=== PATIENT | male | born 1945 | race Caucasian/White ===

== ENCOUNTER 2017-12-20 02:29 | Inpatient (IN) | payer MEDICARE, SELFPAY ==
[2017-12-20] VITALS (28 sets, daily range): BP systolic 113–184; BP diastolic 44–87; PULSE 65–89; RESP 14–23; TEMP 35.8–36.8; O2SAT 92–100; BMI 40.4; BMI 39.3
--- NOTE | 2017-12-20 02:33 | EKG12_ITS ---
Test Reason : CP Blood Pressure : / mmHG Vent. Rate : 085 BPM Atrial Rate : 085 BPM P-R Int : 192 ms QRS Dur : 092 ms QT Int : 336 ms P-R-T Axes : 062 -32 051 degrees QTc Int : 399 ms Normal sinus rhythm Left axis deviation Abnormal ECG Confirmed by EMIGDIO TURNER, EFRA ([id number]), television news video editor MOI ECKERT ([id number]) on 12/20/2017 2:28:19 PM Referred By: CAMI Confirmed By:EFRA BEAL MD
--- NOTE | 2017-12-20 02:33 | RAD_ITS ---
STUDY: X-RAY CHEST REASON FOR EXAM: Male, 72 years old. Chest pain TECHNIQUE: Single frontal view of the chest. COMPARISON: 02/13/2017 FINDINGS: The lungs are clear and expanded. There is no demonstrated pleural abnormality. Normal size heart. Normal mediastinum and [place]. Normal visualized pulmonary arteries. Normal visualized aortic arch and descending thoracic aorta. There are diffuse degenerative changes of the visualized thoracic spine. Multiple right rib fusions. There is no demonstrated abnormality of the visualized soft tissue structures of the upper abdomen. RAD/Chest 1 View (Portable) IMPRESSION: No acute pulmonary findings. Electronically Signed: Tyron Ordoñez MD at 3:50 EDT Tel , Service support ,
[2017-12-20 02:41] LABS: Absolute Lymphocyte Count 2.22 X10^3/ul (0.83-4.51); Absolute Neutrophil Count 5.8 X10^3/uL (2.0-7.7); Basophil# 0.02 X10^3/uL; Basophil% 0.2 % (0-1); Eosinophil# 0.31 X10^3/uL; Eosinophils% 3.4 % (0-5); Hematocrit 40.7 % (40-54); Hemoglobin 13.2 g/dl (13.0-16.5); Lymphocyte # 2.22 X10^3/ul (4.0); Lymphocyte % 24.4 % (19-41); Mean Corp Hgb Conc 32.4 g/gl (32-36); Mean Corpuscular Hgb 27.9 pg (27.0-32.0); Mean Platelet Vol. 9.8 fl (6.2-12.0); Monocyte# 0.73 X10^3/uL; Neutrophil % 63.7 % (47-70); Platelet Count 263 K/mm3 (150-450); RBC Distribution Width SD 47.2 fl (35.1-43.9); Red Blood Count 4.73 M/mm3 (4.6-6.2); White Blood Count 9.1 K/mm3 (4.4-11.0)
[2017-12-20 02:42] LABS: POSITIVE COUNT NO; POSITIVE DIFFERENTIAL NO; POSITIVE MORPHOLOGY NO
[2017-12-20] MEDS: fentaNYL 100 MCG/2 ML Ampul 50 MCG IV (02:43)
[2017-12-20 02:58] LABS: Anion Gap 5 (5-15); BUN 30 mg/dL (7-18); BUN/Creat Ratio 22.2 RATIO (10-20); Chloride 104 mmol/L (98-107); Creatinine, Serum 1.35 mg/dL (0.70-1.30); EST Glomerular Filtration Rate 55 mL/min (>60); Est Glom Filt Rate - Afr Amer 67 mL/min (>60); Estimated Creatinine Clearance 48.73 ml/min; Glucose 148 mg/dL (74-106); Sodium Level 139 mmol/L (136-145)
--- NOTE | 2017-12-20 03:17 | ED.DCSUM_ITS ---
- ER Visit Summary Date of Service: 12/20/17 Chief Complaint: Chest pain History of Present Illness: The patient is a 72 M who has chest pain. Started an hour and a half ago while he was sleeping. It sharp in the left parasternal area. It radiates to his left jaw and left arm. Nothing makes it better or worse. He tried 3 nitroglycerin at home without any relief. He took aspirin as well. In March 2016 he had a cardiac catheterization, but no stenting was done. His blocking machine tender is Dr. Damon Physical Examination: Vital signs reviewed. HEENT exam unremarkable. Heart is regular rate and rhythm without murmurs. Lungs are clear to auscultation. Abdomen is soft and nontender. Extremities reveal no edema. Skin exam normal. Neurologic exam normal. Test Results: EKG is normal sinus rhythm with no ST changes. Laboratory studies reveal a troponin of 0.21. Chest x-ray unremarkable Emergency Department Course and Treatment: Patient was given fentanyl and this helped with his pain. Due to his elevated troponin I feel he should be admitted to the hospital. Patient was discussed with the hospitalist for admission Treatment Plan: [] Disposition: Admit Impression: Chest pain This note was generated with [employer] dictation software. It may contain incorrect words, spelling, and punctuation that were not noted in review of the chart prior to signing ED Disposition - Plan for ED Patient: Chief Complaint: Chest Pain Referrals: Casey Handley [Primary Care Provider] -
--- NOTE | 2017-12-20 03:33 | PCM.HP.STD ---
Problem List (1) NSTEMI (non-ST elevated myocardial infarction) Status: Acute (2) Diabetes Status: Chronic (3) Gout Status: Chronic (4) Pseudotumor cerebri Status: Chronic (5) Restless leg syndrome Status: Chronic (6) CAD (coronary artery disease) Status: Chronic (7) VTE (venous thromboembolism) Status: Chronic History of Present Illness Date of Admission: 12/20/17 Chief Complaint: chest pain The patient is a 72 year old M with a known history of coronary artery disease was in his normal state of health but awoke this morning at 1230 with chest pain that started midsternally then radiated to the left side of his chest, then down his left arm and on his left jaw. Patient took 3 series of nitroglycerin without relief. Given that the symptoms are similar to when he has had a heart attack before patient presented to the emergency room. Patient in the emergency room received fentanyl as well as morphine and his pain has completely resolved. With this episode, patient was diaphoretic with nausea but no vomiting. In the emergency room, patient's troponin was 0.21. Patient is being admitted for a non-ST elevation myocardial infarction. [] Past Medical History Past Medical History (Chronic Problems): Chronic Problems VTE (venous thromboembolism) (Chronic) Diabetes (Chronic) Gout (Chronic) Pseudotumor cerebri (Chronic) Restless leg syndrome (Chronic) CAD (coronary artery disease) (Chronic) Allergies morphine Adverse Reaction (Verified 12/20/17 02:33) HALLUCINATIONS HALLUCINATIONS promethazine HCl [From Phenergan] Adverse Reaction (Verified 12/20/17 02:33) GET JUMPY Home Medications: Ambulatory Orders Medication Instructions Recorded Allopurinol [Zyloprim] 100 mg PO DAILY 09/21/15 Acetaminophen [Tylenol] 1,000 mg PO Q8 #90 tablet 02/15/17 Glimepiride [Amaryl] 2 mg PO DAILY@0800 #14 tablet 02/15/17 Calcium/Magnesium/Vitamin D3 1 each PO DAILY 12/20/17 [Sang-Mag Complex 300-150 mg Tab] Cholecalciferol (Vitamin D3) 1,000 unit PO DAILY 12/20/17 [Vitamin D3] Lisinopril [Zestril] 5 mg PO DAILY 12/20/17 Pramipexole Di-HCl [Mirapex] 1 mg PO 4X/DAY 12/20/17 Vitamin E 1,000 unit PO DAILY 12/20/17 Surgical History: - - STENTS,rib and shoulder surgery.total of 5 knee surgeries Psychiatric History: No pertinent psych hx Lives: Spouse/ Significant Other Smoking Status: Never smoker Tobacco Use: Non-smoker Alcohol: None Drugs: None - *Family History Paternal History Items: Heart Disease Review of Systems Constitutional: Denies: Chills, Fever, Weight Change Eyes: Denies: Blurred vision, Double vision HEENT: Denies: Head Aches, Sinus Congestion, Sinus Drainage Cardiovascular: Reports: Chest Pain. Denies: Edema, Palpitations Respiratory: Denies: Cough, Shortness of breath at rest, Sputum production Gastrointestinal: Reports: Nausea. Denies: Abdominal Pain, Vomiting Genitourinary: Denies: Dysuria Musculoskeletal: Reports: Neck Pain, - - Left arm pain when he was having the chest pain but now resolved. Skin: Denies: Rash, Wounds Neurological: Denies: Numbness, Tingling, Focal weakness Psychiatric: Denies: Anxiety, Depression Endocrine: Denies: Change in Body Habitus, Heat/ Cold Intolerance Hematologic/ Lymphatic: Reports: Hx of blood clot - After such a surgery ?1.. Denies: Easy Bruising, Easy Bleeding VTE Information - Inpt Only VTE Present on Admission: No Patient Problems: Active and Suspected Problems NSTEMI (non-ST elevated myocardial infarction) (Acute) - Physical Exam General: Alert, Cooperative, No apparent distress, - - No respiratory distress. No conversational dyspnea. HEENT: Atraumatic, Normocephalic Oral: Moist Mucosa, No Gingival or Mucosal Lesions/ Ulcerations Neck: No Nodes, Thyroid Normal Size and Texture Lungs: Clear to auscultation, Normal air movement, No rhonchi, No wheeze Cardiovascular: Regular rate, Regular Rhythm, Normal S1, Normal S2, No murmurs Abdomen: Bowel Sounds Present, Soft, Non Tender, Non-Distended, No Hepato-splenomegaly Extremities: No clubbing, No cyanosis, No edema, Capillary Refill Less than 3 Seconds Skin: No rashes, No breakdown, - - Longitudinal scar of the left arm and bilateral anterior knees Musculoskeletal: No Tenderness to Palpation of Joints or Extremities, No Muscle Wasting Neurological: Neuro grossly intact, Muscle tone normal, Coordination normal Psych/Mental Status: Normal Affect, Appropriate Vital Signs Temp Pulse Resp BP Pulse Ox 36.7 C 82 14 137/78 H 98 12/20/17 03:17 12/20/17 03:17 12/20/17 03:17 12/20/17 03:17 12/20/17 03:17 Oxygen Flow Rate (L/min) 2 Oxygen Delivery Method Nasal Cannula Weight: 124 kg Body Mass Index (BMI) 40.4 Finger Stick Blood Glucose 293 Laboratory Tests Past 24 Hrs 12/20/17 12/20/17 02:35 02:35 WBC 9.1 RBC 4.73 Hgb 13.2 Hct 40.7 MCV 86.0 MCH 27.9 MCHC 32.4 RDW 15.0 H RDW Differential 47.2 H Plt Count 263 MPV 9.8 Immature Gran % (Auto) 0.300 Neut % (Auto) 63.7 Lymph % (Auto) 24.4 [place] % (Auto) 8.0 Eos % (Auto) 3.4 Baso % (Auto) 0.2 Absolute Neuts (auto) 5.8 Absolute Lymphs (auto) 2.22 Total Counted Not Reportable Sodium 139 Potassium 4.0 Chloride 104 Carbon Dioxide 30.0 Anion Gap 5 BUN 30 H Creatinine 1.35 H Estim Creat Clear Calc 48.73 Est GFR (MDRD) Af Amer 67 Est GFR (MDRD) Non-Af 55 L BUN/Creatinine Ratio 22.2 H Glucose 148 H Calcium 9.0 Troponin I 0.21 H EKG reviewed and showed no normal sinus rhythm with no acute process. Chest x-ray reviewed and was unremarkable. Assessment/Plan Active and Suspected Problems NSTEMI (non-ST elevated myocardial infarction) (Acute) 1. Non-ST elevation myocardial infarction Patient had classic chest pain is left-sided down his arm and up his jaw and with a slight elevation of troponin of 0.21. Will continue to cycle his troponins for 2 more sets Consult cardiology, patient's jboss architect is Dr. Damon. Start aspirin, start therapeutic dosing of Lovenox. I will not order a stress test but will wait on cardiology's recommendations for further testing whether would be actual stress test or a heart catheterization. Patient will be tentatively n.p.o. at 8 AM pending cardiology's input. 2. Diabetes mellitus type 2 Patient be on a sliding scale for now. 3. Chronic kidney disease stage III Creatinine appears at baseline. Would continue to monitor. 4. DVT prophylaxis: Patient will be anticoagulated at this time. 5. Advanced directives: Discussed CPR and endotracheal intubation with the patient. Patient initially stated that he did not wish to be resuscitated. Patient's expressed concern in regards to that. I recommend that he and her more directly before committing to a CODE STATUS. Also told him that if patient does undergo a left heart catheterization there could be potential for an arrhythmia and that I recommended full CODE STATUS at this time. So patient was in agreement to that but did encourage that he and his family further discuss advanced directives at a later point. Code Visit Inpatient E&M: 48925 Init Hosp L3
--- NOTE | 2017-12-20 03:41 | HP.PCM_ITS ---
Problem List (1) NSTEMI (non-ST elevated myocardial infarction) Status: Acute (2) Diabetes Status: Chronic (3) Gout Status: Chronic (4) Pseudotumor cerebri Status: Chronic (5) Restless leg syndrome Status: Chronic (6) CAD (coronary artery disease) Status: Chronic (7) VTE (venous thromboembolism) Status: Chronic History of Present Illness Date of Admission: 12/20/17 Chief Complaint: chest pain The patient is a 72 year old M with a known history of coronary artery disease was in his normal state of health but awoke this morning at 1230 with chest pain that started midsternally then radiated to the left side of his chest, then down his left arm and on his left jaw. Patient took 3 series of nitroglycerin without relief. Given that the symptoms are similar to when he has had a heart attack before patient presented to the emergency room. Patient in the emergency room received fentanyl as well as morphine and his pain has completely resolved. With this episode, patient was diaphoretic with nausea but no vomiting. In the emergency room, patient's troponin was 0.21. Patient is being admitted for a non-ST elevation myocardial infarction. [] Past Medical History Past Medical History (Chronic Problems): Chronic Problems VTE (venous thromboembolism) (Chronic) Diabetes (Chronic) Gout (Chronic) Pseudotumor cerebri (Chronic) Restless leg syndrome (Chronic) CAD (coronary artery disease) (Chronic) Allergies morphine Adverse Reaction (Verified 12/20/17 02:33) HALLUCINATIONS HALLUCINATIONS promethazine HCl [From Phenergan] Adverse Reaction (Verified 12/20/17 02:33) GET JUMPY Home Medications: Ambulatory Orders Medication Instructions Recorded Allopurinol [Zyloprim] 100 mg PO DAILY 09/21/15 Acetaminophen [Tylenol] 1,000 mg PO Q8 #90 tablet 02/15/17 Glimepiride [Amaryl] 2 mg PO DAILY@0800 #14 tablet 02/15/17 Calcium/Magnesium/Vitamin D3 1 each PO DAILY 12/20/17 [Sang-Mag Complex 300-150 mg Tab] Cholecalciferol (Vitamin D3) 1,000 unit PO DAILY 12/20/17 [Vitamin D3] Lisinopril [Zestril] 5 mg PO DAILY 12/20/17 Pramipexole Di-HCl [Mirapex] 1 mg PO 4X/DAY 12/20/17 Vitamin E 1,000 unit PO DAILY 12/20/17 Surgical History: - - STENTS,rib and shoulder surgery.total of 5 knee surgeries Psychiatric History: No pertinent psych hx Lives: Spouse/ Significant Other Smoking Status: Never smoker Tobacco Use: Non-smoker Alcohol: None Drugs: None - *Family History Paternal History Items: Heart Disease Review of Systems Constitutional: Denies: Chills, Fever, Weight Change Eyes: Denies: Blurred vision, Double vision HEENT: Denies: Head Aches, Sinus Congestion, Sinus Drainage Cardiovascular: Reports: Chest Pain. Denies: Edema, Palpitations Respiratory: Denies: Cough, Shortness of breath at rest, Sputum production Gastrointestinal: Reports: Nausea. Denies: Abdominal Pain, Vomiting Genitourinary: Denies: Dysuria Musculoskeletal: Reports: Neck Pain, - - Left arm pain when he was having the chest pain but now resolved. Skin: Denies: Rash, Wounds Neurological: Denies: Numbness, Tingling, Focal weakness Psychiatric: Denies: Anxiety, Depression Endocrine: Denies: Change in Body Habitus, Heat/ Cold Intolerance Hematologic/ Lymphatic: Reports: Hx of blood clot - After such a surgery ?1.. Denies: Easy Bruising, Easy Bleeding VTE Information - Inpt Only VTE Present on Admission: No Patient Problems: Active and Suspected Problems NSTEMI (non-ST elevated myocardial infarction) (Acute) - Physical Exam General: Alert, Cooperative, No apparent distress, - - No respiratory distress. No conversational dyspnea. HEENT: Atraumatic, Normocephalic Oral: Moist Mucosa, No Gingival or Mucosal Lesions/ Ulcerations Neck: No Nodes, Thyroid Normal Size and Texture Lungs: Clear to auscultation, Normal air movement, No rhonchi, No wheeze Cardiovascular: Regular rate, Regular Rhythm, Normal S1, Normal S2, No murmurs Abdomen: Bowel Sounds Present, Soft, Non Tender, Non-Distended, No Hepato- splenomegaly Extremities: No clubbing, No cyanosis, No edema, Capillary Refill Less than 3 Seconds Skin: No rashes, No breakdown, - - Longitudinal scar of the left arm and bilateral anterior knees Musculoskeletal: No Tenderness to Palpation of Joints or Extremities, No Muscle Wasting Neurological: Neuro grossly intact, Muscle tone normal, Coordination normal Psych/Mental Status: Normal Affect, Appropriate Vital Signs Temp Pulse Resp BP Pulse Ox 36.7 C 82 14 137/78 H 98 12/20/17 03:17 12/20/17 03:17 12/20/17 03:17 12/20/17 03:17 12/20/17 03:17 Oxygen Flow Rate (L/min) 2 Oxygen Delivery Method Nasal Cannula Weight: 124 kg Body Mass Index (BMI) 40.4 Finger Stick Blood Glucose 293 Laboratory Tests Past 24 Hrs 12/20/17 12/20/17 02:35 02:35 WBC 9.1 RBC 4.73 Hgb 13.2 Hct 40.7 MCV 86.0 MCH 27.9 MCHC 32.4 RDW 15.0 H RDW Differential 47.2 H Plt Count 263 MPV 9.8 Immature Gran % (Auto) 0.300 Neut % (Auto) 63.7 Lymph % (Auto) 24.4 [place] % (Auto) 8.0 Eos % (Auto) 3.4 Baso % (Auto) 0.2 Absolute Neuts (auto) 5.8 Absolute Lymphs (auto) 2.22 Total Counted Not Reportable Sodium 139 Potassium 4.0 Chloride 104 Carbon Dioxide 30.0 Anion Gap 5 BUN 30 H Creatinine 1.35 H Estim Creat Clear Calc 48.73 Est GFR (MDRD) Af Amer 67 Est GFR (MDRD) Non-Af 55 L BUN/Creatinine Ratio 22.2 H Glucose 148 H Calcium 9.0 Troponin I 0.21 H EKG reviewed and showed no normal sinus rhythm with no acute process. Chest x-ray reviewed and was unremarkable. Assessment/Plan Active and Suspected Problems NSTEMI (non-ST elevated myocardial infarction) (Acute) 1. Non-ST elevation myocardial infarction * Patient had classic chest pain is left-sided down his arm and up his jaw and with a slight elevation of troponin of 0.21. * Will continue to cycle his troponins for 2 more sets * Consult cardiology, patient's road mechanic is Dr. Damon. * Start aspirin, start therapeutic dosing of Lovenox. * I will not order a stress test but will wait on cardiology's recommendations for further testing whether would be actual stress test or a heart catheterization. Patient will be tentatively n.p.o. at 8 AM pending cardiology' s input. 2. Diabetes mellitus type 2 * Patient be on a sliding scale for now. 3. Chronic kidney disease stage III * Creatinine appears at baseline. Would continue to monitor. 4. DVT prophylaxis: Patient will be anticoagulated at this time. 5. Advanced directives: Discussed CPR and endotracheal intubation with the patient. Patient initially stated that he did not wish to be resuscitated. Patient's expressed concern in regards to that. I recommend that he and her more directly before committing to a CODE STATUS. Also told him that if patient does undergo a left heart catheterization there could be potential for an arrhythmia and that I recommended full CODE STATUS at this time. So patient was in agreement to that but did encourage that he and his family further discuss advanced directives at a later point. Code Visit Inpatient E&M: 64770 Init Hosp L3
[2017-12-20 06:06] LABS: Prothrombin Time (Protime)PT. 12.7 SECONDS (11.7-14.9)
[2017-12-20 06:07] LABS: Partial Thromboplast Time 26.4 Seconds (24.1-36.2)
[2017-12-20 06:40] LABS: Cholesterol 191 mg/dL (200); High Density Lipoprotein 38 mg/dL; Triglycerides 238 mg/dL; Very Low Density Lipoprotein 48 mg/dL (5-40)
[2017-12-20] MEDS: Acetaminophen 500 MG Tablet 1000 MG PO (06:59)
[2017-12-20 07:06] LABS: Bedside Glucose 100 mg/dL (70-110)
[2017-12-20] MEDS: 0.9% Normal Saline 1,000 ML 15 ML IV (08:06)
[2017-12-20] MEDS: TICAGRELOR 90 MG TABLET 180 MG PO (08:06)
--- NOTE | 2017-12-20 08:07 | CON.PCM_ITS ---
Reason for Consult Date of Consultation: 12/20/17 Reason for Consultation: Chest discomfort. History of Present Illness: The patient is a 72 year old M with a known history of coronary artery disease who presented to the emergency room yesterday after complaining of significant crushing chest discomfort radiating to the left side of his jaw and his left arm. He was mildly diaphoretic with no nausea no dizziness no palpitations. He said that he uses nitroglycerin sublingually 3 times and also took aspirin. He had not had any previous chest discomfort. He says that this was similar to when he had his stents placed. He presented to the emergency room was evaluated his EKG was noted to be normal he had minimal troponin changes and was admitted to the telemetry care unit. This morning further troponin enzymes were noted to be abnormal cardiology was called for evaluation and management. He is currently pain-free. His past medical history is significant for previously placed stents in [place]. He had an LAD stent placed at that time. In addition he has had multiple procedures with intravascular ultrasound of his left anterior descending artery as well as a cutting balloon procedure in 2009 as well as 2015. [] Past Medical History Allergies/Adverse Reactions: Allergies morphine Adverse Reaction (Verified 12/20/17 02:33) HALLUCINATIONS HALLUCINATIONS promethazine HCl [From Phenergan] Adverse Reaction (Verified 12/20/17 02:33) GET JUMPY Home Medications: Ambulatory Orders Medication Instructions Recorded Allopurinol [Zyloprim] 100 mg PO DAILY 09/21/15 Acetaminophen [Tylenol] 1,000 mg PO Q8 #90 tablet 02/15/17 Glimepiride [Amaryl] 2 mg PO DAILY@0800 #14 tablet 02/15/17 Calcium/Magnesium/Vitamin D3 1 each PO QHS 12/20/17 [Sang-Mag Complex 300-150 mg Tab] Lisinopril [Zestril] 5 mg PO DAILY 12/20/17 Pramipexole Di-HCl [Mirapex] 1 mg PO 4X/DAY 12/20/17 Vitamin E 1,000 unit PO QHS 12/20/17 Past Medical History (Chronic Problems): Chronic Problems CKD (chronic kidney disease), stage III (Chronic) VTE (venous thromboembolism) (Chronic) Diabetes (Chronic) Gout (Chronic) Pseudotumor cerebri (Chronic) Restless leg syndrome (Chronic) CAD (coronary artery disease) (Chronic) Surgical History: - - STENTS,rib and shoulder surgery.total of 5 knee surgeries Psychiatric History: No pertinent psych hx - *Family History Paternal History Items: Heart Disease Lives: Spouse/ Significant Other Smoking Status: Never smoker Tobacco Use: Non-smoker Alcohol: None Drugs: None Review of Systems - Review of Systems General: Denies: Fever, Night Sweats, Fatigue Cardiovascular: Reports: Chest Discomfort at Rest, Chest Pressure, Chest Tightness. Denies: Chest Discomfort, Shortness of Breath, Orthopnea, PND, Peripheral Edema, Palpitations, Lightheadedness, Dizziness, Near Syncope, Syncope Respiratory: Denies: Cough, Sputum Production, Hemoptysis Gastrointestinal: Denies: Hematemesis, Hematochezia, Melena Genitourinary: Denies: Dysuria, Hematuria Skin: Denies: Rash Subjectve: Pleasant gentleman in no apparent distress. Objective: Vital Signs Temp Pulse Resp BP Pulse Ox 96.5 F L 65 18 166/73 H 98 12/20/17 04:16 12/20/17 07:34 12/20/17 04:16 12/20/17 04:16 12/20/17 04:16 Oxygen Flow Rate (L/min) 2 Oxygen Delivery Method Nasal Cannula Weight: 265 lb 6.985 oz Body Mass Index (BMI) 39.3 Intake and Output for Last 24 Hours 12/18/17 12/19/17 12/20/17 23:59 23:59 23:59 Intake Total 0 / 0 Output Total 150 / 150 Balance -150 / -150 General: Awake, Alert, Oriented x 3 HEENT: PERRL, EOMI, Sclera Non Icteric Neck: Supple, Good ROM, No Lymph Node Enlargement Lungs: Clear to auscultation Cardiovascular: Regular Rhythm, Normal S1, Normal S2, No Murmurs, No Rubs, No Gallops Vascular: No Carotid Bruits, Normal Femoral Pulses, Normal Radial Pulses, Normal Dorsalis Pedal Pulse, Normal Posterior Tibial Pulses Abdomen: Bowel Sounds Present, Soft, Non Tender, No HSM, No Organomegaly Extremities: No Cyanosis, No Clubbing, No edema Neurological: No Focal Motor or Sensory Deficit 12/20/17 05:35: Troponin I 3.55 H*, Triglycerides 238 H, Cholesterol 191, LDL Cholesterol 105, VLDL Cholesterol 48 H, HDL Cholesterol 38 L 12/20/17 05:35: PT 12.7, INR 1.0, APTT 26.4 Rhythm: EKG:NSR Assessment/Plan 1. Non-ST elevation myocardial infarction. Patient presents with chest discomfort and a non-ST elevation myocardial infarction. He did have classic angina symptoms. My recommendation at this time would be for him to loaded with Brilinta continue the aspirin, start him on a beta-adilene and schedule him for a left heart catheterization. The risk benefits and alternatives have been explained to him he understands and agrees to proceed. Further recommendations be made based on the above results. He underwent a cardiac catheterization this morning and it demonstrated a normal left main coronary artery Left anterior descending artery with the previously placed stent with mild in- stent stenosis. Mid to distal left anterior descending artery with a 70% stenotic lesion. Nondominant left circumflex artery with no significant disease. Right coronary artery with no significant disease. Preserved ejection fraction. Based on the above angiographic findings the patient would be referred for and recommended to have an angioplasty of the mid to distal left anterior descending artery. The above has been discussed with the interventionalist 2. Hypertension His blood pressure was noted to be elevated. The plan will be to continue him on his lisinopril and add a beta-adilene to his regimen. 3. Risk factor modification He would need to have aggressive risk factor modification with high intensity statin. Weight loss and exercise have also been emphasized. Thank you for allowing me to participate in the care of your patient. Please don't hesitate to call if any issues arise
[2017-12-20] MEDS: Pramipexole Di-HCl 1 MG Tablet PO ×4 (08:08→21:23)
--- NOTE | 2017-12-20 08:17 | NURSING ---
consent signed for cardiac cath pt voiced understanding of procedure, family present, report called to laboratory veterinarian,
--- NOTE | 2017-12-20 10:31 | CL.D_ITS ---
Patient Name: REGINE ANN Study Date: 12/20/2017 Performing: Luis Miguel Redd MD Ht: 68.89 inches 175 cm : 1945 Wt: 264.55 lbs 120 kg Age: 72 Gender: male BSA: 2.32 PROCEDURE(S) PERFORMED [id number]/COR/LV CLINICAL PROFILE AND INDICATIONS INDICATIONS: 72-year-old man with a history of non-ST elevation myocardial infarction and chest p ain. Stress/Imaging Stress/Image Study Performed: No CONCLUSIONS Significant disease involving the mid to distal left anterior descending artery. RECOMMENDATIONS Referred for immediate PCI DESCRIPTION OF PROCEDURE The patient arrived to the procedure lab. The risks and benefits of the procedure as well as a full d escription of our services here and current unavailability of surgical backup were fully explained to the patient and/or their significant other prior to the catheterization. The Timeout was completed, verifying the correct patient and procedure. The patient's procedural site was prepped and draped in the usual fashion. Local anesthetic was given subcutaneously to right groin region with Lidocaine 2%. Using a modified Seldinger technique, arterial access was obtained via the right femoral artery, a 5 Fr sheath was inserted. Left Coronary Artery selective angiography was performed in multiple views u sing a 5 Fr. JL4 catheter. Right Coronary Artery selective angiography was then performed in multiple views using a 5 Fr. 3DRC (Dominguez) catheter. Left Ventriculography was performed in DICKENS projection using a 5 Fr. Pigtail catheter. LV to AO pullback pressures were then recorded. CORONARY ANGIOGRAPHY DOMINANCE: Right Dominant LEFT HEART ASSESSMENT Left Ventricular Ejection Fraction: by LV Gram 60 % Normal LV wall motion Normal Left Ventricular systolic function LEFT MAIN: Angiographically normal LEFT ANTERIOR DECENDING ARTERY: PROX LAD: Previously placed stent has an instent 30 % restenosis DISTAL LAD: 70 % Stenosis CIRCUMFLEX ARTERY: Angiographically normal RIGHT CORONARY ARTERY: Angiographically normal COMPLICATIONS PROCEDURE MEDICATIONS Versed 1 mg IV Fentanyl 25 mcg IV Versed 1 mg IV Oxygen: 2 L/min via nasal cannula SUMMARY OF HEMODYNAMIC DATA Time AIR REST ECG 09:49:52 AO 154/87 (117) SA 10:07:37 LV 142/15, 26 10:14:54 LV 149/14, 30 10:15:07 LV 67/16, 19 10:16:04 LVp 103/22, 34 10:16:16 AOp 134/74 (100) 10:16:22 Signed By Luis Miguel Redd MD On 12/20/2017 10:30:28 Luis Miguel Redd MD
--- NOTE | 2017-12-20 10:56 | CASEMGMT ---
ROSEANNE CHAPARRO reviewed chart and noted patient was admitted for Chest Pain/NSTEMI and went for cardiac cath this morning. Per chargeback analyst, Alex, patient is being transferred to ICU from cardiac cath lab manager. ROSEANNE CHAPARRO provided brief verbal ROSEANNE CHAPARRO handoff report to Trisha Nicholson, including need for admission assessment. MAGO GrossmanN, RN-BC, CCM
--- NOTE | 2017-12-20 11:00 | EKG12_ITS ---
Test Reason : POST PCI Blood Pressure : / mmHG Vent. Rate : 071 BPM Atrial Rate : 071 BPM P-R Int : 204 ms QRS Dur : 084 ms QT Int : 364 ms P-R-T Axes : 089 -33 040 degrees QTc Int : 395 ms Sinus rhythm with marked sinus arrhythmia Left axis deviation Abnormal ECG When compared with ECG of 20-DEC-2017 02:31, No significant change was found Confirmed by EMIGDIO TURNER, EFRA ([id number]), loan expeditor MOI ECKERT ([id number]) on 12/26/2017 3:54:56 PM Referred By: ASHLEY Confirmed By:EFRA BEAL MD
--- NOTE | 2017-12-20 11:00 | NURSING ---
report called to icu for transfer post cath to icu
[2017-12-20 11:01] LABS: ACT Activated Clotting Time 180 sec (74-137)
--- NOTE | 2017-12-20 11:12 | CL.I_ITS ---
Patient Name: CAIO ANN Study Date: 12/20/2017 Performing: Caio Gutiérrez MD Ht: 68.89 inches 175 cm : 1945 Wt: 264.55 lbs 120 kg Age: 72 Gender: male BSA: 2.32 PROCEDURE(S) PERFORMED [id number] W OR WO PTCA, SINGLE CORONARY ARTERY CLINICAL PROFILE AND CO-MORBIDITIES INDICATIONS: 72-year-old man with a history of non-ST elevation myocardial infarction and chest p ain. Stress/Imaging Stress/Image Study Performed: No CONCLUSIONS Successful PTCA/MACHO of the of distal LAD with a 2.25 x 24 Promus Synergy, post dilated with a 2.5 x 8 NC balloon; 75%-->0%, no dissection. RECOMMENDATIONS Highly recommend quitting all tobacco products Follow up with primary solar energy consultant and designer Risk factor modification ASA Indefinitley Plavix for at least 12 months Routine post interventional care Refer for Outpatient Cardiac Rehab Manual sheath removal per protocol Follow up with Dr. Damon DESCRIPTION OF PROCEDURE The patient arrived to the procedure lab. The risks and benefits of the procedure as well as a full d escription of our services here and current unavailability of surgical backup were fully explained to the patient and/or their significant other prior to the catheterization. The Timeout was completed, verifying the correct patient and procedure. The patient's procedural site was prepped and draped in the usual fashion. Local anesthetic was given subcutaneously to right groin region with Lidocaine 2% Using a modified Seldinger technique,arterial access was obtained via the right femoral artery, a 5Fr sheath was inserted. Left Coronary Artery selective angiography was performed in multiple views usin g a 5 Fr. JL4 catheter. Right Coronary Artery selective angiography was then performed in multiple vi ews using a 5 Fr. 3DRC (Dominguez) catheter. Left Ventriculography was performed in DICKENS projection usi ng a 5 Fr. Pigtail catheter. LV to AO pullback pressures were then recorded.The images were reviewed and options discussed. A decision was then made to proceed with an Intervention, IVUS or other adjunc t procedure. Arterial sheath was exchanged for a 6 Fr Sheath EBU 3.75 Guide catheter was inserted and engaged into the LCA. BMW Guide wire was advanced to the LAD. Angiogram performed pre balloon dilatation. 2.0x12 Emerge Balloon catheter was advanced across lesion in the LAD, distal. PTCA balloon inflated at 8 pati s for 15 secs PTCA balloon inflated at 7 atms for 11 secs 2.25x24 Synergy Drug Eluting stent was adva nced across the lesion in the LAD, distal. 2.5x8 NC Emerge Balloon catheter was inserted post stent. Angiogram performed post stent deployment.. Contrast was injected through the sheath and the Right Il iac and Femoral artery were assessed for possible closure device.. The arterial sheath was pulled an d a Mynx closure device was deployed for hemostasis. INTERVENTION INFORMATION LESION SITE: LAD (Distal) Lesion Complexity: High/C, lesion length: 24 mm, culprit lesion: Yes, lesion at bifurcation: No Pre Stenosis: 75 % Pre intervention JACOB flow: 3 PROCEDURE: Drug Eluting Stent with pre and post dilatation Post Stenosis: 0 % Post intervention JACOB flow: 3 Lesion Devices: [employer] 6 Fr EBU3.75 100cm Guide Catheter Wilner Sci EMERGE MR 2.00x12 BALLOON Wilner Sci Synergy MR MACHO 2.25x24 Wilner Sci NC EMERGE MR 2.50x08 BALLOON COMPLICATIONS No Complications PROCEDURE MEDICATIONS Versed 1 mg IV Fentanyl 25 mcg IV Versed 1 mg IV Oxygen: 2 L/min via nasal cannula Heparin 6000 unit(s) IV 12/20/2017 10:31:32 Nitro 200 mcg IC 12/20/2017 10:33:24 Nitro 200 mcg IC 12/20/2017 10:33:24 Nitro 200 mcg IC 12/20/2017 10:38:03 IV Fluids: .9 NaCl increased to open ml/hr 12/20/2017 10:31:40 SUMMARY OF HEMODYNAMIC DATA Time AIR REST ECG 09:49:52 AO 154/87 (117) SA 10:07:37 LV 142/15, 26 10:14:54 LV 149/14, 30 10:15:07 LV 67/16, 19 10:16:04 LVp 103/22, 34 10:16:16 AOp 134/74 (100) 10:16:22 Signed By Caio Gutiérrez MD On 12/20/2017 11:11:38 AM Caio Gutiérrez MD
[2017-12-20] MEDS: 0.9% Normal Saline 1,000 ML 150 ML IV (11:38)
[2017-12-20] MEDS: Lisinopril 5 MG Tablet PO (11:40)
[2017-12-20 11:50] LABS: Hematocrit 39.5 % (40-54); Hemoglobin 12.4 g/dl (13.0-16.5); Mean Corp Hgb Conc 31.4 g/gl (32-36); Mean Corpuscular Hgb 27.4 pg (27.0-32.0); Mean Corpuscular Volume 87.4 fL (80-94); Mean Platelet Vol. 10.1 fl (6.2-12.0); Platelet Count 231 K/mm3 (150-450); RBC Distribution Width CV 15.1 % (11.6-14.6); RBC Distribution Width SD 48.4 fl (35.1-43.9); Red Blood Count 4.52 M/mm3 (4.6-6.2); Scan Indicated on CBC? Y/N NO; White Blood Count 7.7 K/mm3 (4.4-11.0)
[2017-12-20 12:19] LABS: CPK Total, Creatine Kinase 279 U/L (39-308)
[2017-12-20 12:53] LABS: M R Staph aureus DNA By PCR Negative (Negative); Probe Check PASS; Specimen Processing Control PASS
[2017-12-20 12:55] LABS: Bedside Glucose 85 mg/dL (70-110)
[2017-12-20] MEDS: Allopurinol 100 MG Tablet PO (13:07)
[2017-12-20] MEDS: Vitamin E 400 UNITS Capsule 800 UNITS PO (13:07)
[2017-12-20] MEDS: Calcium Carb/Vitamin D 1 TABLET Tablet PO (13:07)
--- NOTE | 2017-12-20 14:07 | CRPHASE1 ---
Patient Data/Charges Rn Neonatal:: Constantine Damon PCP:: Casey Handley Mt Date/Diagnosis #1:: 12/20/17 Heart cath w/int/PCI Risk Factors/Lifestyle Smoking Status: Never smoker Hx Hypertension: Yes Hx Diabetes Mellitus Type 2: Yes Hx Obesity: Yes Height: 1.73 m Weight:: 120.4 kg BMI: 40.4 ETOH: No Substance Abuse: No Past Cardiac Illness: Coronary Artery Disease, Previous PCI w/Stent Laboratory Values: Cardiac Rehab Phase I Labs Triglycerides 238 mg/dL (-199) H 12/20/17 05:35 Cholesterol 191 mg/dL (200) 12/20/17 05:35 LDL Cholesterol 105 mg/dL (0-130) 12/20/17 05:35 HDL Cholesterol 38 mg/dL (40-) L 12/20/17 05:35 Phase I Education Given On:: [place] Knowledge of Condition:: Yes Medical/Surgical History NM:: Yes Angina:: Yes CAD:: Yes Diabetes:: Yes Hypertension:: Yes DVT:: Yes Renal:: Yes - kidney stones Discharge/Home/Social Eval Discharge Disposition: Home Marital Status:
--- NOTE | 2017-12-20 14:12 | CRPHASE1_ITS ---
Patient Data/Charges Collector Of Port:: Constantine Damon PCP:: Casey Handley Mt Date/Diagnosis #1:: 12/20/17 Heart cath w/int/PCI Risk Factors/Lifestyle Smoking Status: Never smoker Hx Hypertension: Yes Hx Diabetes Mellitus Type 2: Yes Hx Obesity: Yes Height: 1.73 m Weight:: 120.4 kg BMI: 40.4 ETOH: No Substance Abuse: No Past Cardiac Illness: Coronary Artery Disease, Previous PCI w/Stent Laboratory Values: Cardiac Rehab Phase I Labs Triglycerides 238 mg/dL (-199) H 12/20/17 05:35 Cholesterol 191 mg/dL (200) 12/20/17 05:35 LDL Cholesterol 105 mg/dL (0-130) 12/20/17 05:35 HDL Cholesterol 38 mg/dL (40-) L 12/20/17 05:35 Phase I Education Given On:: [place] Knowledge of Condition:: Yes Medical/Surgical History VA:: Yes Angina:: Yes CAD:: Yes Diabetes:: Yes Hypertension:: Yes DVT:: Yes Renal:: Yes - kidney stones Discharge/Home/Social Eval Discharge Disposition: Home Marital Status:
--- NOTE | 2017-12-20 14:12 | CRPH1.INSTRU ---
General Education CAD and cardiac anatomy and function:: Needs reinforcement Explanation of diagnoses and procedures:: Needs reinforcement Sign/Symptoms of NC:: Needs reinforcement Antiplatelet therapy: Patient communicates acknowledgment, Needs reinforcement Proper use of NTG-SL: Patient communicates acknowledgment, Family communicates acknowledgment Emergency procedures and activation of EMS: Needs reinforcement Compliance of all prescribed medications: Not instructed Smoking Nicotine/Smoking Response Code:: Not instructed Dyslipidemia Recommendations Include:: Lipid profile provided Overweight/Obesity Patient Overweight/Obesity Risk Factors Are:: Obesity - > or = 30 Overweight/Obesity:: Not instructed Hypertension Hypertension:: Not instructed Heart Disease Heart Disease Response Code:: Not instructed Diabetes Diabetes:: Needs reinforcement Metabolic Syndrome Metabolic Syndrome Response Code:: Needs reinforcement Sedentary Sedentary Response Code:: Not instructed Stress Stress Response Code:: Not instructed
--- NOTE | 2017-12-20 14:44 | CASEMGMT ---
See RN CM Assessment link. DC Plan: home. No dc needs identified. [employer] savings card given to . Art CURRY RN
[2017-12-20 16:41] LABS: Bedside Glucose 107 mg/dL (70-110)
[2017-12-20 16:50] LABS: Hematocrit 39.1 % (40-54); Hemoglobin 12.3 g/dl (13.0-16.5); Mean Corp Hgb Conc 31.5 g/gl (32-36); Mean Corpuscular Hgb 27.3 pg (27.0-32.0); Mean Corpuscular Volume 86.9 fL (80-94); Mean Platelet Vol. 9.8 fl (6.2-12.0); Platelet Count 222 K/mm3 (150-450); RBC Distribution Width CV 15.1 % (11.6-14.6); RBC Distribution Width SD 48.1 fl (35.1-43.9); White Blood Count 7.2 K/mm3 (4.4-11.0)
[2017-12-20 16:58] LABS: Magnesium 1.8 mg/dL (1.6-2.6); Potassium 4.1 mmol/L (3.5-5.1)
[2017-12-20 17:00] LABS: Scan Indicated on CBC? Y/N NO
[2017-12-20] MEDS: 0.9% NaCl Peripheral Flush Adult/Peds IV (17:05)
[2017-12-20 17:20] LABS: CPK Total, Creatine Kinase 236 U/L (39-308)
[2017-12-20] MEDS: Metoprolol Tartrate 25 MG Tablet PO (19:42)
[2017-12-20 21:30] LABS: Bedside Glucose 147 mg/dL (70-110)
[2017-12-20 23:10] LABS: Hematocrit 36.6 % (40-54); Mean Corp Hgb Conc 32.8 g/gl (32-36); Mean Corpuscular Hgb 28.4 pg (27.0-32.0); Mean Corpuscular Volume 86.5 fL (80-94); Platelet Count 230 K/mm3 (150-450); RBC Distribution Width CV 14.9 % (11.6-14.6); RBC Distribution Width SD 46.4 fl (35.1-43.9); Red Blood Count 4.23 M/mm3 (4.6-6.2); White Blood Count 8.4 K/mm3 (4.4-11.0)
[2017-12-20 23:16] LABS: Scan Indicated on CBC? Y/N NO
[2017-12-20 23:28] LABS: CPK Total, Creatine Kinase 189 U/L (39-308)
[2017-12-21] VITALS (13 sets, daily range): BP systolic 119–162; BP diastolic 61–82; PULSE 64–78; RESP 15–21; TEMP 36.3–36.8; O2SAT 94–97
--- NOTE | 2017-12-21 05:55 | EKG12_ITS ---
Test Reason : AM EKG Blood Pressure : / mmHG Vent. Rate : 068 BPM Atrial Rate : 068 BPM P-R Int : 192 ms QRS Dur : 092 ms QT Int : 364 ms P-R-T Axes : 075 -30 048 degrees QTc Int : 387 ms Normal sinus rhythm Left axis deviation Abnormal ECG When compared with ECG of 20-DEC-2017 11:28, MANUAL COMPARISON REQUIRED, DATA IS UNCONFIRMED Confirmed by EMIGDIO TURNER, EFRA ([id number]), editor school photograph MOI ECKERT ([id number]) on 12/26/2017 3:54:44 PM Referred By: SUSAN Confirmed By:EFRA BEAL MD
[2017-12-21 08:26] LABS: Bedside Glucose 121 mg/dL (70-110)
[2017-12-21 09:07] LABS: Hematocrit 39.7 % (40-54); Hemoglobin 12.8 g/dl (13.0-16.5); Mean Corp Hgb Conc 32.2 g/gl (32-36); Mean Corpuscular Hgb 27.8 pg (27.0-32.0); Mean Corpuscular Volume 86.3 fL (80-94); Platelet Count 238 K/mm3 (150-450); RBC Distribution Width CV 14.9 % (11.6-14.6); RBC Distribution Width SD 47.2 fl (35.1-43.9); Scan Indicated on CBC? Y/N NO; White Blood Count 10.1 K/mm3 (4.4-11.0)
[2017-12-21 09:08] LABS: Anion Gap 7 (5-15); BUN 18 mg/dL (7-18); BUN/Creat Ratio 16.5 RATIO (10-20); Calcium,Total 8.6 mg/dL (8.5-10.1); Chloride 103 mmol/L (98-107); Creatinine, Serum 1.09 mg/dL (0.70-1.30); EST Glomerular Filtration Rate 70 mL/min (>60); Est Glom Filt Rate - Afr Amer 85 mL/min (>60); Estimated Creatinine Clearance 58.39 ml/min; Glucose 138 mg/dL (74-106); Potassium 4.4 mmol/L (3.5-5.1); Sodium Level 139 mmol/L (136-145)
--- NOTE | 2017-12-21 09:09 | PCM.PROGNOTE ---
Patient Problems: Active and Suspected Problems NSTEMI (non-ST elevated myocardial infarction) (Acute) Subjective: Chief complaint: Follow-up after admission for non-ST elevation ND. Patient seen and examined. No acute events overnight. He denies any more chest pain or shortness of breath. Denies any significant symptoms. Blood pressure slightly elevated, other vital signs are stable. - Physical Exam General: Alert, Oriented x3, Cooperative, No apparent distress HEENT: Atraumatic, PERRLA, EOMI Oral: Moist Mucosa, No Gingival or Mucosal Lesions/ Ulcerations Neck: Supple, No JVD, Negative Carotid Bruits, Trachea Midline, Thyroid Normal Size and Texture Lungs: Clear to auscultation, No rhonchi, No wheeze, No rales, Diminished Cardiovascular: Regular rate, Regular Rhythm, Normal S1, Normal S2, PMI Normal Abdomen: Bowel Sounds Present, Soft, Non Tender, Non-Distended, No Hepato-splenomegaly, Obese Extremities: No clubbing, No cyanosis, No edema Skin: No rashes, No breakdown Lymphatic: No Cervical, Supraclavicular, or Inguinal Adenopathy Neurological: Cranial nerves II-XII grossly intact, Motor Exam 5/5 strength throughout Psych/Mental Status: Normal Affect, Appropriate, Alert and oriented to time, place, person, mood and affect Vital Signs Temp Pulse Resp BP Pulse Ox 97.9 F 71 16 145/75 H 94 12/21/17 00:00 12/21/17 06:00 12/21/17 06:00 12/21/17 06:00 12/21/17 07:02 Oxygen Flow Rate (L/min) 2 Oxygen Delivery Method Room Air Weight: 265 lb 6.985 oz Body Mass Index (BMI) 39.3 Intake and Output for Last 24 Hours 12/19/17 12/20/17 12/21/17 23:59 23:59 23:59 Intake Total 2290 / 2290 Output Total 1350 / 1350 375 / 375 Balance 940 / 940 -375 / -375 Laboratory Tests Past 24 Hrs 12/20/17 12/20/17 12/20/17 10:51 11:25 11:25 WBC 7.7 RBC 4.52 L Hgb 12.4 L Hct 39.5 L MCV 87.4 MCH 27.4 MCHC 31.4 L RDW 15.1 H RDW Differential 48.4 H Plt Count 231 MPV 10.1 Activated Clotting Time 180 H Sodium Potassium Chloride Carbon Dioxide Anion Gap BUN Creatinine Estim Creat Clear Calc Est GFR (MDRD) Af Amer Est GFR (MDRD) Non-Af BUN/Creatinine Ratio Glucose Calcium Magnesium Total Creatine Kinase 279 MRSA (PCR) 12/20/17 12/20/17 12/20/17 11:25 16:40 16:40 WBC 7.2 RBC 4.50 L Hgb 12.3 L Hct 39.1 L MCV 86.9 MCH 27.3 MCHC 31.5 L RDW 15.1 H RDW Differential 48.1 H Plt Count 222 MPV 9.8 Activated Clotting Time Sodium Potassium Chloride Carbon Dioxide Anion Gap BUN Creatinine Estim Creat Clear Calc Est GFR (MDRD) Af Amer Est GFR (MDRD) Non-Af BUN/Creatinine Ratio Glucose Calcium Magnesium Total Creatine Kinase 236 MRSA (PCR) Negative 12/20/17 12/20/17 12/20/17 16:40 23:00 23:00 WBC 8.4 RBC 4.23 L Hgb 12.0 L Hct 36.6 L MCV 86.5 MCH 28.4 MCHC 32.8 RDW 14.9 H RDW Differential 46.4 H Plt Count 230 MPV 10.0 Activated Clotting Time Sodium Potassium 4.1 Chloride Carbon Dioxide Anion Gap BUN Creatinine Estim Creat Clear Calc Est GFR (MDRD) Af Amer Est GFR (MDRD) Non-Af BUN/Creatinine Ratio Glucose Calcium Magnesium 1.8 Total Creatine Kinase 189 MRSA (PCR) 12/21/17 12/21/17 08:50 08:50 WBC 10.1 RBC 4.60 Hgb 12.8 L Hct 39.7 L MCV 86.3 MCH 27.8 MCHC 32.2 RDW 14.9 H RDW Differential 47.2 H Plt Count 238 MPV 10.0 Activated Clotting Time Sodium 139 Potassium 4.4 Chloride 103 Carbon Dioxide 29.0 Anion Gap 7 BUN 18 Creatinine 1.09 Estim Creat Clear Calc 58.39 Est GFR (MDRD) Af Amer 85 Est GFR (MDRD) Non-Af 70 BUN/Creatinine Ratio 16.5 Glucose 138 H Calcium 8.6 Magnesium Total Creatine Kinase MRSA (PCR) POC Glucose 12/21/17 12/20/17 12/20/17 08:12 21:21 16:35 POC Glucose 121 H 147 H 107 12/20/17 12:50 POC Glucose 85 Medical Necessity - Tobacco Use Smoking Status: Never smoker Tobacco Use: Non-smoker Assessment/Plan Active and Suspected Problems NSTEMI (non-ST elevated myocardial infarction) (Acute) This is a 72 years old male patient presented to the emergency room because of chest pain and he was found to have non-ST elevation ND. #1 non-ST elevation ND: Status post cardiac catheterization and PTCA/MACHO to distal LAD. He is on aspirin, Brilinta, lisinopril and metoprolol. His blood pressure slightly elevated, other vital signs are stable. Cardiology on the case. Routine blood work from today has been unremarkable. #2 renal insufficiency: It is not clear if this is acute or chronic. In November,, creatinine has been around 1.4-1.5. On January,, creatinine was 1.58. Admission creatinine is 1.35, came down to 1.0 today. Stable. #3 hypertension: Blood pressure slightly elevated this morning, continue metoprolol and lisinopril. #4 type 2 diabetes mellitus: Blood sugar stable, continue glimepiride and sliding scale. #5 DVT prophylaxis: SCDs. This note was generated with tydy dictation software. It may contain incorrect words, spelling, and punctuation that were not noted in checking the note before signing.
--- NOTE | 2017-12-21 09:10 | PCM.PN.CARD ---
Subjectve: Patient seen and evaluated. Doing well this morning with no complaints no groin pain. Objective: Vital Signs Temp Pulse Resp BP Pulse Ox 97.9 F 71 16 145/75 H 94 12/21/17 00:00 12/21/17 06:00 12/21/17 06:00 12/21/17 06:00 12/21/17 07:02 Oxygen Flow Rate (L/min) 2 Oxygen Delivery Method Room Air Weight: 265 lb 6.985 oz Body Mass Index (BMI) 39.3 Intake and Output for Last 24 Hours 12/19/17 12/20/17 12/21/17 23:59 23:59 23:59 Intake Total 2290 / 2290 Output Total 1350 / 1350 375 / 375 Balance 940 / 940 -375 / -375 General: Awake, Alert, Oriented x 3 HEENT: PERRL, EOMI, Sclera Non Icteric Neck: Supple, Good ROM, No Lymph Node Enlargement Lungs: Clear to auscultation Cardiovascular: Regular Rhythm, Normal S1, Normal S2, No Murmurs, No Rubs, No Gallops Vascular: No Carotid Bruits, Normal Femoral Pulses, Normal Radial Pulses, Normal Dorsalis Pedal Pulse, Normal Posterior Tibial Pulses Abdomen: Bowel Sounds Present, Soft, Non Tender, No HSM, No Organomegaly Extremities: No Cyanosis, No Clubbing, No edema Neurological: No Focal Motor or Sensory Deficit 12/20/17 11:25: WBC 7.7, RBC 4.52 L, Hgb 12.4 L, Hct 39.5 L, MCV 87.4, MCH 27.4, MCHC 31.4 L, RDW 15.1 H, RDW Differential 48.4 H, Plt Count 231, MPV 10.1 12/20/17 16:40: WBC 7.2, RBC 4.50 L, Hgb 12.3 L, Hct 39.1 L, MCV 86.9, MCH 27.3, MCHC 31.5 L, RDW 15.1 H, RDW Differential 48.1 H, Plt Count 222, MPV 9.8 12/20/17 16:40: Potassium 4.1, Magnesium 1.8 12/20/17 23:00: WBC 8.4, RBC 4.23 L, Hgb 12.0 L, Hct 36.6 L, MCV 86.5, MCH 28.4, MCHC 32.8, RDW 14.9 H, RDW Differential 46.4 H, Plt Count 230, MPV 10.0 12/21/17 08:50: Sodium 139, Potassium 4.4, Chloride 103, Carbon Dioxide 29.0, Anion Gap 7, BUN 18, Creatinine 1.09, Est GFR (MDRD) Af Amer 85, Est GFR (MDRD) Non-Af 70, BUN/Creatinine Ratio 16.5, Glucose 138 H, Calcium 8.6 12/21/17 08:50: WBC 10.1, RBC 4.60, Hgb 12.8 L, Hct 39.7 L, MCV 86.3, MCH 27.8, MCHC 32.2, RDW 14.9 H, RDW Differential 47.2 H, Plt Count 238, MPV 10.0 Rhythm: EKG: Normal sinus rhythm with no acute changes. Medical Necessity - Tobacco Use Smoking Status: Never smoker Tobacco Use: Non-smoker Assessment/Plan 1. Non-ST elevation myocardial infarction. Patient presented with chest discomfort and a non-ST elevation myocardial infarction. He did have classic angina symptoms. He underwent a cardiac catheterization and it demonstrated a normal left main coronary artery Left anterior descending artery with the previously placed stent with mild in-stent stenosis. Mid to distal left anterior descending artery with a 70% stenotic lesion. Nondominant left circumflex artery with no significant disease. Right coronary artery with no significant disease. Preserved ejection fraction. He underwent angioplasty and stenting of the mid to distal left anterior descending artery without any complications. His hemoglobin has remained stable with no fall and his creatinine has also remained stable with no rise. His EKG demonstrates normal sinus rhythm with no acute changes. 2. Hypertension His blood pressure was noted to be elevated. The plan will be to continue him on his lisinopril and add a beta-adilene to his regimen. 3. Risk factor modification He would need to have aggressive risk factor modification with high intensity statin. Weight loss and exercise have also been emphasized. Thank you for allowing me to participate in the care of your patient. Please don't hesitate to call if any issues arise He can be discharged today for outpatient follow-up and cardiac rehabilitation.
--- NOTE | 2017-12-21 09:13 | PN.CARD_ITS ---
Subjectve: Patient seen and evaluated. Doing well this morning with no complaints no groin pain. Objective: Vital Signs Temp Pulse Resp BP Pulse Ox 97.9 F 71 16 145/75 H 94 12/21/17 00:00 12/21/17 06:00 12/21/17 06:00 12/21/17 06:00 12/21/17 07:02 Oxygen Flow Rate (L/min) 2 Oxygen Delivery Method Room Air Weight: 265 lb 6.985 oz Body Mass Index (BMI) 39.3 Intake and Output for Last 24 Hours 12/19/17 12/20/17 12/21/17 23:59 23:59 23:59 Intake Total 2290 / 2290 Output Total 1350 / 1350 375 / 375 Balance 940 / 940 -375 / -375 General: Awake, Alert, Oriented x 3 HEENT: PERRL, EOMI, Sclera Non Icteric Neck: Supple, Good ROM, No Lymph Node Enlargement Lungs: Clear to auscultation Cardiovascular: Regular Rhythm, Normal S1, Normal S2, No Murmurs, No Rubs, No Gallops Vascular: No Carotid Bruits, Normal Femoral Pulses, Normal Radial Pulses, Normal Dorsalis Pedal Pulse, Normal Posterior Tibial Pulses Abdomen: Bowel Sounds Present, Soft, Non Tender, No HSM, No Organomegaly Extremities: No Cyanosis, No Clubbing, No edema Neurological: No Focal Motor or Sensory Deficit 12/20/17 11:25: WBC 7.7, RBC 4.52 L, Hgb 12.4 L, Hct 39.5 L, MCV 87.4, MCH 27.4 , MCHC 31.4 L, RDW 15.1 H, RDW Differential 48.4 H, Plt Count 231, MPV 10.1 12/20/17 16:40: WBC 7.2, RBC 4.50 L, Hgb 12.3 L, Hct 39.1 L, MCV 86.9, MCH 27.3 , MCHC 31.5 L, RDW 15.1 H, RDW Differential 48.1 H, Plt Count 222, MPV 9.8 12/20/17 16:40: Potassium 4.1, Magnesium 1.8 12/20/17 23:00: WBC 8.4, RBC 4.23 L, Hgb 12.0 L, Hct 36.6 L, MCV 86.5, MCH 28.4 , MCHC 32.8, RDW 14.9 H, RDW Differential 46.4 H, Plt Count 230, MPV 10.0 12/21/17 08:50: Sodium 139, Potassium 4.4, Chloride 103, Carbon Dioxide 29.0, Anion Gap 7, BUN 18, Creatinine 1.09, Est GFR (MDRD) Af Amer 85, Est GFR (MDRD) Non-Af 70, BUN/Creatinine Ratio 16.5, Glucose 138 H, Calcium 8.6 12/21/17 08:50: WBC 10.1, RBC 4.60, Hgb 12.8 L, Hct 39.7 L, MCV 86.3, MCH 27.8, MCHC 32.2, RDW 14.9 H, RDW Differential 47.2 H, Plt Count 238, MPV 10.0 Rhythm: EKG: Normal sinus rhythm with no acute changes. Medical Necessity - Tobacco Use Smoking Status: Never smoker Tobacco Use: Non-smoker Assessment/Plan 1. Non-ST elevation myocardial infarction. Patient presented with chest discomfort and a non-ST elevation myocardial infarction. He did have classic angina symptoms. He underwent a cardiac catheterization and it demonstrated a normal left main coronary artery Left anterior descending artery with the previously placed stent with mild in- stent stenosis. Mid to distal left anterior descending artery with a 70% stenotic lesion. Nondominant left circumflex artery with no significant disease. Right coronary artery with no significant disease. Preserved ejection fraction. He underwent angioplasty and stenting of the mid to distal left anterior descending artery without any complications. His hemoglobin has remained stable with no fall and his creatinine has also remained stable with no rise. His EKG demonstrates normal sinus rhythm with no acute changes. 2. Hypertension His blood pressure was noted to be elevated. The plan will be to continue him on his lisinopril and add a beta-adilene to his regimen. 3. Risk factor modification He would need to have aggressive risk factor modification with high intensity statin. Weight loss and exercise have also been emphasized. Thank you for allowing me to participate in the care of your patient. Please don't hesitate to call if any issues arise He can be discharged today for outpatient follow-up and cardiac rehabilitation.
--- NOTE | 2017-12-21 09:16 | PN_ITS ---
Patient Problems: Active and Suspected Problems NSTEMI (non-ST elevated myocardial infarction) (Acute) Subjective: Chief complaint: Follow-up after admission for non-ST elevation OK. Patient seen and examined. No acute events overnight. He denies any more chest pain or shortness of breath. Denies any significant symptoms. Blood pressure slightly elevated, other vital signs are stable. - Physical Exam General: Alert, Oriented x3, Cooperative, No apparent distress HEENT: Atraumatic, PERRLA, EOMI Oral: Moist Mucosa, No Gingival or Mucosal Lesions/ Ulcerations Neck: Supple, No JVD, Negative Carotid Bruits, Trachea Midline, Thyroid Normal Size and Texture Lungs: Clear to auscultation, No rhonchi, No wheeze, No rales, Diminished Cardiovascular: Regular rate, Regular Rhythm, Normal S1, Normal S2, PMI Normal Abdomen: Bowel Sounds Present, Soft, Non Tender, Non-Distended, No Hepato- splenomegaly, Obese Extremities: No clubbing, No cyanosis, No edema Skin: No rashes, No breakdown Lymphatic: No Cervical, Supraclavicular, or Inguinal Adenopathy Neurological: Cranial nerves II-XII grossly intact, Motor Exam 5/5 strength throughout Psych/Mental Status: Normal Affect, Appropriate, Alert and oriented to time, place, person, mood and affect Vital Signs Temp Pulse Resp BP Pulse Ox 97.9 F 71 16 145/75 H 94 12/21/17 00:00 12/21/17 06:00 12/21/17 06:00 12/21/17 06:00 12/21/17 07:02 Oxygen Flow Rate (L/min) 2 Oxygen Delivery Method Room Air Weight: 265 lb 6.985 oz Body Mass Index (BMI) 39.3 Intake and Output for Last 24 Hours 12/19/17 12/20/17 12/21/17 23:59 23:59 23:59 Intake Total 2290 / 2290 Output Total 1350 / 1350 375 / 375 Balance 940 / 940 -375 / -375 Laboratory Tests Past 24 Hrs 12/20/17 12/20/17 12/20/17 10:51 11:25 11:25 WBC 7.7 RBC 4.52 L Hgb 12.4 L Hct 39.5 L MCV 87.4 MCH 27.4 MCHC 31.4 L RDW 15.1 H RDW Differential 48.4 H Plt Count 231 MPV 10.1 Activated Clotting Time 180 H Sodium Potassium Chloride Carbon Dioxide Anion Gap BUN Creatinine Estim Creat Clear Calc Est GFR (MDRD) Af Amer Est GFR (MDRD) Non-Af BUN/Creatinine Ratio Glucose Calcium Magnesium Total Creatine Kinase 279 MRSA (PCR) 12/20/17 12/20/17 12/20/17 11:25 16:40 16:40 WBC 7.2 RBC 4.50 L Hgb 12.3 L Hct 39.1 L MCV 86.9 MCH 27.3 MCHC 31.5 L RDW 15.1 H RDW Differential 48.1 H Plt Count 222 MPV 9.8 Activated Clotting Time Sodium Potassium Chloride Carbon Dioxide Anion Gap BUN Creatinine Estim Creat Clear Calc Est GFR (MDRD) Af Amer Est GFR (MDRD) Non-Af BUN/Creatinine Ratio Glucose Calcium Magnesium Total Creatine Kinase 236 MRSA (PCR) Negative 12/20/17 12/20/17 12/20/17 16:40 23:00 23:00 WBC 8.4 RBC 4.23 L Hgb 12.0 L Hct 36.6 L MCV 86.5 MCH 28.4 MCHC 32.8 RDW 14.9 H RDW Differential 46.4 H Plt Count 230 MPV 10.0 Activated Clotting Time Sodium Potassium 4.1 Chloride Carbon Dioxide Anion Gap BUN Creatinine Estim Creat Clear Calc Est GFR (MDRD) Af Amer Est GFR (MDRD) Non-Af BUN/Creatinine Ratio Glucose Calcium Magnesium 1.8 Total Creatine Kinase 189 MRSA (PCR) 12/21/17 12/21/17 08:50 08:50 WBC 10.1 RBC 4.60 Hgb 12.8 L Hct 39.7 L MCV 86.3 MCH 27.8 MCHC 32.2 RDW 14.9 H RDW Differential 47.2 H Plt Count 238 MPV 10.0 Activated Clotting Time Sodium 139 Potassium 4.4 Chloride 103 Carbon Dioxide 29.0 Anion Gap 7 BUN 18 Creatinine 1.09 Estim Creat Clear Calc 58.39 Est GFR (MDRD) Af Amer 85 Est GFR (MDRD) Non-Af 70 BUN/Creatinine Ratio 16.5 Glucose 138 H Calcium 8.6 Magnesium Total Creatine Kinase MRSA (PCR) POC Glucose 12/21/17 12/20/17 12/20/17 08:12 21:21 16:35 POC Glucose 121 H 147 H 107 12/20/17 12:50 POC Glucose 85 Medical Necessity - Tobacco Use Smoking Status: Never smoker Tobacco Use: Non-smoker Assessment/Plan Active and Suspected Problems NSTEMI (non-ST elevated myocardial infarction) (Acute) This is a 72 years old male patient presented to the emergency room because of chest pain and he was found to have non-ST elevation OK. #1 non-ST elevation OK: Status post cardiac catheterization and PTCA/MACHO to distal LAD. He is on aspirin, Brilinta, lisinopril and metoprolol. His blood pressure slightly elevated, other vital signs are stable. Cardiology on the case. Routine blood work from today has been unremarkable. #2 renal insufficiency: It is not clear if this is acute or chronic. In November,, creatinine has been around 1.4-1.5. On January,, creatinine was 1.58. Admission creatinine is 1.35, came down to 1.0 today. Stable. #3 hypertension: Blood pressure slightly elevated this morning, continue metoprolol and lisinopril. #4 type 2 diabetes mellitus: Blood sugar stable, continue glimepiride and sliding scale. #5 DVT prophylaxis: SCDs. This note was generated with [employer] dictation software. It may contain incorrect words, spelling, and punctuation that were not noted in checking the note before signing.
--- NOTE | 2017-12-21 09:19 | PCM.DC ---
- Discharge Diagnoses Current Active Problems: Current Active and Chronic Problems CKD (chronic kidney disease), stage III (Chronic) NSTEMI (non-ST elevated myocardial infarction) (Acute) VTE (venous thromboembolism) (Chronic) You will use the following diet at home:: Calorie/Carbohydrate Controlled (specify 1200, 1400, etc) - 1800 randy, Cardiac Your food should be the consistency of: Regular Discharge Activity: Return to Normal Activity Weight Bearing Status: Weight bearing as tolerated Call your doctor if you observe: Fever of 101 or Higher, Shortness of breath, Dizziness, Fainting spells, Chest pain, Increased palpitations (irregular heartbeat), Uncontrolled pain Instructions: Coronary Stents, Discharge Instructions for Heart Attack Allergies/Adverse Reactions: Allergies morphine Adverse Reaction (Verified 12/20/17 02:33) HALLUCINATIONS HALLUCINATIONS promethazine HCl [From Phenergan] Adverse Reaction (Verified 12/20/17 02:33) GET JUMPY Medications to take at Discharge Allopurinol [Zyloprim] 100 mg PO DAILY 09/21/15 Acetaminophen [Tylenol] 1,000 mg PO Q8 #90 tablet 02/15/17 Glimepiride [Amaryl] 2 mg PO DAILY@0800 #14 tablet 02/15/17 Calcium/Magnesium/Vitamin D3 [Randy-Mag Complex 300-150 mg Tab] 1 each PO QHS 12/20/17 Pramipexole Di-HCl [Mirapex] 1 mg PO 4X/DAY 12/20/17 Vitamin E 1,000 unit PO QHS 12/20/17 Aspirin E.C. [Ecotrin] 81 mg PO DAILY@0800 #90 tab 12/21/17 Atorvastatin Calcium [Lipitor] 40 mg PO QHS #90 tab 12/21/17 Lisinopril [Zestril] 10 mg PO DAILY #90 tab 12/21/17 Metoprolol Tartrate [Lopressor (beta adilene)] 25 mg PO BID #90 tab 12/21/17 Ticagrelor [Brilinta] 90 mg PO BID #90 tab 12/21/17 The following prescriptions were given: Aspirin E.C. [Ecotrin] 81 mg PO DAILY@0800 #90 tab Atorvastatin Calcium [Lipitor] 40 mg PO QHS #90 tab Lisinopril [Zestril] 10 mg PO DAILY #90 tab Metoprolol Tartrate [Lopressor (beta adilene)] 25 mg PO BID #90 tab Ticagrelor [Brilinta] 90 mg PO BID #90 tab Primary Care Physician: Casey Handley [Primary Care Provider] - Please follow up with your Primary Care Physician in: 1 week. Please Follow Up With: Luis Miguel Redd MD When: please call his office.
[2017-12-21] MEDS: Aspirin E.C. 81 MG Tablet PO (09:46)
[2017-12-21] MEDS: Allopurinol 100 MG Tablet PO (09:47)
[2017-12-21] MEDS: Pramipexole Di-HCl 1 MG Tablet PO (09:47)
[2017-12-21] MEDS: Vitamin E 400 UNITS Capsule 800 UNITS PO (09:48)
[2017-12-21] MEDS: Calcium Carb/Vitamin D 1 TABLET Tablet PO (09:48)
[2017-12-21] MEDS: Metoprolol Tartrate 25 MG Tablet PO (09:49)
[2017-12-21] MEDS: Glimepiride 2 MG Tablet PO (09:50)
[2017-12-21] MEDS: Lisinopril 10 MG Tablet PO (09:56)
[2017-12-21] MEDS: TICAGRELOR 90 MG TABLET PO (09:56)
--- NOTE | 2017-12-21 14:42 | PCM.DC.SUM ---
Discharge Date and Diagnosis Date of Admission: 12/20/17 Date of Discharge: 12/21/17 - Primary Discharge Diagnosis #1 acute non-ST elevation ME, status post PTCA/MACHO to distal LAD. #2 renal insufficiency, unclear if it is acute or chronic. - Secondary Discharge Diagnosis Chronic Problems CKD (chronic kidney disease), stage III (Chronic) VTE (venous thromboembolism) (Chronic) Diabetes (Chronic) Gout (Chronic) Pseudotumor cerebri (Chronic) Restless leg syndrome (Chronic) CAD (coronary artery disease) (Chronic) Hospital Course and Treatment Imaging Results: Clinical Impression(s) from Imaging Studies Chest X-Ray 12/20/17 02:33 IMPRESSION: No acute pulmonary findings. Electronically Signed: Tyron Ordoñez MD at 3:50 EDT Tel , Service support , Dr. Gutiérrez, cardiology. Procedures: Cardiac catheterization, EKG Summary of Care Provided: The patient is a 72 year old M admitted because of chest pain and he was found to have acute non-ST elevation ME. His EKG revealed no evidence of acute ischemic changes. His troponin went up to 8.48. He underwent cardiac catheterization revealed 75% stenosis of the distal LAD and he received PTCA with drug eluting stent to distal LAD. He was treated with aspirin, statins, metoprolol, lisinopril and Brilinta. He was found to have renal insufficiency with unknown chronicity. His admission creatinine was 1.35 and his creatinine has been around 1.4-1.5 back in November,. With IV fluids, creatinine came down to 1.09 on day of discharge. His chest x-ray showed no acute findings. After the stent placement, patient symptoms improved and he had no more chest pain. His vital signs remained stable. Patient discharged home in a stable medical condition, discharged on aspirin, statins, beta blockers, lisinopril and Brilinta, continued on his home medication without any changes, recommended follow-up with PCP in 1 week and follow-up with cardiology according to Dr. Redd. Discharge Activity: Return to Normal Activity Weight Bearing Status: Weight bearing as tolerated Call your doctor if you observe: Fever of 101 or Higher, Shortness of breath, Dizziness, Fainting spells, Chest pain, Increased palpitations (irregular heartbeat), Uncontrolled pain Home Medications: Medications to take at Discharge Allopurinol [Zyloprim] 100 mg PO DAILY 09/21/15 Acetaminophen [Tylenol] 1,000 mg PO Q8 #90 tablet 02/15/17 Glimepiride [Amaryl] 2 mg PO DAILY@0800 #14 tablet 02/15/17 Calcium/Magnesium/Vitamin D3 [Sang-Mag Complex 300-150 mg Tab] 1 each PO QHS 12/20/17 Pramipexole Di-HCl [Mirapex] 1 mg PO 4X/DAY 12/20/17 Vitamin E 1,000 unit PO QHS 12/20/17 Aspirin E.C. [Ecotrin] 81 mg PO DAILY@0800 #90 tab 12/21/17 Atorvastatin Calcium [Lipitor] 40 mg PO QHS #90 tab 12/21/17 Lisinopril [Zestril] 10 mg PO DAILY #90 tab 12/21/17 Metoprolol Tartrate [Lopressor (beta wilberto)] 25 mg PO BID #90 tab 12/21/17 Ticagrelor [Brilinta] 90 mg PO BID #90 tab 12/21/17 Following Prescrptions Were Given to Patient: Aspirin E.C. [Ecotrin] 81 mg PO DAILY@0800 #90 tab Atorvastatin Calcium [Lipitor] 40 mg PO QHS #90 tab Lisinopril [Zestril] 10 mg PO DAILY #90 tab Metoprolol Tartrate [Lopressor (beta wilberto)] 25 mg PO BID #90 tab Ticagrelor [Brilinta] 90 mg PO BID #90 tab Primary Care Physician: Casey Handley [Primary Care Provider] - Please follow up with your Primary Care Physician in: 1 week. Please Follow Up With: Luis Miguel Redd MD When: please call his office. Patient Instructions: Coronary Stents, Discharge Instructions for Heart Attack Disposition: Home Minutes spent on discharge:: 26 Patient Condition:: Stable Medical Necessity - Tobacco Use Smoking Status: Never smoker Tobacco Use: Non-smoker Meaningful Use Info Meaningful Use Diagnoses (Choose all that apply): AMI - AMI Aspirin given w/in 24hrs of arrival?: Yes ASA at discharge?: Yes Statins at discharge?: Yes Lalo/ARB at discharge?: Yes Beta Wilberto at discharge?: Yes Done w/ Acute ME measure.: Yes Code Visit Inpatient E&M: 85560 Disch Hosp
--- NOTE | 2017-12-21 14:48 | DS.PCM_ITS ---
Discharge Date and Diagnosis Date of Admission: 12/20/17 Date of Discharge: 12/21/17 - Primary Discharge Diagnosis #1 acute non-ST elevation GA, status post PTCA/MACHO to distal LAD. #2 renal insufficiency, unclear if it is acute or chronic. - Secondary Discharge Diagnosis Chronic Problems CKD (chronic kidney disease), stage III (Chronic) VTE (venous thromboembolism) (Chronic) Diabetes (Chronic) Gout (Chronic) Pseudotumor cerebri (Chronic) Restless leg syndrome (Chronic) CAD (coronary artery disease) (Chronic) Hospital Course and Treatment Imaging Results: Clinical Impression(s) from Imaging Studies Chest X-Ray 12/20/17 02:33 IMPRESSION: No acute pulmonary findings. Electronically Signed: Tyron Ordoñez MD at 3:50 EDT Tel , Service support , Dr. Gutiérrez, cardiology. Procedures: Cardiac catheterization, EKG Summary of Care Provided: The patient is a 72 year old M admitted because of chest pain and he was found to have acute non-ST elevation GA. His EKG revealed no evidence of acute ischemic changes. His troponin went up to 8.48. He underwent cardiac catheterization revealed 75% stenosis of the distal LAD and he received PTCA with drug eluting stent to distal LAD. He was treated with aspirin, statins, metoprolol, lisinopril and Brilinta. He was found to have renal insufficiency with unknown chronicity. His admission creatinine was 1.35 and his creatinine has been around 1.4-1.5 back in November,. With IV fluids, creatinine came down to 1.09 on day of discharge. His chest x-ray showed no acute findings. After the stent placement, patient symptoms improved and he had no more chest pain. His vital signs remained stable. Patient discharged home in a stable medical condition, discharged on aspirin, statins, beta blockers, lisinopril and Brilinta, continued on his home medication without any changes, recommended follow-up with PCP in 1 week and follow-up with cardiology according to Dr. Redd. Discharge Activity: Return to Normal Activity Weight Bearing Status: Weight bearing as tolerated Call your doctor if you observe: Fever of 101 or Higher, Shortness of breath, Dizziness, Fainting spells, Chest pain, Increased palpitations (irregular heartbeat), Uncontrolled pain Home Medications: Medications to take at Discharge Allopurinol [Zyloprim] 100 mg PO DAILY 09/21/15 Acetaminophen [Tylenol] 1,000 mg PO Q8 #90 tablet 02/15/17 Glimepiride [Amaryl] 2 mg PO DAILY@0800 #14 tablet 02/15/17 Calcium/Magnesium/Vitamin D3 [Sang-Mag Complex 300-150 mg Tab] 1 each PO QHS Pramipexole Di-HCl [Mirapex] 1 mg PO 4X/DAY 12/20/17 Vitamin E 1,000 unit PO QHS 12/20/17 Aspirin E.C. [Ecotrin] 81 mg PO DAILY@0800 #90 tab 12/21/17 Atorvastatin Calcium [Lipitor] 40 mg PO QHS #90 tab 12/21/17 Lisinopril [Zestril] 10 mg PO DAILY #90 tab 12/21/17 Metoprolol Tartrate [Lopressor (beta wilberto)] 25 mg PO BID #90 tab 12/21/17 Ticagrelor [Brilinta] 90 mg PO BID #90 tab 12/21/17 Following Prescrptions Were Given to Patient: Aspirin E.C. [Ecotrin] 81 mg PO DAILY@0800 #90 tab Atorvastatin Calcium [Lipitor] 40 mg PO QHS #90 tab Lisinopril [Zestril] 10 mg PO DAILY #90 tab Metoprolol Tartrate [Lopressor (beta wilberto)] 25 mg PO BID #90 tab Ticagrelor [Brilinta] 90 mg PO BID #90 tab Primary Care Physician: Casey Handley [Primary Care Provider] - Please follow up with your Primary Care Physician in: 1 week. Please Follow Up With: Luis Miguel Redd MD When: please call his office. Patient Instructions: Coronary Stents, Discharge Instructions for Heart Attack Disposition: Home Minutes spent on discharge:: 26 Patient Condition:: Stable Medical Necessity - Tobacco Use Smoking Status: Never smoker Tobacco Use: Non-smoker Meaningful Use Info Meaningful Use Diagnoses (Choose all that apply): AMI - AMI Aspirin given w/in 24hrs of arrival?: Yes ASA at discharge?: Yes Statins at discharge?: Yes Lalo/ARB at discharge?: Yes Beta Wilberto at discharge?: Yes Done w/ Acute GA measure.: Yes Code Visit Inpatient E&M: 62482 Disch Hosp
== END 2017-12-21 10:30 | disposition home or self-care (01) | DRG 247 ==
LOC: ED 03:22 → PCU 03:42 → ICU 10:58
PROVIDERS: Internal Medicine; Internal Medicine Cardiovascular Disease; Emergency Provider Emergency Medicine; Family Provider Family Medicine; PCP Family Medicine; Visit Provider Hospitalist
DX: I21.4 Non-ST elevation (NSTEMI) myocardial infarction (principal); E11.22 Type 2 diabetes mellitus with diabetic chronic kidney disease; N18.3 Chronic kidney disease, stage 3 (moderate); I25.119 Atherosclerotic heart disease of native coronary artery with unspecified angina pectoris; I12.9 Hypertensive chronic kidney disease with stage 1 through stage 4 chronic kidney disease, or unspecified chronic kidney disease; N28.9 Disorder of kidney and ureter, unspecified; M10.9 Gout, unspecified; G93.2 Benign intracranial hypertension; G25.81 Restless legs syndrome; Z79.84 Long term (current) use of oral hypoglycemic drugs; Z79.899 Other long term (current) drug therapy
CPT/HCPCS: 36415; 71045; 80048; 80061; 82550; 82962; 83735; 84132; 84484; 85025; 85027; 85347; 85610; 85730; 87641; 92928; 93005; 93458; 99152; 99153; 99285; C1760; J3010; J7030; J7040; A4216; C1725; C1769; C1874; C1887; C9600; Q9967

== ENCOUNTER → 2018-10-13 10:40 | Outpatient (CLI) | payer SELFPAY ==
[2017-12-20 14:12] VITALS: BMI 40.4
[2018-01-08 15:37] VITALS: BMI 41.2
[2018-10-13 11:15] LABS: Absolute Lymphocyte Count 1.93 X10^3/ul (0.83-4.51); Absolute Neutrophil Count 4.5 X10^3/uL (2.0-7.7); Basophil# 0.02 X10^3/uL; Basophil% 0.3 % (0-1); Eosinophil# 0.47 X10^3/uL; Eosinophils% 6.2 % (0-5); Hematocrit 42.8 % (40-54); Hemoglobin 13.3 g/dl (13.0-16.5); Lymphocyte # 1.93 X10^3/ul (4.0); Lymphocyte % 25.6 % (19-41); Mean Corp Hgb Conc 31.1 g/gl (32-36); Mean Corpuscular Hgb 27.4 pg (27.0-32.0); Mean Corpuscular Volume 88.1 fL (80-94); Mean Platelet Vol. 10.2 fl (6.2-12.0); Monocyte# 0.62 X10^3/uL; Monocyte% 8.2 % (0-10); Neutrophil % 59.6 % (47-70); Platelet Count 236 K/mm3 (150-450); RBC Distribution Width CV 14.3 % (11.6-14.6); RBC Distribution Width SD 45.8 fl (35.1-43.9); Red Blood Count 4.86 M/mm3 (4.6-6.2); White Blood Count 7.6 K/mm3 (4.4-11.0)
[2018-10-13 11:16] LABS: Erythrocyte Sedimentation Rate 17 mm/hr (0-20); POSITIVE COUNT NO; POSITIVE DIFFERENTIAL NO; POSITIVE MORPHOLOGY NO
== END ==
PROVIDERS: Family Provider Family Medicine; PCP Family Medicine; Referring Provider Physician Assistant Surgical; Visit Provider Physician Assistant Surgical
DX: Z96.652 Presence of left artificial knee joint (principal)
CPT/HCPCS: 36415; 85025; 85652; 86140

== ENCOUNTER → 2018-10-20 10:12 | Outpatient (CLI) | payer SELFPAY ==
[2017-12-20 14:12] VITALS: BMI 40.4
[2018-01-08 15:37] VITALS: BMI 41.2
--- OUTSIDE RECORDS SUMMARY | 2018-12-22 20:26 | XMS RPT_ITS ---
:1945 Author Organization OHIP Support Name Relationship Address Phone DAY, DA Unavailable [address] + [place] [address] TATE LUCAS Unavailable [address] + [place] [address] S Unavailable Unavailable Unavailable DAY, DA Unavailable [address] + [place] [address] TATE LUCAS Unavailable [address] + [place] [address] S Unavailable Unavailable Unavailable DAY, DA Unavailable [address] + [place] [address] TATE LUCAS Unavailable [address] [facility] [address] + [place] [address] S Unavailable Unavailable Unavailable DAY, DA Unavailable [address] + [place] [address] TATE LUCAS Unavailable [address] [facility] [address] + [place] [address] S Unavailable Unavailable Unavailable DAY, DA Unavailable [address] [facility] [address] + [place] [address] TATE LUCAS Unavailable [address] + [place] [address] S Unavailable Unavailable Unavailable DAY, DA Unavailable [address] + [place] [address] TATE LUCAS Unavailable [address] [facility] [address] + [place] [address] S Unavailable Unavailable Unavailable DAY, DA Unavailable [address] + [place] [address] TATE LUCAS Unavailable [address] [facility] [address] + [place] [address] S Unavailable Unavailable Unavailable DAY, DA Unavailable [address] + [place] [address] TATE LUCAS Unavailable [address] [facility] [address] + [place] [address] S Unavailable Unavailable Unavailable DAY, DA Unavailable [address] + [place] [address] TATE LUCAS Unavailable [address] [facility] [address] + [place] [address] S Unavailable Unavailable Unavailable DAY, DA Unavailable [address] + [place] [address] TATE LUCAS Unavailable [address] [facility] [address] + [place] [address] S Unavailable Unavailable Unavailable DAY, DA Unavailable [address] + [place] [address] TATE LUCAS Unavailable [address] [facility] [address] + [place] [address] S Unavailable Unavailable Unavailable Care Team Providers Name Role Phone Shane Saxena PA-C Attending Unavailable Shane Saxena PA-C Referring Unavailable BROOK, CASEY Primary Care Unavailable Shane Saxena PA-C Attending Unavailable Shane Saxena PA-C Referring Unavailable BROOK, CASEY Primary Care Unavailable BROOK, CASEY Primary Care Unavailable Jopperi, Robson Admitting Unavailable Moodispaw, Constantine Consulting Unavailable Ashelfah, Ghasem Attending Unavailable Jopperi, Robson Admitting Unavailable Jopperi, Robson Attending Unavailable BROOK, CASEY Primary Care Unavailable Jopperi, Robson Consulting Unavailable Jopperi, Robson Admitting Unavailable Luis Miguel Redd Attending Unavailable BROOK, CASEY Primary Care Unavailable [place], Constantine Consulting Unavailable Ashelfah, Ghasem Consulting Unavailable Jopperi, Robson Admitting Unavailable Ashelfah, Ghasem Attending Unavailable BROOK, CASEY Primary Care Unavailable Constantine Damon Consulting Unavailable Shad Preston Consulting Unavailable Lachelle Ferguson Attending Unavailable Caio Gutiérrez Attending Unavailable Constantine Damon Attending Unavailable CASEY HANDLEY Referring Unavailable CASEY HANDLEY Primary Care Unavailable Linus Reddril Attending Unavailable Ayo Rosenbamu Referring Unavailable Lachelle Sanchez Attending Unavailable PROBLEMS PROBLEMS DATE TYPE CONDITION / CODE ATTENDING STATUS SOURCE 10/20/2018 Unknown Z96.652 - Presence of [place], Active [place] left artificial knee Shane TAYLOR [facility] joint / Hospital Z96.652(ICD-10) Repository 01/10/2018 Unknown I25.10 - [place], Active Reg Atherosclerotic heart [facility] [place] coronary artery Repository without angina pectoris / I25.10(ICD-10) 01/10/2018 Unknown Z98.61 - Coronary [place], Active Reg angioplasty status / [facility] Z98.61(ICD-10) Hospital Repository 01/10/2018 Unknown E78.5 - [place], Active [place] Hyperlipidemia, [facility] unspecified / Hospital E78.5(ICD-10) Repository 01/10/2018 Unknown I10 - Essential [place], Active [place] (primary) hypertension [facility] / I10(ICD-10) Hospital Repository 02/04/2018 Unknown I21.4 - Non-ST [place], [place] Active [place] elevation (NSTEMI) [facility] myocardial infarction Hospital / I21.4(ICD-10) Repository 02/04/2018 Unknown I25.119 - [place], Luis Miguel Active [place] Atherosclerotic heart [facility] disease [facility] coronary artery with Repository unspecified angina pectoris / I25.119(ICD-10) 02/04/2018 Unknown R94.31 - Abnormal [place], Luis Miguel Active [place] electrocardiogram [facility] [ECG] [EKG] / Hospital R94.31(ICD-10) Repository PROCEDURES PROCEDURES No Procedure Records FoundRESULTS RESULTS Observed: 10/20/2018 Status: F Source: REG CULTURE, DEEP WOUND 10:15 AM [facility] REPOSITORY Comments: RIGHT KNEE Gram Stain Gram Stain 1+ Red Blood Cells No organisms seen Wound Culture Clinical correlation necessary, Possible skin contamination. ORGANISM 1: Corynebact. pseudodiphtheritic Amount Growth 1+ ORGANISM 2: Staphylococcus simulans Amount Growth 1+ ORGANISM 3: Coag Negative Staph Amount Growth 1+ Staphylococcus simulans: REACTION Cefoxitin *NF NEG Doxycline <=0.5 S Daptomycin $$ 0.25 S Clindamycin $$ 0.25 S Inducable Clindamycin Resistan NEG Erythromycin $ <=0.25 S Gentamicin $ <=0.5 S Levofloxacin $ <=0.12 S Linezolid $$$$ 2 S Moxifloxicin *NF <=0.25 S Oxacillin NF <=0.25 S Tigecycline $$$$ <=0.12 S Rifampin $$ <=0.5 S Tetracycline NF <=1 S Trimethoprim/Sulfametho $ <=10 S Vancomycin $ <=0.5 S (NF) indicates non-formulary drug at [facility]. Approval by Infectious Disease Specialist required before non-formulary drugs may be ordered and/or dispensed. * CLSI guidelines does not recommend testing of cephalosporins. This interpretation is deduced from Beta-lactam/penicillin results. Coag Negative Staph: REACTION Cefoxitin *NF NEG Doxycline <=0.5 S Daptomycin $$ 0.5 S Clindamycin $$ 0.25 S Inducable Clindamycin Resistan NEG Erythromycin $ <=0.25 S Gentamicin $ <=0.5 S Levofloxacin $ 0.5 S Linezolid $$$$ 2 S Moxifloxicin *NF <=0.25 S Oxacillin NF <=0.25 S Tigecycline $$$$ <=0.12 S Rifampin $$ <=0.5 S Tetracycline NF <=1 S Trimethoprim/Sulfametho $ <=10 S Vancomycin $ 1 S (NF) indicates non-formulary drug at [facility]. Approval by Infectious Disease Specialist required before non-formulary drugs may be ordered and/or dispensed. * CLSI guidelines does not recommend testing of cephalosporins. This interpretation is deduced from Beta-lactam/penicillin results. Cult, Anaerobic No anaerobic bacteria isolated. Performed By: #### M100.1500 #### [facility] [address] [place], [address] ERYTHROCYTE SED RATE Collected: 10/13/2018 Status: F Source: [place] 10:45 AM [facility] REPOSITORY TYPE CODE TESTS RESULT OUT OF RANGE REFERENCE UNITS LAB L102.0000 0-20 mm/hr Normal SED RATE 17 Performed By: #### L101.9900, L100.0100 #### [facility] [place], [address] CBC W/DIFF, AUTOMATED Collected: 10/13/2018 Status: F Source: [place] 10:45 AM [facility] REPOSITORY TYPE CODE TESTS RESULT OUT OF RANGE REFERENCE UNITS LAB L100.1000 4.4-11.0 K/mm3 Normal WBC 7.6 LAB L100.1200 4.6-6.2 M/mm3 Normal RBC 4.86 LAB L100.1300 13.0-16.5 g/dl Normal HGB 13.3 LAB L100.1400 40-54 % Normal HCT 42.8 LAB L100.1500 80-94 fL Normal MCV 88.1 LAB L100.1600 27.0-32.0 pg Normal MCH 27.4 LAB L100.1700 32-36 g/gl Low MCHC 31.1 LAB L100.1810 11.6-14.6 % Normal RDW CV 14.3 LAB L100.1820 35.1-43.9 fl High RDW SD 45.8 LAB L100.1900 150-450 K/mm3 Normal PLT 236 LAB L100.2000 6.2-12.0 fl Normal MPV 10.2 LAB L100.2100 47-70 % Normal NEUT% 59.6 LAB L100.2200 19-41 % Normal LY% 25.6 LAB L100.2300 0-10 % Normal MONO% 8.2 LAB L100.2400 0-5 % High EO% 6.2 LAB L100.2500 0-1 % Normal BASO% 0.3 LAB L100.2550 0.0-0.9 % Normal IM GRAN % 0.100 Result Comment: IG% - Immature Granulocytes (promyelocytes, myelocytes and metamyelocytes) > 1% indicates that a LEFT SHIFT is Present. LAB L100.2620 2.0-7.7 X10 3/uL Normal Absolute Neut 4.5 LAB L100.2720 0.83-4.51 X10 3/ul Normal Absolute Lymph 1.93 Performed By: #### L101.9900, L100.0100 #### [facility] [address] [place], [address] CRP Collected: 10/13/2018 Status: F Source: [place] 10:45 AM [facility] REPOSITORY TYPE CODE TESTS RESULT OUT OF RANGE REFERENCE UNITS LAB L501.6710 0.0-3.0 mg/L High 12.10 C-REACTIVE PROT Result Comment: C-Reactive Protein (CRP) provides useful information for the diagnosis, therapy and monitoring of inflammatory processes and associated diseases. For the evaluation of Relative Risk for Cardiovascular Disease, a High Sensitivity CRP (HSCRP) should be ordered. Performed By: #### L501.6710 #### [facility] [address] [place], [address] CARDIOLOGY VISIT Observed: 01/08/2018 Status: F Source: [place] REPORT 5:40 PM [facility] REPOSITORY [facility] [address] [place] [address] OFFICE VISIT Date of Service: 01/08/18 MR#: [id number] Acct: [id number] Name: CAIO ANN Rep #: [id number] : 1945 Provider: Constantine Damon MD Age/Sex: 72/M Location: [facility] Status: Signed HPI HPI Details: CAIO ANN, is a 72 M who presents to the office today for for outpatient hospital follow-up. He was recently admitted to [facility] for evaluation of chest discomfort and was found to have evidence of a non-ST segment elevation UT. He underwent diagnostic cardiac catheterization which revealed his left ventricular wall motion and systolic function to be preserved. However he was noted to have his LAD stent to be patent but a subsequent lesion to be considered angiographically significant. He subsequently underwent PTCA/MACHO to the new LAD lesion. He was eventually released home. He states since being home he has had no chest discomfort. He has had no evidence of obvious CHF or pulmonary edema. There has been no evidence of near syncope or syncope. He notes his main concern has been his recuperation with respect to fatigue and even more so his lower extremity myalgias. He states these are similar to when he has been on a statin in the past. He also notes due to financial concerns that he is not going to be able to remain on the Brilinta therapy past his one-month prescription. He has been contacted by cardiac rehab. He states he has not set a time to be further evaluated by them as he is pending an upcoming cruise for rest and relaxation. He wants to contact them when he returns. Intake Vital Signs01/08/18 Height 5 ft 8 in 01/08/18 Weight: 271 lb 01/08/18 Body Mass Index (BMI) 41.2 01/08/18 Blood Pressure 110/58 Intake Visit Reasons: nstemi Allergies atorvastatin [From Lipitor] Adverse Reaction (Severe, Verified 12/31/17 17:01) Myalgias morphine Adverse Reaction (Verified 12/20/17 02:33) HALLUCINATIONS promethazine HCl [From Phenergan] Adverse Reaction (Verified 12/20/17 02:33) GET JUMPY Medications Allopurinol [Zyloprim] 100 mg PO DAILY 09/21/15 [History Confirmed 01/08/18] Acetaminophen [Tylenol] 1,000 mg PO Q8 #90 tab 02/15/17 [Rx Confirmed 12/20/17] Glimepiride [Amaryl] 2 mg PO DAILY@0800 #14 tab 02/15/17 [Rx Confirmed 01/08/18] Calcium/Magnesium/Vitamin D3 [Randy-Mag Complex 300-150 mg Tab] 1 ea PO QHS 12/20/17 [History Confirmed 01/08/18] Pramipexole Di-HCl [Mirapex] 1 mg PO 4X/DAY 12/20/17 [History Confirmed 01/08/18] Vitamin E 1,000 unit PO QHS 12/20/17 [History Confirmed 01/08/18] Aspirin E.C. [Ecotrin] 81 mg PO DAILY@0800 #90 tab 12/21/17 [Rx Confirmed 01/08/18] Lisinopril [Zestril] 10 mg PO DAILY #90 tab 12/21/17 [Rx Confirmed 01/08/18] Metoprolol Tartrate [Lopressor (beta wilberto)] 25 mg PO BID #90 tab 12/21/17 [Rx Confirmed 01/08/18] cholecalciferol (vitamin D3) 1,000 unit capsule 1,000 unit PO QDAY 01/08/18 [History Confirmed 01/08/18] clopidogrel 75 mg tablet 75 mg PO QDAY #90 tab 01/08/18 [Rx Confirmed 01/08/18] nitroglycerin 0.4 mg sublingual tablet 0.4 mg SUBLINGUAL Q5M PRN #90 tab 01/08/18 [Rx Confirmed 01/08/18] pravastatin 10 mg tablet 10 mg PO QHS #14 tab 01/08/18 [Rx Confirmed 01/08/18] PFS Medical History Old myocardial infarction (Acute) Hypertension (Chronic) Hyperlipidemia (Chronic) Atherosclerosis of coronary artery of craig heart without angina pectoris (Chronic) History of coronary artery stent placement (Chronic) CKD (chronic kidney disease), stage III (Chronic) NSTEMI (non-ST elevated myocardial infarction) (Acute 12/20/17) VTE (venous thromboembolism) (Chronic) Diabetes (Chronic) Gout (Chronic) Pseudotumor cerebri (Chronic) Restless leg syndrome (Chronic) Migraine (Acute) GERD (gastroesophageal reflux disease) (Chronic) Osteoarthritis (Chronic) Surgical History History of bilateral knee replacement (Chronic) Hx of appendectomy (Chronic) Postsurgical percutaneous transluminal coronary angioplasty (PTCA) status (Chronic) Status post lumboperitoneal shunt placement (Chronic) Family History Father Heart disease COPD (chronic obstructive pulmonary disease) Social History Smoking Status: Never smoker alcohol intake: never ROS Const Const: Negative for fatigue, weakness, weight gain, weight loss, frequent falls or excessive sweating Eyes Eyes: Negative for change in vision, blurry vision or transient loss of vision ENT ENT: Positive for balance problems; negative for dizziness Cardio Chest Pain: Yes Character: other (twinge) Onset: at rest Duration: brief Edema: Bilateral (slight) Muscle aches with walking: Bilateral (myalgias from lipitor) Additional Details: Patient reports that he has been feeling better since stent Resp Respiratory: Positive for SOB with activity; negative for SOB at rest Additional Details: Patient reports SOB w/activity, has a cold GI GI: Negative vomiting or vomiting blood/hematemesis : Negative for hematuria Musc Musc: Positive for balance problems and muscle aches/ myalgia (bilateral LE); negative for muscle weakness or joint pain Skin Skin: Negative non-healing lesions or rash Neuro Neuro: Negative for weakness, blurry vision, dizziness, lightheadedness, frequent falls or orthostatic symptoms Héctor Hematologic/Lymphatic: Negative for easy bleeding Endo Endo: Negative for fatigue or excessive sweating Psych Psych: Negative for anxiety or depression Allergy Allergy/Immunology: Negative for hives, Negative for rash Cardiology Exam Const Appearance: cooperative, comfortable, no acute distress and well developed Nutritional Appearance: overweight Orientation: alert, awake and oriented x3 Head Ears: hearing grossly normal bilaterally Nose: external nose normal Face and Sinus: face symmetric Mouth: oral mucosae normal Eyes General: appearance normal, both eyes and all related structures Neck Neck: normal visual inspection Carotids: normal carotid upstroke Chest Chest inspection: normal inspection of the chest and symmetric chest movement Cardio Palpation: normal PMI Rate: regular rate Rhythm: regular rhythm Heart sounds: S1 normal and S2 normal GI GI: normal to inspection, soft and no hepatosplenomegaly Neuro General: alert, awake and oriented x3 Skin Skin: no rashes or lesions noted Extremities Pulses: Normal: Right Radial Pulse, Left Radial Pulse Lower Extremity Edema: None: Bilateral Musculoskel Diffuse myalgias Psych Psychological: normal affect Assessment AND Plan 1. Non-ST elevation UT (NSTEMI) I21.4 Plan At the present time he appears to be without recurrent acute coronary syndrome symptoms. He is going to continue his medical management and outpatient follow- up. With respect to his medications they are going to be altered. He will substitute Plavix for Brilinta following completion of his Brilinta therapy. He also wants to take a statin holiday . Following his cruise he is willing to try an alternative statin such as pravastatin at a low dose. Hopefully he will be able to tolerate this. He was asked to consider taking, with his statin, co-Q10 which may provide some benefit with respect to concerns of his statin side effects. He will also enter cardiac rehab following his upcoming vacation. 2. CAD (coronary artery disease) I25.10 Plan Again he has a history of CAD. He will continue medical management as noted above. He will make plans for future evaluation with cardiac rehabilitation. He will continue with future outpatient follow-up. 3. S/P PTCA (percutaneous transluminal coronary angioplasty) Z98.61 Plan He is recently status post a new PTCA/MACHO. He was asked to remain on his antiplatelet therapy for a minimum of 1 year. 4. Hyperlipidemia, unspecified hyperlipidemia type E78.5 Plan He does have a history of hyperlipidemia. He has been challenged by diet to control his lipid profile in the past. He has been challenged by his concerns of statins and their side effects. However, following a statin holiday, he is willing to reattempt a statin as noted above. 5. Essential hypertension I10 Plan His blood pressure appears to be reasonably well controlled. He will continue medical management and follow-up. Plan Detail Other Medications New: Discontinued: Additional Comments The above was discussed with the patient and his spouse. He was also provided a new prescription for nitroglycerin sublingual tablets to have with him on his upcoming vacation. Thank you for allowing me to participate in the care of your patient. Please don't hesitate to call if any issues arise. This note was generated using a voice recognition system and there may be incorrect words, spelling or punctuation that were not noted when reviewing the office note prior to saving. Follow Up 4 Months (PFM/MM/JR) 01/08/18 (Cardiac Rehab) Coding Level of Care Code Off vis,est,level 3 Diagnoses Non-ST elevation UT (NSTEMI) I21.4 CAD (coronary artery disease) I25.10 Coronary Disease-Associated Artery/Lesion type: craig artery [place] vs. transplanted heart: craig heart S/P PTCA (percutaneous transluminal coronary angioplasty) Z98.61 Hyperlipidemia, unspecified hyperlipidemia type E78.5 Hyperlipidemia type: unspecified Essential hypertension I10 Hypertension type: essential hypertension Time Spent (min) 30 Coding Level of Care Code Off vis,est,level 3 Diagnoses Non-ST elevation UT (NSTEMI) I21.4 CAD (coronary artery disease) I25.10 Coronary Disease-Associated Artery/Lesion type: craig artery [place] vs. transplanted heart: craig heart S/P PTCA (percutaneous transluminal coronary angioplasty) Z98.61 Hyperlipidemia, unspecified hyperlipidemia type E78.5 Hyperlipidemia type: unspecified Essential hypertension I10 Hypertension type: essential hypertension Time Spent (min) 30 01/08/18 3960 <Electronically signed by Constantine Damon MD> Date Constantine Rutherford Signature: Date (if applicable) CC: CASEY HANDLEY 12 LEAD ELECTROCARDIOGRAM Observed: 12/26/2017 Status: F Source: REG 3:55 PM [facility] REPOSITORY [facility] Cardiovascular Services [address] [place] [address] 12 Lead EKG 12/21/17 0511 MR#: [id number] Acct: [id number] Name: CAIO ANN Rep #: [id number] : 1945 72 From: Luis Miguel Redd MD Attending Dr: Shad Preston Status: DIS IN Ordering Dr: Caio Gutiérrez MD Date: 12/21/17 Location: ICU Sex: M C Admitted: 12/20/17 Test Reason : AM EKG Blood Pressure : / mmHG Vent. Rate : 068 BPM Atrial Rate : 068 BPM P-R Int : 192 ms QRS Dur : 092 ms QT Int : 364 ms P-R-T Axes : 075 -30 048 degrees QTc Int : 387 ms Normal sinus rhythm Left axis deviation Abnormal ECG When compared with ECG of 20-DEC-2017 11:28, MANUAL COMPARISON REQUIRED, DATA IS UNCONFIRMED Confirmed by LUIS MIGUEL REDD MD ([id number]), market editor MOI ECKERT ([id number]) on 12/26/2017 3:54:44 PM Referred By: SUSAN Confirmed By:LUIS MIGUEL REDD MD 12/26/17 1554 Date Luis Miguel Redd MD CC: CASEY HANDLEY; Caio Gutiérrez MD; Shad Preston Signed 12 LEAD ELECTROCARDIOGRAM Observed: 12/26/2017 Status: F Source: REG 3:55 PM [facility] REPOSITORY [facility] Cardiovascular Services [address] [place] [address] 12 Lead EKG 12/20/17 1128 MR#: [id number] Acct: [id number] Name: CAIO ANN Rep #: [id number] : 1945 72 From: Luis Miguel Redd MD Attending Dr: Shad Preston Status: DIS IN Ordering Dr: Caio Gutiérrez MD Date: 12/20/17 Location: ICU Sex: M C Admitted: 12/20/17 Test Reason : POST PCI Blood Pressure : / mmHG Vent. Rate : 071 BPM Atrial Rate : 071 BPM P-R Int : 204 ms QRS Dur : 084 ms QT Int : 364 ms P-R-T Axes : 089 -33 040 degrees QTc Int : 395 ms Sinus rhythm with marked sinus arrhythmia Left axis deviation Abnormal ECG When compared with ECG of 20-DEC-2017 02:31, No significant change was found Confirmed by LUIS MIGUEL REDD MD ([id number]), market editor MOI ECKERT ([id number]) on 12/26/2017 3:54:56 PM Referred By: ASHLEY Confirmed By:LUIS MIGUEL REDD MD 12/26/17 1555 Date Luis Miguel Redd MD CC: CASEY HANDLEY; Caio Gutiérrez MD; Shad Preston Signed DISCHARGE SUMMARY Observed: 12/21/2017 Status: F Source: REG 2:48 PM [facility] REPOSITORY [facility] Medical Records Department [address] [place] [address] Discharge Summary 12/21/17 1442 MR#: [id number] Acct: [id number] Name: CAIO ANN Rep #: [id number] : 1945 72 From: Shad Preston MD PCP: CASEY HANDLEY Status: DIS IN Y Location: ICU [id number] Discharge Date and Diagnosis Date of Admission: 12/20/17 Date of Discharge: 12/21/17 - Primary Discharge Diagnosis #1 acute non-ST elevation UT, status post PTCA/MACHO to distal LAD. #2 renal insufficiency, unclear if it is acute or chronic. - Secondary Discharge Diagnosis Chronic Problems CKD (chronic kidney disease), stage III (Chronic) VTE (venous thromboembolism) (Chronic) Diabetes (Chronic) Gout (Chronic) Pseudotumor cerebri (Chronic) Restless leg syndrome (Chronic) CAD (coronary artery disease) (Chronic) Hospital Course and Treatment Imaging Results: Clinical Impression(s) from Imaging Studies Chest X-Ray 12/20/17 02:33 IMPRESSION: No acute pulmonary findings. Electronically Signed: Tyron Ordoñez MD at 3:50 EDT Tel , Service support , Dr. Gutiérrez, cardiology. Procedures: Cardiac catheterization, EKG Summary of Care Provided: The patient is a 72 year old M admitted because of chest pain and he was found to have acute non-ST elevation UT. His EKG revealed no evidence of acute ischemic changes. His troponin went up to 8.48. He underwent cardiac catheterization revealed 75% stenosis of the distal LAD and he received PTCA with drug eluting stent to distal LAD. He was treated with aspirin, statins, metoprolol, lisinopril and Brilinta. He was found to have renal insufficiency with unknown chronicity. His admission creatinine was 1.35 and his creatinine has been around 1.4-1.5 back in November,. With IV fluids, creatinine came down to 1.09 on day of discharge. His chest x-ray showed no acute findings. After the stent placement, patient symptoms improved and he had no more chest pain. His vital signs remained stable. Patient discharged home in a stable medical condition, discharged on aspirin, statins, beta blockers, lisinopril and Brilinta, continued on his home medication without any changes, recommended follow-up with PCP in 1 week and follow-up with cardiology according to Dr. Redd. Discharge Activity: Return to Normal Activity Weight Bearing Status: Weight bearing as tolerated Call your doctor if you observe: Fever of 101 or Higher, Shortness of breath, Dizziness, Fainting spells, Chest pain, Increased palpitations (irregular heartbeat), Uncontrolled pain Home Medications: Medications to take at Discharge Allopurinol [Zyloprim] 100 mg PO DAILY 09/21/15 Acetaminophen [Tylenol] 1,000 mg PO Q8 #90 tablet 02/15/17 Glimepiride [Amaryl] 2 mg PO DAILY@0800 #14 tablet 02/15/17 Calcium/Magnesium/Vitamin D3 [Randy-Mag Complex 300-150 mg Tab] 1 each PO QHS 12/20/17 Pramipexole Di-HCl [Mirapex] 1 mg PO 4X/DAY 12/20/17 Vitamin E 1,000 unit PO QHS 12/20/17 Aspirin E.C. [Ecotrin] 81 mg PO DAILY@0800 #90 tab 12/21/17 Atorvastatin Calcium [Lipitor] 40 mg PO QHS #90 tab 12/21/17 Lisinopril [Zestril] 10 mg PO DAILY #90 tab 12/21/17 Metoprolol Tartrate [Lopressor (beta wilberto)] 25 mg PO BID #90 tab 12/21/17 Ticagrelor [Brilinta] 90 mg PO BID #90 tab 12/21/17 Following Prescrptions Were Given to Patient: Aspirin E.C. [Ecotrin] 81 mg PO DAILY@0800 #90 tab Atorvastatin Calcium [Lipitor] 40 mg PO QHS #90 tab Lisinopril [Zestril] 10 mg PO DAILY #90 tab Metoprolol Tartrate [Lopressor (beta wilberto)] 25 mg PO BID #90 tab Ticagrelor [Brilinta] 90 mg PO BID #90 tab Primary Care Physician: Casey Handley [Primary Care Provider] - Please follow up with your Primary Care Physician in: 1 week. Please Follow Up With: Luis Miguel Redd MD When: please call his office. Patient Instructions: Coronary Stents, Discharge Instructions for Heart Attack Disposition: Home Minutes spent on discharge:: 26 Patient Condition:: Stable Medical Necessity - Tobacco Use Smoking Status: Never smoker Tobacco Use: Non-smoker Meaningful Use Info Meaningful Use Diagnoses (Choose all that apply): AMI - AMI Aspirin given w/in 24hrs of arrival?: Yes ASA at discharge?: Yes Statins at discharge?: Yes Lalo/ARB at discharge?: Yes Beta Wilberto at discharge?: Yes Done w/ Acute UT measure.: Yes Code Visit Inpatient E RADHA M: 30000 Disch Hosp 12/21/17 1448 <Electronically signed by Shad Preston MD> Date Shad Preston MD Cosigner Signature (if applicable): Date CC: CASEY HANDLEY; Luis Miguel Redd MD; Shad Preston Signed DISCHARGE INSTRUCTION Observed: 12/21/2017 Status: F Source: ANDALUSIA 9:20 AM [facility] Medical Records Department [address] [place] [address] Instructions for Home/Discharge Instructions 12/21/17 0919 MR#: [id number] Acct: [id number] Name: CAIO ANN Rep #: [id number] : 1945 72 From: Shad Preston MD PCP: CASEY HANDLEY Status: ADM IN - Discharge Diagnoses Current Active Problems: Current Active and Chronic Problems CKD (chronic kidney disease), stage III (Chronic) NSTEMI (non-ST elevated myocardial infarction) (Acute) VTE (venous thromboembolism) (Chronic) You will use the following diet at home:: Calorie/Carbohydrate Controlled (specify 1200, 1400, etc) - 1800 randy, Cardiac Your food should be the consistency of: Regular Discharge Activity: Return to Normal Activity Weight Bearing Status: Weight bearing as tolerated Call your doctor if you observe: Fever of 101 or Higher, Shortness of breath, Dizziness, Fainting spells, Chest pain, Increased palpitations (irregular heartbeat), Uncontrolled pain Instructions: Coronary Stents, Discharge Instructions for Heart Attack Allergies/Adverse Reactions: Allergies morphine Adverse Reaction (Verified 12/20/17 02:33) HALLUCINATIONS HALLUCINATIONS promethazine HCl [From Phenergan] Adverse Reaction (Verified 12/20/17 02:33) GET JUMPY Medications to take at Discharge Allopurinol [Zyloprim] 100 mg PO DAILY 09/21/15 Acetaminophen [Tylenol] 1,000 mg PO Q8 #90 tablet 02/15/17 Glimepiride [Amaryl] 2 mg PO DAILY@0800 #14 tablet 02/15/17 Calcium/Magnesium/Vitamin D3 [Randy-Mag Complex 300-150 mg Tab] 1 each PO QHS 12/20/17 Pramipexole Di-HCl [Mirapex] 1 mg PO 4X/DAY 12/20/17 Vitamin E 1,000 unit PO QHS 12/20/17 Aspirin E.C. [Ecotrin] 81 mg PO DAILY@0800 #90 tab 12/21/17 Atorvastatin Calcium [Lipitor] 40 mg PO QHS #90 tab 12/21/17 Lisinopril [Zestril] 10 mg PO DAILY #90 tab 12/21/17 Metoprolol Tartrate [Lopressor (beta wilberto)] 25 mg PO BID #90 tab 12/21/17 Ticagrelor [Brilinta] 90 mg PO BID #90 tab 12/21/17 The following prescriptions were given: Aspirin E.C. [Ecotrin] 81 mg PO DAILY@0800 #90 tab Atorvastatin Calcium [Lipitor] 40 mg PO QHS #90 tab Lisinopril [Zestril] 10 mg PO DAILY #90 tab Metoprolol Tartrate [Lopressor (beta wilberto)] 25 mg PO BID #90 tab Ticagrelor [Brilinta] 90 mg PO BID #90 tab Primary Care Physician: Casey Handley [Primary Care Provider] - Please follow up with your Primary Care Physician in: 1 week. Please Follow Up With: Luis Miguel Redd MD When: please call his office. 12/21/17 0920 <Electronically signed by Shad Preston MD> Date Shad Preston MD CC: CASEY HANDLEY; Constantine Damon MD CBC-COMPLETE BLOOD CNT Collected: 12/21/2017 Status: F Source: REG NO DIFF 8:50 AM [facility] Order Comment: Comments: 6H post procedure AND Q6H x 4 TYPE CODE TESTS RESULT OUT OF RANGE REFERENCE UNITS LAB L100.1000 4.4-11.0 K/mm3 Normal WBC 10.1 LAB L100.1200 4.6-6.2 M/mm3 Normal RBC 4.60 LAB L100.1300 13.0-16.5 g/dl Low HGB 12.8 LAB L100.1400 40-54 % Low HCT 39.7 LAB L100.1500 80-94 fL Normal MCV 86.3 LAB L100.1600 27.0-32.0 pg Normal MCH 27.8 LAB L100.1700 32-36 g/gl Normal MCHC 32.2 LAB L100.1810 11.6-14.6 % High RDW CV 14.9 LAB L100.1820 35.1-43.9 fl High RDW SD 47.2 LAB L100.1900 150-450 K/mm3 Normal PLT 238 LAB L100.2000 6.2-12.0 fl Normal MPV 10.0 Performed By: #### L100.0500 #### [facility] [address] [place], [address] BASIC METABOLIC Collected: 12/21/2017 Status: F Source: ANDALUSIA PROFILE (BMP) 8:50 AM [facility] TYPE CODE TESTS RESULT OUT OF RANGE REFERENCE UNITS LAB L501.0100 74-106 mg/dL High GLU 138 Result Comment: Fasting Glucose result greater than or equal to 126 mg/dL suggests DIABETES MELLITUS per A.D.A. criteria. Please note revised GLUCOSE reference range effective 2017. LAB L501.1000 7-18 mg/dL Normal BUN 18 LAB L501.1100 0.70-1.30 mg/dL Normal CREAT,SERUM 1.09 Result Comment: The validity of the calculated GFR AND GFRAA in patients over 70 years has not been determined. Clinical correlation is essential. LAB L501.1110 >60 mL/min Normal EST GFR 70 Result Comment: Non- GFR Calc LAB L501.1115 >60 mL/min Normal EST GFR - AA 85 Result Comment: GFR Calc LAB L501.1255 ml/min Normal Estimated CRCL 58.39 LAB L501.1300 10-20 RATIO Normal BUN/CRE 16.5 LAB L501.2200 8.5-10 mg/dL Normal .1 CA 8.6 LAB L501.5300 136-14 mmol/L Normal 5 NA 139 LAB L501.5600 3.5-5. mmol/L Normal 1 K 4.4 LAB L501.5900 98-107 mmol/L Normal CL 103 LAB L501.6100 21.0-3 mmol/L Normal 2.0 CO2 29.0 LAB L501.6200 5-15 Normal GAP 7 Performed By: #### L500.2500 #### [facility] [address] [place], [address] BEDSIDE GLUCOSE Collected: 12/21/2017 Status: F Source: REG 8:12 AM [facility] TYPE CODE TESTS RESULT OUT OF REFERENCE UNITS RANGE LAB L501.080 70-110 mg/dL High BEDSIDE GLU 121 Result Comment: MANAGEMENT OF PATIENT CARE PER NURSING PROTOCOL Performed By: #### L501.080 #### [facility] Point of Care [address] [place] [address] CBC-COMPLETE BLOOD CNT Collected: 12/20/2017 Status: F Source: REG NO DIFF 11:00 PM [facility] Order Comment: Comments: 6H post procedure AND Q6H x 4 TYPE CODE TESTS RESULT OUT OF RANGE REFERENCE UNITS LAB L100.1000 4.4-11.0 K/mm3 Normal WBC 8.4 LAB L100.1200 4.6-6.2 M/mm3 Low RBC 4.23 LAB L100.1300 13.0-16.5 g/dl Low HGB 12.0 LAB L100.1400 40-54 % Low HCT 36.6 LAB L100.1500 80-94 fL Normal MCV 86.5 LAB L100.1600 27.0-32.0 pg Normal MCH 28.4 LAB L100.1700 32-36 g/gl Normal MCHC 32.8 LAB L100.1810 11.6-14.6 % High RDW CV 14.9 LAB L100.1820 35.1-43.9 fl High RDW SD 46.4 LAB L100.1900 150-450 K/mm3 Normal PLT 230 LAB L100.2000 6.2-12.0 fl Normal MPV 10.0 Performed By: #### L100.0500 #### [facility] [address] [place], [address] CPK TOTAL, CREATINE Collected: 12/20/2017 Status: F Source: REG KINASE 11:00 PM [facility] TYPE CODE TESTS RESULT OUT OF RANGE REFERENCE UNITS LAB L501.3620 39-308 U/L Normal CPK TOTAL 189 Performed By: #### L501.3620 #### [facility] [address] [place], [address] BEDSIDE GLUCOSE Collected: 12/20/2017 Status: F Source: REG 9:21 PM [facility] TYPE CODE TESTS RESULT OUT OF REFERENCE UNITS RANGE LAB L501.080 70-110 mg/dL High BEDSIDE GLU 147 Result Comment: MANAGEMENT OF PATIENT CARE PER NURSING PROTOCOL Performed By: #### L501.080 #### [facility] Point of Care [address] [facility] [place] [address] CONSULTATION Observed: 12/20/2017 Status: F Source: REG 5:00 PM [facility] Medical Records Department [address] [place], [place] [address] [place] [address] Consultation 12/20/17 0801 MR#: [id number] Acct: [id number] Name: CAIO ANN Rep #: [id number] : 1945 72 From: Luis Miguel Redd MD PCP: CASEY HANDLEY Status: ADM IN Y Location: ICU [id number] Reason for Consult Date of Consultation: 12/20/17 Reason for Consultation: Chest discomfort. History of Present Illness: The patient is a 72 year old M with a known history of coronary artery disease who presented to the emergency room yesterday after complaining of significant crushing chest discomfort radiating to the left side of his jaw and his left arm. He was mildly diaphoretic with no nausea no dizziness no palpitations. He said that he uses nitroglycerin sublingually 3 times and also took aspirin. He had not had any previous chest discomfort. He says that this was similar to when he had his stents placed. He presented to the emergency room was evaluated his EKG was noted to be normal he had minimal troponin changes and was admitted to the telemetry care unit. This morning further troponin enzymes were noted to be abnormal cardiology was called for evaluation and management. He is currently pain- free. His past medical history is significant for previously placed stents in [place]. He had an LAD stent placed at that time. In addition he has had multiple procedures with intravascular ultrasound of his left anterior descending artery as well as a cutting balloon procedure in 2009 as well as 2016. [] Past Medical History Allergies/Adverse Reactions: Allergies morphine Adverse Reaction (Verified 12/20/17 02:33) HALLUCINATIONS HALLUCINATIONS promethazine HCl [From Phenergan] Adverse Reaction (Verified 12/20/17 02:33) GET JUMPY Home Medications: Ambulatory Orders Medication Instructions Recorded Allopurinol [Zyloprim] 100 mg PO DAILY 09/21/15 Past Medical History (Chronic Problems): Chronic Problems CKD (chronic kidney disease), stage III (Chronic) VTE (venous thromboembolism) (Chronic) Diabetes (Chronic) Gout (Chronic) Pseudotumor cerebri (Chronic) Restless leg syndrome (Chronic) CAD (coronary artery disease) (Chronic) Surgical History: - - STENTS,rib and shoulder surgery.total of 5 knee surgeries Psychiatric History: No pertinent psych hx - *Family History Paternal History Items: Heart Disease Lives: Spouse/ Significant Other Smoking Status: Never smoker Tobacco Use: Non-smoker Alcohol: None Drugs: None Review of Systems - Review of Systems General: Denies: Fever, Night Sweats, Fatigue Cardiovascular: Reports: Chest Discomfort at Rest, Chest Pressure, Chest Tightness. Denies: Chest Discomfort, Shortness of Breath, Orthopnea, PND, Peripheral Edema, Palpitations, Lightheadedness, Dizziness, Near Syncope, Syncope Respiratory: Denies: Cough, Sputum Production, Hemoptysis Gastrointestinal: Denies: Hematemesis, Hematochezia, Melena Genitourinary: Denies: Dysuria, Hematuria Skin: Denies: Rash Subjectve: Pleasant gentleman in no apparent distress. Objective: Vital Signs Temp Pulse Resp BP Pulse Ox 96.5 F L 65 18 166/73 H 98 12/20/17 04:16 12/20/17 07:34 12/20/17 04:16 12/20/17 04:16 12/20/17 04:16 Oxygen Flow Rate (L/min) 2 Oxygen Delivery Method Nasal Cannula Weight: 265 lb 6.985 oz Body Mass Index (BMI) 39.3 Intake and Output for Last 24 Hours Intake Total 0 / 0 Output Total 150 / 150 Balance -150 / -150 General: Awake, Alert, Oriented x 3 HEENT: PERRL, EOMI, Sclera Non Icteric Neck: Supple, Good ROM, No Lymph Node Enlargement Lungs: Clear to auscultation Cardiovascular: Regular Rhythm, Normal S1, Normal S2, No Murmurs, No Rubs, No Gallops Vascular: No Carotid Bruits, Normal Femoral Pulses, Normal Radial Pulses, Normal Dorsalis Pedal Pulse, Normal Posterior Tibial Pulses Abdomen: Bowel Sounds Present, Soft, Non Tender, No HSM, No Organomegaly Extremities: No Cyanosis, No Clubbing, No edema Neurological: No Focal Motor or Sensory Deficit 12/20/17 05:35: Troponin I 3.55 H*, Triglycerides 238 H, Cholesterol 191, LDL Cholesterol 105, VLDL Cholesterol 48 H, HDL Cholesterol 38 L 12/20/17 05:35: PT 12.7, INR 1.0, APTT 26.4 Rhythm: EKG:NSR Assessment/Plan 1. Non-ST elevation myocardial infarction. Patient presents with chest discomfort and a non-ST elevation myocardial infarction. He did have classic angina symptoms. My recommendation at this time would be for him to loaded with Brilinta continue the aspirin, start him on a beta-wilberto and schedule him for a left heart catheterization. The risk benefits and alternatives have been explained to him he understands and agrees to proceed. Further recommendations be made based on the above results. He underwent a cardiac catheterization this morning and it demonstrated a normal left main coronary artery Left anterior descending artery with the previously placed stent with mild in-stent stenosis. Mid to distal left anterior descending artery with a 70% stenotic lesion. Nondominant left circumflex artery with no significant disease. Right coronary artery with no significant disease. Preserved ejection fraction. Based on the above angiographic findings the patient would be referred for and recommended to have an angioplasty of the mid to distal left anterior descending artery. The above has been discussed with the interventionalist 2. Hypertension His blood pressure was noted to be elevated. The plan will be to continue him on his lisinopril and add a beta-wilberto to his regimen. 3. Risk factor modification He would need to have aggressive risk factor modification with high intensity statin. Weight loss and exercise have also been emphasized. Thank you for allowing me to participate in the care of your patient. Please don't hesitate to call if any issues arise 12/20/17 1700 <Electronically signed by Luis Miguel Redd MD> Date Luis Miguel Redd MD Cosigner Signature (if applicable): Date CC: CASEY HANDLEY; Constantine Damon MD Signed MAGNESIUM Collected: 12/20/2017 Status: F Source: REG 4:40 PM [facility] TYPE CODE TESTS RESULT OUT OF RANGE REFERENCE UNITS LAB L501.5200 1.6-2.6 mg/dL Normal MG 1.8 Result Comment: Please note revised Magnesium reference range effective 2017. Performed By: #### L501.5200, L501.5600 #### [facility] [address] [place], [place], [address] POTASSIUM Collected: 12/20/2017 Status: F Source: REG 4:40 PM [facility] TYPE CODE TESTS RESULT OUT OF RANGE REFERENCE UNITS LAB L501.5600 3.5-5.1 mmol/L Normal K 4.1 Performed By: #### L501.5200, L501.5600 #### [facility] [address] [place], [address] CBC-COMPLETE BLOOD CNT Collected: 12/20/2017 Status: F Source: REG NO DIFF 4:40 PM [facility] Order Comment: Comments: 6H post procedure AND Q6H x 4 TYPE CODE TESTS RESULT OUT OF RANGE REFERENCE UNITS LAB L100.1000 4.4-11.0 K/mm3 Normal WBC 7.2 LAB L100.1200 4.6-6.2 M/mm3 Low RBC 4.50 LAB L100.1300 13.0-16.5 g/dl Low HGB 12.3 LAB L100.1400 40-54 % Low HCT 39.1 LAB L100.1500 80-94 fL Normal MCV 86.9 LAB L100.1600 27.0-32.0 pg Normal MCH 27.3 LAB L100.1700 32-36 g/gl Low MCHC 31.5 LAB L100.1810 11.6-14.6 % High RDW CV 15.1 LAB L100.1820 35.1-43.9 fl High RDW SD 48.1 LAB L100.1900 150-450 K/mm3 Normal PLT 222 LAB L100.2000 6.2-12.0 fl Normal MPV 9.8 Performed By: #### L100.0500 #### [facility] [address] [place], [address] CPK TOTAL, CREATINE Collected: 12/20/2017 Status: F Source: ANDALUSIA KINASE 4:40 PM [facility] TYPE CODE TESTS RESULT OUT OF RANGE REFERENCE UNITS LAB L501.3620 39-308 U/L Normal CPK TOTAL 236 Performed By: #### L501.3620 #### [facility] [address] [place], [address] BEDSIDE GLUCOSE Collected: 12/20/2017 Status: F Source: ANDALUSIA 4:35 PM [facility] TYPE CODE TESTS RESULT OUT OF RANGE REFERENCE UNITS LAB L501.080 70-110 mg/dL Normal BEDSIDE GLU 107 Result Comment: MANAGEMENT OF PATIENT CARE PER NURSING PROTOCOL Performed By: #### L501.080 #### [facility] Point of Care [address] [place] [address] 12 LEAD ELECTROCARDIOGRAM Observed: 12/20/2017 Status: F Source: ANDALUSIA 2:28 PM [facility] Cardiovascular Services [address] [place] [address] 12 Lead EKG 12/20/17 0231 MR#: [id number] Acct: [id number] Name: CAIO ANN Rep #: [id number] : 1945 72 From: Luis Miguel Redd MD Attending Dr: Ayo Rosenbaum DO Status: ADM IN Ordering Dr: Jason Styles MD Date: 12/20/17 Location: ICU Sex: M C Admitted: 12/20/17 Test Reason : CP Blood Pressure : / mmHG Vent. Rate : 085 BPM Atrial Rate : 085 BPM P-R Int : 192 ms QRS Dur : 092 ms QT Int : 336 ms P-R-T Axes : 062 -32 051 degrees QTc Int : 399 ms Normal sinus rhythm Left axis deviation Abnormal ECG Confirmed by IVANIA TURNER, LUIS MIGUEL ([id number]), market editor MOI ECKERT ([id number]) on 12/20/2017 2:28:19 PM Referred By: CAMI Confirmed By:LUIS MIGUEL REDD MD 12/20/17 1428 Date Luis Miguel Redd MD CC: CASEY HANDLEY; Jason Styles MD Signed BEDSIDE GLUCOSE Collected: 12/20/2017 Status: F Source: REG 12:50 PM [facility] TYPE CODE TESTS RESULT OUT OF RANGE REFERENCE UNITS LAB L501.080 70-110 mg/dL Normal BEDSIDE GLU 85 Result Comment: MANAGEMENT OF PATIENT CARE PER NURSING PROTOCOL Performed By: #### L501.080 #### [facility] Point of Care [address] [place] [address] CBC-COMPLETE BLOOD CNT Collected: 12/20/2017 Status: F Source: REG NO DIFF 11:25 AM [facility] Order Comment: Comments: 6H post procedure AND Q6H x 4 TYPE CODE TESTS RESULT OUT OF RANGE REFERENCE UNITS LAB L100.1000 4.4-11.0 K/mm3 Normal WBC 7.7 LAB L100.1200 4.6-6.2 M/mm3 Low RBC 4.52 LAB L100.1300 13.0-16.5 g/dl Low HGB 12.4 LAB L100.1400 40-54 % Low HCT 39.5 LAB L100.1500 80-94 fL Normal MCV 87.4 LAB L100.1600 27.0-32.0 pg Normal MCH 27.4 LAB L100.1700 32-36 g/gl Low MCHC 31.4 LAB L100.1810 11.6-14.6 % High RDW CV 15.1 LAB L100.1820 35.1-43.9 fl High RDW SD 48.4 LAB L100.1900 150-450 K/mm3 Normal PLT 231 LAB L100.2000 6.2-12.0 fl Normal MPV 10.1 Performed By: #### L100.0500 #### [facility] [address] [place], [address] CPK TOTAL, CREATINE Collected: 12/20/2017 Status: F Source: REG KINASE 11:25 AM [facility] TYPE CODE TESTS RESULT OUT OF RANGE REFERENCE UNITS LAB L501.3620 39-308 U/L Normal CPK TOTAL 279 Performed By: #### L501.3620 #### [facility] [address] [place], [address] M R STAPH AUREUS Collected: 12/20/2017 Status: F Source: REG DNA BY PCR 11:25 AM [facility] TYPE CODE TESTS RESULT OUT OF RANGE REFERENCE UNITS LAB L8200.1100 Negative Normal MRSA Negative RESULT Performed By: #### L8200.1000 #### [facility] [address] [facility], [address] ACT ACTIVATED CLOTTING Collected: 12/20/2017 Status: F Source: REG TIME 10:51 AM [facility] TYPE CODE TESTS RESULT OUT OF RANGE REFERENCE UNITS LAB L9100.0100 74-137 sec High ACTk CLOT 180 TIME Performed By: #### L9100.0100 #### [facility] Point of Care [address] [place] [address] TROPONIN-I Collected: 12/20/2017 Status: F Source: REG 8:00 AM [facility] Order Comment: 'TROP' Serial specimen #1, #2, #3, or #4: 2 TYPE CODE TESTS RESULT OUT OF RANGE REFERENCE UNITS LAB L501.4010 <0.06 ng/mL High alert 8.48 TROPONIN-I Result Comment: Critical Result(s) Called at: 07:38:40 12/20/2017 by: Gela Mckeon TROPONIN-I EXPECTED VALUES <0.05 NEGATIVE 0.06 - 0.59 AT RISK OF UT > OR = 0.60 SUGGEST UT Performed By: #### L501.4010 #### [facility] [address] [place], [place], [address] BEDSIDE GLUCOSE Collected: 12/20/2017 Status: F Source: ANDALUSIA 6:57 AM [facility] TYPE CODE TESTS RESULT OUT OF RANGE REFERENCE UNITS LAB L501.080 70-110 mg/dL Normal BEDSIDE GLU 100 Result Comment: MANAGEMENT OF PATIENT CARE PER NURSING PROTOCOL Performed By: #### L501.080 #### [facility] Point of Care [address] [place], [place] [address] PROTHROMBIN TIME W/INR Collected: 12/20/2017 Status: F Source: ANDALUSIA 5:35 AM [facility] TYPE CODE TESTS RESULT OUT OF RANGE REFERENCE UNITS LAB L300.4150 11.7-14.9 SECONDS Normal PROTIME 12.7 LAB L300.4200 Normal INR 1.0 Performed By: #### L300.3900, L300.4310 #### [facility] [address] [place], [address] PARTIAL THROMBOPLAST Collected: 12/20/2017 Status: F Source: ANDALUSIA TIME 5:35 AM [facility] TYPE CODE TESTS RESULT OUT OF RANGE REFERENCE UNITS LAB L300.4310 24.1-36.2 Seconds Normal PTT 26.4 Performed By: #### L300.3900, L300.4310 #### [facility] [address] [place], [address] LIPID PROFILE Collected: 12/20/2017 Status: F Source: ANDALUSIA 5:35 AM [facility] Order Comment: 'TROP' Serial specimen #1, #2, #3, or #4: 2 TYPE CODE TESTS RESULT OUT OF RANGE REFERENCE UNITS LAB L501.4900 200 mg/dL Normal CHOL 191 Result Comment: <200 mg/dL Desirable 200-240 mg/dL Borderline >240 mg/dL High Risk LAB L501.5000 mg/dL High TRIG 238 Result Comment: The drugs N-Acetylcysteine and Metamizole may falsely depress this assay. Serum Triglycerides Reference Interval Normal <150 mg/dL Borderline high 150 - 199 mg/dL High 200 - 499 mg/dL Very High > or = 500 mg/dL LAB L501.6400 mg/dL Low HDL 38 Result Comment: The drugs N-Acetylcysteine and Metamizole may falsely depress this assay. Reference Range HDL <40 mg/dL Low HDL Cholesterol HDL >or= 60 mg/dL High HDL Cholesterol LAB L501.6500 0-130 mg/dL Normal LDL 105 LAB L501.6600 5-40 mg/dL High VLDL 48 Performed By: #### L500.4100, L501.4010 #### [facility] [address] [place], [address] TROPONIN-I Collected: 12/20/2017 Status: F Source: ANDALUSIA 5:35 AM [facility] Order Comment: 'TROP' Serial specimen #1, #2, #3, or #4: 2 TYPE CODE TESTS RESULT OUT OF RANGE REFERENCE UNITS LAB L501.4010 <0.06 ng/mL High alert 3.55 TROPONIN-I Result Comment: Critical Result(s) Called at: 05:41:18 12/20/2017 by: Gela Lewis TROPONIN-I EXPECTED VALUES <0.05 NEGATIVE 0.06 - 0.59 AT RISK OF UT > OR = 0.60 SUGGEST UT Performed By: #### L500.4100, L501.4010 #### [facility] [address] [place], [address] HISTORY AND PHYSICAL Observed: 12/20/2017 Status: F Source: ANDALUSIA EXAM 3:41 AM [facility] Medical Records Department [address] [place] [address] History and Physical 12/20/17 0333 MR#: [id number] Acct: [id number] Name: SETHCAIO S Rep #: [id number] : 1945 72 From: Robson Malone DO PCP: CASEY HANDLEY Status: REG ER Y Location: ED Problem List (1) NSTEMI (non-ST elevated myocardial infarction) Status: Acute (2) Diabetes Status: Chronic (3) Gout Status: Chronic (4) Pseudotumor cerebri Status: Chronic (5) Restless leg syndrome Status: Chronic (6) CAD (coronary artery disease) Status: Chronic (7) VTE (venous thromboembolism) Status: Chronic History of Present Illness Date of Admission: 12/20/17 Chief Complaint: chest pain The patient is a 72 year old M with a known history of coronary artery disease was in his normal state of health but awoke this morning at 1230 with chest pain that started midsternally then radiated to the left side of his chest, then down his left arm and on his left jaw. Patient took 3 series of nitroglycerin without relief. Given that the symptoms are similar to when he has had a heart attack before patient presented to the emergency room. Patient in the emergency room received fentanyl as well as morphine and his pain has completely resolved. With this episode, patient was diaphoretic with nausea but no vomiting. In the emergency room, patient's troponin was 0.21. Patient is being admitted for a non-ST elevation myocardial infarction. [] Past Medical History Past Medical History (Chronic Problems): Chronic Problems VTE (venous thromboembolism) (Chronic) Diabetes (Chronic) Gout (Chronic) Pseudotumor cerebri (Chronic) Restless leg syndrome (Chronic) CAD (coronary artery disease) (Chronic) Allergies morphine Adverse Reaction (Verified 12/20/17 02:33) HALLUCINATIONS HALLUCINATIONS promethazine HCl [From Phenergan] Adverse Reaction (Verified 12/20/17 02:33) GET JUMPY Home Medications: Ambulatory Orders Medication Instructions Recorded Allopurinol [Zyloprim] 100 mg PO DAILY 09/21/15 Acetaminophen [Tylenol] 1,000 mg PO Q8 #90 tablet 02/15/17 Surgical History: - - STENTS,rib and shoulder surgery.total of 5 knee surgeries Psychiatric History: No pertinent psych hx Lives: Spouse/ Significant Other Smoking Status: Never smoker Tobacco Use: Non-smoker Alcohol: None Drugs: None - *Family History Paternal History Items: Heart Disease Review of Systems Constitutional: Denies: Chills, Fever, Weight Change Eyes: Denies: Blurred vision, Double vision HEENT: Denies: Head Aches, Sinus Congestion, Sinus Drainage Cardiovascular: Reports: Chest Pain. Denies: Edema, Palpitations Respiratory: Denies: Cough, Shortness of breath at rest, Sputum production Gastrointestinal: Reports: Nausea. Denies: Abdominal Pain, Vomiting Genitourinary: Denies: Dysuria Musculoskeletal: Reports: Neck Pain, - - Left arm pain when he was having the chest pain but now resolved. Skin: Denies: Rash, Wounds Neurological: Denies: Numbness, Tingling, Focal weakness Psychiatric: Denies: Anxiety, Depression Endocrine: Denies: Change in Body Habitus, Heat/ Cold Intolerance Hematologic/ Lymphatic: Reports: Hx of blood clot - After such a surgery 1.. Denies: Easy Bruising, Easy Bleeding VTE Information - Inpt Only VTE Present on Admission: No Patient Problems: Active and Suspected Problems NSTEMI (non-ST elevated myocardial infarction) (Acute) - Physical Exam General: Alert, Cooperative, No apparent distress, - - No respiratory distress. No conversational dyspnea. HEENT: Atraumatic, Normocephalic Oral: Moist Mucosa, No Gingival or Mucosal Lesions/ Ulcerations Neck: No Nodes, Thyroid Normal Size and Texture Lungs: Clear to auscultation, Normal air movement, No rhonchi, No wheeze Cardiovascular: Regular rate, Regular Rhythm, Normal S1, Normal S2, No murmurs Abdomen: Bowel Sounds Present, Soft, Non Tender, Non-Distended, No Hepato-splenomegaly Extremities: No clubbing, No cyanosis, No edema, Capillary Refill Less than 3 Seconds Skin: No rashes, No breakdown, - - Longitudinal scar of the left arm and bilateral anterior knees Musculoskeletal: No Tenderness to Palpation of Joints or Extremities, No Muscle Wasting Neurological: Neuro grossly intact, Muscle tone normal, Coordination normal Psych/Mental Status: Normal Affect, Appropriate Vital Signs Temp Pulse Resp BP Pulse Ox 36.7 C 82 14 137/78 H 98 12/20/17 03:17 12/20/17 03:17 12/20/17 03:17 12/20/17 03:17 12/20/17 03:17 Oxygen Flow Rate (L/min) 2 Oxygen Delivery Method Nasal Cannula Weight: 124 kg Body Mass Index (BMI) 40.4 Finger Stick Blood Glucose 293 Laboratory Tests Past 24 Hrs WBC 9.1 RBC 4.73 Hgb 13.2 Hct 40.7 MCV 86.0 MCH 27.9 MCHC 32.4 RDW 15.0 H RDW Differential 47.2 H EKG reviewed and showed no normal sinus rhythm with no acute process. Chest x-ray reviewed and was unremarkable. Assessment/Plan Active and Suspected Problems NSTEMI (non-ST elevated myocardial infarction) (Acute) 1. Non-ST elevation myocardial infarction * Patient had classic chest pain is left-sided down his arm and up his jaw and with a slight elevation of troponin of 0.21. * Will continue to cycle his troponins for 2 more sets * Consult cardiology, patient's fire engine pump operator is Dr. Damon. * Start aspirin, start therapeutic dosing of Lovenox. * I will not order a stress test but will wait on cardiology's recommendations for further testing whether would be actual stress test or a heart catheterization. Patient will be tentatively n.p.o. at 8 AM pending cardiology's input. 2. Diabetes mellitus type 2 * Patient be on a sliding scale for now. 3. Chronic kidney disease stage III * Creatinine appears at baseline. Would continue to monitor. 4. DVT prophylaxis: Patient will be anticoagulated at this time. 5. Advanced directives: Discussed CPR and endotracheal intubation with the patient. Patient initially stated that he did not wish to be resuscitated. Patient's expressed concern in regards to that. I recommend that he and her more directly before committing to a CODE STATUS. Also told him that if patient does undergo a left heart catheterization there could be potential for an arrhythmia and that I recommended full CODE STATUS at this time. So patient was in agreement to that but did encourage that he and his family further discuss advanced directives at a later point. Code Visit Inpatient E AND M: 41001 Init Hosp L3 12/20/17 0341 <Electronically signed by Robson Malone DO> Date Robson Malone DO Cosign Signature: Date (if applicable) CC: CASEY HANDLEY; Robson Malone DO; Constantine Damon MD Signed EMERGENCY DEPARTMENT Observed: 12/20/2017 Status: F Source: ANDALUSIA SUMMARY 3:17 AM [facility] REPOSITORY [facility] Medical Records Department [address] [place] [address] Emergency Department Summary 12/20/17 0315 MR#: [id number] Acct: [id number] Name: CAIO ANN Rep #: [id number] : 1945 72 From: Jason Styles MD PCP: CASEY HANDLEY Status: REG ER - ER Visit Summary Date of Service: 12/20/17 Chief Complaint: Chest pain History of Present Illness: The patient is a 72 M who has chest pain. Started an hour and a half ago while he was sleeping. It sharp in the left parasternal area. It radiates to his left jaw and left arm. Nothing makes it better or worse. He tried 3 nitroglycerin at home without any relief. He took aspirin as well. In March 2016 he had a cardiac catheterization, but no stenting was done. His fire engine pump operator is Dr. Damon Physical Examination: Vital signs reviewed. HEENT exam unremarkable. Heart is regular rate and rhythm without murmurs. Lungs are clear to auscultation. Abdomen is soft and nontender. Extremities reveal no edema. Skin exam normal. Neurologic exam normal. Test Results: EKG is normal sinus rhythm with no ST changes. Laboratory studies reveal a troponin of 0.21. Chest x-ray unremarkable Emergency Department Course and Treatment: Patient was given fentanyl and this helped with his pain. Due to his elevated troponin I feel he should be admitted to the hospital. Patient was discussed with the hospitalist for admission Treatment Plan: [] Disposition: Admit Impression: Chest pain This note was generated with [employer] dictation software. It may contain incorrect words, spelling, and punctuation that were not noted in review of the chart prior to signing ED Disposition - Plan for ED Patient: Chief Complaint: Chest Pain Referrals: Casey Handley [Primary Care Provider] - What to do if you have Problems For any increased pain, shortness of breath, bleeding, nausea or vomiting, chest pain, or any unexpected problems, contact your Primary Care Provider. Call [facility] ([phone]) or report to the closest Emergency Room. Call 911 if necessary. 12/20/17 0317 <Electronically signed by Jason Styles MD> Date Jason Styles MD Cosigner Signature (If Indicated): Date CC: CASEY HANDLEY CBC W/DIFF, AUTOMATED Collected: 12/20/2017 Status: F Source: REG 2:35 AM [facility] REPOSITORY TYPE CODE TESTS RESULT OUT OF RANGE REFERENCE UNITS LAB L100.1000 4.4-11.0 K/mm3 Normal WBC 9.1 LAB L100.1200 4.6-6.2 M/mm3 Normal RBC 4.73 LAB L100.1300 13.0-16.5 g/dl Normal HGB 13.2 LAB L100.1400 40-54 % Normal HCT 40.7 LAB L100.1500 80-94 fL Normal MCV 86.0 LAB L100.1600 27.0-32.0 pg Normal MCH 27.9 LAB L100.1700 32-36 g/gl Normal MCHC 32.4 LAB L100.1810 11.6-14.6 % High RDW CV 15.0 LAB L100.1820 35.1-43.9 fl High RDW SD 47.2 LAB L100.1900 150-450 K/mm3 Normal PLT 263 LAB L100.2000 6.2-12.0 fl Normal MPV 9.8 LAB L100.2100 47-70 % Normal NEUT% 63.7 LAB L100.2200 19-41 % Normal LY% 24.4 LAB L100.2300 0-10 % Normal MONO% 8.0 LAB L100.2400 0-5 % Normal EO% 3.4 LAB L100.2500 0-1 % Normal BASO% 0.2 LAB L100.2550 0.0-0.9 % Normal IM GRAN % 0.300 Result Comment: IG% - Immature Granulocytes (promyelocytes, myelocytes and metamyelocytes) > 1% indicates that a LEFT SHIFT is Present. LAB L100.2620 2.0-7.7 X10 3/uL Normal Absolute Neut 5.8 LAB L100.2720 0.83-4.51 X10 3/ul Normal Absolute Lymph 2.22 Performed By: #### L100.0100 #### [facility] [address] [place], [address] BASIC METABOLIC Collected: 12/20/2017 Status: F Source: ANDALUSIA PROFILE (BMP) 2:35 AM [facility] REPOSITORY Order Comment: 'TROP' Serial specimen #1, #2, #3, or #4: 1 TYPE CODE TESTS RESULT OUT OF RANGE REFERENCE UNITS LAB L501.0100 74-106 mg/dL High GLU 148 Result Comment: Fasting Glucose result greater than or equal to 126 mg/dL suggests DIABETES MELLITUS per A.D.A. criteria. Please note revised GLUCOSE reference range effective 2017. LAB L501.1000 7-18 mg/dL High BUN 30 LAB L501.1100 0.70-1.30 mg/dL High CREAT,SERUM 1.35 Result Comment: The validity of the calculated GFR AND GFRAA in patients over 70 years has not been determined. Clinical correlation is essential. LAB L501.1110 >60 mL/min Low EST GFR 55 Result Comment: Non- GFR Calc LAB L501.1115 >60 mL/min Normal EST GFR - AA 67 Result Comment: GFR Calc LAB L501.1255 ml/min Normal Estimated CRCL 48.73 LAB L501.1300 10-20 RATIO High BUN/CRE 22.2 LAB L501.2200 8.5-10 mg/dL Normal .1 CA 9.0 LAB L501.5300 136-14 mmol/L Normal 5 NA 139 LAB L501.5600 3.5-5. mmol/L Normal 1 K 4.0 LAB L501.5900 98-107 mmol/L Normal CL 104 LAB L501.6100 21.0-3 mmol/L Normal 2.0 CO2 30.0 LAB L501.6200 5-15 Normal GAP 5 Performed By: #### L500.2500, L501.4010 #### [facility] [address] [facility], [address] TROPONIN-I Collected: 12/20/2017 Status: F Source: ANDALUSIA 2:35 AM [facility] Order Comment: 'TROP' Serial specimen #1, #2, #3, or #4: 1 TYPE CODE TESTS RESULT OUT OF RANGE REFERENCE UNITS LAB L501.4010 <0.06 ng/mL High 0.21 TROPONIN-I Result Comment: TROPONIN-I EXPECTED VALUES <0.05 NEGATIVE 0.06 - 0.59 AT RISK OF UT > OR = 0.60 SUGGEST UT Performed By: #### L500.2500, L501.4010 #### [facility] [address] [place], [address] CHEST 1 VIEW Observed: 12/20/2017 Status: F Source: ANDALUSIA (PORTABLE) 2:34 AM [facility] REPOSITORY [facility] Imaging Services [address] [place] [address] Chest 1 View (Portable) MR#: [id number] Acct: [id number] Name: CAIO ANN Rep #: [id number] : 1945 M 72 From: Tyron Ordoñez MD PCP: CASEY HANDLEY Status: ADM IN Study: Chest 1 View (Portable) Date of Exam: 12/20/17 Exam# [id number] Ordering Dr: Jason Styles MD STUDY: X-RAY CHEST REASON FOR EXAM: Male, 72 years old. Chest pain TECHNIQUE: Single frontal view of the chest. COMPARISON: 02/13/2017 FINDINGS: The lungs are clear and expanded. There is no demonstrated pleural abnormality. Normal size heart. Normal mediastinum and [place]. Normal visualized pulmonary arteries. Normal visualized aortic arch and descending thoracic aorta. There are diffuse degenerative changes of the visualized thoracic spine. Multiple right rib fusions. There is no demonstrated abnormality of the visualized soft tissue structures of the upper abdomen. RAD/Chest 1 View (Portable) IMPRESSION: No acute pulmonary findings. Electronically Signed: Tyron Ordoñez MD at 3:50 EDT Tel , Service support , CC: CASEY HANDLEY; Jason Styles MD Market Editor: Signed ALLERGIES ALLERGIES DATE TYPE / NAME / CODE REACTION SEVERITY SOURCE CODE 12/31/2017 Drug atorvastatin/F0060 MYALGIAS SV [place] Allergy/41 83147(RXNORM) [facility] [id number]([facility]) Repository 12/20/2017 Drug promethazine GET JUMPY Unknown Reg Allergy/41 HCl/[id number](RXN [facility] [id number]([facility]) Repository 12/20/2017 Drug morphine/[id number] hallucinations Unknown Reg Allergy/41 5(RXNORM) [facility] [id number]([facility]) Repository ENCOUNTERS ENCOUNTERS ADMIT/DISCHARGE ACCOUNT ADMITTING ENCOUNTER LOCATION SOURCE NUMBER CLASS 10/20/2018 [id number] Ambulatory Reg [place] 3 [facility] ing:LABSPEC Repository 10/13/2018 [id number] Ambulatory Reg Reg 2 [facility] ing:LAB Repository 05/07/2018 [id number] Ambulatory BMSBuilding:B Reg 4 [facility] Repository 01/08/2018/ [id number] Ambulatory BMSBuilding:B Reg 8 7 [facility] Repository 12/31/2017 [id number] Ambulatory BMSBuilding:B Reg 4 [facility] Repository 12/21/2017/ [id number] Ambulatory BMSBuilding:W Reg 8 4 [facility] Repository 12/20/2017/ [id number] Robson Malone Inpatient [place] 8 7 Encounter [facility] ing:ICURoom: Repository [id number]: 1 12/20/2017 [id number] Robson Malone Ambulatory BMSBuilding:B Reg 4 [facility] Repository 12/20/2017 [id number] Robson Malone Ambulatory BMSBuilding:B [place] 6 [facility] Repository 12/20/2017 [id number] Robson Malone Ambulatory BMSBuilding:B Rge 7 MS.W[facility] Repository 12/20/2017/ [id number] Ambulatory BMSBuilding:W [place] 8 9 [facility] Repository PAYERS PAYERS ENCOUNTER GUARANTOR PAYER SUBSCRIBER SOURCE 10/20/2018 CAIO Soriano Primary NOT GIVENUNK [place] [id number] Insurance:SELF PAY [address] Number: Effective Repository , [place] [address]Uwj: Date:2018-10-20 () 10/13/2018 CAIO Soriano Primary NOT GIVENUNK Reg [id number] Insurance:SELF PAY [address] Number: Effective Repository , [place] [address]Izp: Date:2018-10-13 () 05/07/2018 CAIO Soriano Primary CAIO [place] [id number] Insurance:MEDICARE A HERSHBERGERDOB: Community [facility] Number: [id number] [id number] Repository , [place] [address]Btx: Date:2018-01-08 () 05/07/2018 Secondary NOT GIVENUNK [place] Insurance:SELF PAY [facility] Number: Effective Repository Date:2018-01-08 01/08/2018 CAIO Soriano Primary NOT GIVENUNK [place] [id number] Insurance:SELF PAY [address] Number: Effective [place], [place] [address]Gho: Date:2017-12-27 ~330 -4 () 12/31/2017 CAIO Soriano Primary [place] [place] [id number] Insurance:MEDICARE A HERSHBERGERDOB: Community CR ONLYPolicy Number: [id number] [id number] Repository [place], [place] [address]Eqb: Date:2017-12-31 ~330 -4 (HP) 12/31/2017 Secondary NOT GIVENUNK Reg Insurance:SELF PAY [facility] Number: Effective Repository Date:2017-12-31 12/21/2017 CAIO Soriano Primary NOT GIVENUNK Reg [id number] Insurance:SELF PAY [facility] CR [address] Number: Effective Repository [place] [address]Iya: Date:2017-12-21 ~330 -4 (HP) 12/20/2017 Caio Soriano Primary Caio Soriano Reg [id number] Insurance:MEDICARE A HershbergerDOB: Community CR [facility] Number: [id number] [id number] Repository [place] [address]Ach: Date:2017-12-20 ~330 -4 (HP) 12/20/2017 Secondary NOT GIVENUNK Reg Insurance:SELF PAY [facility] Number: Effective Repository Date:2017-12-20 12/20/2017 CAIO Soriano Primary NOT GIVENUNK Reg [id number] Insurance:SELF PAY [facility] CR INSURANCE[address] Number: Effective Repository [place], [place] [address]Nqr: Date:2017-12-20 ~330 -4 (HP) 12/20/2017 CAIO Soriano Primary NOT GIVENUNK Reg [id number] Insurance:SELF PAY [facility] CR [address] Number: Effective Repository [place], [place] [address]Xsy: Date:2017-12-20 ~330 -4 (HP) 12/20/2017 CAIO Soriano Primary NOT GIVENUNK Reg [id number] Insurance:SELF PAY [facility] CR [facility] Number: Effective Repository [place], [place] [address]Hej: Date:2017-12-20 ~330 -4 (HP) 12/20/2017 CAIO Soriano Primary NOT GIVENUNK Reg [id number] Insurance:SELF PAY [facility] CR [address] Number: Effective Repository [place], [place] [address]Sby: Date:2017-12-20 ~330 -4 ()
== END ==
PROVIDERS: Family Provider Family Medicine; PCP Family Medicine; Referring Provider Physician Assistant Surgical; Visit Provider Physician Assistant Surgical
DX: Z96.652 Presence of left artificial knee joint (principal)
CPT/HCPCS: 87070; 87075; 87077; 87101; 87186; 87205

== ENCOUNTER 2020-06-01 21:22 | Observation (INO) | payer SELFPAY ==
[2017-12-20 14:12] VITALS: BMI 40.4
[2020-06-01 21:22] VITALS: BP 153/98; PULSE 89; RESP 16; TEMP 36.6; O2SAT 93; BMI 43.5
--- NOTE | 2020-06-01 21:33 | EKG12_ITS ---
Test Reason : CP Blood Pressure : / mmHG Vent. Rate : 090 BPM Atrial Rate : 090 BPM P-R Int : 216 ms QRS Dur : 094 ms QT Int : 342 ms P-R-T Axes : 082 -42 075 degrees QTc Int : 418 ms Sinus rhythm with 1st degree A-V block Left axis deviation Abnormal ECG Confirmed by TAMMY TURNER, SATURNINO ([id number]), health editor MARCELLO NEELY ([id number]) on 06/07/2020 8:00:51 AM Referred By: TOMMIE Confirmed By:BRANDEN MUNOZ MD
--- NOTE | 2020-06-01 21:57 | ED.VIS.GEN ---
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 Patient was cleaning fish when he had reportedly fallen asleep due to narcolepsy and lost consciousness falling backwards and hitting his head. When he came to he was having chest pain. He describes it as sharp in the center of his chest. He does not have shortness of breath, nausea. Patient states that he also has lower back pain from his fall. He is not having paresthesias. Also states that he stopped taking all of his heart medications about a year ago without speaking to his registrar nurses' registry. He previously saw Dr. Damon. He has not seen him in some time he reports. Patient states he cannot remember why he had a pulmonary embolism but states he was told he could stop taking blood thinners for this. - Past Medical History (1) NSTEMI (non-ST elevated myocardial infarction) Status: Chronic (2) Atherosclerosis of coronary artery of [place] heart without angina pectoris Status: Chronic Comment: PTCA/MACHO of the LAD 09/07; IVUS to mid and proximal LAD, D1 had cutting balloon angioplasty 05/19/10; PTCA/MACHO of the distal LAD 12/20/17 (3) CKD (chronic kidney disease), stage III Status: Chronic (4) Diabetes Status: Chronic (5) Gout Status: Chronic (6) History of coronary artery stent placement Status: Chronic Comment: PTCA/MACHO of the LAD 09/07; IVUS to mid and proximal LAD, D1 had cutting balloon angioplasty 05/19/10; PTCA/MACHO of the distal LAD 12/20/17 (7) Hyperlipidemia Status: Chronic Past Medical History - Allergies and Home Meds Allergies/Adverse Reactions: Allergies atorvastatin [From Lipitor] Adverse Reaction (Severe, Verified 06/01/20 21:25) Myalgias promethazine HCl [From Phenergan] Adverse Reaction (Verified 06/01/20 21:25) GET JUMPY Primary Care Physician: Casey Handley DO [Primary Care Provider] - Surgical History: - - STENTS,rib and shoulder surgery.total of 5 knee surgeries Smoking Status: Never smoker - Family History Paternal Family History: Family History (Last Reviewed 04/11/18 @ 15:41 by Lachelle Ferguson) Father Heart disease COPD (chronic obstructive pulmonary disease) Family History: Reports: Heart Disease Physical Exam Vital Signs/Narrative: Vital Signs Temp Pulse Resp BP Pulse Ox 06/01/20 21:22 97.9 F 89 16 153/98 H 93 General: Obese, No Acute Distress Head: Normocephalic, Atraumatic Eyes: Perrl, EOMI ENT: Moist mucous membranes, No rhinorrhea Cardiovascular: Regular rate, Regular rhythm Respiratory: No distress, CTA bilaterally Abdomen: Soft Back: - - Tenderness to palpation lumbar paraspinal musculature bilaterally. No gross deformity or step-off of the spine. Extremities: Calf Tenderness, - - Compartments are soft. Skin: Normal color, No rash Neurological: Alert, Oriented x3 Psychological: Normal affect, Normal Mood Diagnostic/Tx/Re-eval Clinical Impression(s) from Imaging Studies Brain CT 06/01/20 22:07 IMPRESSION: Minimal atrophy no evidence of acute hemorrhage infarct or edema. Posterior parietal minimal superficial soft tissue edema. Dense chronic appearing bilateral maxillary sinusitis. There is a focal masslike lobulation, with coarse central mixed calcification and absence of the medial wall of the right maxillary sinus measuring 2.7 x 2.2 extending from the right maxillary sinus obstructing the right-sided nasal passageway. Consider calcified polyp, papilloma, or potentially other sinonasal tumor for which short visualization is recommended, consider ENT consult. Electronically Signed: Lisa Serrano MD at 23:31 EDT Tel , Service support , Chest CTA 06/01/20 22:09 IMPRESSION: Limited contrast bolus demonstrating subtle tiny defects in the left upper lobe segmental subsegmental branches as well as the right lower lobe suspicious for subtle pulmonary emboli. Small right effusion and atelectasis. Trace mucosal material within the right lower lobe bronchial structures cannot entirely exclude aspiration. Postoperative changes right sided chest RIBS. Cardiomegaly coronary artery disease. Electronically Signed: Lisa Serrano MD at 23:37 EDT Tel , Service support , ADDENDUM: 06/01/20 2349 IMPRESSION: Limited contrast bolus demonstrating subtle tiny defects in the left upper lobe segmental subsegmental branches as well as the right lower lobe suspicious for subtle pulmonary emboli. Small right effusion and atelectasis. Trace mucosal material within the right lower lobe bronchial structures cannot entirely exclude aspiration. Postoperative changes right sided chest RIBS. Cardiomegaly coronary artery disease. N.B. : The above information has been verbally conveyed by Lisa Serrano MD to Shay Rodriguez DO, on 06/01/2020 23:42:46 (ET). Electronically Signed: Lisa Serrano MD at 23:37 EDT Tel , Service support , Lumbar Spine X-Ray 06/01/20 23:02 IMPRESSION: Multilevel degenerative change of the lumbar spine worse since October 11, 2011. Electronically Signed: Lisa Serrano MD at 23:20 EDT Tel , Service support , Laboratory Data 06/01/20 06/01/20 06/01/20 22:00 22:00 23:45 WBC Cancelled 8.2 Corrected WBC Cancelled RBC Cancelled 4.49 L Hgb Cancelled 12.3 L Hct Cancelled 39.8 L MCV Cancelled 88.6 MCH Cancelled 27.4 MCHC Cancelled 30.9 L RDW Std Deviation Cancelled 45.9 H RDW Coeff of Ag Cancelled 14.1 Plt Count Cancelled 242 MPV Cancelled 9.6 Immature Gran % (Auto) Cancelled 0.200 Neut % (Auto) Cancelled 70.5 H Lymph % (Auto) Cancelled 18.8 L Maury % (Auto) Cancelled 7.4 Eos % (Auto) Cancelled 2.9 Baso % (Auto) Cancelled 0.2 Absolute Neuts (auto) Cancelled 5.8 Absolute Lymphs (auto) Cancelled 1.54 Total Counted Cancelled Neutrophils % (Manual) Cancelled Band Neutrophils % Cancelled Lymphocytes % (Manual) Cancelled Monocytes % (Manual) Cancelled Eosinophils % (Manual) Cancelled Basophils % (Manual) Cancelled Metamyelocytes % Cancelled Myelocytes % Cancelled Promyelocytes % Cancelled Blast Cells % Cancelled Plasma Cell % (Manual) Cancelled Other Cells % Cancelled Nucleated RBC % Cancelled 0 Nucleated RBCs/100 WBC Cancelled Differential Comment Cancelled Diff Path Review Cancelled Hypersegmented Neuts Cancelled Atypical Lymphocytes Cancelled Reactive Lymphocytes Cancelled Smudge Cells Cancelled Toxic Granulation Cancelled Toxic Vacuolation Cancelled Dohle Bodies Cancelled Eugene Rods Cancelled Platelet Estimate Cancelled Plt Morphology Comment Cancelled RBC Morphology Cancelled Polychromasia Cancelled Hypochromasia Cancelled Poikilocytosis Cancelled Basophilic Stippling Cancelled Anisocytosis Cancelled Microcytosis Cancelled Macrocytosis Cancelled Spherocytes Cancelled Sickle Cells Cancelled Target Cells Cancelled Tear Drop Cells Cancelled Ovalocytes Cancelled Stomatocytes Cancelled [place] Bodies Cancelled [place] Cells Cancelled Bite Cells Cancelled Crenated Cell Cancelled Acanthocytes (Spur) Cancelled Rouleaux Cancelled Schistocytes Cancelled Sodium 135 L Potassium 4.2 Chloride 101 Carbon Dioxide 31.0 Anion Gap 3 L BUN 25 H Creatinine 1.32 H Estim Creat Clear Calc 48.35 Est GFR (MDRD) Af Amer 68 Est GFR (MDRD) Non-Af 56 L BUN/Creatinine Ratio 18.9 Glucose 323 H Calcium 8.7 Troponin I < 0.015 - Rhythm Strip Rhythm Strip: Sinus Rhythm Rate: 90 - EKG Initial EKG Interpretation: Sinus Rhythm, LAFB Follow-up EKG Interpretation: Sinus Rhythm, AV Block - First-degree - Medical Decision Making 74-year-old male presenting with chest pain after falling backwards and hitting his head. Patient also states that he has not been taking his Plavix for the last year and he took himself off the medication. He admits to history of PE before but cannot know me why he had a PE. Patient EKG which is sinus rhythm without signs of obvious ischemic change. Lab work shows slight dehydration but is otherwise unremarkable. Troponin negative. Given his history of PE I did get a CTA of the chest and there are some small peripheral PEs. His vital signs however are stable and he is not tachypneic, hypoxic, tachycardic at this time. Is pain-free currently and sleeping comfortably. He was given aspirin. Heart score is 5. I recommended the patient be admitted for further evaluation of his chest pain. She and family amenable to this. Impression: 1. Chest pain 2. Closed head injury 3. Lumbar contusion 4. Pulmonary emboli ED Disposition - Plan for ED Patient: Referrals: Casey Handley DO [Primary Care Provider] -
[2020-06-01] MEDS: Aspirin 81 MG TAB.CHEW 324 MG PO (22:00)
--- NOTE | 2020-06-01 22:07 | CT_ITS ---
STUDY: CT BRAIN WITHOUT CONTRAST REASON FOR EXAM: Male, 74 years old. CP SINCE 6PM, FELL HIT BACK OF HEAD FROM NARCOLEPSY, HX PE, DIAB, KD RADIATION DOSAGE (If Supplied By Facility): CTDIvol = ( 44.99 ) mGy, DLP = ( 829.85 ) mGycm TECHNIQUE: Transaxial CT imaging of the brain was performed without administration of intravenous contrast material. Individualized dose optimization techniques were used for this CT. COMPARISON: No relevant priors. FINDINGS: There is posterior, superficial soft tissue edema in the left of midline and posteriorly of the scalp soft tissues. Normal calvarium. There is mild cerebral atrophy with widening of the extra-axial spaces and ventricular dilatation. Normal white matter tracts of the cerebral hemispheres. Normal basal ganglia and thalami. Normal brainstem. Normal cerebellum. There is no intracranial hemorrhage. There are no findings of an acute ischemic infarction. There is dense opacification of the bilateral maxillary sinuses. There is ethmoid sinus mucosal thickening. There is a thickened appearance of the bilateral maxillary sinus flowers compatible with chronic sinusitis. There is a lobulated mass extending from the right side maxillary sinus into the right-sided nasal passageway measuring 2.7 x 2.2 cm with internal calcification. There is absence of the medial wall of the right side maxillary sinus which is age indeterminant. CT/Brain/Head without Contrast IMPRESSION: Minimal atrophy no evidence of acute hemorrhage infarct or edema. Posterior parietal minimal superficial soft tissue edema. Dense chronic appearing bilateral maxillary sinusitis. There is a focal masslike lobulation, with coarse central mixed calcification and absence of the medial wall of the right maxillary sinus measuring 2.7 x 2.2 extending from the right maxillary sinus obstructing the right-sided nasal passageway. Consider calcified polyp, papilloma, or potentially other sinonasal tumor for which short visualization is recommended, consider ENT consult. Electronically Signed: Lisa Serrano MD at 23:31 EDT Tel , Service support ,
--- NOTE | 2020-06-01 22:09 | CT_ITS ---
We are attempting to reach an attending provider to discuss findings. An addendum with communication details will be sent when the communication is complete. STUDY: CTA CHEST REASON FOR EXAM: Male, 74 years old. CHEST PAIN SINCE 6PM HX OF PE, PT HAS NARCOLEPSY, HE FELL AND HIT HEAD THEN WOKE UP WITH CP, DIAB, KD RADIATION DOSAGE (If Supplied By Facility): CTDIvol = ( 26.91 ) mGy, DLP = ( 605.16 ) mGycm TECHNIQUE: The examination was performed with the intravenous administration of IV 100mL [id number]-[id number]. Post-processing of the angiographic images was performed, with multiplanar reformation and 3D reconstruction. Individualized dose optimization techniques were used for this CT. COMPARISON: November 23, 2014 CT angiogram chest, December 20, 2017 chest x-ray FINDINGS: The contrast bolus is limited. There is equal contrast within the aorta and the pulmonary arteries. Alignment of this there are filling defects in the segmental and subsegmental branches of the left upper lobe. There is limited enhancement of the bilateral peripheral pulmonary arteries. There may be a subtle filling defect within the right lower lobe subsegmental branches. Findings are suspicious for left upper lobe branch filling defects suspicious for pulmonary embolism. See image #205 series 2. There is atherosclerotic calcification of the aortic arch with tortuosity. There is no demonstrated aortic dissection. There is mild to moderate cardiac enlargement. There are coronary calcifications. Normal mediastinum. Normal hilar regions. Normal visualized trachea and bronchi. There is a small right effusion. There is minimal mucoid thickening of the right lower lobe bronchial structures. There are side plates demonstrated the level of right rib 8 and 6. Normal chest wall structures. There are degenerative changes of thoracic spine. The liver is enlarged. The stomach is distended. CT/CTA Chest W/WO Contrast IMPRESSION: Limited contrast bolus demonstrating subtle tiny defects in the left upper lobe segmental subsegmental branches as well as the right lower lobe suspicious for subtle pulmonary emboli. Small right effusion and atelectasis. Trace mucosal material within the right lower lobe bronchial structures cannot entirely exclude aspiration. Postoperative changes right sided chest RIBS. Cardiomegaly coronary artery disease. Electronically Signed: Lisa Serrano MD at 23:37 EDT Tel , Service support ,
[2020-06-01 22:29] VITALS: BP 158/79; PULSE 83
[2020-06-01] MEDS: Nitroglycerin SL (ED/IMG/CATH) 0.4 MG TABLET SUBLINGUAL (22:29)
[2020-06-01 22:37] LABS: Anion Gap 3 (5-15); BUN 25 mg/dL (7-18); BUN/Creat Ratio 18.9 RATIO (10-20); Calcium,Total 8.7 mg/dL (8.5-10.1); Chloride 101 mmol/L (98-107); Creatinine, Serum 1.32 mg/dL (0.70-1.30); EST Glomerular Filtration Rate 56 mL/min (>60); Est Glom Filt Rate - Afr Amer 68 mL/min (>60); Estimated Creatinine Clearance 48.35 ml/min; Glucose 323 mg/dL (74-106); Potassium 4.2 mmol/L (3.5-5.1); Sodium Level 135 mmol/L (136-145)
--- NOTE | 2020-06-01 22:38 | EKG12_ITS ---
Test Reason : CP Blood Pressure : / mmHG Vent. Rate : 090 BPM Atrial Rate : 090 BPM P-R Int : 202 ms QRS Dur : 098 ms QT Int : 368 ms P-R-T Axes : 082 -46 072 degrees QTc Int : 450 ms Normal sinus rhythm Left anterior fascicular block Abnormal ECG Confirmed by TAMMY TURNER, SATURNINO ([id number]), metropolitan editor MARCELLO NEELY ([id number]) on 06/07/2020 8:00:36 AM Referred By: REGINE STUBBS Confirmed By:BRANDEN MUNOZ MD
--- NOTE | 2020-06-01 23:02 | RAD_ITS ---
STUDY: X-RAY - LUMBAR SPINE REASON FOR EXAM: Male, 74 years old. Back pain TECHNIQUE: 3 view(s) of the lumbar spine were obtained. COMPARISON: CT abdomen and pelvis October 11, 2011 FINDINGS: There is straightening of the normal lumbar lordosis. There is no substantial scoliosis. There is a normal alignment of the vertebrae. Since the prior study there is worsening of the facet arthropathy and a narrowed appearance of the spinal canal the level of L5. There is multilevel spondylosis and severe disc space narrowing L4-L5 and L5-S1. There is a visualized tube or spinal catheter overlying the left side of the posterior spinous soft tissues. The tip appears to be approximately the level of T12. Normal disc space heights. There are visualized bilateral nephrograms due to recent CT angiogram of the chest June 01, 2020. There is contrast within the bladder. RAD/Lumbar Spine 2 or 3 Views IMPRESSION: Multilevel degenerative change of the lumbar spine worse since October 11, 2011. Electronically Signed: Lisa Serrano MD at 23:20 EDT Tel , Service support ,
[2020-06-01 23:14] VITALS: BP 169/77; PULSE 80; RESP 19; O2SAT 93
[2020-06-01] MEDS: Morphine 4 MG/ML Syringe IV (23:23)
[2020-06-01] MEDS: Ondansetron 4 MG/2 ML Vial IV (23:23)
[2020-06-01 23:51] LABS: Absolute Lymphocyte Count 1.54 X10^3/uL (0.83-4.51); Absolute Neutrophil Count 5.8 X10^3/uL (2.0-7.7); Basophil# 0.02 X10^3/uL; Basophil% 0.2 % (0-1); Eosinophil# 0.24 X10^3/uL; Eosinophils% 2.9 % (0-5); Hematocrit 39.8 % (40-54); Hemoglobin 12.3 g/dL (13.0-16.5); Lymphocyte # 1.54 X10^3/ul (4.0); Lymphocyte % 18.8 % (19-41); Mean Corp Hgb Conc 30.9 g/dL (32-36); Mean Corpuscular Hgb 27.4 pg (27.0-32.0); Mean Corpuscular Volume 88.6 fL (80-94); Mean Platelet Vol. 9.6 fl (6.2-12.0); Monocyte# 0.61 X10^3/uL; Monocyte% 7.4 % (0-10); NRBC Flagged by Analyzer 0 % (0-5); Neutrophil # 5.77 X10^3/uL (2.7-7.7); Neutrophil % 70.5 % (47-70); Platelet Count 242 K/mm3 (150-450); RBC Distribution Width CV 14.1 % (11.6-14.6); RBC Distribution Width SD 45.9 fl (35.1-43.9); Red Blood Count 4.49 M/mm3 (4.6-6.2); White Blood Count 8.2 K/mm3 (4.4-11.0)
[2020-06-02] VITALS (12 sets, daily range): BP systolic 148–183; BP diastolic 62–81; PULSE 68–85; RESP 16–20; TEMP 35.9–36.8; O2SAT 89–100; BMI 43.7
--- NOTE | 2020-06-02 00:21 | HP.PCM_ITS ---
Problem List (1) Chest pain Status: Acute (2) Old myocardial infarction Status: Acute Comment: 11/14, 04/14 (3) Hypertension Status: Chronic Qualifiers: Hypertension type: essential hypertension Qualified Code(s): I10 - Essential (primary) hypertension (4) Hyperlipidemia Status: Chronic Qualifiers: Hyperlipidemia type: unspecified Qualified Code(s): E78.5 - Hyperlipidemia, unspecified (5) Atherosclerosis of coronary artery of [place] heart without angina pectoris Status: Chronic Comment: PTCA/MACHO of the LAD 09/07; IVUS to mid and proximal LAD, D1 had cutting balloon angioplasty 05/19/10; PTCA/MACHO of the distal LAD 12/20/17 (6) History of coronary artery stent placement Status: Chronic Comment: PTCA/MACHO of the LAD 09/07; IVUS to mid and proximal LAD, D1 had cutting balloon angioplasty 05/19/10; PTCA/MACHO of the distal LAD 12/20/17 (7) CKD (chronic kidney disease), stage III Status: Chronic (8) NSTEMI (non-ST elevated myocardial infarction) Status: Chronic (9) VTE (venous thromboembolism) Status: Chronic (10) Diabetes Status: Chronic (11) Gout Status: Chronic (12) Pseudotumor cerebri Status: Chronic (13) Restless leg syndrome Status: Chronic History of Present Illness Date of Admission: 06/02/20 Chief Complaint: CHEST PAIN The patient is a 74 year old M with a significant history of CAD status post stents; and narcolepsy and CKD stage III presenting with chest pain that started on the same day of presentation. The patient was cutting fish when he fell asleep. Subsequently he fell. When he woke up he felt excruciating sharp mast bsternal chest pain. His chest pain is aggravated by moving. He chest pain is ameliorated by lying still. His chest pain is non-radiating. He denies any nausea, vomiting or shortness of breath. He has chronic diaphoresis that has remained unchanged. A brain CT was remarkable for focal masslike lobulation which emergency department doctor reported that per patient's daughter was present sometime ago. A chest CT had limited a contrast bolus and demonstrated a tiny defect in left subsegmental branches and right lower lobe suspicious for subtle pulmonary emboli. Also bronchial structures had trace mucosal material. Reportedly patient was on medication for PE in the past but it was discontinued. Also he was on Plavix but patient is no longer taking Plavix. Past Medical History Past Medical History (Chronic Problems): Chronic Problems (Last Reviewed 06/02/20 @ 02:[address] Bruno Kee MD) Hypertension (Chronic) Hyperlipidemia (Chronic) Atherosclerosis of coronary artery of [place] heart without angina pectoris (Chronic) PTCA/MACHO of the LAD 09/07; IVUS to mid and proximal LAD, D1 had cutting balloon angioplasty 05/19/10; PTCA/MACHO of the distal LAD 12/20/17 History of coronary artery stent placement (Chronic) PTCA/MACHO of the LAD 09/07; IVUS to mid and proximal LAD, D1 had cutting balloon angioplasty 05/19/10; PTCA/MACHO of the distal LAD 12/20/17 CKD (chronic kidney disease), stage III (Chronic) NSTEMI (non-ST elevated myocardial infarction) (Chronic ~12/20/17) VTE (venous thromboembolism) (Chronic) Diabetes (Chronic) Gout (Chronic) Pseudotumor cerebri (Chronic) Restless leg syndrome (Chronic) Medical History: Medical History (Last Reviewed 06/02/20 @ 04:[address] Bruno Kee MD) Old myocardial infarction (Acute) I25.2 /15, 07/16 Hypertension (Chronic) I10 Hyperlipidemia (Chronic) E78.5 Atherosclerosis of coronary artery of [place] heart without angina pectoris (Chronic) I25.10 PTCA/MACHO of the LAD 09/07; IVUS to mid and proximal LAD, D1 had cutting balloon angioplasty 05/19/10; PTCA/MACHO of the distal LAD 12/20/17 CKD (chronic kidney disease), stage III (Chronic) N18.3 NSTEMI (non-ST elevated myocardial infarction) (Chronic) Onset Date: ~12/20/17 I21.4 VTE (venous thromboembolism) (Chronic) I82.90 Diabetes (Chronic) E11.9 Gout (Chronic) M10.9 Pseudotumor cerebri (Chronic) G93.2 Restless leg syndrome (Chronic) Migraine G43.909 GERD (gastroesophageal reflux disease) K21.9 Osteoarthritis M19.90 Allergies atorvastatin [From Lipitor] Adverse Reaction (Severe, Verified 06/01/20 21:25) Myalgias promethazine HCl [From Phenergan] Adverse Reaction (Verified 06/01/20 21:25) GET JUMPY Home Medications: Ambulatory Orders Medication Instructions Recorded Allopurinol [Zyloprim] 100 mg PO DAILY 09/21/15 Glimepiride [Amaryl] 2 mg PO DAILY@0800 #14 tab 02/15/17 Pramipexole Di-HCl [Mirapex] 1 mg PO 4X/DAY 12/20/17 Aspirin E.C. [Ecotrin] 81 mg PO DAILY@0800 #90 tab 12/21/17 nitroglycerin 0.4 mg sublingual 0.4 mg SUBLINGUAL Q5M PRN #90 tab 01/08/18 tablet Acetaminophen [Tylenol] 1,000 mg PO Q8 PRN 06/02/20 Armodafinil [Nuvigil] 150 mg PO DAILY 06/02/20 Surgical History: Surgical History (Last Reviewed 06/02/20 @ 04:[address] Bruno Kee MD) History of coronary artery stent placement (Chronic) Z95.5 PTCA/MACHO of the LAD 09/07; IVUS to mid and proximal LAD, D1 had cutting balloon angioplasty 05/19/10; PTCA/MACHO of the distal LAD 12/20/17 History of bilateral knee replacement Z96.653 Hx of appendectomy Z90.49 Postsurgical percutaneous transluminal coronary angioplasty (PTCA) status Z98.61 PTCA/MACHO of the LAD 09/07; IVUS to mid and proximal LAD, D1 had cutting balloon angioplasty 05/19/10; PTCA/MACHO of the distal LAD 12/20/17 Status post lumboperitoneal shunt placement Z98.2 Surgical History: - - STENTS,rib and shoulder surgery.total of 5 knee surgeries Psychiatric History: No pertinent psych hx Smoking Status: Former smoker Tobacco Use: Cigarettes - *Family History Paternal Family History: Family History (Last Reviewed 06/02/20 @ 04:[address] Bruno Kee MD) Father Heart disease COPD (chronic obstructive pulmonary disease) History Items: Heart Disease Review of Systems Constitutional: Denies: Chills, Fever, Weight Change HEENT: Denies: Head Aches, Sinus Congestion, Sinus Drainage Cardiovascular: Reports: Chest Pain. Denies: Palpitations Respiratory: Denies: Cough, Shortness of breath at rest, Sputum production Gastrointestinal: Denies: Abdominal Pain, Nausea, Vomiting Genitourinary: Denies: Dysuria Musculoskeletal: Denies: Joint Pain, Joint Tenderness Skin: Denies: Rash, Wounds Neurological: Denies: Numbness, Tingling, Focal weakness Psychiatric: Denies: Anxiety, Depression, Homicidal Ideations, Suicidal Ideations Hematologic/ Lymphatic: Denies: Easy Bruising, Easy Bleeding VTE Information - Inpt Only VTE Present on Admission: No VTE Mechan Device Prophylaxis: None VTE Pharm Prophylaxis ordered?: Yes Patient Problems: Active and Suspected Problems (Last Reviewed 06/02/20 @ 02:[address] Bruno Kee MD) Chest pain (Acute) - Physical Exam Vitals/I&O's: Vital Signs Temp Pulse Resp BP Pulse Ox 97.9 F 80 19 H 169/77 H 93 06/01/20 21:22 06/01/20 23:14 06/01/20 23:14 06/01/20 23:14 06/01/20 23:14 Oxygen Delivery Method Room Air Weight: 133.81 kg Body Mass Index (BMI) 43.5 Finger Stick Blood Glucose 293 General: Oriented x3, Lethargic HEENT: Atraumatic, PERRLA, EOMI, Normocephalic Neck: Supple, No JVD, Negative Carotid Bruits Lungs: Clear to auscultation, Normal air movement Cardiovascular: Regular rate, Normal S1, Normal S2 - Laceration of finger of right hand, No murmurs Abdomen: Bowel Sounds Present, Soft, Non Tender Extremities: No edema, Capillary Refill Less than 3 Seconds Skin: No rashes, No breakdown Musculoskeletal: No Tenderness to Palpation of Joints or Extremities Neurological: Cranial nerves II-XII grossly intact Psych/Mental Status: Normal Affect, Appropriate Laboratory Results 06/01/20 22:00: WBC Cancelled, Corrected WBC Cancelled, RBC Cancelled, Hgb Cancelled, Hct Cancelled, MCV Cancelled, MCH Cancelled, MCHC Cancelled, RDW Std Deviation Cancelled, RDW Coeff of Ag Cancelled, Plt Count Cancelled, MPV Cancelled, Immature Gran % (Auto) Cancelled, Neut % (Auto) Cancelled, Lymph % (Auto) Cancelled, [place] % (Auto) Cancelled, Eos % (Auto) Cancelled, Baso % (Auto) Cancelled, Absolute Neuts (auto) Cancelled, Absolute Lymphs (auto) Cancelled, Total Counted Cancelled, Neutrophils % (Manual) Cancelled, Band Neutrophils % Cancelled, Lymphocytes % (Manual) Cancelled, Monocytes % (Manual) Cancelled, Eosinophils % (Manual) Cancelled, Basophils % (Manual) Cancelled, Metamyelocytes % Cancelled, Myelocytes % Cancelled, Promyelocytes % Cancelled, Blast Cells % Cancelled, Plasma Cell % (Manual) Cancelled, Other Cells % Cancelled, Nucleated RBC % Cancelled, Nucleated RBCs/100 WBC Cancelled, Differential Comment Cancelled, Diff Path Review Cancelled, Hypersegmented Neuts Cancelled, Atypical Lymphocytes Cancelled, Reactive Lymphocytes Cancelled, Smudge Cells Cancelled, Toxic Granulation Cancelled, Toxic Vacuolation Cancelled, Dohle Bodies Cancelled, Eugene Rods Cancelled, Platelet Estimate Cancelled, Plt Morphology Comment Cancelled, RBC Morphology Cancelled, Polychromasia Cancelled, Hypochromasia Cancelled, Poikilocytosis Cancelled, Basophilic Stippling Cancelled, Anisocytosis Cancelled, Microcytosis Cancelled, Macrocytosis Cancelled, Spherocytes Cancelled, Sickle Cells Cancelled, Target Cells Cancelled, Tear Drop Cells Cancelled, Ovalocytes Cancelled, Stomatocytes Cancelled, [place] Bodies Cancelled, [place] Cells Cancelled, Bite Cells Cancelled, Crenated Cell Cancelled, Acanthocytes (Spur) Cancelled, Rouleaux Cancelled, Schistocytes Cancelled 06/01/20 22:00: Sodium 135 L, Potassium 4.2, Chloride 101, Carbon Dioxide 31.0, Anion Gap 3 L, BUN 25 H, Creatinine 1.32 H, Estim Creat Clear Calc 48.35, Est GFR (MDRD) Af Amer 68, Est GFR (MDRD) Non-Af 56 L, BUN/Creatinine Ratio 18.9, Glucose 323 H, Calcium 8.7, Troponin I < 0.015 06/01/20 23:45: WBC 8.2, RBC 4.49 L, Hgb 12.3 L, Hct 39.8 L, MCV 88.6, MCH 27.4, MCHC 30.9 L, RDW Std Deviation 45.9 H, RDW Coeff of Ag 14.1, Plt Count 242, MPV 9.6, Immature Gran % (Auto) 0.200, Neut % (Auto) 70.5 H, Lymph % (Auto) 18.8 L, [place] % (Auto) 7.4, Eos % (Auto) 2.9, Baso % (Auto) 0.2, Absolute Neuts (auto) 5.8, Absolute Lymphs (auto) 1.54, Nucleated RBC % 0 Assessment/Plan All Active Problems (Last Reviewed 06/02/20 @ 02:[address] Bruno Kee MD) Chest pain (Acute) Old myocardial infarction (Acute) Chest pain (Resolved) sob after surgery (Resolved) The patient is a 74 year old M with a significant history of CAD status post stents; and narcolepsy and CKD stage III presenting with chest pain that started on the same day of presentation. Chest pain Place on a monitored bed at PCU Chest CT finding as in HPI Received nitroglycerin and morphine at the emergency department. Nitroglycerin PRN continued. Actual CXR image was independently visualized. No acute cardiopulmonary process was noted. Actual EKG tracing was independently visualized EKG showed left axis deviation with no ST or T wave acute abnormalities. Received aspirin 162 mg. ASA 81 mg p.o. daily ordered continued. SL NTG 0.4 mg prn as needed for chest pain ordered We will check lipid panel. Statin: Patient is allergic to atorvastatin. Patient is too sleepy to provide further information about statins. Serial cardiac enzymes ordered Stat EKG as needed for chest pain Chemical stress test in the AM if the cardiac enzymes are negative Check bilateral Dopplers to determine need for anticoagulation. Masslike objects in maxillary sinus Recommend follow-up outpatient with ENT. Diabetes mellitus with hyperglycemia Amaryl continued Accu-Chek with correction scale insulin ordered. Narcolepsy On Armodafinil DVT prophylaxis Lovenox subcutaneous ordered OBSV E&M: [id number] Initial observation care L3
--- NOTE | 2020-06-02 02:08 | EKG12_ITS ---
Test Reason : CP ADMISSION Blood Pressure : / mmHG Vent. Rate : 063 BPM Atrial Rate : 063 BPM P-R Int : 214 ms QRS Dur : 086 ms QT Int : 372 ms P-R-T Axes : 080 -36 036 degrees QTc Int : 380 ms Sinus rhythm with 1st degree A-V block Left axis deviation Abnormal ECG Confirmed by CARRIE TURNER, JOJO ([id number]), editor index BHAKTI PEREIRA ([id number]) on 06/09/2020 10:03:28 AM Referred By: MARCIA Confirmed By:JOJO BUTLER MD
[2020-06-02] MEDS: Insulin Lispro 100 UNIT/ML INSULN.PEN SC ×2 (02:55→10:36)
[2020-06-02 03:30] LABS: Bedside Glucose 224 mg/dL (70-110)
--- NOTE | 2020-06-02 04:35 | CPS ---
Patient wears CPAP at home. Did not want to use hospital's machine while here.
--- NOTE | 2020-06-02 05:55 | VDLE_ITS ---
Reason For Study: Pulmonary embolism RIGHT LEFT GSV is normal. GSV is normal. CFV is compressible, spontaneous, phasic, CFV is compressible, spontaneous, phasic, competent and demonstrates normal competent, and demonstrates normal augmentation. augmentation. FV is compressible, spontaneous, phasic, FV is compressible, spontaneous, phasic, competent and demonstrates normal competent and demonstrates normal augmentation. augmentation. POP V is compressible, spontaneous, phasic, POP V is compressible, spontaneous, phasic, competent and demonstrates normal competent and demonstrates normal augmentation. augmentation. T/P Trunk is compressible. T/P Trunk is compressible. PTV is compressible. PTV is compressible. RT PerV is compressible. LT PerV is compressible. Procedure Exam performed in department. A preliminary report was called and/or faxed to [facility]. Interpretation Summary No evidence for acute deep venous thrombosis bilateral lower extremities with patent and compressible bilateral great saphenous veins. Ordering Physician: Bruno Kee Referring Physician: Casey Handley Performed By: Lore Lawrence RVT
[2020-06-02 06:30] LABS: Absolute Lymphocyte Count 1.42 X10^3/uL (0.83-4.51); Absolute Neutrophil Count 5.1 X10^3/uL (2.0-7.7); Basophil# 0.03 X10^3/uL; Basophil% 0.4 % (0-1); Eosinophil# 0.21 X10^3/uL; Eosinophils% 2.8 % (0-5); Hematocrit 43.6 % (40-54); Hemoglobin 13.4 g/dL (13.0-16.5); Lymphocyte # 1.42 X10^3/ul (4.0); Lymphocyte % 19.1 % (19-41); Mean Corp Hgb Conc 30.7 g/dL (32-36); Mean Corpuscular Volume 91.2 fL (80-94); Mean Platelet Vol. 9.5 fl (6.2-12.0); Monocyte# 0.65 X10^3/uL; Monocyte% 8.7 % (0-10); NRBC Flagged by Analyzer 0 % (0-5); Neutrophil # 5.09 X10^3/uL (2.7-7.7); Neutrophil % 68.6 % (47-70); Platelet Count 252 K/mm3 (150-450); RBC Distribution Width CV 14.2 % (11.6-14.6); RBC Distribution Width SD 47.4 fl (35.1-43.9); Red Blood Count 4.78 M/mm3 (4.6-6.2); White Blood Count 7.4 K/mm3 (4.4-11.0)
[2020-06-02] MEDS: Pramipexole Di-HCl 1 MG Tablet PO ×2 (06:36→13:20)
[2020-06-02] MEDS: Aspirin E.C. 81 MG Tablet PO (06:37)
[2020-06-02 07:01] LABS: Anion Gap 1 (5-15); BUN 24 mg/dL (7-18); BUN/Creat Ratio 20.3 RATIO (10-20); Calcium,Total 8.7 mg/dL (8.5-10.1); Chloride 100 mmol/L (98-107); Cholesterol 211 mg/dL (200); Creatinine, Serum 1.18 mg/dL (0.70-1.30); EST Glomerular Filtration Rate 64 mL/min (>60); Est Glom Filt Rate - Afr Amer 77 mL/min (>60); Estimated Creatinine Clearance 54.09 ml/min; Glucose 205 mg/dL (74-106); High Density Lipoprotein 38 mg/dL; Potassium 5.2 mmol/L (3.5-5.1); Sodium Level 136 mmol/L (136-145); Triglycerides 280 mg/dL; Very Low Density Lipoprotein 56 mg/dL (5-40)
[2020-06-02] MEDS: Sodium Polystyrene Sulfonate 15 GM/60 ML UDC PO (10:31)
[2020-06-02] MEDS: Glimepiride 2 MG Tablet PO (10:32)
[2020-06-02] MEDS: Allopurinol 100 MG Tablet PO (10:32)
[2020-06-02 11:06] LABS: Bedside Glucose 214 mg/dL (70-110)
--- NOTE | 2020-06-02 12:19 | STRESSREP_ITS ---
Stress Test Report Date: 06/02/2020 Procedure: Pharmacologic stress nuclear imaging study Indications: Chest pain Consent: Per the patient Procedure: The patient underwent pharmacologic (Regadenoson) evaluation with a peak heart rate of 145 beats per minute (68 %predicted maximal heart rate) and a peak blood pressure of 162/90 mmHg. The baseline ECG demonstrated normal sinus rhythm. EKG during lexiscan infusion revealed no significant ischemic changes. EKG post infusion revealed significant ischemic changes [There were no cardiac dysrhythmias pretest, during pharmacologic infusion, or recovery]. [There was no complaint of chest discomfort during pharmacologic infusion or recovery]. The examination was discontinued secondary to completion of protocol. Impression: 1. Lexiscan stress test test is negative for Lexiscan infusion induced EKG changes of ischemia. 2. Lexiscan stress test test is negative for Lexiscan infusion induced chest pain. 3. Results of the nuclear portion of the test is as below Myocardial perfusion imaging study: Technique: The patient was injected with 13.8 millicuries of technetium 99m Cardiolite and subsequently rest SPECT Cardiolite nuclear imaging was obtained in the horizontal long, vertical long, and short axis views. The patient underwent pharmacologic (Regadenoson) evaluation. Please see above for details. The patient was injected with 45 millicuries of technetium 99m Cardiolite and subsequently stress SPECT Cardiolite nuclear imaging was obtained in the horizontal long, vertical long, and short axis views. A gated Cardiolite study at peak stress was obtained. Interpretation: Rest and stress SPECT Cardiolite nuclear imaging status post realignment, normalization, and attenuation correction demonstrate decreased myocardial radioisotope uptake in the inferior wall prior to attenuation correction. After attenuation correction there is normal uptake in this region. There is no evidence of significant ischemia or infarction. These findings are suggestive of diaphragmatic attenuation artifact. Gated images reveal septal hypokinesis. The reported LVEF is 51 %. Impression: 1. There is no evidence of significant ischemia or infarction. 2. Estimated ejection fraction is 51%. This note was generated with [employer] software. It may contain incorrect words, spelling, and punctuation that were not noted in checking the note before signing.
--- NOTE | 2020-06-02 13:12 | CHAPLAIN ---
Type of Pastoral Visit _x__ Initial Visit ___ Follow-up Visit ___ On-call Visit ___ General Patient Visit ___ Spiritual Assessment ___ Family Conference ___ Bereavement ___ Rapid Response ___ Code Blue ___ Other (describe below) Pastoral Care Referral From _x__ Patient _x__ Family ___ Nurse ___ Physician ___ Rock Wool Applicator ___ Sr. Director Product Management ___ Other (describe below) Sacrament/Intervention _x__ Active listening ___ Anointing ___ Rastafarian ___ Bereavement ___ Communion _x__ Zohreh exploration ___ _x__ Life review _x__ Prayer ___ Reconciliation ___ Sacrament of Sick _x__ Supportive presence ___ Wedding ___ Other (describe below) Pastoral Comments patient welcomes this reporting coordinator and asks him for the most important thing you can do - pray; spouse is at bedside; pt is member of local evangelical and looks to zohreh as source of help; spouse talks about other health needs in past years; pt is pleasant but nods off several times during the conversation which is explained as his normal; pt and spouse welcome future visits
--- NOTE | 2020-06-02 13:49 | CASEMGMT ---
Pt to be sent home on Eliquis at discharge and med e-scribed to [facility]. Per tech at [facility], pt's does not have Rx coverage, only uses [facility] at this time. Tech provided with info for 30 day free trial card at this time, voices understanding and states she applied it at this time. Pt to be updated but Dr. Payne at bedside at this time. Per Astrid CRONIN, pt does not qualify for home oxygen at this time. Bandar CRONIN CM
--- NOTE | 2020-06-02 14:20 | PCM.DC ---
- Discharge Diagnoses Current Active Problems: Current Active and Chronic Problems (Last Reviewed 06/02/20 @ 04:[address] Bruno Kee MD) Chest pain (Acute) You will use the following diet at home:: Cardiac Your food should be the consistency of: Regular Your liquids should be the consistency of: Regular/Thin Discharge Activity: Return to Normal Activity Allergies/Adverse Reactions: Allergies atorvastatin [From Lipitor] Adverse Reaction (Severe, Verified 06/01/20 21:25) Myalgias promethazine HCl [From Phenergan] Adverse Reaction (Verified 06/01/20 21:25) GET JUMPY Medications to take at Discharge Allopurinol [Zyloprim] 100 mg PO DAILY 09/21/15 Glimepiride [Amaryl] 2 mg PO DAILY@0800 #14 tab 02/15/17 Pramipexole Di-HCl [Mirapex] 1 mg PO 4X/DAY 12/20/17 Aspirin E.C. [Ecotrin] 81 mg PO DAILY@0800 #90 tab 12/21/17 nitroglycerin 0.4 mg sublingual tablet 0.4 mg SUBLINGUAL Q5M PRN #90 tab 01/08/18 Acetaminophen [Tylenol] 1,000 mg PO Q8 PRN 06/02/20 Apixaban [Eliquis] 10 mg PO BID #74 tab 06/02/20 Armodafinil [Nuvigil] 150 mg PO DAILY 06/02/20 The following prescriptions were given: Apixaban [Eliquis] 10 mg PO BID #74 tab Transmission Status: Received by [id number] Primary Care Physician: Casey Handley DO [Primary Care Provider] - Please follow up with your Primary Care Physician in: 1-2 weeks Test Results: Test results from this visit will be discussed in further detail at your follow-up appointment, if applicable. Proposed Discharge Date: 06/02/20
[2020-06-02] MEDS: Enoxaparin 150 MG/ML Syringe 130 MG SC (14:22)
--- NOTE | 2020-06-02 14:22 | DS.PCM_ITS ---
<Christian Sharpe - Last Filed: 06/02/20 14:22> Discharge Date and Diagnosis Date of Admission: 06/02/20 Date of Discharge: 06/02/20 - Primary Discharge Diagnosis Acute Problems: Active Problems (Last Reviewed 06/02/20 @ 04:[address] Bruno Kee MD) Chest pain 2/2 pulmonary emboli - Secondary Discharge Diagnosis Chronic Problems: Chronic Problems (Last Reviewed 06/02/20 @ 04:[address] Bruno Kee MD) Hypertension (Chronic) Hyperlipidemia (Chronic) Atherosclerosis of coronary artery of [place] heart without angina pectoris (Chronic) PTCA/MACHO of the LAD 09/07; IVUS to mid and proximal LAD, D1 had cutting balloon angioplasty 05/19/10; PTCA/MACHO of the distal LAD 12/20/17 History of coronary artery stent placement (Chronic) PTCA/MACHO of the LAD 09/07; IVUS to mid and proximal LAD, D1 had cutting b alloon angioplasty 05/19/10; PTCA/MACHO of the distal LAD 12/20/17 CKD (chronic kidney disease), stage III (Chronic) NSTEMI (non-ST elevated myocardial infarction) (Chronic ~12/20/17) VTE (venous thromboembolism) (Chronic) Diabetes (Chronic) Gout (Chronic) Pseudotumor cerebri (Chronic) Restless leg syndrome (Chronic) Hospital Course and Treatment Imaging Results: 06/02/20 05:55 Nuclear Stress Test - Chemical [NM] AM (NON MEDS) Operations: None Procedures: None Summary of Care Provided: Hospital Course: The patient is a 74 year old M with pmhx of VTEs formerly on coumadin, CAD with prior stent, who presented to the ER with c/o chest pain. The patient described a midsternal chest pressure with associated shortness of breath, worse when taking a deep breath. CTA of the chest revealed subtle pulmonary emboli. Troponin was negative, EKG was negative. He was admitted for chest pain work- up. He underwent a stress test the following day which was negative. He continued to have some shortness of breath. He briefly had mild hypoxia with ambulation, however was able to be weaned off. He was felt to have had chest pain secondary to pulmonary emboli. He was placed on Eliquis. This was bridged with Lovenox. He was discharged home in stable condition. He will need to follow-up with his PCP in 1 to 2 weeks. This patient was seen by Christian Sharpe PA-C under the supervision of Doctor Elmer. [] - Physical Exam Vitals/I&O's: Vital Signs Temp Pulse Resp BP Pulse Ox 98.3 F 79 20 H 159/73 H 94 06/02/20 10:24 06/02/20 10:24 06/02/20 10:24 06/02/20 10:24 06/02/20 13:35 Oxygen Flow Rate (L/min) 2 Oxygen Delivery Method Nasal Cannula Weight: 296 lb Body Mass Index (BMI) 43.7 Finger Stick Blood Glucose 293 Intake and Output for Last 24 Hours 05/31/20 06/01/20 06/02/20 23:59 23:59 23:59 Intake Total 340 / 340 Output Total 425 / 425 Balance -85 / -85 General: Alert, Oriented x3, Cooperative HEENT: Atraumatic, PERRLA, EOMI, Normocephalic Neck: Supple, No JVD, Negative Carotid Bruits Lungs: Clear to auscultation, Normal air movement Cardiovascular: Regular rate, No murmurs Abdomen: Bowel Sounds Present, Soft, Non Tender Extremities: No edema, Capillary Refill Less than 3 Seconds Skin: No rashes, No breakdown Musculoskeletal: No Tenderness to Palpation of Joints or Extremities Neurological: Cranial nerves II-XII grossly intact Psych/Mental Status: Normal Affect, Appropriate, Alert and oriented to time, place, person, mood and affect Laboratory Results 06/01/20 22:00: WBC Cancelled, Corrected WBC Cancelled, RBC Cancelled, Hgb Cancelled, Hct Cancelled, MCV Cancelled, MCH Cancelled, MCHC Cancelled, RDW Std Deviation Cancelled, RDW Coeff of Ag Cancelled, Plt Count Cancelled, MPV Cancelled, Immature Gran % (Auto) Cancelled, Neut % (Auto) Cancelled, Lymph % (Auto) Cancelled, Potter % (Auto) Cancelled, Eos % (Auto) Cancelled, Baso % (Auto) Cancelled, Absolute Neuts (auto) Cancelled, Absolute Lymphs (auto) Cancelled, Total Counted Cancelled, Neutrophils % (Manual) Cancelled, Band Neutrophils % Cancelled, Lymphocytes % (Manual) Cancelled, Monocytes % (Manual) Cancelled, Eosinophils % (Manual) Cancelled, Basophils % (Manual) Cancelled, Metamyelocytes % Cancelled, Myelocytes % Cancelled, Promyelocytes % Cancelled, Blast Cells % Cancelled, Plasma Cell % (Manual) Cancelled, Other Cells % Cancelled, Nucleated RBC % Cancelled, Nucleated RBCs/100 WBC Cancelled, Differential Comment Cancelled, Diff Path Review Cancelled, Hypersegmented Neuts Cancelled, Atypical Lymphocytes Cancelled, Reactive Lymphocytes Cancelled, Smudge Cells Cancelled, Toxic Granulation Cancelled, Toxic Vacuolation Cancelled, Dohle Bodies Cancelled, Eugene Rods Cancelled, Platelet Estimate Cancelled, Plt Morphology Comment Cancelled, RBC Morphology Cancelled, Polychromasia Cancelled, Hypochromasia Cancelled, Poikilocytosis Cancelled, Basophilic Stippling Cancelled, Anisocytosis Cancelled, Microcytosis Cancelled, Macrocytosis Cancelled, Spherocytes Cancelled, Sickle Cells Cancelled, Target Cells Cancelled , Tear Drop Cells Cancelled, Ovalocytes Cancelled, Stomatocytes Cancelled, [place] Bodies Cancelled, [place] Cells Cancelled, Bite Cells Cancelled, Crenated Cell Cancelled, Acanthocytes (Spur) Cancelled, Rouleaux Cancelled, Schistocytes Cancelled 06/01/20 22:00: Sodium 135 L, Potassium 4.2, Chloride 101, Carbon Dioxide 31.0, Anion Gap 3 L, BUN 25 H, Creatinine 1.32 H, Estim Creat Clear Calc 48.35, Est GFR (MDRD) Af Amer 68, Est GFR (MDRD) Non-Af 56 L, BUN/Creatinine Ratio 18.9, Glucose 323 H, Calcium 8.7, Troponin I < 0.015 06/01/20 23:45: WBC 8.2, RBC 4.49 L, Hgb 12.3 L, Hct 39.8 L, MCV 88.6, MCH 27.4, MCHC 30.9 L, RDW Std Deviation 45.9 H, RDW Coeff of Ag 14.1, Plt Count 242, MPV 9.6, Immature Gran % (Auto) 0.200, Neut % (Auto) 70.5 H, Lymph % (Auto) 18.8 L, Potter % (Auto) 7.4, Eos % (Auto) 2.9, Baso % (Auto) 0.2, Absolute Neuts (auto ) 5.8, Absolute Lymphs (auto) 1.54, Nucleated RBC % 0 06/02/20 02:52: POC Glucose 224 H 06/02/20 03:14: Troponin I < 0.015 06/02/20 06:25: WBC 7.4, RBC 4.78, Hgb 13.4, Hct 43.6, MCV 91.2, MCH 28.0, MCHC 30.7 L, RDW Std Deviation 47.4 H, RDW Coeff of Ag 14.2, Plt Count 252, MPV 9.5, Immature Gran % (Auto) 0.400, Neut % (Auto) 68.6, Lymph % (Auto) 19.1, Potter % (Auto) 8.7, Eos % (Auto) 2.8, Baso % (Auto) 0.4, Absolute Neuts (auto) 5.1, Absolute Lymphs (auto) 1.42, Nucleated RBC % 0 06/02/20 06:25: Sodium 136, Potassium 5.2 H, Chloride 100, Carbon Dioxide 35.0 H , Anion Gap 1 L, BUN 24 H, Creatinine 1.18, Estim Creat Clear Calc 54.09, Est GFR (MDRD) Af Amer 77, Est GFR (MDRD) Non-Af 64, BUN/Creatinine Ratio 20.3 H, Glucose 205 H, Calcium 8.7, Troponin I < 0.015, Triglycerides 280 H, Cholesterol 211 H, LDL Cholesterol 117, VLDL Cholesterol 56 H, HDL Cholesterol 38 L 06/02/20 10:36: POC Glucose 214 H Current Medications Acetaminophen (Tylenol) 650 mg PO Q6H PRN PRN PRN Reason: Pain Score 1-10/Temp > 100.7 F Allopurinol (Zyloprim) 100 mg [facility] Last Admin: 06/02/20 10:32 Dose: 100 mg Documented by: Apixaban (Eliquis) 10 mg PO BID [facility] Aspirin (Ecotrin) 81 mg PO DAILY@0800 [facility] Last Admin: 06/02/20 06:37 Dose: 81 mg Documented by: Dextrose (D50w Syringe) 0 gm IV X1 PRN; Protocol PRN Reason: Hypoglycemia Glimepiride (Amaryl) 2 mg PO DAILY@0800 [facility] Last Admin: 06/02/20 10:32 Dose: 2 mg Documented by: Glucagon () 1 mg IM .X1 PRN PRN Reason: Hypoglycemia Sodium Chloride () 250 mls @ 15 mls/hr IV .[id number] PRN PRN Reason: Saline Flush Sodium Chloride () 250 mls @ 15 mls/hr IV .[id number] PRN PRN Reason: Additional IVPB Infusion Insulin Human Lispro (Humalog Kwikpen (Bkc)) 0 unit SC Q6H [facility]; Protocol Last Admin: 06/02/20 10:36 Dose: 4 units Documented by: Nitroglycerin (Nitrostat) 0.4 mg SUBLINGUAL Q5M PRN PRN Reason: CARDIAC/CHEST PAIN Pramipexole Dihydrochloride (Mirapex) 1 mg PO 0600,1200 [facility] Last Admin: 06/02/20 13:20 Dose: 1 mg Documented by: Pramipexole Dihydrochloride (Mirapex) 2 mg PO QHS [facility] Sodium Chloride () 10 - 40 ml IV UD PRN PRN Reason: SALINE FLUSH Discharge Diet: Low fat/ Low Cholesterol, 1800 Calorie Control Diet, 2000 mg Sodium Diet Discharge Activity: Return to Normal Activity Home Medications: Medications to take at Discharge Allopurinol [Zyloprim] 100 mg PO DAILY 09/21/15 Glimepiride [Amaryl] 2 mg PO DAILY@0800 #14 tab 02/15/17 Pramipexole Di-HCl [Mirapex] 1 mg PO 4X/DAY 12/20/17 Aspirin E.C. [Ecotrin] 81 mg PO DAILY@0800 #90 tab 12/21/17 nitroglycerin 0.4 mg sublingual tablet 0.4 mg SUBLINGUAL Q5M PRN #90 tab 01/08/18 Acetaminophen [Tylenol] 1,000 mg PO Q8 PRN 06/02/20 Apixaban [Eliquis] 10 mg PO BID #74 tab 06/02/20 Armodafinil [Nuvigil] 150 mg PO DAILY 06/02/20 Following Prescriptions Were Given to Patient: Apixaban [Eliquis] 10 mg PO BID #74 tab Transmission Status: Received by [id number] Primary Care Physician: Casey Handley DO [Primary Care Provider] - Please follow up with your Primary Care Physician in: 1-2 weeks Disposition: Home Minutes spent on discharge:: 35 Patient Condition:: Stable Medical Necessity - Tobacco Use Smoking Status: Never smoker Tobacco Use: Cigarettes Meaningful Use Info Meaningful Use Diagnoses (Choose all that apply): VTE - VTE Anticoag overlap given w/in hospital stay or rx'd at dc?: Yes Pt receive overlap for 5 days?: No Reason overlap not ordered, prescribed, or given for 5 days: Procedure Not Indicated <Gordy Payne - Last Filed: 06/02/20 16:17> Discharge Date and Diagnosis - Secondary Discharge Diagnosis Chronic Problems: Chronic Problems (Last Reviewed 06/02/20 @ 04:[address] Bruno Kee MD) Hypertension (Chronic) Hyperlipidemia (Chronic) Atherosclerosis of coronary artery of [place] heart without angina pectoris (Chronic) PTCA/MACHO of the LAD 09/07; IVUS to mid and proximal LAD, D1 had cutting balloon angioplasty 05/19/10; PTCA/MACHO of the distal LAD 12/20/17 History of coronary artery stent placement (Chronic) PTCA/MACHO of the LAD 09/07; IVUS to mid and proximal LAD, D1 had cutting balloon angioplasty 05/19/10; PTCA/MACHO of the distal LAD 12/20/17 CKD (chronic kidney disease), stage III (Chronic) NSTEMI (non-ST elevated myocardial infarction) (Chronic ~12/20/17) VTE (venous thromboembolism) (Chronic) Diabetes (Chronic) Gout (Chronic) Pseudotumor cerebri (Chronic) Restless leg syndrome (Chronic) Hospital Course and Treatment Summary of Care Provided: The patient is a 74 year old M [] - Physical Exam Vitals/I&O's: Vital Signs Temp Pulse Resp BP Pulse Ox 98.1 F 80 20 H 159/68 H 92 06/02/20 14:27 06/02/20 14:27 06/02/20 14:27 06/02/20 14:27 06/02/20 14:27 Oxygen Flow Rate (L/min) 2 Oxygen Delivery Method Room Air Weight: 296 lb Body Mass Index (BMI) 43.7 Finger Stick Blood Glucose 293 Intake and Output for Last 24 Hours 05/31/20 06/01/20 06/02/20 23:59 23:59 23:59 Intake Total 340 / 340 Output Total 425 / 425 Balance -85 / -85 Laboratory Results 06/01/20 22:00: WBC Cancelled, Corrected WBC Cancelled, RBC Cancelled, Hgb Cancelled, Hct Cancelled, MCV Cancelled, MCH Cancelled, MCHC Cancelled, RDW Std Deviation Cancelled, RDW Coeff of Ag Cancelled, Plt Count Cancelled, MPV Cancelled, Immature Gran % (Auto) Cancelled, Neut % (Auto) Cancelled, Lymph % (Auto) Cancelled, [place] % (Auto) Cancelled, Eos % (Auto) Cancelled, Baso % (Auto) Cancelled, Absolute Neuts (auto) Cancelled, Absolute Lymphs (auto) Cancelled, Total Counted Cancelled, Neutrophils % (Manual) Cancelled, Band Neutrophils % Cancelled, Lymphocytes % (Manual) Cancelled, Monocytes % (Manual) Cancelled, Eosinophils % (Manual) Cancelled, Basophils % (Manual) Cancelled, Metamyelocytes % Cancelled, Myelocytes % Cancelled, Promyelocytes % Cancelled, Blast Cells % Cancelled, Plasma Cell % (Manual) Cancelled, Other Cells % Cancelled, Nucleated RBC % Cancelled, Nucleated RBCs/100 WBC Cancelled, Differential Comment Cancelled, Diff Path Review Cancelled, Hypersegmented Neuts Cancelled, Atypical Lymphocytes Cancelled, Reactive Lymphocytes Cancelled, Smudge Cells Cancelled, Toxic Granulation Cancelled, Toxic Vacuolation Cancelled, Dohle Bodies Cancelled, [place] Rods Cancelled, Platelet Estimate Cancelled, Plt Morphology Comment Cancelled, RBC Morphology Cancelled, Polychromasia Cancelled, Hypochromasia Cancelled, Poikilocytosis Cancelled, Basophilic Stippling Cancelled, Anisocytosis Cancelled, Microcytosis Cancelled, Macrocytosis Cancelled, Spherocytes Cancelled, Sickle Cells Cancelled, Target Cells Cancelled, Tear Drop Cells Cancelled, Ovalocytes Cancelled, Stomatocytes Cancelled, [place] Bodies Cancelled, [place] Cells Cancelled, Bite Cells Canc elled, Crenated Cell Cancelled, Acanthocytes (Spur) Cancelled, Rouleaux Cancelled, Schistocytes Cancelled 06/01/20 22:00: Sodium 135 L, Potassium 4.2, Chloride 101, Carbon Dioxide 31.0, Anion Gap 3 L, BUN 25 H, Creatinine 1.32 H, Estim Creat Clear Calc 48.35, Est GFR (MDRD) Af Amer 68, Est GFR (MDRD) Non-Af 56 L, BUN/Creatinine Ratio 18.9, Glucose 323 H, Calcium 8.7, Troponin I < 0.015 06/01/20 23:45: WBC 8.2, RBC 4.49 L, Hgb 12.3 L, Hct 39.8 L, MCV 88.6, MCH 27.4, MCHC 30.9 L, RDW Std Deviation 45.9 H, RDW Coeff of Ag 14.1, Plt Count 242, MPV 9.6, Immature Gran % (Auto) 0.200, Neut % (Auto) 70.5 H, Lymph % (Auto) 18.8 L, [place] % (Auto) 7.4, Eos % (Auto) 2.9, Baso % (Auto) 0.2, Absolute Neuts (auto) 5.8, Absolute Lymphs (auto) 1.54, Nucleated RBC % 0 06/02/20 02:52: POC Glucose 224 H 06/02/20 03:14: Troponin I < 0.015 06/02/20 06:25: WBC 7.4, RBC 4.78, Hgb 13.4, Hct 43.6, MCV 91.2, MCH 28.0, MCHC 30.7 L, RDW Std Deviation 47.4 H, RDW Coeff of Ag 14.2, Plt Count 252, MPV 9.5, Immature Gran % (Auto) 0.400, Neut % (Auto) 68.6, Lymph % (Auto) 19.1, Potter % (Auto) 8.7, Eos % (Auto) 2.8, Baso % (Auto) 0.4, Absolute Neuts (auto) 5.1, Absolute Lymphs (auto) 1.42, Nucleated RBC % 0 06/02/20 06:25: Sodium 136, Potassium 5.2 H, Chloride 100, Carbon Dioxide 35.0 H , Anion Gap 1 L, BUN 24 H, Creatinine 1.18, Estim Creat Clear Calc 54.09, Est GFR (MDRD) Af Amer 77, Est GFR (MDRD) Non-Af 64, BUN/Creatinine Ratio 20.3 H, Glucose 205 H, Calcium 8.7, Troponin I < 0.015, Triglycerides 280 H, Cholesterol 211 H, LDL Cholesterol 117, VLDL Cholesterol 56 H, HDL Cholesterol 38 L 06/02/20 10:36: POC Glucose 214 H Addendum: Dr. Payne I personally examined the patient and reviewed the chart. I agree with the above. 74-year-old male who is morbidly obese with a BMI of 43 and has a history of CAD status post stents in 2018 as well as narcolepsy presents to the hospital with chest pain. He is also had periods of leg pain and episodes of passing out over the last couple of weeks. However on presentation he had a CT scan of his chest which demonstrated probable peripheral pulmonary emboli bilaterally. He did have a cardiac stress test today which was unremarkable. Troponins were unremarkable and EKG remained unchanged. He had been on Coumadin in the past for previous DVT and now that he has new PEs he is likely on lifelong anticoagulation. He does not require any oxygen and he was not tachycardic, therefore he did not need an echo. He did have a venous Doppler which was unremarkable for DVT. He was given a therapeutic dose of Lovenox and and then discharged home on Eliquis 10 mg p.o. twice daily for a week followed by 5 mg p.o. twice daily. He will need to follow-up with his primary care doctor as an outpatient. I felt like these episodes of passing out were related to his pulmonary embolisms. He was on telemetry overnight without any arr hythmia documented. And he says that his last episode where he passed out he had been fishing on and had not been hydrating very well most likely very dehydrated. I discussed the plan for discharge today and he expressed understanding of the risk and benefits of going home, as did his . OBSV E&M: [id number] Observation care discharge
== END 2020-06-02 14:21 | disposition home or self-care (01) ==
LOC: ED 22:22 → PCU 06-02 01:01
PROVIDERS: Emergency Medicine; Admitting Provider Hospitalist; Emergency Provider Student in an Organized Health Care Education/Training Program; PCP Family Medicine; Visit Provider Family Medicine
DX: I26.99 Other pulmonary embolism without acute cor pulmonale (principal); S30.0XXA Contusion of lower back and pelvis, initial encounter; S09.90XA Unspecified injury of head, initial encounter; I25.2 Old myocardial infarction; G47.419 Narcolepsy without cataplexy; W19.XXXA Unspecified fall, initial encounter; Y93.89 Activity, other specified; Y92.828 Other wilderness area as the place of occurrence of the external cause; E11.22 Type 2 diabetes mellitus with diabetic chronic kidney disease; E78.5 Hyperlipidemia, unspecified; I12.9 Hypertensive chronic kidney disease with stage 1 through stage 4 chronic kidney disease, or unspecified chronic kidney disease; N18.3 Chronic kidney disease, stage 3 (moderate); M10.9 Gout, unspecified; G25.81 Restless legs syndrome; K21.9 Gastro-esophageal reflux disease without esophagitis; E11.65 Type 2 diabetes mellitus with hyperglycemia; M19.90 Unspecified osteoarthritis, unspecified site; G93.2 Benign intracranial hypertension; I25.10 Atherosclerotic heart disease of native coronary artery without angina pectoris; E66.01 Morbid (severe) obesity due to excess calories; Z79.899 Other long term (current) drug therapy; Z79.82 Long term (current) use of aspirin; Z95.5 Presence of coronary angioplasty implant and graft; Z86.711 Personal history of pulmonary embolism; Z87.891 Personal history of nicotine dependence; Z79.4 Long term (current) use of insulin; Z68.41 Body mass index [BMI] 40.0-44.9, adult; Z86.718 Personal history of other venous thrombosis and embolism
CPT/HCPCS: 36415; 70450; 71275; 72100; 78452; 80048; 80061; 82962; 84484; 85025; 93005; 93017; 93970; 96372; 96374; 96375; 99218; 99284; A9500; Q9967; A4216; G0378; J2405; J2785

== ENCOUNTER 2021-01-09 00:18 | Inpatient (IN) | payer MEDICARE, SELFPAY ==
[2017-12-20 14:12] VITALS: BMI 40.4
[2020-06-02 02:13] VITALS: BMI 43.7
[2021-01-09] VITALS (19 sets, daily range): BP systolic 111–207; BP diastolic 59–103; PULSE 74–120; RESP 12–26; TEMP 36.2–36.9; O2SAT 62–98; BMI 46.4; BMI 45.7; BMI 45.8
--- NOTE | 2021-01-09 00:27 | EKG12_ITS ---
Test Reason : SYNCOPE Blood Pressure : / mmHG Vent. Rate : 104 BPM Atrial Rate : 312 BPM P-R Int : 000 ms QRS Dur : 092 ms QT Int : 328 ms P-R-T Axes : 000 -40 077 degrees QTc Int : 431 ms Atrial flutter with variable A-V block Left axis deviation Abnormal ECG Confirmed by EMIGDIO TURNER, EFRA ([id number]), editor managing director BHAKTI PEREIRA ([id number]) on 01/09/2021 2:26:27 PM Referred By: VANNA Confirmed By:EFRA BEAL MD
--- NOTE | 2021-01-09 00:27 | RAD_ITS ---
STUDY: X-RAY CHEST REASON FOR EXAM: Male, 75 years old. injury and hypoxia TECHNIQUE: AP COMPARISON: 12/20/[address] chest from 06/01/2020 FINDINGS: The lungs are clear and expanded. There is mild hazy right lung base opacity likely due to chronic pleural thickening seen on CTA chest. Normal size heart. Normal mediastinum and [place]. Normal visualized pulmonary arteries. Normal visualized aortic arch and descending thoracic aorta. There are diffuse degenerative changes of the visualized thoracic spine. There are multiple right rib fixations. There is no demonstrated abnormality of the visualized soft tissue structures of the upper abdomen. RAD/Chest 1 View (Portable) IMPRESSION: No focal consolidative lung changes. Electronically Signed: Duy Florentino MD at 1:15 EDT Tel , Service support ,
[2021-01-09 00:42] LABS: Absolute Lymphocyte Count 1.46 X10^3/uL (0.83-4.51); Absolute Neutrophil Count 8.6 X10^3/uL (2.0-7.7); Basophil# 0.02 X10^3/uL; Basophil% 0.2 % (0-1); Eosinophil# 0.17 X10^3/uL; Eosinophils% 1.6 % (0-5); Hematocrit 45.1 % (40-54); Hemoglobin 13.4 g/dL (13.0-16.5); Lymphocyte # 1.46 X10^3/ul (4.0); Lymphocyte % 13.5 % (19-41); Mean Corp Hgb Conc 29.7 g/dL (32-36); Mean Corpuscular Hgb 26.7 pg (27.0-32.0); Mean Corpuscular Volume 89.8 fL (80-94); Mean Platelet Vol. 9.9 fl (6.2-12.0); Monocyte# 0.41 X10^3/uL; Monocyte% 3.8 % (0-10); NRBC Flagged by Analyzer 0 % (0-5); Neutrophil # 8.63 X10^3/uL (2.7-7.7); Neutrophil % 80.1 % (47-70); Platelet Count 277 K/mm3 (150-450); RBC Distribution Width CV 14.8 % (11.6-14.6); RBC Distribution Width SD 48.8 fl (35.1-43.9); Red Blood Count 5.02 M/mm3 (4.6-6.2); White Blood Count 10.8 K/mm3 (4.4-11.0)
[2021-01-09 00:47] LABS: International Normalized Ratio 1.6; Prothrombin Time (Protime)PT. 18.3 SECONDS (11.7-14.9)
--- NOTE | 2021-01-09 00:47 | CT_ITS ---
STUDY: CT ABDOMEN AND PELVIS WITH CONTRAST REASON FOR EXAM: Male, 75 years old. polytrauma RADIATION DOSAGE (If Supplied By Facility): CTDIvol = ( 44.86 ) mGy, DLP = ( 3107.25 ) mGycm TECHNIQUE: Transaxial images were obtained from the dome of the diaphragm to the symphysis pubis without oral contrast. IV 100mL Isovue-370 was administered. Sagittal and coronal images were reconstructed. Individualized dose optimization techniques were used for this CT. COMPARISON: None. FINDINGS: The visualized lung bases demonstrate scattered right lung tree-in-bud nodularity. The visualized portions of the heart are within normal limits. Normal liver. Normal gallbladder and extrahepatic biliary system. Normal spleen. Normal pancreas. Normal bilateral adrenal glands. Nonobstructive right renal calculus measuring 7 mm. Exophytic left renal cyst measuring 2 cm in diameter with density measuring 38 [place] units. Normal visualized stomach. Normal small intestine. There are multiple colonic diverticula consistent with diverticulosis. There is non-visualization of the appendix. Normal abdominal aorta. Normal inferior vena cava. Normal retroperitoneum. Normal urinary bladder. Normal abdominal wall. There are diffuse degenerative changes of the visualized lumbar spine. There are leads tracking within the spinal canal. Additional tubing is seen tracking along the left lateral abdominal wall and terminating in the anterior mid abdomen. CT/Abdomen/Pelvis W IV Cont ONLY IMPRESSION: Negative enhanced CT of the abdomen and pelvis for acute intra-abdominal abnormality. 2 cm exophytic left renal cyst slightly higher in density than expected for simple cyst. Recommend follow-up nonemergent renal ultrasound. Electronically Signed: Duy Florentino MD at 2:43 EDT Tel , Service support ,
--- NOTE | 2021-01-09 00:47 | CT_ITS ---
STUDY: CTA CHEST REASON FOR EXAM: Male, 75 years old. Polytrauma RADIATION DOSAGE (If Supplied By Facility): CTDIvol = ( 44.86 ) mGy, DLP = ( 3107.25 ) mGycm TECHNIQUE: The examination was performed with the intravenous administration of IV 100mL Isovue-370. Post-processing of the angiographic images was performed, with multiplanar reformation and 3D reconstruction. Individualized dose optimization techniques were used for this CT. COMPARISON: CTA chest from 06/01/2020 FINDINGS: Normal enhancement of the main pulmonary artery and right and left pulmonary arteries. Normal enhancement of the bilateral peripheral pulmonary arteries. There is no demonstrated pulmonary embolism. Normal thoracic aorta and visualized great vessels. There is no demonstrated aortic dissection. There are coronary calcifications and probable stent. Normal mediastinum. Normal hilar regions. Normal visualized trachea and bronchi. The lungs demonstrate tree-in-bud groundglass densities throughout the right lung. There is right lower pleural thickening which is stable from prior CT chest. There are multiple old right rib fixations . Normal visualized upper abdomen. CT/CTA Chest W/WO Contrast IMPRESSION: Multiple old right rib fracture deformities and rib fixations. Tree-in-bud groundglass densities throughout the right lung. Findings may be due to underlying pneumonitis or bronchiolitis. Recommend close follow-up CT chest to assess resolution. The left lung is clear. Electronically Signed: Duy Florentino MD at 2:36 EDT Tel , Service support ,
--- NOTE | 2021-01-09 00:47 | CT_ITS ---
STUDY: CT BRAIN WITHOUT CONTRAST REASON FOR EXAM: Male, 75 years old. Polytrauma RADIATION DOSAGE (If Supplied By Facility): CTDIvol = ( 44.99 ) mGy, DLP = ( 812.98 ) mGycm TECHNIQUE: Transaxial CT imaging of the brain was performed without administration of intravenous contrast material. Individualized dose optimization techniques were used for this CT. COMPARISON: CT head from 06/01/2020 FINDINGS: Normal soft tissue structures. Normal calvarium. There is mild cerebral atrophy with widening of the extra-axial spaces and ventricular dilatation. Normal white matter tracts of the cerebral hemispheres. Normal basal ganglia and thalami. Normal brainstem. Normal cerebellum. There is no intracranial hemorrhage. There are no findings of an acute ischemic infarction. Again visualized is dense opacification of the bilateral maxillary sinuses and scattered ethmoid air cells. Again seen is lobulated masslike region involving the right sided nasal passage with internal calcifications. CT/Brain/Head without Contrast IMPRESSION: Negative unenhanced CT scan of the brain for acute intracranial abnormality. Diffuse dense opacification of the maxillary sinuses and scattered ethmoid air cells with revisualization of masslike region in the right nasal sinus passage with internal calcifications and erosion of the right medial maxillary sinus wall. Consider further evaluation with ENT consult if not already obtained. Electronically Signed: Duy Florentino MD at 2:20 EDT Tel , Service support ,
--- NOTE | 2021-01-09 00:47 | CT_ITS ---
STUDY: CT CERVICAL SPINE WITHOUT CONTRAST REASON FOR EXAM: Male, 75 years old. Polytrauma RADIATION DOSAGE (If Supplied By Facility): CTDIvol = ( 31.55 ) mGy, DLP = ( 624.32 ) mGycm TECHNIQUE: High resolution transaxial imaging was performed without contrast material. Sagittal and coronal images were reconstructed. Individualized dose optimization techniques were used for this CT. COMPARISON: None FINDINGS: Normal craniovertebral junction. There are degenerative changes of the anterior atlantoaxial articulation. Normal odontoid process. There is straightening of the normal cervical lordosis. There is diffuse facet arthrosis and degenerative endplate changes. Normal visualized soft tissue structures. CT/Spine Cervical without Contras IMPRESSION: Multilevel degenerative changes, as described above. No acute fracture or subluxation. Electronically Signed: Duy Florentino MD at 2:26 EDT Tel , Service support ,
[2021-01-09 00:49] LABS: Partial Thromboplast Time 28.9 Seconds (24.1-36.2)
[2021-01-09 00:58] LABS: ALB/GLOB Ratio 0.6 RATIO (0.9-2.4); AST(SGOT) 15 U/L (15-37); Alanine Aminotransfer ALT/SGPT 28 U/L (16-61); Albumin, Serum 2.8 g/dL (3.2-5.0); Alkaline Phosphatase 99 U/L (45-117); Anion Gap 2 (5-15); BUN 21 mg/dL (7-18); Calcium,Total 8.3 mg/dL (8.5-10.1); Chloride 100 mmol/L (98-107); Creatinine, Serum 1.31 mg/dL (0.70-1.30); EST Glomerular Filtration Rate 57 mL/min (>60); Est Glom Filt Rate - Afr Amer 68 mL/min (>60); Estimated Creatinine Clearance 46.41 ml/min; Globulin 4.6 g/dL (2.2-4.2); Glucose 228 mg/dL (74-106); Lipase 67 U/L (73-393); Potassium 4.4 mmol/L (3.5-5.1); Protein, Total 7.4 g/dL (6.4-8.2); Sodium Level 136 mmol/L (136-145)
[2021-01-09 01:59] LABS: Bacteria 0 SEEN /hpf (None Seen); Mucous, Urine 0 SEEN /hpf (<or=2+); Squamous Epithelial Cells - UA 0 SEEN /hpf (0-5); White Blood Cells 0 SEEN /hpf (0-5)
[2021-01-09 02:00] LABS: Color, Urine Yellow (Yellow); Glucose, Dipstick 50 mg/dl (Normal); Ketone-Dipstick Negative (Negative); Leukocyte Esterase-Dipstick Negative /ul (Negative); Nitrite-Dipstick Negative (Negative); Occult Blood-Urine 10 /ul (Negative); Protein-Dipstick 100 mg/dl (Negative); Urine Bilirubin Dipstick Negative (Negative); Urine Clarity Clear (Clear); Urine Urobilinogen Normal (Normal)
[2021-01-09 02:05] LABS: Red Blood Cells-Urine 0-5 SEEN /hpf (0-5)
[2021-01-09] MEDS: Morphine 4 MG/ML Syringe IV (02:23)
[2021-01-09] MEDS: Ipratropium/Albuterol Sulfate 3 ML AMPUL.NEB INHALATION (03:08)
--- NOTE | 2021-01-09 03:20 | ED.VIS.GEN ---
History of Present Illness Chief Complaint: Fall Informant: Patient, Family Narrative: 75-year-old male on Coumadin for atrial fibrillation who was in his usual state of health tonight. He tells me that he was getting ready for bed went to get a glass of milk. He states that all of a sudden he woke up on the floor. He does not know why he would have passed out. states that she heard a loud noise and came and found him. She thinks he may have hit his head and his back on the cabinetry. Arriving in triage he was brought back to the room as his pulse ox was about 62%. He is noting pain in the flank and states that he seems to have an altered mental status. He has had prior rib fractures that required surgery from trauma. - Past Medical History (1) Atherosclerosis of coronary artery of [place] heart without angina pectoris Status: Chronic Comment: PTCA/MACHO of the LAD 09/07; IVUS to mid and proximal LAD, D1 had cutting balloon angioplasty 05/19/10; PTCA/MACHO of the distal LAD 12/20/17 (2) CKD (chronic kidney disease), stage III Status: Chronic (3) Diabetes Status: Chronic (4) Gout Status: Chronic (5) History of coronary artery stent placement Status: Chronic Comment: PTCA/MACHO of the LAD 09/07; IVUS to mid and proximal LAD, D1 had cutting balloon angioplasty 05/19/10; PTCA/MACOH of the distal LAD 12/20/17 (6) Hyperlipidemia Status: Chronic (7) Hypertension Status: Chronic (8) Pseudotumor cerebri Status: Chronic (9) Restless leg syndrome Status: Chronic (10) VTE (venous thromboembolism) Status: Chronic Past Medical History - Allergies and Home Meds Allergies/Adverse Reactions: Allergies atorvastatin [From Lipitor] Adverse Reaction (Severe, Verified 01/09/21 00:25) Myalgias promethazine HCl [From Phenergan] Adverse Reaction (Verified 01/09/21 00:25) GET JUMPY Primary Care Physician: Casey Handley DO [Primary Care Provider] - Surgical History: - - STENTS,rib and shoulder surgery.total of 5 knee surgeries Lives: Spouse/ Significant Other Smoking Status: Never smoker Drugs: None - Family History Paternal Family History: Family History (Last Reviewed 06/02/20 @ 04:[address] Bruno Kee MD) Father Heart disease COPD (chronic obstructive pulmonary disease) Family History: Reports: Heart Disease Review of Systems General: Denies: Chills, Fever, Sweats Eyes: Denies: Visual changes - bilaterally, Diplopia ENT: Denies: Rhinorrhea, Sore throat Cardiovascular: Denies: Chest pain, Palpitations Respiratory: Reports: Dyspnea. Denies: Cough, Dyspnea on exertion Gastrointestinal: Denies: Abdominal pain, Nausea, Vomiting, Diarrhea, Melena, Hematochezia Genitourinary: Denies: Dysuria, Hematuria, Frequency Musculoskeletal: Reports: Back pain. Denies: Extremity Pain Skin: Denies: Rash, Wounds Neurological: Denies: Headache, Weakness, Numbness Physical Exam Vital Signs/Narrative: Vital Signs Temp Pulse Resp BP Pulse Ox 01/09/21 03:10 120 H 20 H 01/09/21 02:51 112 H 22 H 173/80 H 93 01/09/21 02:20 115 H 24 H 207/103 H 91 01/09/21 00:31 91 01/09/21 00:26 88 01/09/21 00:23 103 H 24 H 85 01/09/21 00:19 97.6 F L 103 H 26 H 171/72 H 62 Inital Vital Signs reviewed: Yes General: Well nourished, Well developed, Obese, Acute Distress - Acute respiratory distress Head: Normocephalic, Atraumatic Eyes: Perrl, EOMI ENT: Moist mucous membranes, No rhinorrhea Neck: Supple, Nontender Cardiovascular: No murmurs, Irregular - Newly irregular tachycardic rhythm, Tachycardia Respiratory: CTA bilaterally, Chest nontender, Decreased Air Movement Abdomen: Soft, Nontender, Nondistended, Normal bowel sounds Back: - - There is abrasion/contusion in the left flank Extremities: Nontender, No edema Skin: Normal color, Trauma Neurological: Alert, Oriented x3, Cranial nerves II-XII grossly intact, Normal Strength, Normal Sensation, Lethargic Diagnostic/Tx/Re-eval Clinical Impression(s) from Imaging Studies Chest X-Ray 01/09/21 00:27 IMPRESSION: No focal consolidative lung changes. Electronically Signed: Duy Florentino MD at 1:15 EDT Tel , Service support , Abdomen/Pelvis CT 01/09/21 00:47 IMPRESSION: Negative enhanced CT of the abdomen and pelvis for acute intra-abdominal abnormality. 2 cm exophytic left renal cyst slightly higher in density than expected for simple cyst. Recommend follow-up nonemergent renal ultrasound. Electronically Signed: Duy Florentino MD at 2:43 EDT Tel , Service support , Brain CT 01/09/21 00:47 IMPRESSION: Negative unenhanced CT scan of the brain for acute intracranial abnormality. Diffuse dense opacification of the maxillary sinuses and scattered ethmoid air cells with revisualization of masslike region in the right nasal sinus passage with internal calcifications and erosion of the right medial maxillary sinus wall. Consider further evaluation with ENT consult if not already obtained. Electronically Signed: Duy Florentino MD at 2:20 EDT Tel , Service support , Cervical Spine CT 01/09/21 00:47 IMPRESSION: Multilevel degenerative changes, as described above. No acute fracture or subluxation. Electronically Signed: Duy Florentino MD at 2:26 EDT Tel , Service support , Chest CTA 01/09/21 00:47 IMPRESSION: Multiple old right rib fracture deformities and rib fixations. Tree-in-bud groundglass densities throughout the right lung. Findings may be due to underlying pneumonitis or bronchiolitis. Recommend close follow-up CT chest to assess resolution. The left lung is clear. Electronically Signed: Duy Florentino MD at 2:36 EDT Tel , Service support , Laboratory Last Values WBC 10.8 K/mm3 (4.4-11.0) 01/09/21 00:31 RBC 5.02 M/mm3 (4.6-6.2) 01/09/21 00:31 Hgb 13.4 g/dL (13.0-16.5) 01/09/21 00:31 Hct 45.1 % (40-54) 01/09/21 00:31 MCV 89.8 fL (80-94) 01/09/21 00:31 MCH 26.7 pg (27.0-32.0) L 01/09/21 00: MCHC 29.7 g/dL (32-36) L 01/09/21 00:31 RDW Std Deviation 48.8 fl (35.1-43.9) H 01/09/21 00: RDW Coeff of Ag 14.8 % (11.6-14.6) H 01/09/21 00:31 Plt Count 277 K/mm3 (150-450) 01/09/21 00: MPV 9.9 fl (6.2-12.0) 01/09/21 00:31 Immature Gran % (Auto) 0.800 % (0.0-0.9) 01/09/21 00: Neut % (Auto) 80.1 % (47-70) H 01/09/21 00: Lymph % (Auto) 13.5 % (19-41) L 01/09/21 00:31 [place] % (Auto) 3.8 % (0-10) 01/09/21 00: Eos % (Auto) 1.6 % (0-5) 01/09/21 00: Baso % (Auto) 0.2 % (0-1) 01/09/21 00:31 Absolute Neuts (auto) 8.6 X10^3/uL (2.0-7.7) H 01/09/21 00:31 Absolute Lymphs (auto) 1.46 X10^3/uL (0.83-4.51) 01/09/21 00:31 Nucleated RBC % 0 % (0-5) 01/09/21 00:31 PT 18.3 SECONDS (11.7-14.9) H 01/09/21 00:31 INR 1.6 01/09/21 00:31 APTT 28.9 Seconds (24.1-36.2) 01/09/21 00:31 Sodium 136 mmol/L (136-145) 01/09/21 00:31 Potassium 4.4 mmol/L (3.5-5.1) 01/09/21 00:31 Chloride 100 mmol/L (98-107) 01/09/21 00:31 Carbon Dioxide 34.0 mmol/L (21.0-32.0) H 01/09/21 00:31 Anion Gap 2 (5-15) L 01/09/21 00:31 BUN 21 mg/dL (7-18) H 01/09/21 00:31 Creatinine 1.31 mg/dL (0.70-1.30) H 01/09/21 00: Estim Creat Clear Calc 46.41 ml/min 01/09/21 00:31 Est GFR (MDRD) Af Amer 68 mL/min (>60) 01/09/21 00:31 Est GFR (MDRD) Non-Af 57 mL/min (>60) L 01/09/21 00:31 BUN/Creatinine Ratio 16.0 RATIO (10-20) 01/09/21 00:31 Glucose 228 mg/dL (74-106) H 01/09/21 00:31 Calcium 8.3 mg/dL (8.5-10.1) L 01/09/21 00:31 Total Bilirubin 0.70 mg/dL (0.20-1.00) 01/09/21 00:31 AST 15 U/L (15-37) 01/09/21 00:31 ALT 28 U/L (16-61) 01/09/21 00:31 Alkaline Phosphatase 99 U/L (45-117) 01/09/21 00:31 Troponin I < 0.015 ng/mL (<0.045) 01/09/21 00:31 Total Protein 7.4 g/dL (6.4-8.2) 01/09/21 00:31 Albumin 2.8 g/dL (3.2-5.0) L 01/09/21 00:31 Globulin 4.6 g/dL (2.2-4.2) H 01/09/21 00:31 Albumin/Globulin Ratio 0.6 RATIO (0.9-2.4) L 01/09/21 00:31 Lipase 67 U/L (73-393) L 01/09/21 00:31 Urine Color Yellow (Yellow) 01/09/21 01:55 Urine Clarity Clear (Clear) 01/09/21 01:55 Urine pH 5.0 (5.0 - 8.0) 01/09/21 01:55 Ur Specific [place] 1.010 (1.002-1.030) 01/09/21 01:55 Urine Protein 100 mg/dl (Negative) H 01/09/21 01:55 Urine Glucose (UA) 50 mg/dl (Normal) H 01/09/21 01:55 Urine Ketones Negative mg/dl (Negative) 01/09/21 01:55 Urine Occult Blood 10 /ul (Negative) H 01/09/21 01:55 Urine Nitrite Negative (Negative) 01/09/21 01:55 Urine Bilirubin Negative mg/dL (Negative) 01/09/21 01:55 Urine Urobilinogen Normal mg/dl (Normal) 01/09/21 01:55 Ur Leukocyte Esterase Negative /ul (Negative) 01/09/21 01:55 Urine RBC 0-5 SEEN /hpf (0-5) 01/09/21 01:55 Urine WBC 0 SEEN /hpf (0-5) 01/09/21 01:55 Ur Squamous Epith Cells 0 SEEN /hpf (0-5) 01/09/21 01:55 Urine Bacteria 0 SEEN /hpf (None Seen) 01/09/21 01:55 Urine Mucus 0 SEEN /hpf (<or=2+) 01/09/21 01:55 - EKG Initial EKG Interpretation: Atrial Flutter - Initial EKG demonstrates atrial flutter with variable block and a rate of 104. No concerning features of ACS noted - Medical Decision Making Patient received supplemental oxygen and on 6 L his pulse ox is 91%. EKG shows atrial flutter at a rate of 104 no concerning features of ACS. CT of the brain shows no intracranial hemorrhage. Please see radiologist for details. CT of the spine was negative for fracture. CTA of the chest was negative for pulmonary embolism pneumothorax pulmonary contusion or effusion. No obvious rib fractures were noted. CT of the abdomen pelvis with IV contrast does not demonstrate any renal or spleen injury. Basic blood work showed him to be subtherapeutic on his INR of 1.6. Patient is still requiring supplemental oxygen. He has some upper airway wheezing. I ordered a breathing treatment to see if that might help his oxygenation but as he is not having lower airway wheezing I am not sure is going to help. ABG shows a pH of 7.249 with a PCO2 of 69.2. Bicarb of 30. He was placed on BiPAP. Patient was observed on the monitor and has not had any events. I have asked the hospitalist to evaluate the palate patient for admission. ED Disposition - Plan for ED Patient: Disposition: Acute Care Hospital [facility] Diagnosis: Syncope, Subtherapeutic anticoagulation, Back contusion, Hypoxia, Metabolic acidosis, Acute hypercapnic respiratory failure Referrals: Casey Handley DO [Primary Care Provider] -
[2021-01-09 04:01] LABS: Allen Test Positive; Base Excess 3 mmol/L (-2 to +2); Bicarbonate 30.3 mmol/L (22-26); Blood Gas Specimen Type ART; O2 Delivery Device Cannula; PO2 77 mmHG (75-100); SITE L Brach; SO2 92 % (95-99); Total Carbon Dioxide 32 mmol/L; pCO2 69.2 mmHg (35-45); pH 7.25 (7.35-7.45)
--- NOTE | 2021-01-09 04:33 | HP.PCM_ITS ---
History of Present Illness Date of Admission: 01/09/21 Chief Complaint: Syncope The patient is a 75 year old M with a PMH as below who presents to the hospital after having a syncopal episode at home. He states that today he and his drove back from [place] and they got home at around 10 PM. While he was getting ready to go to bed he decided to grab a glass of milk and as he was drinking it he passed out and hit his back on a cabinet and then was on the floor. He states that he has been tired all day and felt little bit short of breath throughout the day while they are driving back from [place]. He does have a history of obstructive sleep apnea and wears CPAP at night. He currently denies any lightheadedness or dizziness but still feels little bit sleepy and fatigued. In the ER he was found to be hypoxic to 62% on room air. He also has a normal white count and normal renal function. An ABG was obtained which demonstrated a PCO2 of 69.2 with a PO2 of 77. Covid test was obtained and is pending however he received both doses of Motrin a few weeks ago. Past Medical History Past Medical History (Chronic Problems): Chronic Problems (Last Reviewed 06/02/20 @ 04:[address] Bruno Kee MD) Hypertension (Chronic) Hyperlipidemia (Chronic) Atherosclerosis of coronary artery of [place] heart without angina pectoris (Chronic) PTCA/MACHO of the LAD 09/07; IVUS to mid and proximal LAD, D1 had cutting balloon angioplasty 05/19/10; PTCA/MACHO of the distal LAD 12/20/17 History of coronary artery stent placement (Chronic) PTCA/MACHO of the LAD 09/07; IVUS to mid and proximal LAD, D1 had cutting balloon angioplasty 05/19/10; PTCA/MACHO of the distal LAD 12/20/17 CKD (chronic kidney disease), stage III (Chronic) NSTEMI (non-ST elevated myocardial infarction) (Chronic ~12/20/17) VTE (venous thromboembolism) (Chronic) Diabetes (Chronic) Gout (Chronic) Pseudotumor cerebri (Chronic) Restless leg syndrome (Chronic) Medical History: Medical History (Last Reviewed 06/02/20 @ 04:[address] Bruno Kee MD) Old myocardial infarction (Acute) I25.2 11/14, 07/16 Hypertension (Chronic) I10 Hyperlipidemia (Chronic) E78.5 Atherosclerosis of coronary artery of [place] heart without angina pectoris (Chronic) I25.10 PTCA/MACHO of the LAD 09/07; IVUS to mid and proximal LAD, D1 had cutting balloon angioplasty 05/19/10; PTCA/MACHO of the distal LAD 12/20/17 CKD (chronic kidney disease), stage III (Chronic) N18.3 NSTEMI (non-ST elevated myocardial infarction) (Chronic) Onset Date: ~12/20/17 I21.4 VTE (venous thromboembolism) (Chronic) I82.90 Diabetes (Chronic) E11.9 Gout (Chronic) M10.9 Pseudotumor cerebri (Chronic) G93.2 Restless leg syndrome (Chronic) Migraine G43.909 GERD (gastroesophageal reflux disease) K21.9 Osteoarthritis M19.90 Allergies atorvastatin [From Lipitor] Adverse Reaction (Severe, Verified 01/09/21 00:25) Myalgias promethazine HCl [From Phenergan] Adverse Reaction (Verified 01/09/21 00:25) GET JUMPY Home Medications: Ambulatory Orders Medication Instructions Recorded Allopurinol [Zyloprim] 100 mg PO DAILY 09/21/15 Glimepiride [Amaryl] 2 mg PO DAILY@0800 #14 tab 02/15/17 nitroglycerin 0.4 mg sublingual 0.4 mg SUBLINGUAL Q5M PRN #90 tab 01/08/18 tablet Acetaminophen [Tylenol] 1,000 mg PO Q8 PRN 06/02/20 Gabapentin [Neurontin] 600 mg PO BID 01/09/21 Warfarin [Coumadin (PBKC)] 4 mg PO DAILY 01/09/21 Surgical History: Surgical History (Last Reviewed 06/02/20 @ 04:[address] Bruno Kee MD) History of coronary artery stent placement (Chronic) Z95.5 PTCA/MACHO of the LAD 09/07; IVUS to mid and proximal LAD, D1 had cutting balloon angioplasty 05/19/10; PTCA/MACHO of the distal LAD 12/20/17 History of bilateral knee replacement Z96.653 Hx of appendectomy Z90.49 Postsurgical percutaneous transluminal coronary angioplasty (PTCA) status Z98.61 PTCA/MACHO of the LAD 09/07; IVUS to mid and proximal LAD, D1 had cutting balloon angioplasty 05/19/10; PTCA/MACHO of the distal LAD 12/20/17 Status post lumboperitoneal shunt placement Z98.2 Surgical History: - - STENTS,rib and shoulder surgery.total of 5 knee surgeries Psychiatric History: No pertinent psych hx Lives: Spouse/ Significant Other Smoking Status: Never smoker Alcohol: None Drugs: None - *Family History Paternal Family History: Family History (Last Reviewed 06/02/20 @ 04:[address] Bruno Kee MD) Father Heart disease COPD (chronic obstructive pulmonary disease) History Items: Heart Disease Review of Systems Constitutional: Denies: Chills, Fever, Weight Change HEENT: Denies: Head Aches, Sinus Congestion, Sinus Drainage Cardiovascular: Reports: Syncope. Denies: Chest Pain, Palpitations Respiratory: Reports: Shortness of Breath. Denies: Cough, Shortness of breath at rest, Sputum production Gastrointestinal: Denies: Abdominal Pain, Nausea, Vomiting Genitourinary: Denies: Dysuria Musculoskeletal: Denies: Joint Pain, Joint Tenderness Skin: Denies: Rash, Wounds Neurological: Denies: Numbness, Tingling, Focal weakness Psychiatric: Denies: Anxiety, Depression Hematologic/ Lymphatic: Denies: Easy Bruising, Easy Bleeding VTE Information - Inpt Only VTE Present on Admission: No Patient Problems: Active and Suspected Problems (Last Reviewed 06/02/20 @ 04:[address] Bruno Kee MD) Syncope (Acute) Subtherapeutic anticoagulation (Acute) Back contusion (Acute) Hypoxia (Acute) - Physical Exam Vitals/I&O's: Vital Signs Temp Pulse Resp BP Pulse Ox 97.9 F 99 17 149/67 H 93 01/09/21 04:28 01/09/21 04:28 01/09/21 04:28 01/09/21 04:28 01/09/21 04:28 Oxygen Flow Rate (L/min) 6 Oxygen Delivery Method Nasal Cannula Weight: 305 lb 5.443 oz Body Mass Index (BMI) 46.4 Finger Stick Blood Glucose 293 General: Alert, Oriented x3, Cooperative, No apparent distress HEENT: Atraumatic, PERRLA, EOMI, Normocephalic Oral: Moist Mucosa Neck: Supple, No JVD Lungs: Normal air movement, No rhonchi, No rales, Diminished, Wheezes Cardiovascular: Regular rate, Regular Rhythm, Normal S1, Normal S2, No murmurs Abdomen: Soft, Non Tender, Non-Distended, No Hepato-splenomegaly Extremities: Capillary Refill Less than 3 Seconds, Edema - 1-2+ pitting edema bilaterally Skin: No rashes, No breakdown Neurological: Neuro grossly intact, Sensory exam intact to light touch and pain Psych/Mental Status: Normal Affect, Appropriate Microbiology Past 72 Hours 01/09/21 03:55 Mucosa - Nose SARS-CoV-2 Antigen (Rapid) - Final Laboratory Results 01/09/21 00:31: WBC 10.8, RBC 5.02, Hgb 13.4, Hct 45.1, MCV 89.8, MCH 26.7 L, MCHC 29.7 L, RDW Std Deviation 48.8 H, RDW Coeff of Ag 14.8 H, Plt Count 277, MPV 9.9, Immature Gran % (Auto) 0.800, Neut % (Auto) 80.1 H, Lymph % (Auto) 13.5 L, [place] % (Auto) 3.8, Eos % (Auto) 1.6, Baso % (Auto) 0.2, Absolute Neuts (auto) 8.6 H, Absolute Lymphs (auto) 1.46, Nucleated RBC % 0 01/09/21 00:31: PT 18.3 H, INR 1.6, APTT 28.9 01/09/21 00:31: Sodium 136, Potassium 4.4, Chloride 100, Carbon Dioxide 34.0 H, Anion Gap 2 L, BUN 21 H, Creatinine 1.31 H, Estim Creat Clear Calc 46.41, Est GFR (MDRD) Af Amer 68, Est GFR (MDRD) Non-Af 57 L, BUN/Creatinine Ratio 16.0, Glucose 228 H, Calcium 8.3 L, Total Bilirubin 0.70, AST 15, ALT 28, Alkaline Phosphatase 99, Troponin I < 0.015, Total Protein 7.4, Albumin 2.8 L, Globulin 4.6 H, Albumin/Globulin Ratio 0.6 L, Lipase 67 L 01/09/21 01:55: Urine Color Yellow, Urine Clarity Clear, Urine pH 5.0, Ur Specific [place] 1.010, Urine Protein 100 H, Urine Glucose (UA) 50 H, Urine Ketones Negative, Urine Occult Blood 10 H, Urine Nitrite Negative, Urine Bilirubin Negative, Urine Urobilinogen Normal, Ur Leukocyte Esterase Negative, Urine RBC 0-5 SEEN, Urine WBC 0 SEEN, Ur Squamous Epith Cells 0 SEEN, Urine Bacteria 0 SEEN, Urine Mucus 0 SEEN 01/09/21 03:52: Specimen Type ART, Sample Site L Brach, pH 7.25 L, Bicarbonate Actual 30.3 H, Total CO2 32, Base Excess 3 H, O2 Saturation 92 L, ABG pCO2 69.2 H*, ABG pO2 77, Julian Test Positive, O2 Delivery Device Cannula, Liter Flow 6.0, Crit Call To/Read Back Yes, Blood Gas Notified Whom dr. martínez Assessment/Plan All Active Problems (Last Reviewed 06/02/20 @ 04:[address] Bruno Kee MD) Chest pain (Acute) Syncope (Acute) Subtherapeutic anticoagulation (Acute) Back contusion (Acute) Hypoxia (Acute) Metabolic acidosis (Acute) Acute hypercapnic respiratory failure (Acute) Old myocardial infarction (Acute) Chest pain (Resolved) sob after surgery (Resolved) 1. Acute hypoxic hypercapnic respiratory failure of unknown etiology/ANA/history of VTE - he does wear CPAP at night for his ANA -Given his long drive a CTA of the chest was obtained today and was negative for PE -We will place on BiPAP and monitor his mental status and his oxygen status -We will obtain an echo given his cardiac history -We will continue with Coumadin, his INR is 1.6 2. CAD status post stents/HTN/HLD -He is allergic to statins -It does not appear that he is on any blood pressure medication at this time -Once he stabilizes we will monitor his blood pressure and make medication adjustments as necessary 3. DM 2 -Will hold his glimepiride and place him on a sliding scale insulin -Accu-Cheks AC at bedtime 4. Gout - stable -Continue with allopurinol DVT: Coumadin Inpatient E&M: 25623 Init Hosp L3
--- NOTE | 2021-01-09 04:47 | ECHOCS_ITS ---
Reason For Study: Dyspnea/SOB Procedure This was a 2D Doppler, Color Flow transthoracic echocardiogram. The study was technically difficult. Contrast injection was performed. Exam performed portable in patient room. Left Ventricle Normal LV size. Left ventricular systolic function is normal. The estimated ejection fraction is 55 %. No regional wall motion abnormalities noted. Right Ventricle Normal RV size. Normal systolic function. Atria Normal left atrium. Normal right atrium. Mitral Valve Mitral valve not well visualized. Tricuspid Valve Normal tricuspid valve. Aortic Valve Trisinus/trileaflet aortic valve. Pulmonic Valve The pulmonic valve is not well visualized. Great Vessels Normal aortic root. Pericardium/Pleural No pericardial effusion. Medication Diluted definity 2ml given slow IV push to enhance endocardial definition. MMode/2D Measurements & Calculations LVIDd: 5.1 cm IVSd: 1.0 cm Ao root diam: 3.5 cm LVIDs: 2.8 cm LVPWd: 1.0 cm LA dimension: 4.1 cm FS: 44.5 % LAV(MOD-sp4): 49.9 ml LA A4 area: 19.4 cm2 Doppler Measurements & Calculations MV E max vilma: 87.2 cm/sec Ao V2 max: 128.1 cm/sec LV V1 max: 118.3 cm/sec Ao max P.6 mmHg LV V1 max P.6 mmHg PA V2 max: 101.1 cm/sec ECHO/Echo Complete W/ Contrast Interpretation Summary Normal LV size. Left ventricular systolic function is normal. The estimated ejection fraction is 55 %. Contrast injection was performed. The study was technically difficult. Ordering Physician: Gordy Payne Referring Physician: Casey Handley Performed By: Tom Gregory RCS
[2021-01-09] MEDS: 0.9% Normal Saline 1,000 ML 75 ML IV (04:55)
[2021-01-09 06:14] LABS: Absolute Lymphocyte Count 0.62 X10^3/uL (0.83-4.51); Basophil# 0.02 X10^3/uL; Basophil% 0.2 % (0-1); Eosinophil# 0.04 X10^3/uL; Eosinophils% 0.4 % (0-5); Hematocrit 44.8 % (40-54); Hemoglobin 13.1 g/dL (13.0-16.5); Lymphocyte # 0.62 X10^3/ul (4.0); Lymphocyte % 6.1 % (19-41); Mean Corp Hgb Conc 29.2 g/dL (32-36); Mean Corpuscular Hgb 26.4 pg (27.0-32.0); Mean Corpuscular Volume 90.3 fL (80-94); Mean Platelet Vol. 9.6 fl (6.2-12.0); Monocyte# 0.43 X10^3/uL; Monocyte% 4.3 % (0-10); NRBC Flagged by Analyzer 0 % (0-5); Neutrophil # 8.95 X10^3/uL (2.7-7.7); Neutrophil % 88.7 % (47-70); Platelet Count 245 K/mm3 (150-450); RBC Distribution Width CV 14.9 % (11.6-14.6); RBC Distribution Width SD 48.9 fl (35.1-43.9); Red Blood Count 4.96 M/mm3 (4.6-6.2); White Blood Count 10.1 K/mm3 (4.4-11.0)
[2021-01-09 06:27] LABS: International Normalized Ratio 1.6; Prothrombin Time (Protime)PT. 18.1 SECONDS (11.7-14.9)
[2021-01-09 06:37] LABS: Anion Gap 3 (5-15); BUN 21 mg/dL (7-18); BUN/Creat Ratio 16.3 RATIO (10-20); Calcium,Total 8.4 mg/dL (8.5-10.1); Chloride 101 mmol/L (98-107); Creatinine, Serum 1.29 mg/dL (0.70-1.30); EST Glomerular Filtration Rate 58 mL/min (>60); Est Glom Filt Rate - Afr Amer 70 mL/min (>60); Estimated Creatinine Clearance 47.13 ml/min; Glucose 194 mg/dL (74-106); Potassium 4.8 mmol/L (3.5-5.1); Sodium Level 134 mmol/L (136-145)
[2021-01-09 06:56] LABS: Bedside Glucose 181 mg/dL (70-110)
[2021-01-09] MEDS: guaiFENesin 600 MG Tablet PO ×2 (12:08→22:22)
[2021-01-09 12:26] LABS: Bedside Glucose 218 mg/dL (70-110)
--- NOTE | 2021-01-09 12:42 | PCM.RX.CS ---
Consult Type of Consult: New start Labs: Sodium 134 mmol/L (136-145) L 01/09/21 06:06 Potassium 4.8 mmol/L (3.5-5.1) 01/09/21 06:06 Chloride 101 mmol/L (98-107) 01/09/21 06:06 Carbon Dioxide 30.0 mmol/L (21.0-32.0) 01/09/21 06:06 Anion Gap 3 (5-15) L 01/09/21 06:06 BUN 21 mg/dL (7-18) H 01/09/21 06:06 Creatinine 1.29 mg/dL (0.70-1.30) 01/09/21 06:06 Est GFR (MDRD) Af Amer 70 mL/min (>60) 01/09/21 06:06 Est GFR (MDRD) Non-Af 58 mL/min (>60) L 01/09/21 06:06 BUN/Creatinine Ratio 16.3 RATIO (10-20) 01/09/21 06:06 Glucose 194 mg/dL (74-106) H 01/09/21 06:06 Microbiology: Microbiology 01/09/21 03:55 Mucosa - Nose SARS-CoV-2 Antigen (Rapid) - Final Goal Trough: 15-20 mcg/mL Pharmacy Plan for Drug Dosing: NEW START IV VANCOMYCIN Consulting Physician: Dr. Malone Indication:Possible PNA? Goal Trough: 15-20 SrCr: 1.29 CrCl: 66 mL/min (using AdjBW= 95.6kg Comments: 2000mg IV x1 loading dose ordered an administered 01/09/21 @1210 Vancomcyin Dose: 1500mg IV Q12hr to start 01/10/21 @0000 Pending Level: 01/10/21 @2330, prior to 4th total dose per protocol Pharmacy Service will continue to monitor and adjust dosing as required.
--- NOTE | 2021-01-09 13:35 | CASEMGMT ---
ROSEANNE CHAPARRO assessment: Face to Face with patient for initial transition planning/care coordination assessment. ROSEANNE CHAPARRO introduced self and role at [facility] [place], pt voices understanding and consents to assessment. Pt is sitting up in chair on 6L nc. Pt is A/Ox4 and answers all questions appropriately. Care providers, pharmacy, and demographics verified. Presentation: Pt had syncopal episode, fell and hit head. on blood thinner. Per spouse, pt was extremely SOB since he fell Admitting dx: Hypoxic, hypercapnic resp failure PCP: Emmanuelle Specialists: Nelson, cardio; jordy Cobos Preferred Pharmacy: [facility] Insurance: [facility] A Prescription Benefit: None, [employer] helps Living Will/HPOA: Pt states has LW/HPOA and is aware that they are not on file at [facility] [place]. Pt states his , Judy Denton, is HPOA. LNOK: Judy Denton, Living Arrangements: Pt states lives on main level of 2 story home with and states no concerns at home. Pt states is independent with ADL's. Transportation: Pt states drives and states no transportation concerns. DME/HHC: Pt states has a cane and cpap that he uses at home and states no need for any further DME. Pt states no hx of HHC or SNF in the past. Pt states no concerns with going home at time of discharge. Pt states is retired. Pt states does not smoke cigarettes but does drink ETOH. Pt states no further concerns/needs. CM to follow for home oxygen need and any further discharge planning/needs. Advised pt to ask for CM if any further questions/concerns/needs arise, voices understanding. Pt Goal: Home Plan[place] ROSEANNE CHAPARRO
--- NOTE | 2021-01-09 14:27 | PCM.CONS.PUL ---
Problem List (1) Subtherapeutic anticoagulation Status: Acute (2) Back contusion Status: Acute Qualifiers: Encounter type: initial encounter Laterality: right Qualified Code(s): S20.221A - Contusion of right back wall of thorax, initial encounter (3) Hypoxia Status: Acute (4) Acute hypercapnic respiratory failure Status: Acute (5) Old myocardial infarction Status: Acute Comment: 11/14, 04/14 (6) Atherosclerosis of coronary artery of [place] heart without angina pectoris Status: Chronic Comment: PTCA/MACHO of the LAD 09/07; IVUS to mid and proximal LAD, D1 had cutting balloon angioplasty 05/19/10; PTCA/MACHO of the distal LAD 12/20/17 (7) History of coronary artery stent placement Status: Chronic Comment: PTCA/MACHO of the LAD 09/07; IVUS to mid and proximal LAD, D1 had cutting balloon angioplasty 05/19/10; PTCA/MACHO of the distal LAD 12/20/17 (8) CKD (chronic kidney disease), stage III Status: Chronic (9) Diabetes Status: Chronic (10) Gout Status: Chronic (11) Pseudotumor cerebri Status: Chronic (12) Restless leg syndrome Status: Chronic Reason for Consult Date of Consultation: 01/09/21 Reason for Consultation: Acute combined respiratory failure History of Present Illness: The patient is a 75 year old M, with past medical history listed below, who presented to [facility] on 01/09/2021 secondary to back pain following a syncopal episode while at home. Patient reportedly has a history of atrial fibrillation and PE, on anticoagulation therapy, who is going to the kitchen to get a glass of milk. Patient reports that he started to feel flushed and then had a syncopal episode. Patient reportedly had fallen back onto the counter striking his right posterior flank on the cabinetry. Patient reportedly had not felt well for months previously. On arrival to the ER, patient was noted to be 62% on room air at rest. Patient was also found to be significantly hypertensive at 207/103 and tachycardic. No fever was noted. Patient had multiple imaging studies showing no acute trauma, but a CTA of the chest showed interstitial thickening on the right. Laboratory work-up showed a hemoglobin of 13.4, WBC count of 10.8 and a chemistry with a bicarbonate of 34. Creatinine was slightly elevated at 1.3, but liver function was within normal limits. Patient was admitted to the floor on BiPAP therapy after an ABG showed acute combined respiratory failure despite 6 L nasal cannula. Since being on the floor, patient feels subjectively improved. Patient is requiring supplemental oxygen to maintain saturations. Patient states he does not require supplemental oxygen at baseline. Patient does state that on retrospect he has been feeling more dyspnea on exertion for 4 to 6 months. Patient is also reported that his lower extremity edema persist throughout the day despite elevation. Patient's reports patient had another syncopal episode while sitting and cleaning fish, but did not present for medical evaluation. Patient's reports that she brought him in more for concerns of bleeding associated with Coumadin therapy than the syncopal event. Patient denies any previous pulmonary history. Patient has never been a smoker. Patient does state that he follows with a sleep specialist at [facility] and has been diagnosed with obstructive sleep apnea and narcolepsy. Patient states this took my drivers license. Patient denies any exposure to asbestos or TB. 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 Patient denies any travel. Patient denies any history of asthma or other obstructive lung disease. Patient does not use inhalers at baseline. Patient anecdotally states that he has taken Lasix in the past with improvement in his respiratory symptoms. Review of systems otherwise negative from a constitutional, HEENT, respiratory, cardiovascular, GI, genitourinary, musculoskeletal, skin, neurologic, psychiatric and hematologic system unless stated above. Past Medical History Past Medical History (Chronic Problems): Chronic Problems (Last Reviewed 06/02/20 @ 04:[address] Bruno Kee MD) Hypertension (Chronic) Hyperlipidemia (Chronic) Atherosclerosis of coronary artery of [place] heart without angina pectoris (Chronic) PTCA/MACHO of the LAD 09/07; IVUS to mid and proximal LAD, D1 had cutting balloon angioplasty 05/19/10; PTCA/MACHO of the distal LAD 12/20/17 History of coronary artery stent placement (Chronic) PTCA/MACHO of the LAD 09/07; IVUS to mid and proximal LAD, D1 had cutting balloon angioplasty 05/19/10; PTCA/MACHO of the distal LAD 12/20/17 CKD (chronic kidney disease), stage III (Chronic) NSTEMI (non-ST elevated myocardial infarction) (Chronic ~12/20/17) VTE (venous thromboembolism) (Chronic) Diabetes (Chronic) Gout (Chronic) Pseudotumor cerebri (Chronic) Restless leg syndrome (Chronic) Medical History: Medical History (Last Reviewed 06/02/20 @ 04:[address] Bruno Kee MD) Old myocardial infarction (Acute) I25.2 02, / Hypertension (Chronic) I10 Hyperlipidemia (Chronic) E78.5 Atherosclerosis of coronary artery of [place] heart without angina pectoris (Chronic) I25.10 PTCA/MACHO of the LAD 09/07; IVUS to mid and proximal LAD, D1 had cutting balloon angioplasty 05/19/10; PTCA/MACHO of the distal LAD 12/20/17 CKD (chronic kidney disease), stage III (Chronic) N18.3 NSTEMI (non-ST elevated myocardial infarction) (Chronic) Onset Date: ~12/20/17 I21.4 VTE (venous thromboembolism) (Chronic) I82.90 Diabetes (Chronic) E11.9 Gout (Chronic) M10.9 Pseudotumor cerebri (Chronic) G93.2 Restless leg syndrome (Chronic) Migraine G43.909 GERD (gastroesophageal reflux disease) K21.9 Osteoarthritis M19.90 Allergies atorvastatin [From Lipitor] Adverse Reaction (Severe, Verified 01/09/21 00:25) Myalgias promethazine HCl [From Phenergan] Adverse Reaction (Verified 01/09/21 00:25) GET JUMPY Home Medications: Ambulatory Orders Medication Instructions Recorded Allopurinol [Zyloprim] 100 mg PO DAILY 09/21/15 Glimepiride [Amaryl] 2 mg PO DAILY@0800 #14 tab 02/15/17 nitroglycerin 0.4 mg sublingual 0.4 mg SUBLINGUAL Q5M PRN #90 tab 01/08/18 tablet Acetaminophen [Tylenol] 1,000 mg PO Q8 PRN 06/02/20 Gabapentin [Neurontin] 600 mg PO BID 01/09/21 Warfarin [Coumadin ([facility])] 4 mg PO DAILY 01/09/21 Surgical History: Surgical History (Last Reviewed 06/02/20 @ 04:[address] Bruno Kee MD) History of coronary artery stent placement (Chronic) Z95.5 PTCA/MACHO of the LAD 09/07; IVUS to mid and proximal LAD, D1 had cutting balloon angioplasty 05/19/10; PTCA/MACHO of the distal LAD 12/20/17 History of bilateral knee replacement Z96.653 Hx of appendectomy Z90.49 Postsurgical percutaneous transluminal coronary angioplasty (PTCA) status Z98.61 PTCA/MACHO of the LAD 09/07; IVUS to mid and proximal LAD, D1 had cutting balloon angioplasty 05/19/10; PTCA/MACHO of the distal LAD 12/20/17 Status post lumboperitoneal shunt placement Z98.2 Surgical History: - - STENTS,rib and shoulder surgery.total of 5 knee surgeries Psychiatric History: No pertinent psych hx Lives: Spouse/ Significant Other Smoking Status: Never smoker Alcohol: None Drugs: None - *Family History Paternal Family History: Family History (Last Reviewed 06/02/20 @ 04:[address] Bruno Kee MD) Father Heart disease COPD (chronic obstructive pulmonary disease) History Items: Heart Disease Review of Systems Comment: See HPI Patient Problems: Active and Suspected Problems (Last Reviewed 06/02/20 @ 04:[address] Bruno Kee MD) Syncope (Acute) Subtherapeutic anticoagulation (Acute) Back contusion (Acute) Hypoxia (Acute) Objective: All imaging was personally reviewed. Agree with most interpretations. Right-sided findings more consistent with interstitial thickening than [place] in my opinion. Patient does not have any previous pulmonary function tests available for review. Previous echocardiogram/heart catheterization showed preserved ejection fraction. - Physical Exam Vitals/I&O's: Vital Signs Temp Pulse Resp BP Pulse Ox 36.7 C 95 20 H 111/64 97 01/09/21 10:45 01/09/21 11:00 01/09/21 10:45 01/09/21 10:45 01/09/21 10:45 Oxygen Flow Rate (L/min) 6 Oxygen Delivery Method Bi-pap Weight: 136.5 kg Body Mass Index (BMI) 45.7 Finger Stick Blood Glucose 293 Intake and Output for Last 24 Hours 01/07/21 01/08/21 01/09/21 23:59 23:59 23:59 Intake Total 597.5 / 597.5 Output Total 200 / 200 Balance 397.5 / 397.5 General: Alert, Oriented x3, Cooperative, No apparent distress, - - Morbidly obese. Speaking in full sentences. HEENT: Atraumatic, PERRLA, EOMI, Normocephalic, - - Glasses in place Oral: Moist Mucosa, No Gingival or Mucosal Lesions/ Ulcerations, - - Crowded posterior pharynx Neck: Supple, No Nodes, Trachea Midline Lungs: No rhonchi, No wheeze, Diminished, Rales - Right base, - - Symmetric expansion Cardiovascular: Normal S1, Normal S2, No murmurs, Irregular Rate, No rub noted, No Gallop Abdomen: Bowel Sounds Present, Soft, Non Tender, Non-Distended, Obese Extremities: No clubbing, No cyanosis, Edema - 3+ lower extremity Skin: No breakdown, - - Venous stasis changes lower extremities Lymphatic: No Cervical, Supraclavicular, or Inguinal Adenopathy Neurological: Cranial nerves II-XII grossly intact, Neuro grossly intact, Motor Exam 5/5 strength throughout Psych/Mental Status: Alert and oriented to time, place, person, mood and affect Microbiology Past 72 Hours 01/09/21 03:55 Mucosa - Nose SARS-CoV-2 Antigen (Rapid) - Final Laboratory Results 01/09/21 00:31: WBC 10.8, RBC 5.02, Hgb 13.4, Hct 45.1, MCV 89.8, MCH 26.7 L, MCHC 29.7 L, RDW Std Deviation 48.8 H, RDW Coeff of Ag 14.8 H, Plt Count 277, MPV 9.9, Immature Gran % (Auto) 0.800, Neut % (Auto) 80.1 H, Lymph % (Auto) 13.5 L, Coleman % (Auto) 3.8, Eos % (Auto) 1.6, Baso % (Auto) 0.2, Absolute Neuts (auto) 8.6 H, Absolute Lymphs (auto) 1.46, Nucleated RBC % 0 01/09/21 00:31: PT 18.3 H, INR 1.6, APTT 28.9 01/09/21 00:31: Sodium 136, Potassium 4.4, Chloride 100, Carbon Dioxide 34.0 H, Anion Gap 2 L, BUN 21 H, Creatinine 1.31 H, Estim Creat Clear Calc 46.41, Est GFR (MDRD) Af Amer 68, Est GFR (MDRD) Non-Af 57 L, BUN/Creatinine Ratio 16.0, Glucose 228 H, Calcium 8.3 L, Total Bilirubin 0.70, AST 15, ALT 28, Alkaline Phosphatase 99, Troponin I < 0.015, Total Protein 7.4, Albumin 2.8 L, Globulin 4.6 H, Albumin/Globulin Ratio 0.6 L, Lipase 67 L 01/09/21 01:55: Urine Color Yellow, Urine Clarity Clear, Urine pH 5.0, Ur Specific [place] 1.010, Urine Protein 100 H, Urine Glucose (UA) 50 H, Urine Ketones Negative, Urine Occult Blood 10 H, Urine Nitrite Negative, Urine Bilirubin Negative, Urine Urobilinogen Normal, Ur Leukocyte Esterase Negative, Urine RBC 0-5 SEEN, Urine WBC 0 SEEN, Ur Squamous Epith Cells 0 SEEN, Urine Bacteria 0 SEEN, Urine Mucus 0 SEEN 01/09/21 03:52: Specimen Type ART, Sample Site L Brach, pH 7.25 L, Bicarbonate Actual 30.3 H, Total CO2 32, Base Excess 3 H, O2 Saturation 92 L, ABG pCO2 69.2 H*, ABG pO2 77, Julian Test Positive, O2 Delivery Device Cannula, Liter Flow 6.0, Crit Call To/Read Back Yes, Blood Gas Notified Whom dr. martínez 01/09/21 06:06: WBC 10.1, RBC 4.96, Hgb 13.1, Hct 44.8, MCV 90.3, MCH 26.4 L, MCHC 29.2 L, RDW Std Deviation 48.9 H, RDW Coeff of Ag 14.9 H, Plt Count 245, MPV 9.6, Immature Gran % (Auto) 0.300, Neut % (Auto) 88.7 H, Lymph % (Auto) 6.1 L, Coleman % (Auto) 4.3, Eos % (Auto) 0.4, Baso % (Auto) 0.2, Absolute Neuts (auto) 9.0 H, Absolute Lymphs (auto) 0.62 L, Nucleated RBC % 0 01/09/21 06:06: PT 18.1 H, INR 1.6 01/09/21 06:06: Sodium 134 L, Potassium 4.8, Chloride 101, Carbon Dioxide 30.0, Anion Gap 3 L, BUN 21 H, Creatinine 1.29, Estim Creat Clear Calc 47.13, Est GFR (MDRD) Af Amer 70, Est GFR (MDRD) Non-Af 58 L, BUN/Creatinine Ratio 16.3, Glucose 194 H, Calcium 8.4 L 01/09/21 06:24: POC Glucose 181 H 01/09/21 10:27: COVID-19 (JESUS) Not Detected 01/09/21 12:06: POC Glucose 218 H Current Medications Acetaminophen (Acetaminophen 325 Mg Tablet) 650 mg PO Q6H PRN PRN PRN Reason: Pain Score 1-10/Temp > 100.7 F Dextrose (Dextrose 50%-Water 25 Gm/50 Ml Disp.Syrin) 0 gm IV X1 PRN; Protocol PRN Reason: Hypoglycemia Glucagon (Glucagon 1 Mg/Ml Syringe) 1 mg IM .X1 PRN PRN Reason: Hypoglycemia Guaifenesin (Guaifenesin 600 Mg Tablet) 600 mg PO BID [facility] Last Admin: 01/09/21 12:08 Dose: 600 mg Documented by: Sodium Chloride () 250 mls @ 15 mls/hr IV .[id number] PRN PRN Reason: Saline Flush Sodium Chloride () 250 mls @ 15 mls/hr IV .[id number] PRN PRN Reason: Additional IVPB Infusion Piperacillin Sod/Tazobactam (Sod 3.375 gm/ Sodium Chloride) 50 mls @ 12.5 mls/hr IV Q8 SIDNEY Vancomycin IV Pharmacy to Dose (1 each/ Sodium Chloride) 500 mls @ 250 mls/hr IV PRN PRN; Protocol PRN Reason: Rx to Dose Vancomycin HCl 1,500 mg/ (Sodium Chloride) 530 mls @ 250 mls/hr IV Q12H [facility] Insulin Human Lispro (Insulin Lispro 100 Unit/Ml Insuln.Pen) 0 unit SC ACHS [facility]; Protocol Last Admin: 01/09/21 12:10 Dose: Not Given Documented by: Melatonin (Melatonin 3 Mg Tablet) 3 mg PO QHS PRN PRN PRN Reason: INSOMNIA Ondansetron HCl (Ondansetron 4 Mg/2 Ml Vial) 4 mg IV Q8H PRN PRN PRN Reason: NAUSEA/VOMITING Sodium Chloride (0.9% Saline Lock 10 Ml Syringe) 10 - 40 ml IV UD PRN PRN Reason: SALINE FLUSH Clinical Impression(s) from Imaging Studies Chest X-Ray 01/09/21 00:27 IMPRESSION: No focal consolidative lung changes. Electronically Signed: Duy Florentino MD at 1:15 EDT Tel , Service support , Abdomen/Pelvis CT 01/09/21 00:47 IMPRESSION: Negative enhanced CT of the abdomen and pelvis for acute intra-abdominal abnormality. 2 cm exophytic left renal cyst slightly higher in density than expected for simple cyst. Recommend follow-up nonemergent renal ultrasound. Electronically Signed: Duy Florentino MD at 2:43 EDT Tel , Service support , Brain CT 01/09/21 00:47 IMPRESSION: Negative unenhanced CT scan of the brain for acute intracranial abnormality. Diffuse dense opacification of the maxillary sinuses and scattered ethmoid air cells with revisualization of masslike region in the right nasal sinus passage with internal calcifications and erosion of the right medial maxillary sinus wall. Consider further evaluation with ENT consult if not already obtained. Electronically Signed: Duy Florentino MD at 2:20 EDT Tel , Service support , Cervical Spine CT 01/09/21 00:47 IMPRESSION: Multilevel degenerative changes, as described above. No acute fracture or subluxation. Electronically Signed: Duy Florentino MD at 2:26 EDT Tel , Service support , Chest CTA 01/09/21 00:47 IMPRESSION: Multiple old right rib fracture deformities and rib fixations. [place] groundglass densities throughout the right lung. Findings may be due to underlying pneumonitis or bronchiolitis. Recommend close follow-up CT chest to assess resolution. The left lung is clear. Electronically Signed: Duy Florentino MD at 2:36 EDT Tel , Service support , Assessment/Plan All Active Problems (Last Reviewed 06/02/20 @ 04:[address] Bruno Kee MD) Chest pain (Acute) Syncope (Acute) Subtherapeutic anticoagulation (Acute) Back contusion (Acute) Hypoxia (Acute) Metabolic acidosis (Acute) Acute hypercapnic respiratory failure (Acute) Old myocardial infarction (Acute) Chest pain (Resolved) sob after surgery (Resolved) RECOMMENDATIONS: 1. Discontinue advanced respiratory isolation 2. Obtain sputum culture 3. Possibly discontinue antibiotics after 48 hours if afebrile, culture negative and improving with diuresis 4. Await echo results 5. Consider BNP 6. Continue baseline nocturnal BiPAP settings IMPRESSIONS: 1. Acute combined respiratory failure of unclear etiology Unclear etiology. Patient does have an elevated bicarbonate suggesting a long-term CO2 retention with compensation. Unclear if this is secondary to central sleep apnea versus narcolepsy versus obesity hypoventilation. Patient is not on oxygen at baseline. Patient has had significant worsening in lower extremity edema, so congestive heart failure would be a concern. Will initiate patient on Lasix therapy. Will obtain a sputum culture. If patient is culture negative, afebrile and improving with diuresis, can likely discontinue antibiotics after 48 hours. Other possible differential would include pulmonary contusion or diffuse alveolar hemorrhage secondary to trauma. Patient is not giving a prodrome of an acute viral illness. Patient may have an element of cor pulmonale secondary to protracted hypoxia on exertion. 2. Coronary artery disease status post stents/hypertension/hyperlipidemia/possible CHF versus cor pulmonale Patient follows with cardiology regularly. Previous echocardiogram has not been suggestive of congestive heart failure. However, clinical history is suggestive of elevated right-sided pressures. Will await echocardiogram for quantification clarification of cardiac function. Could consider BNP. Will place patient on empiric diuresis for now. 3. Diabetes mellitus type 2/gout/advanced age/reported ANA versus narcolepsy Complicates care, management, recovery and prognosis. Would hold on steroids at this time given lack of obstructive lung disease history or risk factors. This would complicate diabetic management. Continue home noninvasive therapy for sleep apnea versus narcolepsy. Patient reports a history of narcolepsy, but is not on any medications at this time for this condition with the information provided. Could obtain records from [facility] for verification. Inpatient E&M: [id number] Init Hosp L3
[2021-01-09 16:50] LABS: Bedside Glucose 219 mg/dL (70-110)
[2021-01-09] MEDS: Insulin Lispro 100 UNIT/ML INSULN.PEN SC ×2 (16:50→22:23)
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
--- NOTE | 2021-01-09 17:08 | CDU_ITS ---
Reason For Study: Syncope Rt. Velocities/BP Lt. Velocities/BP Prox CCA 145.8/26.7 cm/sec. Prox CCA 148.4/29.3 cm/sec. Mid CCA 122.5/29.3 cm/sec. Mid CCA 135.5/24.1 cm/sec. Dist CCA 130.3/18.9 cm/sec. Dist CCA 140.6/29.3 cm/sec. Prox ICA 90.6/16 cm/sec. Prox ICA 152.1/62.1 cm/sec. Mid ICA 243.4/65.6 cm/sec. Mid ICA 214.3/72.1 cm/sec. Dist ICA 279/97.9 cm/sec. Dist ICA 243.4/49.5 cm/sec. Rt. ICA/CCA = 2.14. Lt. ICA/CCA = 1.73. Prox ECA 179.5/13.7 cm/sec. Prox ECA 202.8/16.3 cm/sec. Rt. Vert. 25.6/10.7 cm/sec. Lt. Vert. 61.9/17.9 cm/sec. Right Extracranial There is homogeneous, smooth atherosclerotic plaque noted in the right common carotid artery. There is heterogeneous, irregular atherosclerotic plaque noted in the right internal carotid artery. There is intimal thickening but no significant atherosclerotic plaque noted in the right external carotid artery. Antegrade flow is noted in the right vertebral artery. Left Extracranial There is homogeneous, smooth atherosclerotic plaque noted in the left common carotid artery. There is heterogeneous, irregular atherosclerotic plaque noted in the left internal carotid artery. There is homogeneous, smooth atherosclerotic plaque noted in the left external carotid artery. Antegrade flow is noted in the left vertebral artery. Procedure Carotid Duplex 77392. This is a Carotid Duplex examination using B-mode, color flow and specral Doppler. The study was technically difficult. Prelim to molding associate. Exam performed portable in patient room. VL/Carotid Duplex Ultrasound Interpretation Summary Irregular calcific plaque with shadowing at the proximal right internal carotid artery with greater than 70% stenosis. Less than 50% stenosis right external carotid artery Irregular calcific plaque of the proximal left internal carotid artery with gre ater than 70% stenosis Greater than 50% stenosis left external carotid artery Patent and antegrade vertebrals bilaterally Ordering Physician: Robson Malone Referring Physician: Casey Handley Performed By: Lore Lawrence RVT
--- NOTE | 2021-01-09 20:34 | NURSING ---
Current Zosyn that is running is not going to be complete until around 2100 d/t dayshift RN forgetting to open clamp. pt has another dose due at 2200. this RN called to pharmacy and they said to chart against the 2200 dose
[2021-01-09] MEDS: Furosemide 40 MG/4 ML Vial IV (22:22)
[2021-01-09 22:40] LABS: Bedside Glucose 213 mg/dL (70-110)
[2021-01-10] VITALS (18 sets, daily range): BP systolic 127–174; BP diastolic 59–91; PULSE 62–112; RESP 12–32; TEMP 36.4–37; O2SAT 94–100
[2021-01-10] MEDS: hydrALAZINE 20 MG/ML Vial 5 MG IV (03:28)
[2021-01-10] MEDS: 0.9% Saline Lock 10 ML Syringe IV ×2 (03:29→13:48)
[2021-01-10] MEDS: Insulin Lispro 100 UNIT/ML INSULN.PEN SC ×4 (06:35→21:09)
[2021-01-10] MEDS: Furosemide 40 MG/4 ML Vial IV ×3 (06:36→21:07)
[2021-01-10 06:46] LABS: Bedside Glucose 170 mg/dL (70-110)
[2021-01-10 07:02] LABS: Hematocrit 37.8 % (40-54); Hemoglobin 11.3 g/dL (13.0-16.5); Mean Corp Hgb Conc 29.9 g/dL (32-36); Mean Corpuscular Hgb 27.2 pg (27.0-32.0); Mean Corpuscular Volume 90.9 fL (80-94); Mean Platelet Vol. 10.4 fl (6.2-12.0); Platelet Count 214 K/mm3 (150-450); RBC Distribution Width CV 14.9 % (11.6-14.6); Red Blood Count 4.16 M/mm3 (4.6-6.2); White Blood Count 9.7 K/mm3 (4.4-11.0)
[2021-01-10 07:21] LABS: International Normalized Ratio 1.6; Prothrombin Time (Protime)PT. 18.7 SECONDS (11.7-14.9)
[2021-01-10 07:29] LABS: Anion Gap 2 (5-15); BUN 23 mg/dL (7-18); BUN/Creat Ratio 18.5 RATIO (10-20); Calcium,Total 8.1 mg/dL (8.5-10.1); Chloride 100 mmol/L (98-107); Creatinine, Serum 1.24 mg/dL (0.70-1.30); EST Glomerular Filtration Rate 60 mL/min (>60); Est Glom Filt Rate - Afr Amer 73 mL/min (>60); Estimated Creatinine Clearance 49.03 ml/min; Glucose 163 mg/dL (74-106); Magnesium 2.1 mg/dL (1.6-2.6); Phosphorus 2.6 mg/dL (2.5-4.9); Potassium 4.5 mmol/L (3.5-5.1); Sodium Level 134 mmol/L (136-145)
[2021-01-10] MEDS: guaiFENesin 600 MG Tablet PO ×2 (07:53→21:07)
--- NOTE | 2021-01-10 09:50 | PCM.PN.PUL ---
Patient Problems: Active and Suspected Problems (Last Reviewed 06/02/20 @ 04:[address] Bruno Kee MD) Syncope (Acute) Subtherapeutic anticoagulation (Acute) Back contusion (Acute) Hypoxia (Acute) Acute hypercapnic respiratory failure (Acute) Old myocardial infarction (Acute) 11/14, 04/14 Subjective: Patient overall feels subjectively unchanged compared to previous. Patient states he is only attempted to ambulate to the bathroom, but has not had any of his presyncopal episodes. Patient believes his lower extremities may be slightly improved compared to previous. Patient states he has had some discomfort secondary to constipation this morning. Objective: Patient had echocardiogram. EF was 55%, but windows were very limited. - Physical Exam Vitals/I&O's: Vital Signs Temp Pulse Resp BP Pulse Ox 36.4 C L 62 18 139/59 H 94 01/10/21 08:30 01/10/21 08:30 01/10/21 08:30 01/10/21 08:30 01/10/21 08:30 Oxygen Flow Rate (L/min) 4 Oxygen Delivery Method Nasal Cannula Weight: 136.5 kg Body Mass Index (BMI) 45.7 Finger Stick Blood Glucose 293 Orthostatic Vital Signs Start: 01/10/21 01:40 Freq: q24h Status: Active Protocol: Activity Type Activity Date Activity User E-Sign Co-Sign Detail Recorded Client Recorded Date Recorded By Document 01/10/21 04:13 KristenG [id number] 01/10/21 04:21 MARYANNE 01/10/21 04:13 Orthostatic Vitals Standing -Blood Pressure (90/60-120/80) 134/68 H -Extremity Use Right Arm -Pulse Rate (60-100) 109 H Sitting -Blood Pressure (90/60-120/80) 140/76 H -Extremity Use Right Arm -Pulse Rate (60-100) 99 Lying -Blood Pressure (90/60-120/80) 127/65 H -Extremity Use Right Arm -Pulse Rate (60-100) 77 Intake and Output for Last 24 Hours 01/08/21 01/09/21 01/10/21 23:59 23:59 23:59 Intake Total 1677.5 / 1677.5 830 / 830 Output Total 1200 / 1200 700 / 700 Balance 477.5 / 477.5 130 / 130 General: Alert, Oriented x3, Cooperative, No apparent distress, Well developed, Well nourished, - - Morbidly obese. Speaking in full sentences. HEENT: Atraumatic, PERRLA, EOMI, Normocephalic, - - No scleral icterus or injection noted. Glasses in place. Oral: Moist Mucosa, No Gingival or Mucosal Lesions/ Ulcerations, - - Crowded posterior pharynx Neck: Supple, No Nodes, Trachea Midline, JVD, Right Lungs: No rhonchi, No wheeze, Diminished, Rales - Right base Cardiovascular: Normal S1, Normal S2, No murmurs, Irregular Rate, No rub noted, No Gallop Abdomen: Bowel Sounds Present, Soft, Non Tender, Non-Distended Extremities: No clubbing, No cyanosis, Edema - Slight improvement in left lower extremity Skin: - - No change compared to previous Musculoskeletal: No Tenderness to Palpation of Joints or Extremities Lymphatic: No Cervical, Supraclavicular, or Inguinal Adenopathy Neurological: Cranial nerves II-XII grossly intact, Neuro grossly intact, Motor Exam 5/5 strength throughout Psych/Mental Status: Alert and oriented to time, place, person, mood and affect Microbiology Past 72 Hours 01/09/21 03:55 Mucosa - Nose SARS-CoV-2 Antigen (Rapid) - Final Laboratory Results 01/09/21 10:27: COVID-19 (JESUS) Not Detected 01/09/21 12:06: POC Glucose 218 H 01/09/21 16:45: POC Glucose 219 H 01/09/21 22:21: POC Glucose 213 H 01/10/21 05:45: PT 18.7 H, INR 1.6 01/10/21 05:45: WBC 9.7, RBC 4.16 L, Hgb 11.3 L, Hct 37.8 L, MCV 90.9, MCH 27.2, MCHC 29.9 L, RDW Std Deviation 50.0 H, RDW Coeff of Ag 14.9 H, Plt Count 214, MPV 10.4 01/10/21 05:45: Sodium 134 L, Potassium 4.5, Chloride 100, Carbon Dioxide 32.0, Anion Gap 2 L, BUN 23 H, Creatinine 1.24, Estim Creat Clear Calc 49.03, Est GFR (MDRD) Af Amer 73, Est GFR (MDRD) Non-Af 60, BUN/Creatinine Ratio 18.5, Glucose 163 H, Calcium 8.1 L, Phosphorus 2.6, Magnesium 2.1 01/10/21 06:34: POC Glucose 170 H Current Medications Acetaminophen (Acetaminophen 325 Mg Tablet) 650 mg PO Q6H PRN PRN PRN Reason: Pain Score 1-10/Temp > 100.7 F Dextrose (Dextrose 50%-Water 25 Gm/50 Ml Disp.Syrin) 0 gm IV X1 PRN; Protocol PRN Reason: Hypoglycemia Furosemide (Furosemide 40 Mg/4 Ml Vial) 40 mg IV Q8 [facility] Last Admin: 01/10/21 06:36 Dose: 40 mg Documented by: Glucagon (Glucagon 1 Mg/Ml Syringe) 1 mg IM .X1 PRN PRN Reason: Hypoglycemia Guaifenesin (Guaifenesin 600 Mg Tablet) 600 mg PO BID [facility] Last Admin: 01/10/21 07:53 Dose: 600 mg Documented by: Hydralazine HCl (Hydralazine 20 Mg/Ml Vial) 5 mg IV Q4H PRN PRN PRN Reason: SBP above 160 Last Admin: 01/10/21 03:28 Dose: 5 mg Documented by: Sodium Chloride () 250 mls @ 15 mls/hr IV .[id number] PRN PRN Reason: Saline Flush Sodium Chloride () 250 mls @ 15 mls/hr IV .[id number] PRN PRN Reason: Additional IVPB Infusion Piperacillin Sod/Tazobactam (Sod 3.375 gm/ Sodium Chloride) 50 mls @ 12.5 mls/hr IV Q8 [facility] Last Admin: 01/10/21 06:36 Dose: 12.5 mls/hr Documented by: Vancomycin IV Pharmacy to Dose (1 each/ Sodium Chloride) 500 mls @ 250 mls/hr IV PRN PRN; Protocol PRN Reason: Rx to Dose Vancomycin HCl 1,500 mg/ (Sodium Chloride) 530 mls @ 250 mls/hr IV Q12H [facility] Last Infusion: 01/10/21 02:22 Dose: Infused Documented by: Insulin Human Lispro (Insulin Lispro 100 Unit/Ml Insuln.Pen) 0 unit SC ACHS [facility]; Protocol Last Admin: 01/10/21 06:35 Dose: 2 u Documented by: Melatonin (Melatonin 3 Mg Tablet) 3 mg PO QHS PRN PRN PRN Reason: INSOMNIA Ondansetron HCl (Ondansetron 4 Mg/2 Ml Vial) 4 mg IV Q8H PRN PRN PRN Reason: NAUSEA/VOMITING Sodium Chloride (0.9% Saline Lock 10 Ml Syringe) 10 - 40 ml IV UD PRN PRN Reason: SALINE FLUSH Last Admin: 01/10/21 03:29 Dose: 10 ml Documented by: Clinical Impression(s) from Imaging Studies Echocardiogram 01/09/21 04:47 Interpretation Summary Normal LV size. Left ventricular systolic function is normal. The estimated ejection fraction is 55 %. Contrast injection was performed. The study was technically difficult. Ordering Physician: Gordy Payne Referring Physician: Casey Handley Performed By: Tom Gregory RCS Medical Necessity - Tobacco Use Smoking Status: Never smoker Assessment/Plan All Active Problems (Last Reviewed 06/02/20 @ 04:[address] Bruno Kee MD) Chest pain (Acute) Syncope (Acute) Subtherapeutic anticoagulation (Acute) Back contusion (Acute) Hypoxia (Acute) Metabolic acidosis (Acute) Acute hypercapnic respiratory failure (Acute) Old myocardial infarction (Acute) Chest pain (Resolved) sob after surgery (Resolved) RECOMMENDATIONS: 1. Continue diuretic therapy 2. Await sputum culture 3. Possibly discontinue antibiotics after 48 hours if afebrile, culture negative and improving with diuresis 4. Dose Coumadin to achieve therapeutic range 5. Wean oxygen as tolerated 6. Continue baseline nocturnal BiPAP settings IMPRESSIONS: 1. Acute combined respiratory failure of unclear etiology Unclear etiology. Patient does have an elevated bicarbonate suggesting a long-term CO2 retention with compensation. Unclear if this is secondary to central sleep apnea versus narcolepsy versus obesity hypoventilation. Patient is not on oxygen at baseline. Patient has had significant worsening in lower extremity edema, so congestive heart failure would be a concern. Patient does appear to be responding to Lasix therapy as oxygen requirements have improved from 6 L to 4 L nasal cannula. Patient is not reporting any significant hemoptysis to suggest DAH, but a pulmonary contusion would still be a consideration. Echocardiogram was unable to quantify pulmonary artery pressures. 2. Coronary artery disease status post stents/hypertension/hyperlipidemia/possible CHF versus cor pulmonale Patient follows with cardiology regularly. Previous echocardiogram has not been suggestive of congestive heart failure. However, clinical history is suggestive of elevated right-sided pressures. Continue empiric diuresis for now 3. Diabetes mellitus type 2/gout/advanced age/reported ANA versus narcolepsy/constipation Complicates care, management, recovery and prognosis. Would hold on steroids at this time given lack of obstructive lung disease history or risk factors. This would complicate diabetic management. Continue home noninvasive therapy for sleep apnea versus narcolepsy. Patient reports a history of narcolepsy, but is not on any medications at this time for this condition with the information provided. Could obtain records from [facility] [place] for verification. Dose with MiraLAX. Inpatient E&M: [id number] [facility] L3
[2021-01-10] MEDS: Polyethylene Glycol 3350 17 GM PACKET PO (10:26)
[2021-01-10 11:21] LABS: Bedside Glucose 190 mg/dL (70-110)
[2021-01-10] MEDS: Acetaminophen 325 MG Tablet 650 MG PO ×2 (13:48→23:14)
--- NOTE | 2021-01-10 15:49 | PN_ITS ---
Patient Problems: Active and Suspected Problems (Last Reviewed 06/02/20 @ 04:[address] Bruno Kee MD) Syncope (Acute) Subtherapeutic anticoagulation (Acute) Back contusion (Acute) Hypoxia (Acute) Acute hypercapnic respiratory failure (Acute) Old myocardial infarction (Acute) 11/14, 04/14 Subjective: breathing better overall. However, after eating today, felt short of breath and requested being put back on BiPAP. Vitals/I&O's: Vital Signs Temp Pulse Resp BP Pulse Ox 36.4 C L 93 18 139/59 H 94 01/10/21 08:30 01/10/21 11:00 01/10/21 08:30 01/10/21 08:30 01/10/21 11:30 Oxygen Flow Rate (L/min) 4 Oxygen Delivery Method Nasal Cannula Weight: 136.5 kg Body Mass Index (BMI) 45.7 Finger Stick Blood Glucose 293 Orthostatic Vital Signs Start: 01/10/21 01:40 Freq: q24h Status: Active Protocol: Activity Type Activity Date Activity User E-Sign Co-Sign Detail Recorded Client Recorded Date Recorded By Document 01/10/21 04:13 Kristen [id number] 01/10/21 04:21 JG 01/10/21 04:13 Orthostatic Vitals Standing -Blood Pressure (90/60-120/80) 134/68 H -Extremity Use Right Arm -Pulse Rate (60-100) 109 H Sitting -Blood Pressure (90/60-120/80) 140/76 H -Extremity Use Right Arm -Pulse Rate (60-100) 99 Lying -Blood Pressure (90/60-120/80) 127/65 H -Extremity Use Right Arm -Pulse Rate (60-100) 77 Intake and Output for Last 24 Hours 01/08/21 01/09/21 01/10/21 23:59 23:59 23:59 Intake Total 1677.5 / 1677.5 1650 / 1650 Output Total 1200 / 1200 2550 / 2550 Balance 477.5 / 477.5 -900 / -900 General: Alert, No apparent distress, - HEENT: Atraumatic, Normocephalic Neck: No Nodes, Thyroid Normal Size and Texture Lungs: Normal air movement, - - coarse breath sounds bilaterally. Cardiovascular: Regular rate, Regular Rhythm, Normal S1, Normal S2, No murmurs Abdomen: Bowel Sounds Present, Soft, Non Tender, Non-Distended, Obese Extremities: No Calf Tenderness, Edema Skin: No rashes, No breakdown Psych/Mental Status: Normal Affect Microbiology Past 72 Hours 01/09/21 03:55 Mucosa - Nose SARS-CoV-2 Antigen (Rapid) - Final Laboratory Results 01/09/21 16:45: POC Glucose 219 H 01/09/21 22:21: POC Glucose 213 H 01/10/21 05:45: PT 18.7 H, INR 1.6 01/10/21 05:45: WBC 9.7, RBC 4.16 L, Hgb 11.3 L, Hct 37.8 L, MCV 90.9, MCH 27.2, MCHC 29.9 L, RDW Std Deviation 50.0 H, RDW Coeff of Ag 14.9 H, Plt Count 214, MPV 10.4 01/10/21 05:45: Sodium 134 L, Potassium 4.5, Chloride 100, Carbon Dioxide 32.0, Anion Gap 2 L, BUN 23 H, Creatinine 1.24, Estim Creat Clear Calc 49.03, Est GFR (MDRD) Af Amer 73, Est GFR (MDRD) Non-Af 60, BUN/Creatinine Ratio 18.5, Glucose 163 H, Calcium 8.1 L, Phosphorus 2.6, Magnesium 2.1 01/10/21 06:34: POC Glucose 170 H 01/10/21 11:07: POC Glucose 190 H Current Medications Acetaminophen (Acetaminophen 325 Mg Tablet) 650 mg PO Q6H PRN PRN PRN Reason: Pain Score 1-10/Temp > 100.7 F Last Admin: 01/10/21 13:48 Dose: 650 mg Documented by: Allopurinol (Allopurinol 100 Mg Tablet) 100 mg PO DAILY [facility] Dextrose (Dextrose 50%-Water 25 Gm/50 Ml Disp.Syrin) 0 gm IV X1 PRN; Protocol PRN Reason: Hypoglycemia Furosemide (Furosemide 40 Mg/4 Ml Vial) 40 mg IV Q8 [facility] Last Admin: 01/10/21 13:48 Dose: 40 mg Documented by: Gabapentin (Gabapentin 300 Mg Capsule) 300 mg PO BIDCM [facility] Glucagon (Glucagon 1 Mg/Ml Syringe) 1 mg IM .X1 PRN PRN Reason: Hypoglycemia Guaifenesin (Guaifenesin 600 Mg Tablet) 600 mg PO BID [facility] Last Admin: 01/10/21 07:53 Dose: 600 mg Documented by: Hydralazine HCl (Hydralazine 20 Mg/Ml Vial) 5 mg IV Q4H PRN PRN PRN Reason: SBP above 160 Last Admin: 01/10/21 03:28 Dose: 5 mg Documented by: Sodium Chloride () 250 mls @ 15 mls/hr IV .[id number] PRN PRN Reason: Saline Flush Sodium Chloride () 250 mls @ 15 mls/hr IV .[id number] PRN PRN Reason: Additional IVPB Infusion Piperacillin Sod/Tazobactam (Sod 3.375 gm/ Sodium Chloride) 50 mls @ 12.5 mls/hr IV Q8 [facility] Last Admin: 01/10/21 14:27 Dose: 12.5 mls/hr Documented by: Vancomycin IV Pharmacy to Dose (1 each/ Sodium Chloride) 500 mls @ 250 mls/hr IV PRN PRN; Protocol PRN Reason: Rx to Dose Vancomycin HCl 1,500 mg/ (Sodium Chloride) 530 mls @ 250 mls/hr IV Q12H [facility] Last Infusion: 01/10/21 14:27 Dose: Infused Documented by: Insulin Human Lispro (Insulin Lispro 100 Unit/Ml Insuln.Pen) 0 unit SC [facility]; Protocol Last Admin: 01/10/21 11:13 Dose: 2 u Documented by: Melatonin (Melatonin 3 Mg Tablet) 3 mg PO QHS PRN PRN PRN Reason: INSOMNIA Ondansetron HCl (Ondansetron 4 Mg/2 Ml Vial) 4 mg IV Q8H PRN PRN PRN Reason: NAUSEA/VOMITING Sodium Chloride (0.9% Saline Lock 10 Ml Syringe) 10 - 40 ml IV UD PRN PRN Reason: SALINE FLUSH Last Admin: 01/10/21 13:48 Dose: 10 ml Documented by: Warfarin Sodium (Warfarin 7.5 Mg Tablet) 7.5 mg PO 1700 ONE Stop: 01/10/21 17:01 Medical Necessity - Tobacco Use Smoking Status: Never smoker Assessment/Plan All Active Problems (Last Reviewed 06/02/20 @ 04:[address] Bruno Kee MD) Chest pain (Acute) Syncope (Acute) Subtherapeutic anticoagulation (Acute) Back contusion (Acute) Hypoxia (Acute) Metabolic acidosis (Acute) Acute hypercapnic respiratory failure (Acute) Old myocardial infarction (Acute) Chest pain (Resolved) sob after surgery (Resolved) 1. acute hypoxic and hypercapnic respiratory failure etiology unclear: CHF v pneumonia v other, may be multifactorial echo: limited. EF 50% continue pulm toilet continue abx for now given abnormal CT images agree with IV furosemide. and patient endorse increase weight gain for the patient. Weight currently down 2kg. appreciate pulm input 2. Syncope intermittent for years. I explained to his that this may be related with his known narcolepsy. Whether or not he has narcolepsy to be further teased out by neurology at [facility]. orthostats negative carotid duplex prelim >70% bilaterally. Await on official read, but likely will need vascular surgery evaluation. 3. h.o VTE continue warfarin, will give 7.5 mg today. will initiate enoxaparin, since still subtherapuetic. 4. VTE prophylaxis: on warfarin 5. Restless legs syndrome saw neurology at [facility] who has taken the patient off Mirapex and started gabapentin informed pt and his , that given his somnolence on 01/09, that I would start him on a lower dose of his gabapentin Inpatient E&M: [id number] Subs Hosp L2
[2021-01-10] MEDS: Gabapentin 300 MG Capsule PO (16:44)
[2021-01-10] MEDS: Enoxaparin 100 MG/ML Syringe 90 MG SC (16:47)
[2021-01-10 16:56] LABS: Bedside Glucose 202 mg/dL (70-110)
[2021-01-10 21:55] LABS: Bedside Glucose 208 mg/dL (70-110)
[2021-01-10 23:41] LABS: Vancomycin, Trough Level 17.8 ug/mL (5.0-15.0)
[2021-01-11] VITALS (12 sets, daily range): BP systolic 128–187; BP diastolic 55–87; PULSE 75–108; RESP 12–20; TEMP 35.7–36.9; O2SAT 95–99
--- NOTE | 2021-01-11 00:48 | PCM.RX.CS ---
Consult Pharmacy has been consulted to manage selected antiobiotic: Vancomycin Type of Consult: Follow-up Prior Doses of Antibiotics Received/Current Regimen: Medications Vancomycin HCl 1,500 mg/ (Sodium Chloride) 530 mls @ 250 mls/hr IV Q12H [facility] Last Admin: 01/10/21 14:27 Dose: Infused Documented by: Labs: Sodium 134 mmol/L (136-145) L 01/10/21 05:45 Potassium 4.5 mmol/L (3.5-5.1) 01/10/21 05:45 Chloride 100 mmol/L (98-107) 01/10/21 05:45 Carbon Dioxide 32.0 mmol/L (21.0-32.0) 01/10/21 05:45 Anion Gap 2 (5-15) L 01/10/21 05:45 BUN 23 mg/dL (7-18) H 01/10/21 05:45 Creatinine 1.24 mg/dL (0.70-1.30) 01/10/21 05:45 Est GFR (MDRD) Af Amer 73 mL/min (>60) 01/10/21 05:45 Est GFR (MDRD) Non-Af 60 mL/min (>60) 01/10/21 05:45 BUN/Creatinine Ratio 18.5 RATIO (10-20) 01/10/21 05:45 Glucose 163 mg/dL (74-106) H 01/10/21 05:45 Vancomycin Trough 17.8 ug/mL (5.0-15.0) H 01/10/21 23:02 Microbiology: Microbiology 01/09/21 03:55 Mucosa - Nose SARS-CoV-2 Antigen (Rapid) - Final Weight used for dosin.5 kg Estimated Creatinine Clearance: 68ml/min Goal Trough: 15-20 mcg/mL Pharmacy Plan for Drug Dosing: The vancomycin trough returned at 17.8 and is within goal range between 15-20. Pharmacy Service will continue to monitor and adjust dosing as required. Follow-Up Labs: Trough Vancomycin - repeat trough in 4 days Labs to be done on [date and time ordered]: 01/14/21 [id number]
[2021-01-11] MEDS: LORazepam 1 MG Tablet PO (02:39)
[2021-01-11 06:14] LABS: International Normalized Ratio 1.5; Prothrombin Time (Protime)PT. 17.3 SECONDS (11.7-14.9)
[2021-01-11 06:22] LABS: Anion Gap 2 (5-15); BUN 25 mg/dL (7-18); BUN/Creat Ratio 19.1 RATIO (10-20); Calcium,Total 8.5 mg/dL (8.5-10.1); Chloride 96 mmol/L (98-107); Creatinine, Serum 1.31 mg/dL (0.70-1.30); EST Glomerular Filtration Rate 57 mL/min (>60); Est Glom Filt Rate - Afr Amer 68 mL/min (>60); Estimated Creatinine Clearance 46.41 ml/min; Glucose 205 mg/dL (74-106); Potassium 4.1 mmol/L (3.5-5.1); Sodium Level 133 mmol/L (136-145)
[2021-01-11] MEDS: Enoxaparin 100 MG/ML Syringe 90 MG SC ×2 (06:37→17:17)
[2021-01-11] MEDS: Furosemide 40 MG/4 ML Vial IV ×3 (06:41→21:06)
[2021-01-11] MEDS: Insulin Lispro 100 UNIT/ML INSULN.PEN SC ×4 (06:45→21:05)
[2021-01-11 07:05] LABS: Bedside Glucose 211 mg/dL (70-110)
[2021-01-11] MEDS: Allopurinol 100 MG Tablet PO (08:50)
[2021-01-11] MEDS: Gabapentin 300 MG Capsule PO (08:50)
[2021-01-11] MEDS: guaiFENesin 600 MG Tablet PO ×2 (08:50→21:10)
--- NOTE | 2021-01-11 10:10 | PCM.PN.PUL ---
Patient Problems: Active and Suspected Problems (Last Reviewed 06/02/20 @ 04:[address] 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 Patient continues to improve with oxygen demands, but had severe restless legs. Patient did not receive his Mirapex, but was given Ativan. Patient states that his restless legs have persisted into the daytime. Patient subjectively feels his breathing and lower extremity edema is improving with current therapy. No bleeding has been reported. - Physical Exam Vitals/I&O's: Vital Signs Temp Pulse Resp BP Pulse Ox 36.6 C 104 H 18 182/85 H 95 01/11/21 06:46 01/11/21 06:46 01/11/21 06:46 01/11/21 06:46 01/11/21 08:11 Oxygen Flow Rate (L/min) 4 Oxygen Delivery Method Nasal Cannula Weight: 136.5 kg Body Mass Index (BMI) 45.7 Finger Stick Blood Glucose 293 Orthostatic Vital Signs Start: 01/10/21 01:40 Freq: q24h Status: Active Protocol: Activity Type Activity Date Activity User E-Sign Co-Sign Detail Recorded Client Recorded Date Recorded By Document 01/11/21 06:00 AF [id number] 01/11/21 06:34 AF 01/11/21 06:00 Orthostatic Vitals Standing -Blood Pressure (90/60-120/80) 187/79 H -Extremity Use Right Arm -Pulse Rate (60-100) 108 H Sitting -Blood Pressure (90/60-120/80) 148/85 H -Extremity Use Right Arm -Pulse Rate (60-100) 97 Lying -Blood Pressure (90/60-120/80) 182/85 H -Extremity Use Right Arm -Pulse Rate (60-100) 104 H Intake and Output for Last 24 Hours 01/09/21 01/10/21 01/11/21 23:59 23:59 23:59 Intake Total 1677.5 / 1677.5 1940 / 2240 1120 / 1120 Output Total 1200 / 1200 3750 / 4450 1300 / 1300 Balance 477.5 / 477.5 -1810 / -2210 -180 / -180 General: Alert, Oriented x3, Cooperative, - - Mild to moderate distress from lower extremity movement. Morbidly obese. HEENT: Atraumatic, PERRLA, EOMI, Normocephalic, - - Glasses in place Oral: Moist Mucosa, No Gingival or Mucosal Lesions/ Ulcerations Neck: Supple, No Nodes, Trachea Midline Lungs: No rhonchi, No wheeze, Diminished, Rales - Right base Cardiovascular: Regular rate, Regular Rhythm, Normal S1, Normal S2, No rub noted, No Gallop Abdomen: Bowel Sounds Present, Soft, Non Tender, Non-Distended, Obese Extremities: No clubbing, No cyanosis, Edema - Continues to improve Skin: - - No change compared to previous Musculoskeletal: No Tenderness to Palpation of Joints or Extremities, - - Actively moving lower extremities consistently Lymphatic: No Cervical, Supraclavicular, or Inguinal Adenopathy Neurological: Cranial nerves II-XII grossly intact, Neuro grossly intact, Motor Exam 5/5 strength throughout Psych/Mental Status: Alert and oriented to time, place, person, mood and affect Microbiology Past 72 Hours 01/09/21 03:55 Mucosa - Nose SARS-CoV-2 Antigen (Rapid) - Final Laboratory Results 01/10/21 11:07: POC Glucose 190 H 01/10/21 16:43: POC Glucose 202 H 01/10/21 21:05: POC Glucose 208 H 01/10/21 23:02: Vancomycin Trough 17.8 H 01/11/21 05:40: PT 17.3 H, INR 1.5 01/11/21 05:40: Sodium 133 L, Potassium 4.1, Chloride 96 L, Carbon Dioxide 35.0 H, Anion Gap 2 L, BUN 25 H, Creatinine 1.31 H, Estim Creat Clear Calc 46.41, Est GFR (MDRD) Af Amer 68, Est GFR (MDRD) Non-Af 57 L, BUN/Creatinine Ratio 19.1, Glucose 205 H, Calcium 8.5 01/11/21 06:44: POC Glucose 211 H Clinical Impression(s) from Imaging Studies Carotid Duplex 01/09/21 17:08 Interpretation Summary Irregular calcific plaque with shadowing at the proximal right internal carotid artery with greater than 70% stenosis. Less than 50% stenosis right external carotid artery Irregular calcific plaque of the proximal left internal carotid artery with greater than 70% stenosis Greater than 50% stenosis left external carotid artery Patent and antegrade vertebrals bilaterally Ordering Physician: Robson Malone Referring Physician: Casey Handley Performed By: Lore Lawrence RVT Current Medications Acetaminophen (Acetaminophen 325 Mg Tablet) 650 mg PO Q6H PRN PRN PRN Reason: Pain Score 1-10/Temp > 100.7 F Last Admin: 01/10/21 23:14 Dose: 650 mg Documented by: Allopurinol (Allopurinol 100 Mg Tablet) 100 mg PO DAILY [facility] Last Admin: 01/11/21 08:50 Dose: 100 mg Documented by: Dextrose (Dextrose 50%-Water 25 Gm/50 Ml Disp.Syrin) 0 gm IV X1 PRN; Protocol PRN Reason: Hypoglycemia Enoxaparin Sodium (Enoxaparin 100 Mg/Ml Syringe) 90 mg SC Q12@0600,1800 [facility] Last Admin: 01/11/21 06:37 Dose: 90 mg Documented by: Furosemide (Furosemide 40 Mg/4 Ml Vial) 40 mg IV Q8 [facility] Last Admin: 01/11/21 06:41 Dose: 40 mg Documented by: Gabapentin (Gabapentin 300 Mg Capsule) 300 mg PO BIDCM [facility] Last Admin: 01/11/21 08:50 Dose: 300 mg Documented by: Glucagon (Glucagon 1 Mg/Ml Syringe) 1 mg IM .X1 PRN PRN Reason: Hypoglycemia Guaifenesin (Guaifenesin 600 Mg Tablet) 600 mg PO BID [facility] Last Admin: 01/11/21 08:50 Dose: 600 mg Documented by: Hydralazine HCl (Hydralazine 20 Mg/Ml Vial) 5 mg IV Q4H PRN PRN PRN Reason: SBP above 160 Last Admin: 01/10/21 03:28 Dose: 5 mg Documented by: Sodium Chloride () 250 mls @ 15 mls/hr IV .[id number] PRN PRN Reason: Saline Flush Sodium Chloride () 250 mls @ 15 mls/hr IV .[id number] PRN PRN Reason: Additional IVPB Infusion Piperacillin Sod/Tazobactam (Sod 3.375 gm/ Sodium Chloride) 50 mls @ 12.5 mls/hr IV Q8 [facility] Last Admin: 01/11/21 06:37 Dose: 12.5 mls/hr Documented by: Vancomycin IV Pharmacy to Dose (1 each/ Sodium Chloride) 500 mls @ 250 mls/hr IV PRN PRN; Protocol PRN Reason: Rx to Dose Vancomycin HCl 1,500 mg/ (Sodium Chloride) 530 mls @ 250 mls/hr IV Q12H [facility] Last Infusion: 01/11/21 04:38 Dose: Infused Documented by: Insulin Human Lispro (Insulin Lispro 100 Unit/Ml Insuln.Pen) 0 unit SC [facility]; Protocol Last Admin: 01/11/21 06:45 Dose: 4 u Documented by: Melatonin (Melatonin 3 Mg Tablet) 3 mg PO QHS PRN PRN PRN Reason: INSOMNIA Ondansetron HCl (Ondansetron 4 Mg/2 Ml Vial) 4 mg IV Q8H PRN PRN PRN Reason: NAUSEA/VOMITING Pramipexole Dihydrochloride (Pramipexole Di-Hcl 0.25 Mg Tablet) 0.25 mg PO TID [facility] Sodium Chloride (0.9% Saline Lock 10 Ml Syringe) 10 - 40 ml IV UD PRN PRN Reason: SALINE FLUSH Last Admin: 01/10/21 13:48 Dose: 10 ml Documented by: Medical Necessity - Tobacco Use Smoking Status: Never smoker Assessment/Plan All Active Problems (Last Reviewed 06/02/20 @ 04:[address] Bruno Kee MD) Chest pain (Acute) Syncope (Acute) Subtherapeutic anticoagulation (Acute) Back contusion (Acute) Hypoxia (Acute) Metabolic acidosis (Acute) Acute hypercapnic respiratory failure (Acute) Old myocardial infarction (Acute) Chest pain (Resolved) sob after surgery (Resolved) RECOMMENDATIONS: 1. Continue diuretic therapy 2. Give dose of Mirapex now and reinitiate with sleep 3. To discontinue antibiotics from my perspective 4. Dose Coumadin to achieve therapeutic range 5. Wean oxygen as tolerated 6. Continue baseline nocturnal BiPAP settings IMPRESSIONS: 1. Acute combined respiratory failure of unclear etiology Unclear etiology. Patient does have an elevated bicarbonate suggesting a long-term CO2 retention with compensation. Unclear if this is secondary to central sleep apnea versus narcolepsy versus obesity hypoventilation. Patient is not on oxygen at baseline. Patient has had significant worsening in lower extremity edema, so congestive heart failure would be a concern. Patient does appear to be responding to Lasix therapy as oxygen requirements have improved from 6 L to 3 L nasal cannula. Patient is not reporting any significant hemoptysis to suggest DAH, but a pulmonary contusion would still be a consideration. Echocardiogram was unable to quantify pulmonary artery pressures. We will continue with current therapy 2. Coronary artery disease status post stents/hypertension/hyperlipidemia/possible CHF versus cor pulmonale Patient follows with cardiology regularly. Previous echocardiogram has not been suggestive of congestive heart failure. However, clinical history is suggestive of elevated right-sided pressures. Continue empiric diuresis for now 3. Diabetes mellitus type 2/gout/advanced age/reported ANA versus narcolepsy/constipation/restless legs Complicates care, management, recovery and prognosis. Would hold on steroids at this time given lack of obstructive lung disease history or risk factors. This would complicate diabetic management. Continue home noninvasive therapy for sleep apnea versus narcolepsy. Patient reports a history of narcolepsy, but is not on any medications at this time for this condition with the information provided. Could obtain records from [facility] for verification. Patient will be dosed with Mirapex at half dose now and reinitiate full dose in the evening. Inpatient E&M: [id number] [facility] Hosp L2
[2021-01-11] MEDS: Pramipexole Di-HCl 0.25 MG Tablet PO (10:44)
[2021-01-11 12:05] LABS: Bedside Glucose 251 mg/dL (70-110)
[2021-01-11 12:20] LABS: Ferritin 233 ng/mL (26-388); Iron 25 ug/dL (65-175); Iron Binding Capacity,Total 376 ug/dL (250-450); PERCENT IRON SATURATION 6.6 % (15.0-55.0); Thyroid Stim Hormone (TSH) 3.81 uIU/mL (0.358-3.74)
[2021-01-11 12:46] LABS: Vitamin B12 429 pg/mL (211-911)
[2021-01-11] MEDS: 0.9% Saline Lock 10 ML Syringe IV (13:56)
--- NOTE | 2021-01-11 13:59 | CASEMGMT ---
Patient has a Healthcare Power of Manufacturing Test Engineer and a Healthcare Living Will. He is aware they are not on file at [facility]. His Judy is his Healthcare Power of Manufacturing Test Engineer. Radha HORNER
--- NOTE | 2021-01-11 14:30 | PCM.PN.HOSP ---
Patient Problems: Active and Suspected Problems (Last Reviewed 06/02/20 @ 04:[address] 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 Had been started on a wean of Mirapex through his neurologist and started on gabapentin. Breathing better overall. Decreased LE edema. Vitals/I&O's: Vital Signs Temp Pulse Resp BP Pulse Ox 36.9 C 98 20 H 128/55 H 96 01/11/21 12:46 01/11/21 12:46 01/11/21 12:46 01/11/21 12:46 01/11/21 12:46 Oxygen Flow Rate (L/min) 3 Oxygen Delivery Method Nasal Cannula Weight: 136.5 kg Body Mass Index (BMI) 45.7 Finger Stick Blood Glucose 293 Orthostatic Vital Signs Start: 01/10/21 01:40 Freq: q24h Status: Active Protocol: Activity Type Activity Date Activity User E-Sign Co-Sign Detail Recorded Client Recorded Date Recorded By Document 01/11/21 06:00 AF [id number] 01/11/21 06:34 AF 01/11/21 06:00 Orthostatic Vitals Standing -Blood Pressure (90/60-120/80) 187/79 H -Extremity Use Right Arm -Pulse Rate (60-100) 108 H Sitting -Blood Pressure (90/60-120/80) 148/85 H -Extremity Use Right Arm -Pulse Rate (60-100) 97 Lying -Blood Pressure (90/60-120/80) 182/85 H -Extremity Use Right Arm -Pulse Rate (60-100) 104 H Intake and Output for Last 24 Hours 01/09/21 01/10/21 01/11/21 23:59 23:59 23:59 Intake Total 1677.5 / 1677.5 1940 / 2240 1170 / 1170 Output Total 1200 / 1200 3750 / 4450 1650 / 1650 Balance 477.5 / 477.5 -1810 / -2210 -480 / -480 General: Alert, No apparent distress, - - up in chair playing cards with his . HEENT: Atraumatic, Normocephalic Oral: Moist Mucosa, No Gingival or Mucosal Lesions/ Ulcerations Neck: No Nodes, Thyroid Normal Size and Texture Lungs: Normal air movement, - - crackles in LE Cardiovascular: Regular rate, Regular Rhythm, Normal S1, Normal S2 Abdomen: Bowel Sounds Present, Soft, Non Tender, Non-Distended Extremities: No edema, No Calf Tenderness Psych/Mental Status: Normal Affect, Appropriate Microbiology Past 72 Hours 01/09/21 03:55 Mucosa - Nose SARS-CoV-2 Antigen (Rapid) - Final Laboratory Results 01/10/21 16:43: POC Glucose 202 H 01/10/21 21:05: POC Glucose 208 H 01/10/21 23:02: Vancomycin Trough 17.8 H 01/11/21 05:40: PT 17.3 H, INR 1.5 01/11/21 05:40: Sodium 133 L, Potassium 4.1, Chloride 96 L, Carbon Dioxide 35.0 H, Anion Gap 2 L, BUN 25 H, Creatinine 1.31 H, Estim Creat Clear Calc 46.41, Est GFR (MDRD) Af Amer 68, Est GFR (MDRD) Non-Af 57 L, BUN/Creatinine Ratio 19.1, Glucose 205 H, Calcium 8.5 01/11/21 05:40: Iron 25 L, TIBC 376, Iron Saturation 6.6 L, Ferritin 233, TSH 3.81 H 01/11/21 06:44: POC Glucose 211 H 01/11/21 11:54: POC Glucose 251 H 01/11/21 12:08: Vitamin B12 429 01/11/21 12:08: RBC Folate Hemolysate Pending, RBC Folate Pending, Hematocrit Pending Current Medications Acetaminophen (Acetaminophen 325 Mg Tablet) 650 mg PO Q6H PRN PRN PRN Reason: Pain Score 1-10/Temp > 100.7 F Last Admin: 01/10/21 23:14 Dose: 650 mg Documented by: Allopurinol (Allopurinol 100 Mg Tablet) 100 mg PO DAILY [facility] Last Admin: 01/11/21 08:50 Dose: 100 mg Documented by: Dextrose (Dextrose 50%-Water 25 Gm/50 Ml Disp.Syrin) 0 gm IV X1 PRN; Protocol PRN Reason: Hypoglycemia Enoxaparin Sodium (Enoxaparin 100 Mg/Ml Syringe) 90 mg SC Q12@0600,1800 [facility] Last Admin: 01/11/21 06:37 Dose: 90 mg Documented by: Furosemide (Furosemide 40 Mg/4 Ml Vial) 40 mg IV Q8 [facility] Last Admin: 01/11/21 13:55 Dose: 40 mg Documented by: Gabapentin ([facility] 600 Mg Tablet) [facility] Glucagon (Glucagon 1 Mg/Ml Syringe) 1 mg IM .X1 PRN PRN Reason: Hypoglycemia Guaifenesin (Guaifenesin 600 Mg Tablet) 600 mg PO BID [facility] Last Admin: 01/11/21 08:50 Dose: 600 mg Documented by: Hydralazine HCl (Hydralazine 20 Mg/Ml Vial) 5 mg IV Q4H PRN PRN PRN Reason: SBP above 160 Last Admin: 01/10/21 03:28 Dose: 5 mg Documented by: Sodium Chloride () 250 mls @ 15 mls/hr IV .[id number] PRN PRN Reason: Saline Flush Sodium Chloride () 250 mls @ 15 mls/hr IV .[id number] PRN PRN Reason: Additional IVPB Infusion Insulin Human Lispro (Insulin Lispro 100 Unit/Ml Insuln.Pen) 0 unit SC [facility]; Protocol Last Admin: 01/11/21 11:57 Dose: 4 u Documented by: Melatonin (Melatonin 3 Mg Tablet) 3 mg PO QHS PRN PRN PRN Reason: INSOMNIA Ondansetron HCl (Ondansetron 4 Mg/2 Ml Vial) 4 mg IV Q8H PRN PRN PRN Reason: NAUSEA/VOMITING Pramipexole Dihydrochloride (Pramipexole Di-Hcl 0.5 Mg Tablet) 0.5 mg PO QHS [facility] Sodium Chloride (0.9% Saline Lock 10 Ml Syringe) 10 - 40 ml IV UD PRN PRN Reason: SALINE FLUSH Last Admin: 01/11/21 13:56 Dose: 10 ml Documented by: STROKE Vital Signs/Narrative: Vital Signs Temp Pulse Resp BP Pulse Ox 01/11/21 12:46 36.9 C 98 20 H 128/55 H 96 Medical Necessity - Tobacco Use Smoking Status: Never smoker Assessment/Plan All Active Problems (Last Reviewed 06/02/20 @ 04:[address] Bruno Kee MD) Chest pain (Acute) Syncope (Acute) Subtherapeutic anticoagulation (Acute) Back contusion (Acute) Hypoxia (Acute) Metabolic acidosis (Acute) Acute hypercapnic respiratory failure (Acute) Old myocardial infarction (Acute) Chest pain (Resolved) sob after surgery (Resolved) 1. acute hypoxic and hypercapnic respiratory failure improving etiology likely due to CHF echo: limited. EF 50% continue pulm toilet DC abx agree with IV furosemide. and patient endorse increase weight gain for the patient. Weight currently down 2kg. appreciate pulm input 2. Syncope intermittent for years. I explained to his that this may be related with his known narcolepsy. Whether or not he has narcolepsy to be further teased out by neurology at [facility]. orthostats negative carotid duplex >70% bilaterally. 3. h.o VTE continue warfarin, will give 7.5 mg today. will initiate enoxaparin, since still subtherapuetic. 4. VTE prophylaxis: on warfarin 5. Restless legs syndrome saw neurology at [facility] who has taken the patient off Mirapex and started gabapentin informed pt and his , that given his somnolence on 01/09, that I would start him on a lower dose of his gabapentin 01/11: resume gabapentin 600 BID Pt had been taking 8mg of Mirapex/day. Neurology at [facility] weaning down Mirapex because of narcolepsy. Pt did not tolerate Requip in the past Informed he and his to follow up with neurology for further mgmt of RLS 6. Carotid stenosis may be the etiology of his recurrent syncope DW Dr. Rueda, he will follow up as outpt and check CTA as outpt No CTA neck at this time to prevent BENNETT check FLP Greater than 35 minutes of greater than 50% of the time counseling the patient about RLS, reassessing his plan through his neurologist, respiratory failure Inpatient E&M: [id number] [facility] Hosp L3
[2021-01-11 15:15] LABS: Free T3 2.2 pg/mL (2.18-3.98)
[2021-01-11 17:05] LABS: Bedside Glucose 210 mg/dL (70-110)
[2021-01-11] MEDS: Gabapentin 600 MG Tablet PO (17:18)
[2021-01-11] MEDS: Pramipexole Di-HCl 0.5 MG Tablet PO (21:10)
[2021-01-11 21:31] LABS: Bedside Glucose 263 mg/dL (70-110)
[2021-01-12] VITALS (11 sets, daily range): BP systolic 125–164; BP diastolic 68–81; PULSE 75–105; RESP 12–18; TEMP 36.1–36.6; O2SAT 95–100
[2021-01-12] MEDS: Polyethylene Glycol 3350 17 GM PACKET PO (00:09)
[2021-01-12] MEDS: Docusate Sodium 100 MG Capsule PO ×3 (00:09→21:17)
[2021-01-12] MEDS: Acetaminophen 325 MG Tablet 650 MG PO (04:50)
[2021-01-12 05:42] LABS: International Normalized Ratio 1.4; Prothrombin Time (Protime)PT. 16.8 SECONDS (11.7-14.9)
[2021-01-12 06:00] LABS: Cholesterol 190 mg/dL (200); High Density Lipoprotein 31 mg/dL; Triglycerides 165 mg/dL; Very Low Density Lipoprotein 33 mg/dL (5-40)
[2021-01-12 06:05] LABS: Anion Gap 2 (5-15); BUN 28 mg/dL (7-18); BUN/Creat Ratio 23.1 RATIO (10-20); Chloride 95 mmol/L (98-107); Creatinine, Serum 1.21 mg/dL (0.70-1.30); EST Glomerular Filtration Rate 62 mL/min (>60); Est Glom Filt Rate - Afr Amer 75 mL/min (>60); Estimated Creatinine Clearance 50.25 ml/min; Glucose 216 mg/dL (74-106); Potassium 4.3 mmol/L (3.5-5.1); Sodium Level 135 mmol/L (136-145)
[2021-01-12] MEDS: Furosemide 40 MG/4 ML Vial IV ×2 (06:11→21:17)
[2021-01-12] MEDS: Enoxaparin 100 MG/ML Syringe 90 MG SC ×2 (06:11→17:03)
[2021-01-12] MEDS: Insulin Lispro 100 UNIT/ML INSULN.PEN SC ×4 (06:39→21:17)
[2021-01-12 06:45] LABS: Bedside Glucose 198 mg/dL (70-110)
[2021-01-12] MEDS: guaiFENesin 600 MG Tablet PO ×2 (08:56→21:17)
[2021-01-12] MEDS: Allopurinol 100 MG Tablet PO (08:56)
[2021-01-12] MEDS: Gabapentin 600 MG Tablet PO ×2 (08:56→17:03)
[2021-01-12] MEDS: Bisacodyl 5 MG Tablet 10 MG PO (09:15)
[2021-01-12 11:45] LABS: Bedside Glucose 203 mg/dL (70-110)
[2021-01-12] MEDS: Magnesium Citrate 300 ML 150 ML PO (13:10)
--- NOTE | 2021-01-12 15:04 | PCM.PN.HOSP ---
Patient Problems: Active and Suspected Problems (Last Reviewed 06/02/20 @ 04:[address] 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 Is clamped constipation. Has not a bowel movement about 5 days. Complains of some abdominal bloating and distention. Vitals/I&O's: Vital Signs Temp Pulse Resp BP Pulse Ox 36.1 C L 79 18 130/69 H 95 01/12/21 14:45 01/12/21 14:45 01/12/21 14:45 01/12/21 14:45 01/12/21 14:45 Oxygen Flow Rate (L/min) 2 Oxygen Delivery Method Nasal Cannula Weight: 136.5 kg Body Mass Index (BMI) 45.7 Finger Stick Blood Glucose 293 Orthostatic Vital Signs Start: 01/10/21 01:40 Freq: q24h Status: Active Protocol: Activity Type Activity Date Activity User E-Sign Co-Sign Detail Recorded Client Recorded Date Recorded By Document 01/12/21 06:00 AF [id number] 01/12/21 06:08 AF 01/12/21 06:00 Orthostatic Vitals Standing -Blood Pressure (90/60-120/80) 144/81 H -Extremity Use Right Arm Sitting -Blood Pressure (90/60-120/80) 138/81 H -Extremity Use Right Arm -Pulse Rate (60-100) 100 Lying -Blood Pressure (90/60-120/80) 126/69 H -Extremity Use Right Arm -Pulse Rate (60-100) 93 Intake and Output for Last 24 Hours 01/10/21 01/11/21 01/12/21 23:59 23:59 23:59 Intake Total 1940 / 2240 1910 / 1910 680 / 680 Output Total 3750 / 4450 2850 / 2850 1000 / 1000 Balance -1810 / -2210 -940 / -940 -320 / -320 General: Alert, No apparent distress HEENT: Atraumatic, Normocephalic Oral: Moist Mucosa, No Gingival or Mucosal Lesions/ Ulcerations Neck: No Nodes, Thyroid Normal Size and Texture Lungs: Clear to auscultation, Normal air movement, No rhonchi, No wheeze Cardiovascular: Regular rate, Regular Rhythm, Normal S1, Normal S2 Abdomen: Bowel Sounds Present, Soft, Non Tender, Non-Distended Extremities: No edema, No Calf Tenderness Psych/Mental Status: Normal Affect, Appropriate Laboratory Results 01/11/21 05:40: Free T4 1.20, Free T3 pg/dL 2.2 01/11/21 16:56: POC Glucose 210 H 01/11/21 21:04: POC Glucose 263 H 01/12/21 05:26: PT 16.8 H, INR 1.4 01/12/21 05:26: Triglycerides 165, Cholesterol 190, LDL Cholesterol 126, VLDL Cholesterol 33, HDL Cholesterol 31 L 01/12/21 05:26: Sodium 135 L, Potassium 4.3, Chloride 95 L, Carbon Dioxide 38.0 H, Anion Gap 2 L, BUN 28 H, Creatinine 1.21, Estim Creat Clear Calc 50.25, Est GFR (MDRD) Af Amer 75, Est GFR (MDRD) Non-Af 62, BUN/Creatinine Ratio 23.1 H, Glucose 216 H, Calcium 9.0 01/12/21 06:36: POC Glucose 198 H 01/12/21 11:36: POC Glucose 203 H Current Medications Acetaminophen (Acetaminophen 325 Mg Tablet) 650 mg PO Q6H PRN PRN PRN Reason: Pain Score 1-10/Temp > 100.7 F Last Admin: 01/12/21 04:50 Dose: 650 mg Documented by: Allopurinol (Allopurinol 100 Mg Tablet) 100 mg PO DAILY [facility] Last Admin: 01/12/21 08:56 Dose: 100 mg Documented by: Dextrose (Dextrose 50%-Water 25 Gm/50 Ml Disp.Syrin) 0 gm IV X1 PRN; Protocol PRN Reason: Hypoglycemia Docusate Sodium (Docusate Sodium 100 Mg Capsule) 100 mg PO BID [facility] Last Admin: 01/12/21 08:56 Dose: 100 mg Documented by: Enoxaparin Sodium (Enoxaparin 100 Mg/Ml Syringe) 90 mg SC Q12@0600,1800 [facility] Last Admin: 01/12/21 06:11 Dose: 90 mg Documented by: Furosemide (Furosemide 40 Mg/4 Ml Vial) 40 mg IV Q12 [facility] Gabapentin (Gabapentin 600 Mg Tablet) 600 mg PO BIDCM [facility] Last Admin: 01/12/21 08:56 Dose: 600 mg Documented by: Glucagon (Glucagon 1 Mg/Ml Syringe) 1 mg IM .X1 PRN PRN Reason: Hypoglycemia Guaifenesin (Guaifenesin 600 Mg Tablet) 600 mg PO BID [facility] Last Admin: 01/12/21 08:56 Dose: 600 mg Documented by: Hydralazine HCl (Hydralazine 20 Mg/Ml Vial) 5 mg IV Q4H PRN PRN PRN Reason: SBP above 160 Last Admin: 01/10/21 03:28 Dose: 5 mg Documented by: Sodium Chloride () 250 mls @ 15 mls/hr IV .[id number] PRN PRN Reason: Saline Flush Sodium Chloride () 250 mls @ 15 mls/hr IV .[id number] PRN PRN Reason: Additional IVPB Infusion Insulin Human Lispro (Insulin Lispro 100 Unit/Ml Insuln.Pen) 0 unit SC [facility]; Protocol Last Admin: 01/12/21 11:38 Dose: 4 u Documented by: Melatonin (Melatonin 3 Mg Tablet) 3 mg PO QHS PRN PRN PRN Reason: INSOMNIA Ondansetron HCl (Ondansetron 4 Mg/2 Ml Vial) 4 mg IV Q8H PRN PRN PRN Reason: NAUSEA/VOMITING Pramipexole Dihydrochloride (Pramipexole Di-Hcl 0.5 Mg Tablet) 0.5 mg PO QHS [facility] Last Admin: 01/11/21 21:10 Dose: 0.5 mg Documented by: Sodium Chloride (0.9% Saline Lock 10 Ml Syringe) 10 - 40 ml IV UD PRN PRN Reason: SALINE FLUSH Last Admin: 01/11/21 13:56 Dose: 10 ml Documented by: Warfarin Sodium (Warfarin 5 Mg Tablet) 10 mg PO X1 ONE Stop: 01/12/21 17:01 STROKE Vital Signs/Narrative: Vital Signs Temp Pulse Resp BP Pulse Ox 01/12/21 14:45 36.1 C L 79 18 130/69 H 95 Medical Necessity - Tobacco Use Smoking Status: Never smoker Assessment/Plan All Active Problems (Last Reviewed 06/02/20 @ 04:[address] Bruno Kee MD) Chest pain (Acute) Syncope (Acute) Subtherapeutic anticoagulation (Acute) Back contusion (Acute) Hypoxia (Acute) Metabolic acidosis (Acute) Acute hypercapnic respiratory failure (Acute) Old myocardial infarction (Acute) Chest pain (Resolved) sob after surgery (Resolved) 1. acute hypoxic and hypercapnic respiratory failure improving etiology likely due to CHF echo: limited. EF 50% continue pulm toilet DC abx Continue IV furosemide but will cut back the frequency from 3 times a day to twice daily. appreciate pulm input 2. Syncope intermittent for years. I explained to his that this may be related with his known narcolepsy. Whether or not he has narcolepsy to be further teased out by neurology at [facility]. orthostats negative carotid duplex >70% bilaterally. 3. h.o VTE continue warfarin, will give 10 mg today. will initiate enoxaparin, since still subtherapuetic. 4. VTE prophylaxis: on warfarin 5. Restless legs syndrome saw neurology at [facility] who has taken the patient off Mirapex and started gabapentin informed pt and his , that given his somnolence on 01/09, that I would start him on a lower dose of his gabapentin 01/11: resume gabapentin 600 BID Pt had been taking 8mg of Mirapex/day. Neurology at [facility] weaning down Mirapex because of narcolepsy. Pt did not tolerate Requip in the past Informed he and his to follow up with neurology for further mgmt of RLS 01/12: Feeling better but symptoms still persist. Persist during the day. On further review of the Mirapex, patient may been having augmentation of his symptoms which would be a worsening despite therapy. Is unclear the patient was actually having augmentation with the Mirapex and his restless legs but patient endorses that his restless legs are getting worse despite the Mirapex and was taking Mirapex multiple times per day. The plan is to continue with the taper of the Mirapex as laid out by his neurologist and continue with the gabapentin. Patient states that he is taking the gabapentin 1800 and 2200. Told him that we can do that but he is still having symptoms during the day. He is going to continue with it twice daily as he is receiving it here and then to follow-up with his neurologist for further recommendations. I did check his iron and ferritin and his iron is low but his ferritin is normal so this would not be an iron storage issue contributing to his restless legs. B12 is normal, TSH elevated but his free T4 and free T3 were normal. 6. Carotid stenosis may be the etiology of his recurrent syncope DW Dr. Rueda, he will follow up as outpt and check CTA as outpt. I informed the patient and his that would hold off on CT angiogram of inpatient as he did receive a CTA of his chest on the . Though the likelihood of acute kidney injury due to contrast nephropathy would be low, since this is not an emergent procedure in regards to evaluation of his carotids and any potential intervention, I would prefer to have that done as outpatient to minimize any kind contrast nephropathy with the diuresis and also his recent CT angiogram. They expressed understanding. FLP unremarkable but patient does have myalgias with statins. 7. Constipation Refractory to MiraLAX as well as Dulcolax Gave a dose of magnesium citrate today if no resolution, we can give additional magnesium citrate. 8. Disposition: Plan is to decrease the furosemide today to twice daily and observe. Anticipated discharge will be the 16. Greater than 35 minutes of greater than 50% of the time counseling the patient and his about RLS, Mirapex and augmentation, carotid stenosis and its plan and management of his constipation. Inpatient E&M: [id number] Subs Hosp L3
--- NOTE | 2021-01-12 15:40 | PCM.PN.PUL ---
Patient Problems: Active and Suspected Problems (Last Reviewed 06/02/20 @ 04:[address] 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 Oxygen requirements continue to improve. Patient states his legs are much improved today compared to yesterday. Patient does report that he feels constipated and has not had a bowel movement today. - Physical Exam Vitals/I&O's: Vital Signs Temp Pulse Resp BP Pulse Ox 36.1 C L 79 18 130/69 H 95 01/12/21 14:45 01/12/21 14:45 01/12/21 14:45 01/12/21 14:45 01/12/21 14:45 Oxygen Flow Rate (L/min) 2 Oxygen Delivery Method Nasal Cannula Weight: 136.5 kg Body Mass Index (BMI) 45.7 Finger Stick Blood Glucose 293 Orthostatic Vital Signs Start: 01/10/21 01:40 Freq: q24h Status: Active Protocol: Activity Type Activity Date Activity User E-Sign Co-Sign Detail Recorded Client Recorded Date Recorded By Document 01/12/21 06:00 AF [id number] 01/12/21 06:08 AF 01/12/21 06:00 Orthostatic Vitals Standing -Blood Pressure (90/60-120/80) 144/81 H -Extremity Use Right Arm Sitting -Blood Pressure (90/60-120/80) 138/81 H -Extremity Use Right Arm -Pulse Rate (60-100) 100 Lying -Blood Pressure (90/60-120/80) 126/69 H -Extremity Use Right Arm -Pulse Rate (60-100) 93 Intake and Output for Last 24 Hours 01/10/21 01/11/21 01/12/21 23:59 23:59 23:59 Intake Total 1940 / 2240 1910 / 1910 680 / 680 Output Total 3750 / 4450 2850 / 2850 1000 / 1000 Balance -1810 / -2210 -940 / -940 -320 / -320 General: Alert, Oriented x3, Cooperative, No apparent distress, - - Supplemental oxygen in place. No conversational dyspnea. HEENT: Atraumatic, PERRLA, EOMI, Normocephalic, - - Glasses in place. No scleral icterus or injection noted Oral: Moist Mucosa, No Gingival or Mucosal Lesions/ Ulcerations Neck: Supple, No Nodes, Trachea Midline Lungs: No rhonchi, No wheeze, No rales, Diminished, - - Symmetric expansion. Cardiovascular: Regular rate, Regular Rhythm, Normal S1, Normal S2, No murmurs, No rub noted, No Gallop Abdomen: Bowel Sounds Present, Soft, Non Tender, Non-Distended, Obese Extremities: No clubbing, No cyanosis, Edema - Continues to improve Skin: - - No change compared to previous Musculoskeletal: No Tenderness to Palpation of Joints or Extremities Lymphatic: No Cervical, Supraclavicular, or Inguinal Adenopathy Neurological: Cranial nerves II-XII grossly intact, Neuro grossly intact, Motor Exam 5/5 strength throughout Psych/Mental Status: Alert and oriented to time, place, person, mood and affect Laboratory Results 01/11/21 16:56: POC Glucose 210 H 01/11/21 21:04: POC Glucose 263 H 01/12/21 05:26: PT 16.8 H, INR 1.4 01/12/21 05:26: Triglycerides 165, Cholesterol 190, LDL Cholesterol 126, VLDL Cholesterol 33, HDL Cholesterol 31 L 01/12/21 05:26: Sodium 135 L, Potassium 4.3, Chloride 95 L, Carbon Dioxide 38.0 H, Anion Gap 2 L, BUN 28 H, Creatinine 1.21, Estim Creat Clear Calc 50.25, Est GFR (MDRD) Af Amer 75, Est GFR (MDRD) Non-Af 62, BUN/Creatinine Ratio 23.1 H, Glucose 216 H, Calcium 9.0 01/12/21 06:36: POC Glucose 198 H 01/12/21 11:36: POC Glucose 203 H Current Medications Acetaminophen (Acetaminophen 325 Mg Tablet) 650 mg PO Q6H PRN PRN PRN Reason: Pain Score 1-10/Temp > 100.7 F Last Admin: 01/12/21 04:50 Dose: 650 mg Documented by: Allopurinol (Allopurinol 100 Mg Tablet) 100 mg PO DAILY [facility] Last Admin: 01/12/21 08:56 Dose: 100 mg Documented by: Dextrose (Dextrose 50%-Water 25 Gm/50 Ml Disp.Syrin) 0 gm IV X1 PRN; Protocol PRN Reason: Hypoglycemia Docusate Sodium (Docusate Sodium 100 Mg Capsule) 100 mg PO BID [facility] Last Admin: 01/12/21 08:56 Dose: 100 mg Documented by: Enoxaparin Sodium (Enoxaparin 100 Mg/Ml Syringe) 90 mg SC Q12@0600,1800 [facility] Last Admin: 01/12/21 06:11 Dose: 90 mg Documented by: Furosemide (Furosemide 40 Mg/4 Ml Vial) 40 mg IV Q12 [facility] Gabapentin (Gabapentin 600 Mg Tablet) 600 mg PO BIDCM [facility] Last Admin: 01/12/21 08:56 Dose: 600 mg Documented by: Glucagon (Glucagon 1 Mg/Ml Syringe) 1 mg IM .X1 PRN PRN Reason: Hypoglycemia Guaifenesin (Guaifenesin 600 Mg Tablet) 600 mg PO BID [facility] Last Admin: 01/12/21 08:56 Dose: 600 mg Documented by: Hydralazine HCl (Hydralazine 20 Mg/Ml Vial) 5 mg IV Q4H PRN PRN PRN Reason: SBP above 160 Last Admin: 01/10/21 03:28 Dose: 5 mg Documented by: Sodium Chloride () 250 mls @ 15 mls/hr IV .[id number] PRN PRN Reason: Saline Flush Sodium Chloride () 250 mls @ 15 mls/hr IV .[id number] PRN PRN Reason: Additional IVPB Infusion Insulin Human Lispro (Insulin Lispro 100 Unit/Ml Insuln.Pen) 0 unit SC [facility]; Protocol Last Admin: 01/12/21 11:38 Dose: 4 u Documented by: Magnesium Citrate (Magnesium Citrate 300 Ml) 150 ml PO X1 PRN PRN Reason: Constipation Melatonin (Melatonin 3 Mg Tablet) 3 mg PO QHS PRN PRN PRN Reason: INSOMNIA Ondansetron HCl (Ondansetron 4 Mg/2 Ml Vial) 4 mg IV Q8H PRN PRN PRN Reason: NAUSEA/VOMITING Pramipexole Dihydrochloride (Pramipexole Di-Hcl 0.5 Mg Tablet) 0.5 mg PO QHS [facility] Last Admin: 01/11/21 21:10 Dose: 0.5 mg Documented by: Sodium Chloride (0.9% Saline Lock 10 Ml Syringe) 10 - 40 ml IV UD PRN PRN Reason: SALINE FLUSH Last Admin: 01/11/21 13:56 Dose: 10 ml Documented by: Warfarin Sodium (Warfarin 5 Mg Tablet) 10 mg PO X1 ONE Stop: 01/12/21 17:01 Medical Necessity - Tobacco Use Smoking Status: Never smoker Assessment/Plan All Active Problems (Last Reviewed 06/02/20 @ 04:[address] Bruno Kee MD) Chest pain (Acute) Syncope (Acute) Subtherapeutic anticoagulation (Acute) Back contusion (Acute) Hypoxia (Acute) Metabolic acidosis (Acute) Acute hypercapnic respiratory failure (Acute) Old myocardial infarction (Acute) Chest pain (Resolved) sob after surgery (Resolved) RECOMMENDATIONS: 1. Continue diuretic therapy 2. Continue Mirapex 3. Walking oximetry prior to discharge 4. Dose Coumadin to achieve therapeutic range 5. Wean oxygen as tolerated 6. Continue baseline nocturnal BiPAP settings IMPRESSIONS: 1. Acute combined respiratory failure of unclear etiology Unclear etiology. Patient does have an elevated bicarbonate suggesting a long-term CO2 retention with compensation. Unclear if this is secondary to central sleep apnea versus narcolepsy versus obesity hypoventilation. Patient is not on oxygen at baseline. Patient has had significant worsening in lower extremity edema, so congestive heart failure would be a concern. Patient does appear to be responding to Lasix therapy as oxygen requirements have improved from 6 L to 2 L nasal cannula. Patient is not reporting any significant hemoptysis to suggest DAH, but a pulmonary contusion would still be a consideration. Echocardiogram was unable to quantify pulmonary artery pressures. We will continue with current therapy 2. Coronary artery disease status post stents/hypertension/hyperlipidemia/possible CHF versus cor pulmonale Patient follows with cardiology regularly. Previous echocardiogram has not been suggestive of congestive heart failure. However, clinical history is suggestive of elevated right-sided pressures. Continue empiric diuresis for now 3. Diabetes mellitus type 2/gout/advanced age/reported ANA versus narcolepsy/constipation/restless legs Complicates care, management, recovery and prognosis. Would hold on steroids at this time given lack of obstructive lung disease history or risk factors. This would complicate diabetic management. Continue home noninvasive therapy for sleep apnea versus narcolepsy. Patient reports a history of narcolepsy, but is not on any medications at this time for this condition with the information provided. Continue Mirapex Inpatient E&M: [id number] Subs Hosp L2
[2021-01-12 16:09] LABS: Folate, RBC (Hct) Test 37.1 % (37.5-51.0)
[2021-01-12 17:10] LABS: Bedside Glucose 240 mg/dL (70-110)
[2021-01-12] MEDS: hydrALAZINE 20 MG/ML Vial 5 MG IV (20:08)
[2021-01-12] MEDS: Pramipexole Di-HCl 0.5 MG Tablet PO (21:17)
[2021-01-12] MEDS: Sodium Chloride 0.65% 1 SPRAY SPRAY.BTL NASAL (21:17)
[2021-01-12 21:50] LABS: Bedside Glucose 306 mg/dL (70-110)
[2021-01-13] VITALS (9 sets, daily range): BP systolic 130–167; BP diastolic 73–90; PULSE 55–91; RESP 16–18; TEMP 36.1–36.5; O2SAT 91–97
[2021-01-13 06:00] LABS: Anion Gap 2 (5-15); BUN 31 mg/dL (7-18); BUN/Creat Ratio 25.6 RATIO (10-20); Calcium,Total 9.4 mg/dL (8.5-10.1); Chloride 94 mmol/L (98-107); Creatinine, Serum 1.21 mg/dL (0.70-1.30); EST Glomerular Filtration Rate 62 mL/min (>60); Est Glom Filt Rate - Afr Amer 75 mL/min (>60); Estimated Creatinine Clearance 50.25 ml/min; Glucose 214 mg/dL (74-106); Potassium 4.1 mmol/L (3.5-5.1); Sodium Level 134 mmol/L (136-145)
[2021-01-13 06:04] LABS: International Normalized Ratio 1.7
[2021-01-13] MEDS: Enoxaparin 100 MG/ML Syringe 90 MG SC ×2 (06:20→08:53)
[2021-01-13] MEDS: Insulin Lispro 100 UNIT/ML INSULN.PEN SC ×2 (06:22→11:30)
[2021-01-13 06:45] LABS: Bedside Glucose 256 mg/dL (70-110)
--- NOTE | 2021-01-13 08:24 | PN_ITS ---
Patient Problems: Active and Suspected Problems (Last Reviewed 06/02/20 @ 04:[address] 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 Patient states he slept well, but on waking this morning feels that his restless legs is out of control. Patient denies any chest pain. Patient is reporting some wheezing this morning. Patient is not reporting any abdominal pain, nausea or vomiting. No melena or hematochezia has been reported. - Physical Exam Vitals/I&O's: Vital Signs Temp Pulse Resp BP Pulse Ox 36.5 C L 91 18 140/73 H 95 01/13/21 02:01 01/13/21 07:00 01/13/21 02:01 01/13/21 06:07 01/13/21 02:01 Oxygen Flow Rate (L/min) 2 Oxygen Delivery Method Nasal Cannula Weight: 136.5 kg Body Mass Index (BMI) 45.7 Finger Stick Blood Glucose 293 Orthostatic Vital Signs Start: 01/10/21 01:40 Freq: 0600 Status: Active Protocol: Activity Type Activity Date Activity User E-Sign Co-Sign Detail Recorded Client Recorded Date Recorded By Document 01/13/21 06:07 SHAWN [id number] 01/13/21 06:17 SHAWN 01/13/21 06:07 Orthostatic Vitals Standing -Blood Pressure (90/60-120/80) 167/89 H -Extremity Use Left Arm -Pulse Rate (60-100) 55 L Sitting -Blood Pressure (90/60-120/80) 166/79 H -Extremity Use Left Arm -Pulse Rate (60-100) 73 Lying -Blood Pressure (90/60-120/80) 140/73 H -Extremity Use Left Arm -Pulse Rate (60-100) 72 Intake and Output for Last 24 Hours 01/11/21 01/12/21 01/13/21 23:59 23:59 23:59 Intake Total 1910 / 1910 920 / 920 Output Total 2850 / 2850 1000 / 1000 500 / 500 Balance -940 / -940 -80 / -80 -500 / -500 General: Alert, Oriented x3, Cooperative, No apparent distress, Well developed, Well nourished, - - Morbidly obese HEENT: Atraumatic, PERRLA, EOMI, Normocephalic, - - No scleral icterus or injection noted Oral: Moist Mucosa, No Gingival or Mucosal Lesions/ Ulcerations Neck: Supple, No Nodes, Trachea Midline Lungs: No rhonchi, No rales, Diminished, Wheezes Cardiovascular: Normal S1, Normal S2, No murmurs, Irregular Rate, No rub noted, No Gallop Abdomen: Bowel Sounds Present, Soft, Non Tender, Non-Distended, Obese Extremities: No clubbing, No cyanosis, Edema - Continues to improve, - - Patient continuously moving lower extremities Skin: - - No change compared to previous Musculoskeletal: No Tenderness to Palpation of Joints or Extremities Lymphatic: No Cervical, Supraclavicular, or Inguinal Adenopathy Neurological: Cranial nerves II-XII grossly intact, Neuro grossly intact, Motor Exam 5/5 strength throughout Psych/Mental Status: Appropriate, Anxious Laboratory Results 01/12/21 11:36: POC Glucose 203 H 01/12/21 16:59: POC Glucose 240 H 01/12/21 21:16: POC Glucose 306 H 01/13/21 05:20: PT 19.0 H, INR 1.7 01/13/21 05:20: Sodium 134 L, Potassium 4.1, Chloride 94 L, Carbon Dioxide 38.0 H, Anion Gap 2 L, BUN 31 H, Creatinine 1.21, Estim Creat Clear Calc 50.25, Est GFR (MDRD) Af Amer 75, Est GFR (MDRD) Non-Af 62, BUN/Creatinine Ratio 25.6 H, Glucose 214 H, Calcium 9.4 01/13/21 06:21: POC Glucose 256 H Current Medications Acetaminophen (Acetaminophen 325 Mg Tablet) 650 mg PO Q6H PRN PRN PRN Reason: Pain Score 1-10/Temp > 100.7 F Last Admin: 01/12/21 04:50 Dose: 650 mg Documented by: Allopurinol (Allopurinol 100 Mg Tablet) 100 mg PO DAILY [facility] Last Admin: 01/12/21 08:56 Dose: 100 mg Documented by: Dextrose (Dextrose 50%-Water 25 Gm/50 Ml Disp.Syrin) 0 gm IV X1 PRN; Protocol PRN Reason: Hypoglycemia Docusate Sodium (Docusate Sodium 100 Mg Capsule) 100 mg PO BID [facility] Last Admin: 01/12/21 21:17 Dose: 100 mg Documented by: Enoxaparin Sodium (Enoxaparin 100 Mg/Ml Syringe) 90 mg SC Q12@0600,1800 [facility] Last Admin: 01/13/21 06:20 Dose: 90 mg Documented by: Furosemide (Furosemide 40 Mg/4 Ml Vial) 40 mg IV Q12 [facility] Last Admin: 01/12/21 21:17 Dose: 40 mg Documented by: Gabapentin (Gabapentin 600 Mg Tablet) 600 mg PO BIDCM [facility] Last Admin: 01/12/21 17:03 Dose: 600 mg Documented by: Glucagon (Glucagon 1 Mg/Ml Syringe) 1 mg IM .X1 PRN PRN Reason: Hypoglycemia Guaifenesin (Guaifenesin 600 Mg Tablet) 600 mg PO BID [facility] Last Admin: 01/12/21 21:17 Dose: 600 mg Documented by: Hydralazine HCl (Hydralazine 20 Mg/Ml Vial) 5 mg IV Q4H PRN PRN PRN Reason: SBP above 160 Last Admin: 01/12/21 20:08 Dose: 5 mg Documented by: Sodium Chloride () 250 mls @ 15 mls/hr IV .[id number] PRN PRN Reason: Saline Flush Sodium Chloride () 250 mls @ 15 mls/hr IV .[id number] PRN PRN Reason: Additional IVPB Infusion Insulin Human Lispro (Insulin Lispro 100 Unit/Ml Insuln.Pen) 0 unit SC [facility]; Protocol Last Admin: 01/13/21 06:22 Dose: 4 u Documented by: Magnesium Citrate (Magnesium Citrate 300 Ml) 150 ml PO X1 PRN PRN Reason: Constipation Melatonin (Melatonin 3 Mg Tablet) 3 mg PO QHS PRN PRN PRN Reason: INSOMNIA Ondansetron HCl (Ondansetron 4 Mg/2 Ml Vial) 4 mg IV Q8H PRN PRN PRN Reason: NAUSEA/VOMITING Pramipexole Dihydrochloride (Pramipexole Di-Hcl 0.5 Mg Tablet) 0.5 mg PO QHS [facility] Last Admin: 01/12/21 21:17 Dose: 0.5 mg Documented by: Sodium Chloride (0.9% Saline Lock 10 Ml Syringe) 10 - 40 ml IV UD PRN PRN Reason: SALINE FLUSH Last Admin: 01/11/21 13:56 Dose: 10 ml Documented by: Sodium Chloride (Sodium Chloride 0.65% 1 [place].Btl) 1 spray NASAL TID PRN PRN PRN Reason: NASAL DRYNESS Last Admin: 01/12/21 21:17 Dose: 1 spray Documented by: Medical Necessity - Tobacco Use Smoking Status: Never smoker Assessment/Plan All Active Problems (Last Reviewed 06/02/20 @ 04:[address] Bruno Kee MD) Chest pain (Acute) Syncope (Acute) Subtherapeutic anticoagulation (Acute) Back contusion (Acute) Hypoxia (Acute) Metabolic acidosis (Acute) Acute hypercapnic respiratory failure (Acute) Old myocardial infarction (Acute) Chest pain (Resolved) sob after surgery (Resolved) RECOMMENDATIONS: 1. Continue diuretic therapy 2. Continue Mirapex. Check magnesium levels 3. Walking oximetry prior to discharge 4. Dose Coumadin to achieve therapeutic range 5. Wean oxygen as tolerated. Room air challenge. 6. Continue baseline nocturnal BiPAP settings IMPRESSIONS: 1. Acute combined respiratory failure of unclear etiology Unclear etiology. Patient does have an elevated bicarbonate suggesting a long-term CO2 retention with compensation. Unclear if this is secondary to central sleep apnea versus narcolepsy versus obesity hypoventilation. Patient is not on oxygen at baseline. Patient has had significant worsening in lower extremity edema, so congestive heart failure would be a concern. Patient does appear to be responding to Lasix therapy as oxygen requirements have improved from 6 L to 2 L nasal cannula. Patient is not reporting any significant hem optysis to suggest DAH, but a pulmonary contusion would still be a consideration. Echocardiogram was unable to quantify pulmonary artery pressures. Patient responding to diuretic therapy. Frequency was decreased by hospitalist yesterday. 2. Coronary artery disease status post stents/hypertension/hyperlipidemia/possible CHF versus cor pulmonale Patient follows with cardiology regularly. Previous echocardiogram has not been suggestive of congestive heart failure. However, clinical history is suggestive of elevated right-sided pressures at presentation. Continue empiric diuresis for now 3. Diabetes mellitus type 2/gout/advanced age/reported ANA versus narcolepsy/constipation/restless legs Complicates care, management, recovery and prognosis. Would hold on steroids at this time given lack of obstructive lung disease history or risk factors. This would complicate diabetic management. Continue home noninvasive therapy for sleep apnea versus narcolepsy. Patient reports a history of narcolepsy, but is not on any medications at this time for this condition with the information provided. Continue Mirapex. Unclear if lower extremity findings are secondary to magnesium. Check level before altering medications. Patient is on his baseline Neurontin dosing. Inpatient E&M: 31181 Subs Hosp L2
[2021-01-13] MEDS: Docusate Sodium 100 MG Capsule PO (08:53)
[2021-01-13] MEDS: guaiFENesin 600 MG Tablet PO (08:53)
[2021-01-13] MEDS: Allopurinol 100 MG Tablet PO (08:53)
[2021-01-13] MEDS: Gabapentin 600 MG Tablet PO (08:53)
[2021-01-13] MEDS: Furosemide 40 MG/4 ML Vial IV (08:53)
[2021-01-13 08:58] LABS: Magnesium 2.7 mg/dL (1.6-2.6); Phosphorus 3.5 mg/dL (2.5-4.9)
[2021-01-13] MEDS: Albuterol 2.5 MG/3 ML VIAL.NEB. INHALATION (11:06)
[2021-01-13 11:16] LABS: Bedside Glucose 218 mg/dL (70-110)
--- NOTE | 2021-01-13 11:37 | PCM.DC ---
- Discharge Diagnoses Current Active Problems: Current Active and Chronic Problems (Last Reviewed 06/02/20 @ 04:[address] Bruno Kee MD) Syncope (Acute) Subtherapeutic anticoagulation (Acute) Back contusion (Acute) Hypoxia (Acute) Acute hypercapnic respiratory failure (Acute) Old myocardial infarction (Acute) 11/14, 04/14 Hypertension (Chronic) Hyperlipidemia (Chronic) Atherosclerosis of coronary artery of [place] heart without angina pectoris (Chronic) PTCA/MACHO of the LAD 09/07; IVUS to mid and proximal LAD, D1 had cutting balloon angioplasty 05/19/10; PTCA/MACHO of the distal LAD 12/20/17 History of coronary artery stent placement (Chronic) PTCA/MACHO of the LAD 09/07; IVUS to mid and proximal LAD, D1 had cutting balloon angioplasty 05/19/10; PTCA/MACHO of the distal LAD 12/20/17 CKD (chronic kidney disease), stage III (Chronic) VTE (venous thromboembolism) (Chronic) Diabetes (Chronic) Gout (Chronic) Pseudotumor cerebri (Chronic) Restless leg syndrome (Chronic) You will use the following diet at home:: Calorie/Carbohydrate Controlled (specify 1200, 1400, etc) - 1800, Fluid restricted (specify 2000 mls, 1500 mls) - 1500 cc/day Your food should be the consistency of: Regular Call your doctor if you observe: Fever of 101 or Higher, Shortness of breath Additional Instructions: You will need CT of neck prior to seeing Dr. Rueda. You will need to have your INR checked next week. Continue enoxaparin until INR is therapeutic (2-3). Allergies/Adverse Reactions: Allergies atorvastatin [From Lipitor] Adverse Reaction (Severe, Verified 01/09/21 00:25) Myalgias promethazine HCl [From Phenergan] Adverse Reaction (Verified 01/09/21 00:25) GET JUMPY Medications to take at Discharge Allopurinol [Zyloprim] 100 mg PO DAILY 09/21/15 Glimepiride [Amaryl] 2 mg PO DAILY@0800 #14 tab 02/15/17 nitroglycerin 0.4 mg sublingual tablet 0.4 mg SUBLINGUAL Q5M PRN #90 tab 01/08/18 Acetaminophen [Tylenol] 1,000 mg PO Q8 PRN 09/03/20 Gabapentin [Neurontin] 600 mg PO BID 01/09/21 Pramipexole Di-HCl [Mirapex] 0.5 mg PO QHS 01/11/21 Enoxaparin [Lovenox] 90 mg SC Q12@0600,1800 #10 syringe 01/13/21 Furosemide [Lasix] 40 mg PO DAILY #30 tablet 01/13/21 Warfarin [Coumadin] 5 mg PO DAILY #30 tab 01/13/21 The following prescriptions were given: Warfarin [Coumadin] 5 mg PO DAILY #30 tab Transmission Status: Pending to [facility] Furosemide [Lasix] 40 mg PO DAILY #30 tablet Transmission Status: Pending to [facility] Enoxaparin [Lovenox] 90 mg SC Q12@0600,1800 #10 syringe Transmission Status: Pending to [facility] Primary Care Physician: Casey Handley DO [Primary Care Provider] - Within 2 Weeks Test Results: Test results from this visit will be discussed in further detail at your follow-up appointment, if applicable. Please Follow Up With: Lars Rueda MD When: 2-3 weeks Proposed Discharge Date: 01/13/21
--- NOTE | 2021-01-13 11:41 | PCM.DC.SUM ---
Discharge Date and Diagnosis - Problem List Patient Problems: Active and Suspected Problems (Last Reviewed 06/02/20 @ 04:[address] Bruno Kee MD) Syncope (Acute) Subtherapeutic anticoagulation (Acute) Back contusion (Acute) Hypoxia (Acute) Acute hypercapnic respiratory failure (Acute) Old myocardial infarction (Acute) 11/14, 04/14 Date of Admission: 01/09/21 Date of Discharge: 01/13/21 - Primary Discharge Diagnosis Acute Problems: Active Problems (Last Reviewed 06/02/20 @ 04:[address] Bruno Kee MD) 1. acute hypoxic and hypercapnic respiratory failure improving etiology likely due to CHF echo: limited. EF 50% continue pulm toilet DC abx Continue furosemide continue daily. appreciate pulm input 2. Syncope intermittent for years. I explained to his that this may be related with his known narcolepsy. Whether or not he has narcolepsy to be further teased out by neurology at [facility]. orthostats negative carotid duplex >70% bilaterally. 3. h.o VTE continue warfarin, will give 10 mg today. will initiate enoxaparin, since still subtherapuetic. 4. VTE prophylaxis: on warfarin 5. Restless legs syndrome saw neurology at [facility] who has taken the patient off Mirapex and started gabapentin informed pt and his , that given his somnolence on 01/09, that I would start him on a lower dose of his gabapentin 01/11: resume gabapentin 600 BID Pt had been taking 8mg of Mirapex/day. Neurology at [facility] weaning down Mirapex because of narcolepsy. Pt did not tolerate Requip in the past Informed he and his to follow up with neurology for further mgmt of RLS 01/12: Feeling better but symptoms still persist. Persist during the day. On further review of the Mirapex, patient may been having augmentation of his symptoms which would be a worsening despite therapy. Is unclear the patient was actually having augmentation with the Mirapex and his restless legs but patient endorses that his restless legs are getting worse despite the Mirapex and was taking Mirapex multiple times per day. The plan is to continue with the taper of the Mirapex as laid out by his neurologist and continue with the gabapentin. Patient states that he is taking the gabapentin 1800 and 2200. Told him that we can do that but he is still having symptoms during the day. He is going to continue with it twice daily as he is receiving it here and then to follow-up with his neurologist for further recommendations. I did check his iron and ferritin and his iron is low but his ferritin is normal so this would not be an iron storage issue contributing to his restless legs. B12 is normal, TSH elevated but his free T4 and free T3 were normal. 6. Carotid stenosis may be the etiology of his recurrent syncope DW Dr. Rueda, he will follow up as outpt and check CTA as outpt. I informed the patient and his that would hold off on CT angiogram of inpatient as he did receive a CTA of his chest on the . Though the likelihood of acute kidney injury due to contrast nephropathy would be low, since this is not an emergent procedure in regards to evaluation of his carotids and any potential intervention, I would prefer to have that done as outpatient to minimize any kind contrast nephropathy with the diuresis and also his recent CT angiogram. They expressed understanding. FLP unremarkable but patient does have myalgias with statins. 7. Constipation Refractory to MiraLAX as well as Dulcolax Gave a dose of magnesium citrate today if no resolution, we can give additional magnesium citrate. - Secondary Discharge Diagnosis Chronic Problems: Chronic Problems (Last Reviewed 06/02/20 @ 04:[address] Bruno Kee MD) Hypertension (Chronic) Hyperlipidemia (Chronic) Atherosclerosis of coronary artery of saxman heart without angina pectoris (Chronic) PTCA/MACHO of the LAD 09/07; IVUS to mid and proximal LAD, D1 had cutting balloon angioplasty 05/19/10; PTCA/MACHO of the distal LAD 12/20/17 History of coronary artery stent placement (Chronic) PTCA/MACHO of the LAD 09/07; IVUS to mid and proximal LAD, D1 had cutting balloon angioplasty 05/19/10; PTCA/MACHO of the distal LAD 12/20/17 CKD (chronic kidney disease), stage III (Chronic) NSTEMI (non-ST elevated myocardial infarction) (Chronic ~12/20/17) VTE (venous thromboembolism) (Chronic) Diabetes (Chronic) Gout (Chronic) Pseudotumor cerebri (Chronic) Restless leg syndrome (Chronic) Hospital Course and Treatment Imaging Results: Clinical Impression(s) from Imaging Studies Chest X-Ray 01/09/21 00:27 IMPRESSION: No focal consolidative lung changes. Electronically Signed: Duy Florentino MD at 1:15 EDT Tel , Service support , Abdomen/Pelvis CT 01/09/21 00:47 IMPRESSION: Negative enhanced CT of the abdomen and pelvis for acute intra-abdominal abnormality. 2 cm exophytic left renal cyst slightly higher in density than expected for simple cyst. Recommend follow-up nonemergent renal ultrasound. Electronically Signed: Duy Florentino MD at 2:43 EDT Tel , Service support , Brain CT 01/09/21 00:47 IMPRESSION: Negative unenhanced CT scan of the brain for acute intracranial abnormality. Diffuse dense opacification of the maxillary sinuses and scattered ethmoid air cells with revisualization of masslike region in the right nasal sinus passage with internal calcifications and erosion of the right medial maxillary sinus wall. Consider further evaluation with ENT consult if not already obtained. Electronically Signed: Duy Florentino MD at 2:20 EDT Tel , Service support , Cervical Spine CT 01/09/21 00:47 IMPRESSION: Multilevel degenerative changes, as described above. No acute fracture or subluxation. Electronically Signed: Duy Florentino MD at 2:26 EDT Tel , Service support , Chest CTA 01/09/21 00:47 IMPRESSION: Multiple old right rib fracture deformities and rib fixations. Tree-in-bud groundglass densities throughout the right lung. Findings may be due to underlying pneumonitis or bronchiolitis. Recommend close follow-up CT chest to assess resolution. The left lung is clear. Electronically Signed: Duy Florentino MD at 2:36 EDT Tel , Service support , Echocardiogram 01/09/21 04:47 Interpretation Summary Normal LV size. Left ventricular systolic function is normal. The estimated ejection fraction is 55 %. Contrast injection was performed. The study was technically difficult. Ordering Physician: Gordy Payne Referring Physician: Casey Handley Performed By: Tom Gregory [facility] Carotid Duplex 01/09/21 17:08 Interpretation Summary Irregular calcific plaque with shadowing at the proximal right internal carotid artery with greater than 70% stenosis. Less than 50% stenosis right external carotid artery Irregular calcific plaque of the proximal left internal carotid artery with greater than 70% stenosis Greater than 50% stenosis left external carotid artery Patent and antegrade vertebrals bilaterally Ordering Physician: Robson Malone Referring Physician: Casey Handley Performed By: Lore Lawrence RVT Damián, pulmonology Operations: None Procedures: None Summary of Care Provided: The patient is a 75 year old M presents with syncopal episode and shortness of breath. Patient was found to be in CHF of his exacerbation and was put on BiPAP. Patient was diuresed and she weaned down to room air. Patient continue with furosemide. Patient did have syncope and has been worked up outpatient diagnosed with narcolepsy. Patient did have a carotid ultrasound that showed greater than 70% stenosis bilaterally. Discussed with Dr. Rueda, and will see the patient as outpatient and arrange for CT angiogram of the neck to get further clarification of the stenosis. Unclear how much is contributing to his syncope or if there is other issues such as the person mention narcolepsy. Patient also has restless leg syndrome and was a constant issue for him in the hospital. Patient has been been weaned down on his Mirapex through his neurologist and also started on gabapentin. Patient to continue with gabapentin twice daily in the morning and the evening rather than at 6 and 10 PM. Patient will follow up with his neurologist to see about continue to wean off his Mirapex. Appears that the patient may been having augmentation which be worsening of his restless legs despite the Mirapex. [] Patient Problems: Active and Suspected Problems (Last Reviewed 06/02/20 @ 04:[address] Bruno Kee MD) Syncope (Acute) Subtherapeutic anticoagulation (Acute) Back contusion (Acute) Hypoxia (Acute) Acute hypercapnic respiratory failure (Acute) Old myocardial infarction (Acute) 11/14, 04/14 - Physical Exam Vitals/I&O's: Vital Signs Temp Pulse Resp BP Pulse Ox 36.1 C L 85 18 130/74 H 92 01/13/21 08:42 01/13/21 08:42 01/13/21 08:42 01/13/21 08:42 01/13/21 10:05 Oxygen Flow Rate (L/min) [ 0 AMBULATING on Room Air] Oxygen Flow Rate (L/min) [At 0 REST on Room Air] Oxygen Flow Rate (L/min) 2 Oxygen Delivery Method Room Air Weight: 136.5 kg Body Mass Index (BMI) 45.7 Finger Stick Blood Glucose 293 Orthostatic Vital Signs Start: 01/10/21 01:40 Freq: 0600 Status: Active Protocol: Activity Type Activity Date Activity User E-Sign Co-Sign Detail Recorded Client Recorded Date Recorded By Document 01/13/21 06:07 SHAWN [id number] 01/13/21 06:17 JSE 01/13/21 06:07 Orthostatic Vitals Standing -Blood Pressure (90/60-120/80) 167/89 H -Extremity Use Left Arm -Pulse Rate (60-100) 55 L Sitting -Blood Pressure (90/60-120/80) 166/79 H -Extremity Use Left Arm -Pulse Rate (60-100) 73 Lying -Blood Pressure (90/60-120/80) 140/73 H -Extremity Use Left Arm -Pulse Rate (60-100) 72 Intake and Output for Last 24 Hours 01/11/21 01/12/21 01/13/21 23:59 23:59 23:59 Intake Total 1910 / 1910 920 / 920 Output Total 2850 / 2850 1000 / 1000 500 / 500 Balance -940 / -940 -80 / -80 -500 / -500 General: Alert, Cooperative, No apparent distress HEENT: Atraumatic, Normocephalic Oral: Moist Mucosa, No Gingival or Mucosal Lesions/ Ulcerations Neck: No Nodes, Thyroid Normal Size and Texture Lungs: Clear to auscultation, Normal air movement, No rhonchi, No wheeze, No rales Cardiovascular: Regular rate, Regular Rhythm, Normal S1, Normal S2, No murmurs Abdomen: Bowel Sounds Present, Soft, Non Tender, Non-Distended, No Hepato-splenomegaly Extremities: No edema, No Calf Tenderness Laboratory Results 01/12/21 11:36: POC Glucose 203 H 01/12/21 16:59: POC Glucose 240 H 01/12/21 21:16: POC Glucose 306 H 01/13/21 05:20: PT 19.0 H, INR 1.7 01/13/21 05:20: Sodium 134 L, Potassium 4.1, Chloride 94 L, Carbon Dioxide 38.0 H, Anion Gap 2 L, BUN 31 H, Creatinine 1.21, Estim Creat Clear Calc 50.25, Est GFR (MDRD) Af Amer 75, Est GFR (MDRD) Non-Af 62, BUN/Creatinine Ratio 25.6 H, Glucose 214 H, Calcium 9.4 01/13/21 05:20: Phosphorus 3.5, Magnesium 2.7 H 01/13/21 06:21: POC Glucose 256 H 01/13/21 11:03: POC Glucose 218 H Current Medications Acetaminophen (Acetaminophen 325 Mg Tablet) 650 mg PO Q6H PRN PRN PRN Reason: Pain Score 1-10/Temp > 100.7 F Last Admin: 01/12/21 04:50 Dose: 650 mg Documented by: Allopurinol (Allopurinol 100 Mg Tablet) 100 mg PO DAILY [facility] Last Admin: 01/13/21 08:53 Dose: 100 mg Documented by: Dextrose (Dextrose 50%-Water 25 Gm/50 Ml Disp.Syrin) 0 gm IV X1 PRN; Protocol PRN Reason: Hypoglycemia Docusate Sodium (Docusate Sodium 100 Mg Capsule) 100 mg PO BID [facility] Last Admin: 01/13/21 08:53 Dose: 100 mg Documented by: Enoxaparin Sodium (Enoxaparin 100 Mg/Ml Syringe) 90 mg SC Q12@0600,1800 [facility] Last Admin: 01/13/21 08:53 Dose: 90 mg Documented by: Furosemide (Furosemide 40 Mg/4 Ml Vial) 40 mg IV Q12 [facility] Last Admin: 01/13/21 08:53 Dose: 40 mg Documented by: Gabapentin (Gabapentin 600 Mg Tablet) 600 mg PO BIDCM [facility] Last Admin: 01/13/21 08:53 Dose: 600 mg Documented by: Glucagon (Glucagon 1 Mg/Ml Syringe) 1 mg IM .X1 PRN PRN Reason: Hypoglycemia Guaifenesin (Guaifenesin 600 Mg Tablet) 600 mg PO BID [facility] Last Admin: 01/13/21 08:53 Dose: 600 mg Documented by: Hydralazine HCl (Hydralazine 20 Mg/Ml Vial) 5 mg IV Q4H PRN PRN PRN Reason: SBP above 160 Last Admin: 01/12/21 20:08 Dose: 5 mg Documented by: Sodium Chloride () 250 mls @ 15 mls/hr IV .[id number] PRN PRN Reason: Saline Flush Sodium Chloride () 250 mls @ 15 mls/hr IV .[id number] PRN PRN Reason: Additional IVPB Infusion Insulin Human Lispro (Insulin Lispro 100 Unit/Ml Insuln.Pen) 0 unit SC ACHS [facility]; Protocol Last Admin: 01/13/21 11:30 Dose: 4 u Documented by: Magnesium Citrate (Magnesium Citrate 300 Ml) 150 ml PO X1 PRN PRN Reason: Constipation Melatonin (Melatonin 3 Mg Tablet) 3 mg PO QHS PRN PRN PRN Reason: INSOMNIA Ondansetron HCl (Ondansetron 4 Mg/2 Ml Vial) 4 mg IV Q8H PRN PRN PRN Reason: NAUSEA/VOMITING Pramipexole Dihydrochloride (Pramipexole Di-Hcl 0.5 Mg Tablet) 0.5 mg PO QHS [facility] Last Admin: 01/12/21 21:17 Dose: 0.5 mg Documented by: Sodium Chloride (0.9% Saline Lock 10 Ml Syringe) 10 - 40 ml IV UD PRN PRN Reason: SALINE FLUSH Last Admin: 01/11/21 13:56 Dose: 10 ml Documented by: Sodium Chloride (Sodium Chloride 0.65% 1 Weogufka Weogufka.Btl) 1 spray NASAL TID PRN PRN PRN Reason: NASAL DRYNESS Last Admin: 01/12/21 21:17 Dose: 1 spray Documented by: Discharge Diet: 1800 Calorie Control Diet Call your doctor if you observe: Fever of 101 or Higher, Shortness of breath Home Medications: Medications to take at Discharge Allopurinol [Zyloprim] 100 mg PO DAILY 09/21/15 Glimepiride [Amaryl] 2 mg PO DAILY@0800 #14 tab 02/15/17 nitroglycerin 0.4 mg sublingual tablet 0.4 mg SUBLINGUAL Q5M PRN #90 tab 01/08/18 Acetaminophen [Tylenol] 1,000 mg PO Q8 PRN 06/02/20 Gabapentin [Neurontin] 600 mg PO BID 01/09/21 Pramipexole Di-HCl [Mirapex] 0.5 mg PO QHS 01/11/21 Enoxaparin [Lovenox] 90 mg SC Q12@0600,1800 #10 syringe 01/13/21 Furosemide [Lasix] 40 mg PO DAILY #30 tablet 01/13/21 Warfarin [Coumadin] 5 mg PO DAILY #30 tab 01/13/21 Following Prescriptions Were Given to Patient: Warfarin [Coumadin] 5 mg PO DAILY #30 tab Transmission Status: Pending to [facility] Furosemide [Lasix] 40 mg PO DAILY #30 tablet Transmission Status: Pending to [facility] Enoxaparin [Lovenox] 90 mg SC Q12@0600,1800 #10 syringe Transmission Status: Pending to [facility] Primary Care Physician: Casey Handley DO [Primary Care Provider] - Within 2 Weeks Please Follow Up With: Lars Rueda MD When: 2-3 weeks Disposition: Home Minutes spent on discharge:: 32 Patient Condition:: Good Medical Necessity - Tobacco Use Smoking Status: Never smoker Meaningful Use Info Meaningful Use Diagnoses (Choose all that apply): CHF - CHF DAXA/ARB ordered at discharge?: No Reason DAXA/ARB not ordered?: Drug Interaction Documented LVEF (%): 50 Inpatient E&M: 27651 Disch Hosp
--- NOTE | 2021-01-13 12:10 | CASEMGMT ---
Per Kyle CRONIN, pt does not qualify for home oxygen. This RN CM to room to update pt/, voice understanding and state no further questions/concerns/needs. aBndar CRONIN CM
--- NOTE | 2021-01-13 12:17 | CASEMGMT ---
Patient does not have prescription coverage. SW utilized [facility] prescription assistance program. SW spoke with patient and his letting them know this information. SW also gave them information about [employer] and [email or web address]. They thanked VITOR for the information and assistance. Radha HORNER
--- NOTE | 2021-01-13 12:54 | PHA.DC.MC ---
Pharmacy Service has performed discharge medication reconciliation and counseling for this patient. The patient was counseled on the following discharge medications and changes in medications for homegoing were reviewed. 1. Coumadin - Dose change 2. Lovenox 3. Lasix The Reason for Use, instructions for use, and potential side effects were reviewed for all new medications. The patient's questions regarding all of their medications were answered. The patient's demonstrated some understanding but would benefit from further education and reinforcement. Home Medications Allopurinol [Zyloprim] 100 mg PO DAILY 09/21/15 nitroglycerin 0.4 mg sublingual tablet 0.4 mg SUBLINGUAL Q5M PRN #90 tab 01/08/18 Acetaminophen [Tylenol] 1,000 mg PO Q8 PRN 06/02/20 Gabapentin [Neurontin] 600 mg PO BID 01/09/21 Pramipexole Di-HCl [Mirapex] 0.5 mg PO QHS 01/11/21 Enoxaparin [Lovenox] 90 mg SC Q12@0600,1800 #10 syringe 01/13/21 Furosemide [Lasix] 40 mg PO DAILY #30 tablet 01/13/21 Glimepiride [Amaryl] 2 mg PO DAILY@0800 01/13/21 Warfarin [Coumadin] 5 mg PO DAILY #30 tab 01/13/21 The patient's discharge medication list was reviewed for discrepancies and discrepancies were resolved.
[2021-01-13 13:07] LABS: Folates, RBC Test 1253 ng/mL (>498)
--- NOTE | 2021-01-16 15:22 | CASEMGMT ---
ROSEANNE CHAPARRO Discharge F/U Phone Call LACE: 12 Strata: 3 Discharge date: 01/13/21 Call date: 01/16/21 Call time: [id number] Admission dx: Hypoxic/hypercapnic resp failure Pt's answered phone and states pt is out on the mower at this time and prefers to answer questions for pt. states pt has been doing 'pretty good' since discharge but has been a 'little weak' since home. states no questions regarding discharge instructions/medications. Pt has f/u w/ Dr. Handley on 01/23/[address] Rueda on 01/30/21 and plans to keep. aware that instructions are for Dr. Handley to order CT of neck prior to seeing Mohit, voices understanding. states no suggestions for [facility]. voices no further questions/concerns/needs and thanks ROSEANNE CHAPARRO for call. Bandar CRONIN CM
== END 2021-01-13 14:39 | disposition home or self-care (01) | DRG 291 ==
LOC: ED 03:25 → PCU 04:48
PROVIDERS: Internal Medicine Critical Care Medicine; Admitting Provider Family Medicine; Emergency Provider Emergency Medicine; PCP Family Medicine
DX: I13.0 Hypertensive heart and chronic kidney disease with heart failure and stage 1 through stage 4 chronic kidney disease, or unspecified chronic kidney disease (principal); J96.01 Acute respiratory failure with hypoxia; J96.02 Acute respiratory failure with hypercapnia; I50.31 Acute diastolic (congestive) heart failure; Z68.42 Body mass index [BMI] 45.0-49.9, adult; R55 Syncope and collapse; I25.10 Atherosclerotic heart disease of native coronary artery without angina pectoris; E11.22 Type 2 diabetes mellitus with diabetic chronic kidney disease; I48.91 Unspecified atrial fibrillation; Z79.01 Long term (current) use of anticoagulants; M10.9 Gout, unspecified; E78.5 Hyperlipidemia, unspecified; G25.81 Restless legs syndrome; G93.2 Benign intracranial hypertension; S20.229A Contusion of unspecified back wall of thorax, initial encounter; G47.33 Obstructive sleep apnea (adult) (pediatric); I25.2 Old myocardial infarction; G47.419 Narcolepsy without cataplexy; K59.00 Constipation, unspecified; I65.23 Occlusion and stenosis of bilateral carotid arteries; E66.01 Morbid (severe) obesity due to excess calories; N18.2 Chronic kidney disease, stage 2 (mild); K21.9 Gastro-esophageal reflux disease without esophagitis; M19.90 Unspecified osteoarthritis, unspecified site; Y93.89 Activity, other specified; Y99.9 Unspecified external cause status; W18.01XA Striking against sports equipment with subsequent fall, initial encounter; Y92.009 Unspecified place in unspecified non-institutional (private) residence as the place of occurrence of the external cause; Z79.899 Other long term (current) drug therapy; Z79.84 Long term (current) use of oral hypoglycemic drugs
CPT/HCPCS: 36415; 36600; 70450; 71045; 71275; 72125; 74177; 80048; 80053; 80061; 80202; 81001; 82607; 82728; 82747; 82803; 82962; 83540; 83550; 83690; 83735; 84100; 84439; 84443; 84481; 84484; 85014; 85025; 85027; 85610; 85730; 87426; 87635; 93005; 93306; 93880; 94002; 94003; 94640; 94667; 97110; 97162; 97166; 97535; 99284; J7030; J7040; Q9957; Q9967; A4216; C8929; J1940; U0002

== ENCOUNTER → 2021-01-26 08:19 | Outpatient (CLI) | payer SELFPAY ==
[2017-12-20 14:12] VITALS: BMI 40.4
[2021-01-09 04:34] VITALS: BMI 45.7
--- NOTE | 2021-01-26 08:34 | CT_ITS ---
STUDY: CTA NECK WITH CONTRAST REASON FOR EXAM: Male, 75 years old. Carotid stenosis. Syncopal episodes. RADIATION DOSAGE (If Supplied By Facility): CTDIvol = ( 20.31 ) mGy, DLP = ( 653.88 ) mGycm TECHNIQUE: CT angiography with multi-detector data acquisition was performed from the aortic arch to the skull base following intravenous administration of IV 100mL Isovue-370. MIP images were reconstructed from the axial data set. Post-processing of the angiographic images was performed, with multiplanar reformation and 3D reconstruction. Individualized dose optimization techniques were used for this CT. COMPARISON: None. FINDINGS: AORTIC ARCH: There is atherosclerotic calcific plaque formation of the aortic arch and great vessels arising from the aortic arch, without a hemodynamically significant stenosis. There is a normal origin of the brachiocephalic, left common carotid, and left subclavian arteries. RIGHT CAROTID ARTERIES: Normal right common carotid artery (CCA). Normal right common carotid bulb. There is severe atherosclerotic plaque formation of the origin of the right internal carotid artery with a near complete occlusion. Normal visualized cervical portion of the right internal carotid artery. Normal origin of the right external carotid artery (ECA). LEFT CAROTID ARTERIES: Normal left common carotid artery (CCA). Normal left common carotid bulb. There is severe atherosclerotic plaque formation of the origin of the left internal carotid artery with a near complete occlusion. Normal visualized cervical portion of the left internal carotid artery. Normal origin of the left external carotid artery (ECA). VERTEBRAL ARTERIES: Normal bilateral vertebral arteries. There is opacification of the maxillary sinuses bilaterally. There is diffuse soft tissue prominence in the right nasal fossa with high dense material in the posterior right nasal fossa. This may represent the polyposis and chronic inflammatory change. Clinical correlation is recommended. CT/CTA Neck W/WO Contrast IMPRESSION: Atherosclerotic calcific plaques at the origin of the right and left internal carotid arteries causing high-grade stenosis bilaterally. Electronically Signed: Edgar River MD at 10:07 EDT , Service support ,
== END ==
PROVIDERS: PCP Family Medicine; Visit Provider Surgery
DX: I65.29 Occlusion and stenosis of unspecified carotid artery (principal)
CPT/HCPCS: 70498; Q9967

== ENCOUNTER → 2021-03-09 06:30 | Outpatient (CLI) | payer SELFPAY ==
[2017-12-20 14:12] VITALS: BMI 40.4
[2021-02-14 15:00] VITALS: BMI 42.1
[2021-03-07 08:51] VITALS: BMI 43.9
--- NOTE | 2021-03-09 09:44 | STRESSREP_ITS ---
Stress Test Report Date: 03-09-2021 Procedure: Pharmacologic stress nuclear imaging study Indications: Syncope; CAD; PCI; atrial flutter preoperative cardiovascular evaluation Consent: Per the patient Procedure: The patient underwent pharmacologic (Regadenoson 0.4mg ) evaluation with a peak heart rate of 94 beats per minute (65%predicted maximal heart rate) and a peak blood pressure of 142/84 mmHg. The baseline ECG demonstrated atrial flutter with variable ventricular response. The peak pharmacologic ECG demonstrated no obvious ECG changes. There was a rare PVC during recovery. There was no complaint of chest discomfort during pharmacologic infusion or recovery. The examination was discontinued secondary to completion of protocol. Impression: 1. Pharmacologic (Regadenoson) evaluation 2. Peak pharmacologic ECG with continued atrial flutter with no obvious ECG changes. 3. There was a rare PVC during recovery. 4. Nuclear images pending Myocardial perfusion imaging study: Technique: The patient was injected with 14.3 millicuries of technetium 99m Cardiolite and subsequently rest SPECT Cardiolite nuclear imaging was obtained in the horizontal long, vertical long, and short axis views. The patient underwent pharmacologic (Regadenoson) evaluation with a peak heart rate of 94 beats per minute (65% percent predicted maximal heart rate) and a peak blood pressure of 142/84 mmHg. The patient was injected with 44.8 millicuries of technetium 99m Cardiolite and subsequently stress SPECT Cardiolite nuclear imaging was obtained in the horizontal long, vertical long, and short axis views. A gated Cardiolite study at peak stress was obtained. Interpretation: Rest and stress SPECT Cardiolite nuclear imaging status post realignment, normalization, and attenuation correction demonstrate relative uniform tracer uptake and myocardial perfusion appearing within normal limits. There is end systolic thickening and brightening. The gated Cardiolite study demonstrates myocardial thickening and inward wall motion. The reported LVEF is 65%. Impression: 1. Rest and stress SPECT Cardiolite nuclear imaging demonstrate relative uni form tracer uptake and myocardial perfusion appearing within normal limits. 2. The gated Cardiolite study reports an LVEF of 65%. This note was generated with rumr: turn off the lightsation software. It may contain incorrect words, spelling, and punctuation that were not noted in checking the note before signing.
[2021-03-09 10:45] LABS: Thyroid Stim Hormone (TSH) 2.27 uIU/mL (0.358-3.74)
[2021-03-10 16:08] LABS: Free Kappa Light Chains 55.6 mg/L (3.3-19.4); Free Lambda Light Chains 31.6 mg/L (5.7-26.3)
== END ==
PROVIDERS: Psychiatry & Neurology Neurology; PCP Family Medicine; Referring Provider Internal Medicine Cardiovascular Disease; Visit Provider Internal Medicine Cardiovascular Disease
DX: G62.9 Polyneuropathy, unspecified (principal); G47.419 Narcolepsy without cataplexy; R55 Syncope and collapse; I65.23 Occlusion and stenosis of bilateral carotid arteries; I10 Essential (primary) hypertension; E78.5 Hyperlipidemia, unspecified; I25.10 Atherosclerotic heart disease of native coronary artery without angina pectoris; Z95.5 Presence of coronary angioplasty implant and graft
CPT/HCPCS: 78452; 82746; 83883; 84443; 93017; A9500; A4216; J2785

== ENCOUNTER 2021-03-31 11:06 | Day surgery (SDC) | payer SELFPAY ==
[2017-12-20 14:12] VITALS: BMI 40.4
[2021-03-07 08:51] VITALS: BMI 43.9
[2021-03-27 14:10] LABS: Hematocrit 41.6 % (40-54); Mean Corp Hgb Conc 31.3 g/dL (32-36); Mean Corpuscular Hgb 26.9 pg (27.0-32.0); Mean Platelet Vol. 10.5 fl (6.2-12.0); Platelet Count 255 K/mm3 (150-450); RBC Distribution Width CV 14.6 % (11.6-14.6); RBC Distribution Width SD 46.3 fl (35.1-43.9); Red Blood Count 4.84 M/mm3 (4.6-6.2); White Blood Count 7.3 K/mm3 (4.4-11.0)
[2021-03-27 14:41] LABS: Anion Gap 8 (5-15); BUN 25 mg/dL (7-18); BUN/Creat Ratio 16.2 RATIO (10-20); Calcium,Total 8.6 mg/dL (8.5-10.1); Chloride 101 mmol/L (98-107); Creatinine, Serum 1.54 mg/dL (0.70-1.30); EST Glomerular Filtration Rate 47 mL/min (>60); Est Glom Filt Rate - Afr Amer 57 mL/min (>60); Glucose 269 mg/dL (74-106); Potassium 4.2 mmol/L (3.5-5.1); Sodium Level 138 mmol/L (136-145)
[2021-03-31] VITALS (7 sets, daily range): BP systolic 125–172; BP diastolic 63–91; PULSE 85–130; RESP 18; TEMP 36.2–36.6; O2SAT 95–98; BMI 41.5
[2021-03-31 12:05] LABS: Bedside Glucose 211 mg/dL (70-110)
[2021-03-31 12:15] LABS: INR Fingerstick 1.7; Prothrombin Time Fingerstick 19.7 SEC (11.9-14.4)
--- NOTE | 2021-03-31 12:25 | ETH_PTH ---
PATIENT: GLEN ANN LOC: [facility] [place] U#:[id number] AGE/SX: 75/M ROOM: RE03/31/[address]: Dr. Robson Andrew MD : 1945 BED: DIS: 03/31/2021 SPEC #: [id number] RECD: 04/04/21 08:04 STATUS: OLGA RE #: [id number] SHALINI: 03/31/21 12:[address]: Robson Andrew DEPT: SURGICAL PATHOLOGY RECD BY: Tika Geronimo ENTERED: 04/04/21 08:36 SP TYPE: ETH TISS OTHR DR: Dr. Casey Handley DO Tissues: A - Ethmoid bone, NOS B - Ethmoid sinus, NOS C - Ethmoid sinus, NOS Procedures: Decalcification bone/plaque Special Stain Group I Surgery Specimen Level III GMS Stain (control) HEADER OPERATION: Septoplasty, endoscopy nasal sinus with maxillary antrostomy PRE-OP DIAGNOSIS: Chronic maxillary and ethmoid sinusitis; deviated nasal septum TISSUE SUBMITTED: A - Septum bone and cartilage, B - Left sinus contents, C - Right sinus contents MICROSCOPIC DIAGNOSIS A. Nasal septum, septoplasty: Fragments of hyaline cartilage and bone with reactive change (clinically deviated septum). B. Left sinus contents, curettings: Chronic sinusitis. Fragments of bone with no significant pathologic change. C. Right sinus contents, curettings: Chronic sinusitis. Fragments of bone with no significant pathologic change. Focal acute inflammation. Fungal organisms consistent with aspergillus. See comment. AM:felipe 04/07/2021 COMMENT C. GMS stain with matched control was used in the evaluation of this case. MICROSCOPIC DESCRIPTION Slides are reviewed. GROSS DESCRIPTION A - Received in fixative is one container labeled with the patient's name and designated septum bone and cartilage. The specimen consists of multiple irregular fragments of dark lombardi bone and cartilage that in aggregate measure 5 x 3 x 0.2 cm. The specimen is totally submitted in two cassettes after decalcification. B - Received in fixative is one container labeled with the patient's name and designated left sinus contents. The specimen consists of multiple irregular fragments of light lombardi to gritty white-lombardi tissue that in aggregate measure 5 x 3 x 2.5 cm. Supervisor Twisting Department portions are submitted in two cassettes after decalcification. C - Received in fixative is one container labeled with the patient's name and designated right sinus contents. The specimen consists of multiple irregular fragments of light lombardi to gritty white-lombardi tissue that in aggregate measure 5 x 3 x 2.5 cm. Supervisor Twisting Department portions are submitted in two cassettes after decalcification. / AM:felipe 04/04/21 TC:2 CPT: 04116 x3, 47710 x3, 29959
[2021-03-31 12:43] LABS: International Normalized Ratio 1.5; Prothrombin Time (Protime)PT. 17.6 SECONDS (11.7-14.9)
[2021-03-31] MEDS: Lidocaine 4% 50 ML Bottle (13:30)
[2021-03-31] MEDS: Bacitracin 500 UNITS/GM PACKET (13:30)
[2021-03-31] MEDS: Oxymetazoline 0.05% 1 SPRAY SPRAY.BTL 15 SPRAY (13:30)
[2021-03-31] MEDS: Lidocaine 1% /Epi 1:100 (20ml) 20 ML Vial (14:00)
--- NOTE | 2021-03-31 15:32 | OP.PCM_ITS ---
Problems Associated Problem List Diagnoses (1) Deviated nasal septum: (2) Chronic maxillary sinusitis: (3) Chronic ethmoidal sinusitis: (4) Nasal polyps: Report of Operation Date of Procedure: 03/31/21 Pre-Operative Diagnosis: Chronic sinusitis, nasal polyps, deviated nasal septum Post-Operative Diagnosis: Same Surgery/Procedure Performed:: Septoplasty, bilateral endoscopic maxillary antrostomies with tissue removal on right, bilateral total ethmoidectomies Description of Surgical Findings:: Chris is a 75-year-old male who presents after CT scan of the brain showing chronic bilateral maxillary and ethmoid sinusitis as well as a bone destructive lesion of the right maxillary sinus. Examination showed polypoid changes of the sinuses as well as marked nasal septal deviation and surgical treatment for relief as well as identification of the bone erosion process on the right was advised and he was agreeable to proceed. The risks, alternatives, potential complications, and benefits were discussed at length and any questions answered to the patient and/or caregiver's satisfaction. Witnessed informed consent was obtained in the office, and the patient and/or caregiver was agreeable to proceed. Procedure went as follows: The patient was identified in the preoperative holding and brought to the operating room, was placed under general anesthesia and intubated. When appropriate anesthesia was obtained, pledgets soaked in a 50-50 mixture of oxymetazoline and 4% topical lidocaine were placed to decongest the nasal mucosa. The nasal septum was then injected beginning on the left side with 1% lidocaine with 100,000 epinephrine for a total of 5 mL. The pledgets were then removed and the left nasal cavity examined. There was noted to be significant nasal septal deviation to the left. Using a 15 blade scalpel, a hemitransfixion incision was then made on the left side and using the Gisel elevator a subperichondrial/periosteal flap was elevated. The septum was then transected at the bony cartilaginous junction and a similar flap raised on the contralateral side. Using a Aguilar forceps, the septum was then sharply transected superiorly and the deviated portions removed with a Chiara forceps. Any inferior bony spur was then removed with a chisel allowing for midline placement of the nasal septum. The hemitransfixion incision was then closed with interrupted 4-0 chromic gut suture followed by a 4-0 plain quilting suture to reapproximate the mucosal flaps. Attention was then turned to the sinus surgery portion of the procedure. Ple dgets soaked in a 50-50 mixture of oxymetazoline and 4% topical lidocaine were placed to decongest the nasal mucosa. These were then removed and beginning on the left side using a 0? endoscope the nasal cavity examined. The insertion of the middle turbinate and uncinate process was then injected with 1% lidocaine with 100,000 epinephrine for a total of 2 mL, and a similar injection was then carried on the contralateral side. There is noted to be extensive polyposis obstructing the right ostiomeatal complex. Upon returning to the left side, the middle turbinate was medialized with a Gisel elevator. This allowed examination of the maxillary sinus ostia which was then probed with a double ball seeker. The uncinate process was then outfractured with a J curette and transected with a backbiting forceps. This was then removed with the microdebrider creating a wide maxillary antrostomy. The sinus was noted to be full of purulent material which was flushed with saline and suctioned until clear. The ethmoid bulla was then entered and a total ethmoidectomy was then carried out working posteriorly to anterior. Any polyps, scar, and mucous secretions were removed. Pledgets soaked in oxymetazoline were then placed for hemostasis and attention turned to the contralateral side. Similar procedure and findings were then carried out. There is noted to be hard dark brown material filling the right maxillary sinus and this was broken down and removed piecemeal with a portion sent for culture. A wide maxillary antrostomy was then created followed by total ethmoidectomy. Pledgets soaked in oxymetazoline then placed for hemostasis. The pledgets were then removed and Floseal hemostatic agent was then applied. Sanchez splints coated with Bacitracin ointment were then applied to each nasal cavity and secured at the columella with a single 3-0 Prolene suture. An NG tube was then placed to decompress the stomach and the patient returned to anesthesia, revived and extubated having tolerated the procedure well. Surgeon: Robson Andrew Type of Anesthesia: General Anesthesiologist: Beto Lang Specimen's removed: sinus and septum contents Drains: none Estimated Blood Loss (mL): 700 mL Fluids Replaced: 1100 mL Grafts/Implants Used: Sanchez splints Complications none Admit VTE Documentation VTE Present on Admission: No VTE Mechan Device Prophylaxis: SCD's VTE Pharm Prophylaxis ordered?: No
--- NOTE | 2021-03-31 15:43 | PCM.DC ---
Discharge Instructions Diet Discharge Diet: No restrictions Activity Discharge Activity: Return to Normal Activity Dressing / Incision Call your doctor if your incision/area has: Sudden Increased Bleeding and Foul Smelling Discharge Call your doctor if you observe: Fever of 101 or Higher and Uncontrolled pain Follow Up Care Please Follow Up With: Robson Andrew MD When: 1 week Test Results: Test results from this visit will be discussed in further detail at your follow-up appointment, if applicable. Discharge Plan Admission Primary Reason for Your Visit: Chronic sinusitis Attending Provider: Robson Andrew Primary Care Provider: Casey Handley Instructions Patient Instructions: ED Chest Pain, Noncardiac Discharge Orders/Prescriptions Prescriptions: New acetaminophen 500 mg Tablet 500 mg PO Q4H PRN PRN (Reason: Pain Score 1-5/10) Qty: 0 RF: 0 Continued multivitamin [One-A-Day Essential] Tablet 1 tab PO DAILY RF: 0 omega-3 fatty acids [Fish Oil Concentrate] 1,000 mg capsule 2,000 mg PO DAILY RF: 0 nitroglycerin 0.4 mg tablet, sublingual 0.4 mg sublingual Q5M PRN (Reason: chest pain) Qty: 90 RF: 0 allopurinol 100 MG tablet 100 mg PO DAILY RF: 0 furosemide 40 MG tablet 40 mg PO DAILY Qty: 30 RF: 0 warfarin 5 MG tablet 5 mg PO DAILY Qty: 30 RF: 0 glimepiride 2 mg tablet 6 mg PO DAILY@0800 RF: 0 gabapentin 300 mg capsule 900 mg PO BID RF: 0 Referrals / Follow Up: Casey Handley DO [Primary Care Provider] - Disposition Disposition (needs filled in before D/C Order can be placed): Home, Self Care
[2021-03-31 16:05] LABS: Bedside Glucose 173 mg/dL (70-110)
== END 2021-03-31 17:26 | disposition home or self-care (01) ==
LOC: SDC 11:09 → AC 11:13
PROVIDERS: Anesthesiology; PCP Family Medicine; Referring Provider Otolaryngology; Visit Provider Otolaryngology
PROC: (CPT 30520; principal; 2021-03-31 11:55)
DX: J34.2 Deviated nasal septum (principal); J32.0 Chronic maxillary sinusitis; J32.2 Chronic ethmoidal sinusitis; B44.9 Aspergillosis, unspecified; J33.9 Nasal polyp, unspecified; M19.90 Unspecified osteoarthritis, unspecified site; I13.0 Hypertensive heart and chronic kidney disease with heart failure and stage 1 through stage 4 chronic kidney disease, or unspecified chronic kidney disease; I50.9 Heart failure, unspecified; E11.22 Type 2 diabetes mellitus with diabetic chronic kidney disease; N18.30 Chronic kidney disease, stage 3 unspecified; I25.10 Atherosclerotic heart disease of native coronary artery without angina pectoris; E78.5 Hyperlipidemia, unspecified; G47.33 Obstructive sleep apnea (adult) (pediatric); K21.9 Gastro-esophageal reflux disease without esophagitis; Z79.84 Long term (current) use of oral hypoglycemic drugs; Z79.01 Long term (current) use of anticoagulants; Z79.51 Long term (current) use of inhaled steroids; Z79.899 Other long term (current) drug therapy
CPT/HCPCS: 30520; 31255; 31267; 36415; 36416; 80048; 82962; 83036; 85027; 85610; 87070; 87075; 87077; 87102; 87176; 87186; 87205; 87206; 88304; 88305; 88311; 88312; J7120; J2405

== ENCOUNTER → 2021-05-02 14:48 | Outpatient (CLI) | payer SELFPAY ==
[2017-12-20 14:12] VITALS: BMI 40.4
[2021-03-31 11:31] VITALS: BMI 41.5
[2021-05-05 16:09] LABS: Albumin 3.4 g/dL (2.9-4.4); Alpha-1-Globulins 0.2 g/dL (0.0-0.4); Alpha-2-Globulins 0.8 g/dL (0.4-1.0); Gamma Globulin 1.6 g/dL (0.4-1.8); Immunoglobulin A 381 mg/dL (61-437); Immunoglobulin G 1626 mg/dL (603-1613); Immunoglobulin M 74 mg/dL (15-143); PROEL- TOTAL PROTEIN 7.4 g/dL (6.0-8.5)
== END ==
PROVIDERS: PCP Family Medicine; Referring Provider Psychiatry & Neurology Neurology; Visit Provider Psychiatry & Neurology Neurology
DX: G62.9 Polyneuropathy, unspecified (principal)
CPT/HCPCS: 36415; 82784; 84165; 86334; 86335

== ENCOUNTER → 2021-05-22 06:23 | Outpatient (CLI) | payer SELFPAY ==
[2017-12-20 14:12] VITALS: BMI 40.4
[2021-03-07 08:51] VITALS: BMI 43.9
--- NOTE | 2021-05-22 07:57 | TELEMED_ITS ---
[facility] has confirmed receipt of a request for visit. This document confirms receipt of the order initiating the consult. To find the results of the consultation, please view the patient's reports for the scanned Telemed Consult.
== END ==
PROVIDERS: PCP Family Medicine; Referring Provider Psychiatry & Neurology Neurology; Visit Provider Psychiatry & Neurology Neurology
DX: R55 Syncope and collapse (principal); G47.419 Narcolepsy without cataplexy; G47.33 Obstructive sleep apnea (adult) (pediatric); Z99.89 Dependence on other enabling machines and devices
CPT/HCPCS: 95819

== ENCOUNTER 2021-06-21 16:47 | Emergency (ER) | payer SELFPAY ==
[2017-12-20 14:12] VITALS: BMI 40.4
[2021-06-21 16:47] VITALS: BP 153/94; PULSE 55; RESP 16; TEMP 36.9; O2SAT 99; BMI 41.3
--- NOTE | 2021-06-21 17:55 | RAD_ITS ---
STUDY: X-RAY - PELVIS AND LEFT HIP REASON FOR EXAM: Male, 75 years old. INJURY TECHNIQUE: 3 views of the pelvis and hip. COMPARISON: CT of abdomen and pelvis dated JANUARY 09, 2021 FINDINGS: There is a non-specific bowel gas pattern. Normal visualized soft tissue structures. No fractures are present. Degenerative changes are present in the spine. Normal bilateral iliac wings, sacroiliac joints and visualized sacrum. Normal bilateral superior and inferior pubic rami. Normal pubic symphysis. Normal bilateral ischial tuberosities. Normal visualized femoral head. Normal acetabulum. Normal hip joint. RAD/HIP, UNI W/ Pelvis 2-3 Views IMPRESSION: No acute process Electronically Signed: Faraz Dove MD at 19:18 EDT , Service support ,
[2021-06-21 18:47] VITALS: BP 164/82; PULSE 74
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
[2021-06-21] MEDS: Morphine 4 MG/ML Syringe IV ×2 (19:19→20:06)
[2021-06-21 19:20] VITALS: BP 185/69; PULSE 57; RESP 14
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
[2021-06-21] MEDS: diazePAM 5 MG Tablet PO ×2 (20:03→23:06)
[2021-06-21 20:07] VITALS: BP 146/73; PULSE 70; RESP 20
[2021-06-21] MEDS: HYDROmorphone 1 MG/ML Syringe 0.5 MG IV ×2 (20:59→23:06)
[2021-06-21 21:00] VITALS: BP 144/80; PULSE 66; RESP 20
[2021-06-21] MEDS: Orphenadrine 60 MG/2 ML Ampul IM (21:56)
[2021-06-21 22:05] VITALS: BP 154/81; PULSE 71; RESP 18
[2021-06-21] MEDS: Gabapentin 600 MG Tablet PO (23:36)
[2021-06-22 00:55] VITALS: BP 154/81; PULSE 71; RESP 15; O2SAT 94
== END 2021-06-22 01:22 | disposition short-term general hospital (02) ==
PROVIDERS: Emergency Provider Emergency Medicine; PCP Family Medicine
DX: S32.402A Unspecified fracture of left acetabulum, initial encounter for closed fracture (principal); I25.2 Old myocardial infarction; I25.10 Atherosclerotic heart disease of native coronary artery without angina pectoris; E11.9 Type 2 diabetes mellitus without complications; V89.0XXA Person injured in unspecified motor-vehicle accident, nontraffic, initial encounter; Z95.5 Presence of coronary angioplasty implant and graft; Z79.899 Other long term (current) drug therapy
CPT/HCPCS: 71045; 71275; 73030; 73200; 73502; 73700; 80048; 84484; 85025; 87426; 93005; 96372; 96374; 96375; 96376; 99284; 99285; J7030; Q9967; A4216

== ENCOUNTER 2021-06-23 09:25 | Emergency (ER) | payer OTHER, SELFPAY ==
[2017-12-20 14:12] VITALS: BMI 40.4
[2021-06-23 09:27] VITALS: BP 154/78; PULSE 104; RESP 88; TEMP 36.6; O2SAT 97; BMI 44.6
--- NOTE | 2021-06-23 09:54 | RAD_ITS ---
STUDY: X-RAY - LEFT SHOULDER REASON FOR EXAM: Male, 75 years old. Injury/Pain TECHNIQUE: 2 view(s) of the shoulder. COMPARISON: None. FINDINGS: Normal glenohumeral articulation. Normal acromioclavicular joint. Normal acromion. Intramedullary marlene fixation device is seen in the humeral shaft with evidence of the healed proximal fracture. Sclerosis and cystic changes are seen at the level of the humeral head. Avascular necrosis should be ruled out. The soft tissue structures are unremarkable. Normal visualized pulmonary apex. 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 Electronically Signed: Edgar River MD at 10:47 EDT , Service support ,
[2021-06-23] MEDS: oxyCODONE 5 MG Tablet PO (10:15)
--- NOTE | 2021-06-23 11:06 | EX.ED.UPPERE ---
HPI History of Present Illness HPI Narrative: Patient presents with left shoulder pain that began today. Patient was seen here recently after he rolled his tractor on his side. Patient had a fracture of his acetabulum on the initial visit. Patient was transferred to [facility] for trauma evaluation. Patient was discharged last night. Patient states that today he was having difficulty moving his shoulder. Patient describes the pain is sharp. Patient denies any paresthesias or weakness. Chief Complaint: Upper Extremity Injury Informant: patient Onset/Context/Timing Onset: Today Context: Sudden Onset Timing: Continuous Quality of Pain: Sharp Location: Left shoulder Worsened by: Movement Relieved by: Rest Associated Symptoms Associated Symptoms: Negative for Parasthesia, Weakness and Loss of Funtion [facility] Medical History Ambulates with cane Atherosclerosis of coronary artery of [place] heart without angina pectoris Atrial flutter Bilateral carotid artery stenosis Carotid stenosis CKD (chronic kidney disease), stage III Debility Diabetes Essential hypertension GERD (gastroesophageal reflux disease) Gout History of coronary artery stent placement (~12/20/17) Hyperlipidemia Migraine Non-smoker NSTEMI (non-ST elevated myocardial infarction) (~12/20/17) Old myocardial infarction ANA on CPAP Osteoarthritis Pseudotumor cerebri Pulmonary emboli Restless leg syndrome VTE (venous thromboembolism) Wears glasses Wears partial dentures Home Medications allopurinol 100 mg PO DAILY 09/21/15 [History Last Taken 03/31/21 11:00 100 MG] glimepiride 2 mg tablet 6 mg PO DAILY@0800 tab 02/14/21 [History Last Taken 03/31/21 11:00 6 mg] multivitamin 1 tab PO DAILY 02/14/21 [History Last Taken Unknown] warfarin 4 mg PO DAILY 06/21/21 [History Last Taken Unknown] carbidopa-levodopa 1 tab PO QHS 06/23/21 [History Last Taken Unknown] cyclobenzaprine 5 mg PO TID PRN 06/23/21 [History Last Taken Unknown] furosemide 40 mg PO DAILY 06/23/21 [History Last Taken Unknown] gabapentin 600 mg PO BID 06/23/21 [History Last Taken Unknown] oxycodone 5 - 10 mg PO Q6H PRN 06/23/21 [History Last Taken Unknown] Allergy/AdvReac Type Severity Reaction Status Date / Time atorvastatin [From Lipitor] AdvReac Severe Myalgias Verified 06/23/21 09:30 promethazine HCl AdvReac GET JUMPY Verified 06/23/21 09:30 [From Phenergan] Family History Father Heart disease COPD (chronic obstructive pulmonary disease) Surgical History History of bilateral knee replacement History of nasal septoplasty (~03/2021) Hx of appendectomy Hx of fracture of arm Postsurgical percutaneous transluminal coronary angioplasty (PTCA) status Presence of coronary angioplasty implant and graft (~12/20/17) Status post lumboperitoneal shunt placement Social History household members: spouse Smoking Status: Never smoker alcohol intake: never caffeine: Yes (very rare) what type of physical activity do you participate in: none frequency: does not exercise ROS ROS ED Constitutional Constitutional ED: Denies chills or fever(s) Eyes Eyes: Denies blurry vision or change in vision ENT ENT ED: Denies rhinorrhea or sore throat Cardiovascular Cardiovascular: Denies chest pain or palpitations Respiratory/Chest Respiratory/Chest: Denies cough or dyspnea Gastrointestinal Gastrointestinal: Denies nausea or vomiting Genitourinary Genitourinary ED: Denies dysuria or hematuria Musculoskeletal Musculoskeletal: Reports neck pain; Denies back pain Integumentary Denies abscess or rash Neurologic Neurologic: Denies headache(s) or weakness Allergic/Immunologic Allergic/Immunologic ED: Denies mouth swelling or urticaria EXAM Physical Exam Const Vital Signs: 06/23/21 09:27 Temperature 98 F Temperature Source Temporal Pulse Rate 104 H Respiratory Rate 88 H Blood Pressure 154/78 H Blood Pressure Mean 103 Pulse Ox 97 Oxygen Delivery Method Nasal Cannula Oxygen Flow Rate (L/min) 2 Positive well nourished, well developed and obese General Appearance ED: well developed Nutritional Appearance: obese HEENT Reports moist mucous membranes Neck full ROM and supple Resp normal respiratory effort and clear to auscultation bilaterally Cardio regular rate and regular rhythm GI non-tender and non-distended Auscultation: normoactive bowel sounds Palpation: soft Extremity Extremity Narrative: There is tenderness over the left shoulder. There is still persistent tenderness over the left hip. Range of motion was limited in all motions of the left shoulder and left hip secondary to pain. There is no bony crepitance or step-off. There is no obvious deformity noted. Radial pulses are equal bilaterally. Sensation was intact to light touch in the radial, median, and ulnar areas bilaterally. Strength is 5/5 in the radial, median, and ulnar areas bilaterally. Neuro oriented x3, CN's II-XII intact bilaterally, moves all extremities and no focal motor deficits Sensorium / Orientation: alert Psych mental status grossly normal MDM MDM MDM Narrative Medical decision making narrative: Patient was given a dose of oxycodone here. X-rays of the left shoulder were obtained. There are 2 views. On my interpretation, there is no acute fracture or dislocation. There are some degenerative changes noted. Radiologist also interpreted the x-rays and agrees. He also noted there could be avascular necrosis of the left humeral head. Family requested a CT of the shoulder since that is how his acetabular fractures were diagnosed. This was done. There is no acute fracture or dislocation. There is questionable avascular necrosis of the humeral head. There are degenerative changes noted. This was interpreted by the radiologist and reviewed by myself. Patient was given injections of morphine here in the emergency department. Patient was advised of his findings. Patient states he was having difficulty ambulating with a walker because of the pain in his shoulder. I asked social work to see the patient. She is able to get the patient admitted to the TCU. Initially, the patient did not want to do this and wanted to go home. However, when he tried to ambulate he was unable to do so with a walker. Patient is agreeable to be admitted to TCU at this time. 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 Electronically Signed: Edgar River MD at 10:47 EDT , Service support , Discharge Plan Triage Chief Complaint: Upper Extremity Injury ED Provider: Robson Arambula Dx/Rx/DC Orders Clinical Impression: Contusion of left shoulder, Acetabulum fracture, left, Inability to ambulate due to left hip Prescriptions: No Action multivitamin [One-A-Day Essential] Tablet 1 tab PO DAILY RF: 0 allopurinol 100 MG tablet 100 mg PO DAILY RF: 0 glimepiride 2 mg tablet 6 mg PO DAILY@0800 RF: 0 warfarin 5 MG tablet 4 mg PO DAILY RF: 0 oxycodone 5 mg Capsule 5 - 10 mg PO Q6H PRN (Reason: Pain) RF: 0 carbidopa-levodopa 25-100 mg tablet 1 tab PO QHS RF: 0 cyclobenzaprine 5 mg Tablet 5 mg PO TID PRN (Reason: Spasms) RF: 0 furosemide 40 MG tablet 40 mg PO DAILY RF: 0 gabapentin 600 mg tablet 600 mg PO BID RF: 0 Primary Care Provider: Casey Handley Referrals: Casey Handley DO [Primary Care Provider] - Disposition Disposition: Senior Living Facility Discharge Location: [facility] Transitional Care Unit Discharge Date/Time: 06/23/21 15:23
[2021-06-23 12:00] VITALS: BP 164/79; PULSE 82; RESP 16; O2SAT 85
[2021-06-23] MEDS: Morphine 4 MG/ML Syringe IV ×2 (12:03→14:10)
--- NOTE | 2021-06-23 12:05 | CT_ITS ---
STUDY: CT LEFT SHOULDER REASON FOR EXAM: Male, 75 years old. Left shoulder pain following injury. RADIATION DOSAGE (If Supplied By Facility): CTDIvol = ( 45.92 ) mGy, DLP = ( 1041.19 ) mGycm TECHNIQUE: The patient was scanned in a multi detector CT scanner. High resolution transaxial imaging was performed without the administration of intravenous contrast material. Sagittal and coronal images were reconstructed. Individualized dose optimization techniques were used for this CT. COMPARISON: Comparison is made with prior radiograph done earlier in the day. FINDINGS: There is moderate osteoarthritis, with moderate articular joint space narrowing and moderate osteoarthritic spurring. Normal glenoid rim, neck and visualized scapula. Cystic changes are seen in the subchondral region of the humeral head. Changes of avascular necrosis should be ruled. There is evidence of an intramedullary marlene fixation device in the humeral shaft. Normal coracoid process. Normal visualized lateral clavicle. Normal acromioclavicular articulation. There is a Type II morphology (curved), with a neutral orientation. Normal visualized muscles and soft tissue structures. CT/Extremity Upper without Contra IMPRESSION: No evidence of fracture or dislocation. Degenerative changes of the glenohumeral joint. Findings suggestive of possible avascular necrosis of the humeral head. Electronically Signed: Edgar River MD at 13:06 EDT , Service support ,
[2021-06-23 12:07] VITALS: O2SAT 96
[2021-06-23 13:11] VITALS: BP 143/66; PULSE 77; RESP 16; O2SAT 96
--- NOTE | 2021-06-23 14:14 | CM.ED ---
Addendum entered by Astrid aDmon 06/23/21 14:36: Patient was accepted to TCU however, patient declined and said I am going home. VITOR was advised by RN that patient has decided to go to TCU. VITOR called Margot and updated her. Margot said unvaccinated visitor, such as , can still visit. VITOR wrote the name of unit, phone number, social work name and visiting hours for patient's . Plan: TCU Astrid RANDOLPH Original Note: VITOR Note Referral Source: Reason for Referral: told MD she can't take care of patient at home in his current state. VITOR met with patient. Patient's explained that patient had turned over the tractor and came to the ED as his x ray was hurting. Patient was transferred to [facility] on Saturday from [facility]. Patient's said [facility] stated that there is nothing they could do and they couldn't operate.. it just needed to heel. Patient's , Judy, said that she brought patient home last night. Judy said that staff at [facility] showed how to assist patient and I thought I could handle it at home and stated that their daughter helped her with patient last night. Judy said that she felt that they could do ok at home until patient woke up today and couldn't use his arm. Judy said that if he can't help me... I can't handle him. Patient said that recounted the history accurately. Patient has never been in a SNF or rehab. Patient said that he is in such terrible pain. Patient said that his left hip and left shoulder hurt. Judy said that patient could not put get up this morning as he could not put weight on his leg or arm and he had no way to get up. Judy reports patient has Medicare A and then have mormonism aide through [facility]. VITOR discussed SNF or TCU/IPR referral. Judy was open to referral to TCU as she voiced she did not feel patient could manage 3 hours of rehab a day. VITOR spoke to . He felt a referral to TCU would be appropriate. VITOR spoke to Margot regarding patient. She will review chart. Plan: To be determined Astrid RANDOLPH
--- NOTE | 2021-06-23 15:16 | ED.RN ---
CALLED REPORT TO ISIAH ON TCU.
[2021-06-23 15:18] VITALS: BP 138/79; PULSE 82; RESP 17; O2SAT 98
== END 2021-06-23 15:23 | disposition skilled nursing facility (03) ==
PROVIDERS: Emergency Provider Emergency Medicine; PCP Family Medicine
DX: S40.012A Contusion of left shoulder, initial encounter (principal); S32.402A Unspecified fracture of left acetabulum, initial encounter for closed fracture; I25.10 Atherosclerotic heart disease of native coronary artery without angina pectoris; I25.2 Old myocardial infarction; E11.9 Type 2 diabetes mellitus without complications; I10 Essential (primary) hypertension; X58.XXXA Exposure to other specified factors, initial encounter; Z79.01 Long term (current) use of anticoagulants; Z79.899 Other long term (current) drug therapy
CPT/HCPCS: 73030; 73200; 87426; 96374; 96376; 99284

== ENCOUNTER 2021-06-23 16:00 | Inpatient (IN) | payer MEDICARE, SELFPAY ==
[2017-12-20 14:12] VITALS: BMI 40.4
[2021-06-23 16:00] VITALS: BP 147/78; PULSE 84; RESP 20; TEMP 36.5; O2SAT 97
[2021-06-23 16:12] VITALS: BP 162/81; PULSE 81
[2021-06-23] MEDS: Nitroglycerin (INPATIENT USE) 0.4 MG TAB.SUBL SL ×3 (16:12→16:25)
[2021-06-23 16:19] VITALS: BP 139/79; PULSE 91
[2021-06-23 16:25] VITALS: BP 138/67; PULSE 95
--- NOTE | 2021-06-23 16:38 | HP.PCM_ITS ---
HPI - General General Date of Admission: 06/23/21 HPI Narrative 06/23/2021 GLEN ANN, is a 75 Male who presents to [facility] Emergency Department with left shoulder pain. Left shoulder pain x 1 day. 06/21/2021 Patient rolled tractor on his side. He was transferred to [facility] for trauma evaluation. CT left hip showed acetabulum fracture, discharged home 06/22/[address] left shoulder showed ? avascular necrosis of humeral head. Oxycodone 5mg x 1, Morphine 4mg x 2 given for pain. Unable to care for self at home, unable to care for him. 06/23/2021 Admit to TCU with debility, here for rehabilitation, strengthening, pain control, prior to discharge home with . On arrival, resident had severe left shoulder pain, he states the oxycodone, morphine did not help his pain at all. He then developed chest pain, EKG showed atrial flutter with T wave inversion lateral leads, worse compared to EKG December 2020. NTG 0.4mg x 3 given without relief of chest pain, chest pain worsening. Transfer to [facility] ED for evaluation of chest pain, if myocardial infarction ruled out, readmit to TCU for rehabilitation. [facility] Medical History (Updated 06/23/21 @ 16:[address] Dawit Proctor MD) Ambulates with cane Atherosclerosis of coronary artery of [place] heart without angina pectoris Atrial flutter Bilateral carotid artery stenosis Carotid stenosis CKD (chronic kidney disease), stage III Debility Diabetes Essential hypertension GERD (gastroesophageal reflux disease) Gout History of coronary artery stent placement (~12/20/17) Hyperlipidemia Migraine Non-smoker NSTEMI (non-ST elevated myocardial infarction) (~12/20/17) Old myocardial infarction ANA on CPAP Osteoarthritis Pseudotumor cerebri Pulmonary emboli Restless leg syndrome VTE (venous thromboembolism) Wears glasses Wears partial dentures Home Medications allopurinol 100 mg PO DAILY 09/21/15 [History Last Taken 03/31/21 11:00 100 MG] glimepiride 2 mg tablet 6 mg PO DAILY@0800 tab 02/14/21 [History Last Taken 03/31/21 11:00 6 mg] multivitamin 1 tab PO DAILY 02/14/21 [History Last Taken Unknown] warfarin 4 mg PO DAILY 06/21/21 [History Last Taken Unknown] carbidopa-levodopa 1 tab PO QHS 06/23/21 [History Last Taken Unknown] cyclobenzaprine 5 mg PO TID PRN 06/23/21 [History Last Taken Unknown] furosemide 40 mg PO DAILY 06/23/21 [History Last Taken Unknown] gabapentin 600 mg PO BID 06/23/21 [History Last Taken Unknown] oxycodone 5 - 10 mg PO Q6H PRN 06/23/21 [History Last Taken Unknown] Allergy/AdvReac Type Severity Reaction Status Date / Time atorvastatin [From Lipitor] AdvReac Severe Myalgias Verified 06/23/21 09:30 promethazine HCl AdvReac GET JUMPY Verified 06/23/21 09:30 [From Phenergan] Family History Father Heart disease COPD (chronic obstructive pulmonary disease) Surgical History History of bilateral knee replacement History of nasal septoplasty (~03/2021) Hx of appendectomy Hx of fracture of arm Postsurgical percutaneous transluminal coronary angioplasty (PTCA) status Presence of coronary angioplasty implant and graft (~12/20/17) Status post lumboperitoneal shunt placement Social History (Updated 06/23/21 @ 16:[address] Dawit Proctor MD) household members: spouse Smoking Status: Never smoker alcohol intake: never caffeine: Yes (very rare) what type of physical activity do you participate in: none frequency: does not exercise ROS Constitutional Constitutional: Denies chills, fever(s) or weight gain ENT HEENT: Denies headache(s), nasal congestion or nasal discharge Cardiovascular Cardiovascular: Reports chest pain; Denies palpitations Respiratory/Chest Respiratory/Chest: Denies cough, excessive phlegm production or shortness of breath with exertion Gastrointestinal Gastrointestinal: Denies abdominal pain, nausea or vomiting Genitourinary Genitourinary: Denies dysuria Musculoskeletal Musculoskeletal: Reports other Details: Left shoulder pain. ; Denies joint pain or joint swelling Integumentary Integumentary: Denies rash or wounds Neurologic Neurologic: Denies focal weakness, numbness or tingling Psychiatric Psychiatric: Reports auditory hallucinations; Denies anxiety, depression, homicidal ideation or suicidal ideation Physical Exam Const alert and oriented x3 General Appearance: cooperative HEENT normocephalic Eyes PERRL and EOMs intact bilaterally Neck supple, no JVD and no carotid bruits Resp normal respiratory effort, normal air movement and clear to auscultation bilaterally Cardio regular rate and regular rhythm GI normal to inspection, nondistended, normoactive bowel sounds, non-tender and non-distended Extremity normal capillary refill General Extremity: Negative for edema Skin no rashes or lesions noted General Skin Exam: no breakdown Psych affect normal Appearance: appropriate Assessment & Plan Assessment/Plan (1) Contusion of left shoulder: (2) Acetabulum fracture, left: (3) Chest pain: (4) Debility: (5) Gout: (6) Edema: (7) Diabetes mellitus: (8) Neuropathic pain: (9) Atrial fibrillation and flutter: (10) Parkinson disease: (11) Muscle spasm: PLAN: 75 year old male with below past medical history recent tractor accident, left acetabulum fracture, left shoulder contusion, admitted to TCU with debility, here for rehabilitation, strengthening, prior to discharge home with . * Debility - PT/OT. * Pain - Tylenol 1000mg Q6H prn pain (1-3), Tramadol 50mg Q6H prn pain (4-5), Oxycodone 5mg Q4H PRN pain (6-10). * Bowel - Miralax 17gm daily, Senna/colace 2 tablets twice daily, Dulcolax 10mg daliy PRN. * Adult immunization - Administer prevnar 13, pneumovax 23, fluzone, covid19 vaccine as appropriate. * DVT prophylaxis - Not necessary, already on warfarin. * Nutrition - MVI daily. * Diabetic polyneuropathy - Gabapentin 600mg twice daily. * Gout - Allopurinol 100mg daily. * Edema - Furosemide 40mg daily. * Diabetes Mellitus II - Glimepiride 6mg daily. * Atrial flutter - Warfarin 4mg daily, monitor INR. * Restless leg syndrome - Sinemet 25/100mg QHS. * Muscle spasm - Flexeril 5mg tid PRN. * Chest pain - EKG T wave inversions laterally worse than December EKG, no response to NTG 0.4mg x 3, transfer to [facility] ED for evaluation.
--- NOTE | 2021-06-23 16:45 | EKG12_ITS ---
Test Reason : CP Blood Pressure : / mmHG Vent. Rate : 086 BPM Atrial Rate : 083 BPM P-R Int : 000 ms QRS Dur : 088 ms QT Int : 338 ms P-R-T Axes : 000 -44 038 degrees QTc Int : 404 ms Atrial fibrillation Left axis deviation Abnormal ECG Confirmed by CARRIE TURNER, JOJO ([id number]), avid editor MARCELLO NEELY ([id number]) on 06/26/2021 12:57:26 PM Referred By: GERTRUDIS Confirmed By:JOOJ BUTLER MD
--- NOTE | 2021-06-23 16:48 | NURSING ---
R' C/O CP SHORTLY AFTER ADMIT TO FLOOR. C/O SHARP CHEST PAIN 6/10. DENIED SOB OR RADIATION. DR PACE ORDERED EKG. ALSO, ORDERED NITRO SL. 1612 BP 162/81 RIGHT ARM SF, PULSE 81 CHEST PAIN 6/10. NITRO GIVEN. SPO2 88% ON RA. PLACED ON 2L O2 VIA NC. 1619 BP 139/79, PULSE 91. 99% ON 2L O2 VIA NC. PAIN REMAINED 6/10. HR SLIGHTLY IRREGULAR. NITRO GIVEN. 1626 BP 128/67 PULSE 95, 94%2L PAIN REMAINED 6/10 AND R' STATED IT'S GETTING WORSE! NITRO GIVEN. DR PACE ON UNIT AND ORDERED R' TO BE SENT TO ED. TRANSPORTED TO ED AT 1630. PRESENT AND WENT TO ED ALSO.
[2021-06-23 21:30] VITALS: BMI 43.4
[2021-06-23 21:31] LABS: Bedside Glucose 163 mg/dL (70-110)
[2021-06-23] MEDS: Gabapentin 600 MG Tablet PO (23:00)
[2021-06-23] MEDS: Carbidopa/Levodopa 25/100 Tablet PO (23:02)
[2021-06-23] MEDS: oxyCODONE 5 MG Tablet PO (23:08)
--- NOTE | 2021-06-24 00:28 | NURSING ---
Addendum entered by Josette Bob 06/24/21 00:31: Returned from ED approx 20:30 on 06/23/21 Original Note: Pt. returns to unit from ED, pt. states They didn't do anything they said I'm fine. No distress observed or reported. No c/o chest pain or shortness of breath. Pt. states he uses a CPAP at home and will call and ask her to bring in some time tomorrow. Call light in reach.
--- NOTE | 2021-06-24 00:38 | NURSING ---
Pt. declined to sign code status until present
[2021-06-24] MEDS: oxyCODONE 5 MG Tablet PO ×4 (04:54→21:11)
[2021-06-24] MEDS: Furosemide 40 MG Tablet PO (04:55)
[2021-06-24] MEDS: Polyethylene Glycol 3350 17 GM PACKET PO (04:55)
[2021-06-24] MEDS: Senna/Docusate Sodium 1 Tablet 2 TABLET PO ×2 (04:55→17:21)
[2021-06-24] MEDS: 0.9% Saline Lock 10 ML Syringe IV (05:03)
[2021-06-24 06:02] VITALS: RESP 16; O2SAT 96
[2021-06-24 06:26] LABS: Bedside Glucose 109 mg/dL (70-110)
[2021-06-24] MEDS: Glimepiride 2 MG Tablet 6 MG PO (07:58)
[2021-06-24] MEDS: Allopurinol 100 MG Tablet PO (07:58)
[2021-06-24] MEDS: Multivitamins,Therapeutic Tablet 1 TABLET PO (07:58)
[2021-06-24] MEDS: traMADol 50 MG Tablet PO (08:01)
[2021-06-24 08:38] LABS: Absolute Lymphocyte Count 1.24 X10^3/uL (0.83-4.51); Absolute Neutrophil Count 6.8 X10^3/uL (2.0-7.7); Basophil# 0.02 X10^3/uL; Basophil% 0.2 % (0-1); Eosinophil# 0.25 X10^3/uL; Eosinophils% 2.7 % (0-5); Hematocrit 42.5 % (40-54); Hemoglobin 12.9 g/dL (13.0-16.5); Lymphocyte # 1.24 X10^3/ul (0.83-4.51); Lymphocyte % 13.5 % (19-41); Mean Corp Hgb Conc 30.4 g/dL (32-36); Mean Corpuscular Hgb 27.4 pg (27.0-32.0); Mean Corpuscular Volume 90.4 fL (80-94); Mean Platelet Vol. 10.4 fl (6.2-12.0); Monocyte# 0.81 X10^3/uL; Monocyte% 8.8 % (0-10); NRBC Flagged by Analyzer 0 % (0-5); Neutrophil # 6.81 X10^3/uL (2.7-7.7); Neutrophil % 74.4 % (47-70); Platelet Count 198 K/mm3 (150-450); RBC Distribution Width CV 14.5 % (11.6-14.6); RBC Distribution Width SD 47.9 fl (35.1-43.9); White Blood Count 9.2 K/mm3 (4.4-11.0)
[2021-06-24 08:57] LABS: Prothrombin Time (Protime)PT. 21.8 SECONDS (11.7-14.9)
[2021-06-24 09:24] LABS: Anion Gap 6 (5-15); BUN 28 mg/dL (7-18); BUN/Creat Ratio 19.7 RATIO (10-20); Calcium,Total 8.7 mg/dL (8.5-10.1); Chloride 99 mmol/L (98-107); Creatinine, Serum 1.42 mg/dL (0.70-1.30); EST Glomerular Filtration Rate 51 mL/min (>60); Est Glom Filt Rate - Afr Amer 62 mL/min (>60); Estimated Creatinine Clearance 42.82 ml/min; Glucose 112 mg/dL (74-106); Potassium 4.6 mmol/L (3.5-5.1); Sodium Level 135 mmol/L (136-145)
[2021-06-24 10:00] VITALS: PULSE 64; RESP 18; O2SAT 94
[2021-06-24] MEDS: Tuberculin,Purif.prot.deriv. 50 TU/ML Vial 0.1 ML ID (10:41)
[2021-06-24 11:00] LABS: Bedside Glucose 114 mg/dL (70-110)
[2021-06-24 14:44] VITALS: BP 165/84; PULSE 93; RESP 16; TEMP 36.3; O2SAT 94
[2021-06-24] MEDS: Gabapentin 600 MG Tablet PO ×2 (14:55→17:22)
[2021-06-24 16:51] LABS: Bedside Glucose 175 mg/dL (70-110)
[2021-06-24] MEDS: Carbidopa/Levodopa 25/100 Tablet PO (21:12)
[2021-06-24] MEDS: cycloBENZAPRine HCl 5 MG TABLET PO (22:15)
[2021-06-25] MEDS: Polyethylene Glycol 3350 17 GM PACKET PO (05:05)
[2021-06-25] MEDS: Furosemide 40 MG Tablet PO (05:05)
[2021-06-25] MEDS: Senna/Docusate Sodium 1 Tablet 2 TABLET PO ×2 (05:05→16:53)
[2021-06-25] MEDS: oxyCODONE 5 MG Tablet PO ×2 (05:12→09:46)
[2021-06-25] MEDS: cycloBENZAPRine HCl 5 MG TABLET PO (05:13)
[2021-06-25 06:41] LABS: Bedside Glucose 134 mg/dL (70-110)
--- NOTE | 2021-06-25 07:20 | PT ---
Pt refusing to wear sling on LUE. Pt stated he is not wearing the sling today, despite encouragement to wear sling. Ortho consult in place with Dr. Becker.
[2021-06-25] MEDS: Glimepiride 2 MG Tablet 6 MG PO (07:34)
[2021-06-25] MEDS: Allopurinol 100 MG Tablet PO (07:34)
[2021-06-25] MEDS: Multivitamins,Therapeutic Tablet 1 TABLET PO (07:34)
[2021-06-25 08:00] LABS: Anion Gap 7 (5-15); BUN 32 mg/dL (7-18); BUN/Creat Ratio 24.4 RATIO (10-20); Calcium,Total 8.5 mg/dL (8.5-10.1); Chloride 96 mmol/L (98-107); Creatinine, Serum 1.31 mg/dL (0.70-1.30); EST Glomerular Filtration Rate 56 mL/min (>60); Est Glom Filt Rate - Afr Amer 68 mL/min (>60); Estimated Creatinine Clearance 46.41 ml/min; Glucose 144 mg/dL (74-106); Potassium 4.6 mmol/L (3.5-5.1); Sodium Level 132 mmol/L (136-145)
[2021-06-25] MEDS: Gabapentin 600 MG Tablet PO ×2 (08:24→16:53)
[2021-06-25] MEDS: Acetaminophen 500 MG Tablet 1000 MG PO (08:26)
[2021-06-25] MEDS: Bisacodyl 5 MG Tablet 10 MG PO (09:38)
[2021-06-25 10:00] VITALS: PULSE 74; RESP 18; O2SAT 95
[2021-06-25 16:00] VITALS: BP 162/79; PULSE 76; RESP 16; TEMP 36.4; O2SAT 92
[2021-06-25] MEDS: traMADol 50 MG Tablet PO (16:55)
[2021-06-25] MEDS: Carbidopa/Levodopa 25/100 Tablet PO ×2 (19:52)
--- NOTE | 2021-06-25 21:18 | NURSING ---
Paged Dr. Proctor with return phone call within minutes. Clarified frequency of blood sugar checks. New order received to check blood sugars daily, fasting.
[2021-06-26] MEDS: traMADol 50 MG Tablet PO ×2 (00:11→06:44)
[2021-06-26] MEDS: Polyethylene Glycol 3350 17 GM PACKET PO (05:06)
[2021-06-26] MEDS: Senna/Docusate Sodium 1 Tablet 2 TABLET PO ×2 (05:06→18:08)
[2021-06-26] MEDS: Furosemide 40 MG Tablet PO (05:06)
[2021-06-26 06:15] LABS: Bedside Glucose 124 mg/dL (70-110)
[2021-06-26 06:33] LABS: Anion Gap 5 (5-15); BUN 31 mg/dL (7-18); Calcium,Total 8.3 mg/dL (8.5-10.1); Chloride 96 mmol/L (98-107); Creatinine, Serum 1.24 mg/dL (0.70-1.30); EST Glomerular Filtration Rate 60 mL/min (>60); Est Glom Filt Rate - Afr Amer 73 mL/min (>60); Estimated Creatinine Clearance 49.03 ml/min; Glucose 125 mg/dL (74-106); Potassium 4.6 mmol/L (3.5-5.1); Sodium Level 132 mmol/L (136-145)
[2021-06-26] MEDS: Bisacodyl 5 MG Tablet 10 MG PO (06:45)
[2021-06-26] MEDS: Glimepiride 2 MG Tablet 6 MG PO (07:59)
[2021-06-26] MEDS: Gabapentin 600 MG Tablet PO ×2 (07:59→20:46)
[2021-06-26] MEDS: Multivitamins,Therapeutic Tablet 1 TABLET PO (07:59)
[2021-06-26] MEDS: Allopurinol 100 MG Tablet PO (07:59)
[2021-06-26 09:21] LABS: International Normalized Ratio 1.8; Prothrombin Time (Protime)PT. 19.8 SECONDS (11.7-14.9)
--- NOTE | 2021-06-26 09:37 | NURSING ---
PRUNE JUICE GIVEN TO PT FOR BM. OUT COME POSITIVE., XL
[2021-06-26] MEDS: oxyCODONE 5 MG Tablet PO ×2 (09:41→17:10)
--- NOTE | 2021-06-26 09:46 | NURSING ---
OK PER RN TO REMOVE SALINE LOCK., PT TOLERATED WELL.
--- NOTE | 2021-06-26 10:30 | NURSING ---
Pt refused Mag Citrate d/t having Ex-Large Bowel Movement.
[2021-06-26] MEDS: cycloBENZAPRine HCl 5 MG TABLET PO (10:47)
--- NOTE | 2021-06-26 13:26 | PCM.PN.RX ---
Progress Note - Pharmacy Subjective: TCU Admission Objective: Allergies atorvastatin [From Lipitor] Adverse Reaction (Severe, Verified 06/23/21 09:30) Myalgias promethazine HCl [From Phenergan] Adverse Reaction (Verified 06/23/21 09:30) GET JUMPY Current Medications Generic Name Dose Route Start Last Admin Trade Name Freq PRN Reason Stop Dose Admin Acetaminophen 1,000 mg 06/23/21 16:56 06/25/21 08:26 Acetaminophen 500 Mg Tablet PO 1,000 mg Q6H PRN PRN Administration Pain Score 1-3 Allopurinol 100 mg 06/24/21 08:00 06/26/21 07:59 Allopurinol 100 Mg Tablet PO 100 mg BREAKFAST SIDNEY Administration Bisacodyl 10 mg 06/23/21 16:56 06/26/21 06:45 Bisacodyl 5 Mg Tablet PO 10 mg DAILY PRN PRN Administration Constipation Carbidopa/Levodopa 1 tablet 06/23/21 22:00 06/25/21 19:52 Carbidopa/Levodopa 25/100 Tablet PO 1 tablet QHS SIDNEY Administration Cyclobenzaprine HCl 5 mg 06/23/21 16:45 06/26/21 10:47 Cyclobenzaprine Hcl 5 Mg Tablet PO 5 mg TID PRN PRN Administration SPASMS Furosemide 40 mg 06/24/21 06:00 06/26/21 05:06 Furosemide 40 Mg Tablet PO 40 mg DAILY SIDNEY Administration Gabapentin 600 mg 06/25/21 08:00 06/26/21 07:59 Gabapentin 600 Mg Tablet PO 600 mg BIDCM SIDNEY Administration Glimepiride 6 mg 06/24/21 08:00 06/26/21 07:59 Glimepiride 2 Mg Tablet PO 6 mg DAILY@0800 SIDNEY Administration Multivitamins 1 tablet 06/24/21 08:00 06/26/21 07:59 Multivitamins,Therapeutic Tablet PO 1 tablet BREAKFAST SIDNEY Administration Nitroglycerin 0.4 mg 06/23/21 16:47 06/23/21 16:25 Nitroglycerin (Inpatient Use) 0.4 Mg Tab.Subl SL 0.4 mg Q5M PRN Administration CARDIAC/CHEST PAIN Oxycodone HCl 5 mg 06/23/21 16:56 06/26/21 09:41 Oxycodone 5 Mg Tablet PO 5 mg Q4H PRN PRN Administration Pain Score 6-10 Polyethylene Glycol 17 gm 06/23/21 17:00 06/26/21 05:06 Polyethylene Glycol 3350 17 Gm Packet PO 17 gm DAILY SIDNEY Administration Senna/Docusate Sodium 2 tablet 06/23/21 18:00 06/26/21 05:06 Senna/Docusate Sodium 1 Tablet PO 2 tablet BID SIDNEY Administration Sodium Chloride 10 - 40 ml 06/24/21 00:36 06/24/21 05:03 0.9% Saline Lock 10 Ml Syringe IV 10 ml UD PRN Administration SALINE FLUSH Tramadol HCl 50 mg 06/23/21 16:56 06/26/21 06:44 Tramadol 50 Mg Tablet PO 50 mg Q6H PRN PRN Administration Pain Score 4-5 Tuberculin PPD 0.1 ml 07/01/21 10:00 Tuberculin,Purif.Prot.Deriv. 50 Tu/Ml Vial ID 07/01/21 10:01 X1 ONE Warfarin Sodium 4 mg 06/24/21 17:00 06/25/21 16:53 Warfarin 4 Mg Tablet PO 4 mg DINNER SIDNEY Administration Problem List (Last Reviewed 06/23/21 @ 17:44 by Radha Dillon) Muscle spasm (Acute) Parkinson disease (Acute) Atrial fibrillation and flutter (Acute) Neuropathic pain (Acute) Diabetes mellitus (Acute) Edema (Acute) Gout (Acute) Debility (Acute) Chest pain (Acute) Acetabulum fracture, left (Acute) Contusion of left shoulder (Acute) Vital Signs Temp Pulse Resp BP Pulse Ox 97.6 F L 76 16 162/79 H 92 06/25/21 16:00 06/25/21 16:00 06/25/21 16:00 06/25/21 16:00 06/25/21 16:00 Oxygen Flow Rate (L/min) 5 Oxygen Delivery Method Room Air Weight: 129.812 kg Body Mass Index (BMI) 43.4 Sodium 132 mmol/L (136-145) L 06/26/21 05:16 Potassium 4.6 mmol/L (3.5-5.1) 06/26/21 05:16 Chloride 96 mmol/L (98-107) L 06/26/21 05:16 Carbon Dioxide 31.0 mmol/L (21.0-32.0) 06/26/21 05:16 Anion Gap 5 (5-15) 06/26/21 05:16 BUN 31 mg/dL (7-18) H 06/26/21 05:16 Creatinine 1.24 mg/dL (0.70-1.30) 06/26/21 05:16 Est GFR (MDRD) Af Amer 73 mL/min (>60) 06/26/21 05:16 Est GFR (MDRD) Non-Af 60 mL/min (>60) 06/26/21 05:16 BUN/Creatinine Ratio 25.0 RATIO (10-20) H 06/26/21 05:16 Glucose 125 mg/dL (74-106) H 06/26/21 05:16 Assessment/Plan: 1. Pain: acetaminophen 1000mg PO Q6H PRN pain 1-3/10, tramadol 50mg PO Q6H PRN pain 4-5/10 and oxycodone 5mg PO Q4H PRN pain 6-10/10. Please continue to monitor for increased pain, PRN usage, constipation and respiratory depression. 2. Gout: allopurinol 100mg PO daily. Please continue to monitor for S/S of gout and renal function. 3. Atrial flutter: warfarin 4mg PO DINNER. Please continue to monitor for S/S of bleeding and INR (last 1.8). 4. Diabetic polyneuropathy: gabapentin 600mg PO BID. Please continue to monitor for confusion and renal function. 5. Edema: furosemide 40mg PO daily. Please continue to monitor potassium (last 4.6mmol/L), sodium (last 132mmol/L), BP (last 162/79) and renal function. 6. Restless leg syndrome: SInemet 25/100mg PO QHS. Please continue to monitor for restless legs and GI side effects. 7. Diabetes Mellitus II: glimepiride 6mg PO breakfast. Please continue to monitor for S/S of hypoglycemia (medication is on the BEERs list for hypoglycemia), hemoglobin A1c (last 9.0%) and glucose (last 125mg/dL). 8. Muscle spasm: cyclobenzaprine 5mg PO TID PRN spasms. Please continue to monitor for anticholinergic side effects (this medication is on the BEERs list) and PRN usage. 9. Chest pain: nitroglycerin 0.4mg SL Q5M PRN cardiac/chest pain. Please continue to monitor for chest pain. 10. Nutrition: multivitamin 1T PO breakfast. Please continue to monitor. Psychotropic Medications: None Unnecessary Medications: None Bowel Regimen: Miralax 17gm PO daily, senna/docusate 2T PO BID and bisacodyl 10mg PO daily PRN constipation. Please continue to monitor for constipation and PRN usage. Date of Note:: 06/26/21
--- NOTE | 2021-06-26 13:58 | NURSING ---
Addendum entered by Bozena Cruz 06/26/21 18:25: Appt. Made with Dr. Sam 06/30 @ 7301 wheel chair transportation for 0845. Original Note: Called to for consultation with Dr. Villagran's office. Dr. Rojas's office called back and would like him to be seen by Reg Fuentes. Called Reg Fuentes and spoke with Bozena. Bozena was going to contact Dr. Jeter who is floor person to see if he would want to come here to do consult. Awaiting return call.
[2021-06-26 14:25] VITALS: BP 135/63; PULSE 82; RESP 18; TEMP 36.2; O2SAT 92
[2021-06-26] MEDS: Warfarin 0.5 MG Tablet PO (18:08)
[2021-06-26] MEDS: cycloBENZAPRine HCl 10 MG Tablet PO (22:28)
[2021-06-27] MEDS: Furosemide 40 MG Tablet PO (05:20)
[2021-06-27] MEDS: cycloBENZAPRine HCl 10 MG Tablet PO ×2 (05:20→20:57)
[2021-06-27] MEDS: Polyethylene Glycol 3350 17 GM PACKET PO (05:21)
[2021-06-27] MEDS: Senna/Docusate Sodium 1 Tablet 2 TABLET PO ×2 (05:21→16:13)
[2021-06-27 05:44] VITALS: BP 148/70; PULSE 88; RESP 210; TEMP 35.8; O2SAT 92
[2021-06-27 06:20] LABS: Bedside Glucose 138 mg/dL (70-110)
[2021-06-27 06:30] LABS: Anion Gap 6 (5-15); BUN 27 mg/dL (7-18); BUN/Creat Ratio 22.9 RATIO (10-20); Calcium,Total 8.6 mg/dL (8.5-10.1); Chloride 97 mmol/L (98-107); Creatinine, Serum 1.18 mg/dL (0.70-1.30); EST Glomerular Filtration Rate 64 mL/min (>60); Est Glom Filt Rate - Afr Amer 77 mL/min (>60); Estimated Creatinine Clearance 51.53 ml/min; Glucose 128 mg/dL (74-106); Potassium 4.6 mmol/L (3.5-5.1); Sodium Level 134 mmol/L (136-145)
[2021-06-27] MEDS: Gabapentin 600 MG Tablet PO ×2 (08:52→20:55)
[2021-06-27] MEDS: Glimepiride 2 MG Tablet 6 MG PO (08:53)
[2021-06-27] MEDS: Multivitamins,Therapeutic Tablet 1 TABLET PO (08:53)
[2021-06-27] MEDS: Allopurinol 100 MG Tablet PO (08:57)
[2021-06-27] MEDS: oxyCODONE 5 MG Tablet PO ×3 (09:00→20:56)
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
--- NOTE | 2021-06-27 10:03 | NURSING ---
ANT IVERSON FROM DR. SQUIRES OFFICE IN TO SEE PT. ORDERS FOR TOE TOUCH WEIGHT BEARING FOR LEFT HIP FOR 8 WEEKS AND IN 2 WEEKS WANTS A X-RAY. RN AWARE
--- NOTE | 2021-06-27 10:54 | CASEMGMT ---
Social Work Met with patient and present in room for initial assessment. Discussed code status - pt wishes to be DNR-CCA, no intubation. Nursing notified. MOLST form completed, communication to , placed in chart. Explained Medicare Part A services but beginning day 21, there is about an $186/day copay and pth as no secondary insurance. explained their denominational assists with medical bills they could potentially cover the copay. Encouraged to provide information/cost to denominational and notify SW if that will be issue if would need to remain after day 21. expressed understanding. Explained without Medicare part B, no HHC or DME, outpatient services will be covered by insurance, but SW can still assist with setting up those services, if needed at [place]. SW to continue to follow. ZAYNAB GarciaW
[2021-06-27 12:12] VITALS: PULSE 85; O2SAT 92
[2021-06-27] MEDS: Warfarin 0.5 MG Tablet PO (16:13)
[2021-06-27] MEDS: Carbidopa/Levodopa 25/100 Tablet PO (20:55)
[2021-06-28] MEDS: oxyCODONE 5 MG Tablet PO ×3 (05:59→21:07)
[2021-06-28] MEDS: Citalopram 10 MG Tablet PO (05:59)
[2021-06-28] MEDS: Furosemide 40 MG Tablet PO (06:00)
[2021-06-28] MEDS: Senna/Docusate Sodium 1 Tablet 2 TABLET PO ×2 (06:01→17:33)
[2021-06-28] MEDS: Polyethylene Glycol 3350 17 GM PACKET PO (06:01)
[2021-06-28 06:30] LABS: Bedside Glucose 131 mg/dL (70-110)
[2021-06-28 06:40] LABS: Anion Gap 8 (5-15); BUN 28 mg/dL (7-18); BUN/Creat Ratio 23.7 RATIO (10-20); Chloride 98 mmol/L (98-107); Creatinine, Serum 1.18 mg/dL (0.70-1.30); EST Glomerular Filtration Rate 64 mL/min (>60); Est Glom Filt Rate - Afr Amer 77 mL/min (>60); Estimated Creatinine Clearance 51.53 ml/min; Glucose 141 mg/dL (74-106); Potassium 4.4 mmol/L (3.5-5.1); Sodium Level 131 mmol/L (136-145)
[2021-06-28] MEDS: Allopurinol 100 MG Tablet PO (09:02)
[2021-06-28] MEDS: Glimepiride 2 MG Tablet 6 MG PO (09:02)
[2021-06-28] MEDS: Multivitamins,Therapeutic Tablet 1 TABLET PO (09:02)
[2021-06-28] MEDS: Gabapentin 600 MG Tablet PO ×2 (09:02→21:07)
[2021-06-28] MEDS: cycloBENZAPRine HCl 10 MG Tablet PO (11:08)
[2021-06-28] MEDS: Acetaminophen 500 MG Tablet 1000 MG PO ×2 (11:11→21:06)
--- NOTE | 2021-06-28 13:22 | CASEMGMT ---
Social Work IDT met with patient and for care plan meeting. Discussed patient's progress in therapy and nursing. Explained Medicare Part A only and has financial assistance from [employer]. The goal is to return home with . states she can assist pt but only minimally physically as she is smaller in stature than patient. Pt is TTWB on LLE, WBAT on LUE. Nursing working on controlling pain as that is limiting to pt. Pt progressing well. Offered family therapy training with . Scheduled 07/06 at 10 am. speaking with [facility] to see if they can pay for FWW and HHC at [place]. SW to assist. Will continue to follow. ZAYNAB Garcia
[2021-06-28 16:00] VITALS: BP 167/88; PULSE 73; RESP 20; TEMP 36.4; O2SAT 97
[2021-06-28] MEDS: Warfarin 0.5 MG Tablet PO (17:33)
[2021-06-28 20:49] VITALS: PULSE 72; RESP 20; O2SAT 93
[2021-06-28] MEDS: Carbidopa/Levodopa 25/100 Tablet PO (21:08)
[2021-06-29 05:12] VITALS: BP 142/78; PULSE 73
[2021-06-29] MEDS: Polyethylene Glycol 3350 17 GM PACKET PO (05:13)
[2021-06-29] MEDS: Citalopram 10 MG Tablet PO (05:14)
[2021-06-29] MEDS: Furosemide 40 MG Tablet PO (05:14)
[2021-06-29] MEDS: Senna/Docusate Sodium 1 Tablet 2 TABLET PO ×2 (05:14→16:51)
[2021-06-29 06:04] LABS: International Normalized Ratio 1.8; Prothrombin Time (Protime)PT. 19.7 SECONDS (11.7-14.9)
[2021-06-29 06:26] LABS: Bedside Glucose 118 mg/dL (70-110)
[2021-06-29] MEDS: Gabapentin 600 MG Tablet PO ×2 (08:19→20:25)
[2021-06-29] MEDS: Allopurinol 100 MG Tablet PO (08:19)
[2021-06-29] MEDS: Glimepiride 2 MG Tablet 6 MG PO (08:19)
[2021-06-29] MEDS: Bisacodyl 5 MG Tablet 10 MG PO (08:19)
[2021-06-29] MEDS: Multivitamins,Therapeutic Tablet 1 TABLET PO (10:52)
[2021-06-29] MEDS: traMADol 50 MG Tablet PO (10:57)
[2021-06-29 14:20] VITALS: BP 127/63; PULSE 89; RESP 18; TEMP 36.6; O2SAT 93
--- NOTE | 2021-06-29 14:44 | MDS.RN ---
Pain interview for ANTHONY 06/30/21 completed.
[2021-06-29] MEDS: cycloBENZAPRine HCl 10 MG Tablet PO (15:46)
[2021-06-29 20:20] VITALS: PULSE 87; RESP 16; O2SAT 93
[2021-06-29] MEDS: Acetaminophen 500 MG Tablet 1000 MG PO (20:20)
[2021-06-29] MEDS: oxyCODONE 5 MG Tablet PO (20:21)
[2021-06-29] MEDS: Carbidopa/Levodopa 25/100 Tablet PO (20:25)
--- NOTE | 2021-06-29 21:09 | NURSING ---
Golden catheter removed. Patient tolerated well. Small amount of drainage after removal. Patient had 675mL of urine out prior to removal. Will continue to monitor.
[2021-06-30] MEDS: oxyCODONE 5 MG Tablet PO ×2 (04:31→14:11)
[2021-06-30] MEDS: Furosemide 40 MG Tablet PO (04:33)
[2021-06-30] MEDS: Polyethylene Glycol 3350 17 GM PACKET PO (04:33)
[2021-06-30] MEDS: Senna/Docusate Sodium 1 Tablet 2 TABLET PO ×2 (04:33→17:27)
[2021-06-30] MEDS: Citalopram 10 MG Tablet PO (04:33)
[2021-06-30 06:26] LABS: Bedside Glucose 88 mg/dL (70-110)
[2021-06-30] MEDS: Allopurinol 100 MG Tablet PO (08:32)
[2021-06-30] MEDS: Gabapentin 600 MG Tablet PO (08:32)
[2021-06-30] MEDS: Multivitamins,Therapeutic Tablet 1 TABLET PO (08:32)
[2021-06-30] MEDS: Glimepiride 2 MG Tablet 6 MG PO (08:32)
[2021-06-30] MEDS: cycloBENZAPRine HCl 10 MG Tablet PO ×3 (08:34→20:54)
--- NOTE | 2021-06-30 10:53 | CASEMGMT ---
Social Work BIMS and PHQ-9 completed for MDS assessment. Cassia Blake, MANUFACTURING INDUSTRIAL ENGINEER ROTOR CASTING MACHINE SETUP OPERATOR
--- NOTE | 2021-06-30 12:37 | CASEMGMT ---
Social Work Spoke with pt and about their request for DC. completed therapy family training this date and all agreeable to DC 07/06. Pt denies any therapy, nursing or DME needs at DC. to transport. Plan: DC home with 07/06, no needs Cassia Blake MSW [employer]
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
[2021-06-30 15:47] VITALS: BP 150/83; PULSE 74; RESP 16; TEMP 36.2; O2SAT 95
[2021-06-30] MEDS: Gabapentin 800 MG Tablet PO ×2 (16:05→20:54)
[2021-06-30] MEDS: Acetaminophen 500 MG Tablet 1000 MG PO (20:54)
[2021-06-30] MEDS: Carbidopa/Levodopa 25/100 Tablet PO (20:54)
[2021-06-30 22:00] VITALS: PULSE 74; RESP 16; O2SAT 92
[2021-07-01] MEDS: cycloBENZAPRine HCl 10 MG Tablet PO ×2 (02:34→21:12)
--- NOTE | 2021-07-01 02:42 | NURSING ---
Pt calls requesting medication for pain and muscle spasms. Given Flexeril per dr order. Too early to give Tylenol. Urinal empted for 575 ml of straw colored, clear urine. Pt reports he has not been wearing his home PAP unit. Call light w/ in reach.
[2021-07-01] MEDS: Acetaminophen 500 MG Tablet 1000 MG PO ×2 (03:13→09:33)
[2021-07-01] MEDS: traMADol 50 MG Tablet PO ×2 (03:14→09:34)
[2021-07-01] MEDS: Furosemide 40 MG Tablet PO (06:26)
[2021-07-01] MEDS: Polyethylene Glycol 3350 17 GM PACKET PO (06:26)
[2021-07-01] MEDS: Citalopram 10 MG Tablet PO (06:26)
[2021-07-01] MEDS: Senna/Docusate Sodium 1 Tablet 2 TABLET PO ×2 (06:27→17:15)
[2021-07-01 06:30] LABS: Bedside Glucose 119 mg/dL (70-110)
[2021-07-01 06:32] VITALS: BP 153/83; PULSE 76
[2021-07-01 08:50] LABS: Absolute Lymphocyte Count 2.46 X10^3/uL (0.83-4.51); Absolute Neutrophil Count 3.9 X10^3/uL (2.0-7.7); Basophil# 0.04 X10^3/uL; Basophil% 0.6 % (0-1); Eosinophil# 0.32 X10^3/uL; Eosinophils% 4.5 % (0-5); Hematocrit 39.6 % (40-54); Hemoglobin 12.3 g/dL (13.0-16.5); Lymphocyte # 2.46 X10^3/ul (0.83-4.51); Lymphocyte % 34.2 % (19-41); Mean Corp Hgb Conc 31.1 g/dL (32-36); Mean Corpuscular Hgb 26.9 pg (27.0-32.0); Mean Corpuscular Volume 86.7 fL (80-94); Mean Platelet Vol. 9.4 fl (6.2-12.0); Monocyte# 0.47 X10^3/uL; Monocyte% 6.5 % (0-10); NRBC Flagged by Analyzer 0 % (0-5); Neutrophil # 3.87 X10^3/uL (2.7-7.7); Neutrophil % 53.8 % (47-70); POSITIVE MORPHOLOGY YES; Platelet Count 359 K/mm3 (150-450); RBC Distribution Width CV 13.7 % (11.6-14.6); RBC Distribution Width SD 43.7 fl (35.1-43.9); Red Blood Count 4.57 M/mm3 (4.6-6.2); White Blood Count 7.2 K/mm3 (4.4-11.0)
[2021-07-01 08:53] LABS: Differential Indicated SCAN CRITERIA MET
[2021-07-01] MEDS: Glimepiride 2 MG Tablet 6 MG PO (09:27)
[2021-07-01] MEDS: Allopurinol 100 MG Tablet PO (09:28)
[2021-07-01] MEDS: Multivitamins,Therapeutic Tablet 1 TABLET PO (09:28)
[2021-07-01] MEDS: Gabapentin 800 MG Tablet PO ×3 (09:28→17:15)
[2021-07-01 10:09] LABS: Differential Comment SCANNED; Reactive Lymphocyte 1+
[2021-07-01] MEDS: Tuberculin,Purif.prot.deriv. 50 TU/ML Vial 0.1 ML ID (11:12)
[2021-07-01 12:22] VITALS: PULSE 84; RESP 18; O2SAT 94
[2021-07-01 15:49] VITALS: BP 132/67; PULSE 76; RESP 18; TEMP 36.9; O2SAT 98
[2021-07-01] MEDS: Carbidopa/Levodopa 25/100 Tablet PO (21:07)
[2021-07-01] MEDS: oxyCODONE 5 MG Tablet PO (21:11)
[2021-07-02] MEDS: Acetaminophen 500 MG Tablet 1000 MG PO ×2 (03:17→18:45)
[2021-07-02] MEDS: oxyCODONE 5 MG Tablet PO ×3 (03:17→18:45)
[2021-07-02] MEDS: Furosemide 40 MG Tablet PO (05:33)
[2021-07-02] MEDS: Citalopram 10 MG Tablet PO (05:33)
[2021-07-02] MEDS: Senna/Docusate Sodium 1 Tablet 2 TABLET PO ×2 (05:33→16:59)
[2021-07-02] MEDS: Polyethylene Glycol 3350 17 GM PACKET PO (05:33)
[2021-07-02 05:37] VITALS: BP 150/75; PULSE 75
[2021-07-02 06:31] LABS: Bedside Glucose 102 mg/dL (70-110)
[2021-07-02] MEDS: Gabapentin 800 MG Tablet PO ×3 (09:10→16:59)
[2021-07-02] MEDS: Multivitamins,Therapeutic Tablet 1 TABLET PO (09:10)
[2021-07-02] MEDS: Glimepiride 2 MG Tablet 6 MG PO (09:10)
[2021-07-02] MEDS: Allopurinol 100 MG Tablet PO (09:11)
[2021-07-02] MEDS: cycloBENZAPRine HCl 10 MG Tablet PO (15:01)
[2021-07-02 16:46] VITALS: BP 158/74; PULSE 75; RESP 16; TEMP 36.8; O2SAT 96
[2021-07-02] MEDS: Carbidopa/Levodopa 25/100 Tablet PO (19:52)
--- NOTE | 2021-07-02 21:35 | NURSING ---
notified via telephone of written communication [facility] related to patient need for escript for flexeril called [facility] in preparation for discharge, also requesting left hip xray per written communication on 07/11. Per ordering physician needs to provide order for 07/11 xray and will address flexeril script in AM.
[2021-07-02 23:08] VITALS: PULSE 78; RESP 18; O2SAT 91
[2021-07-03] MEDS: cycloBENZAPRine HCl 10 MG Tablet PO ×2 (00:53→20:32)
[2021-07-03] MEDS: Acetaminophen 500 MG Tablet 1000 MG PO ×2 (04:21→17:18)
[2021-07-03] MEDS: oxyCODONE 5 MG Tablet PO ×2 (04:22→19:35)
[2021-07-03] MEDS: Senna/Docusate Sodium 1 Tablet 2 TABLET PO ×2 (04:23→16:55)
[2021-07-03] MEDS: Furosemide 40 MG Tablet PO (04:23)
[2021-07-03] MEDS: Citalopram 10 MG Tablet PO (04:25)
[2021-07-03] MEDS: Polyethylene Glycol 3350 17 GM PACKET PO (04:25)
[2021-07-03 06:29] LABS: International Normalized Ratio 1.9; Prothrombin Time (Protime)PT. 20.6 SECONDS (11.7-14.9)
[2021-07-03 06:50] LABS: Bedside Glucose 113 mg/dL (70-110)
[2021-07-03] MEDS: Gabapentin 800 MG Tablet PO ×3 (08:23→16:55)
[2021-07-03] MEDS: Allopurinol 100 MG Tablet PO (08:23)
[2021-07-03] MEDS: Glimepiride 2 MG Tablet 6 MG PO (08:23)
[2021-07-03] MEDS: Multivitamins,Therapeutic Tablet 1 TABLET PO (08:23)
--- NOTE | 2021-07-03 09:44 | NURSING ---
Addendum entered by Radha Buitrago 07/03/21 10:04: pt appt made with Dr Villagran on 07/12/21 at 0930. placed in pt discharge instructions f/u appts Addendum entered by Radha Buitrago 07/03/21 09:58: [facility] office left message, plans changed, pt will have appt with in 2 wks then he will have pt get xray. Will call office and get appt made for discharge. Original Note: spoke with Dr Prather switchboard receptionist regarding needing order for xray of LT hip on 07/11 for follow up fracture. They will send order, pt can go to [facility] or [facility] for xray. pt updated, also placed on pts discharge instructions
[2021-07-03 14:15] VITALS: BP 115/54; PULSE 78; RESP 18; TEMP 36.1; O2SAT 96
--- NOTE | 2021-07-03 17:51 | NURSING ---
Dr Proctor updated, pt requesting celexa be dc'd d/t pt having tremors. daughter at bedside. celexa dc'd
[2021-07-03 17:53] VITALS: RESP 18
--- NOTE | 2021-07-03 20:30 | NURSING ---
Refuses to wear CPAP. Unit from home remains on unit.
[2021-07-03] MEDS: Carbidopa/Levodopa 25/100 Tablet PO (20:32)
--- NOTE | 2021-07-03 20:35 | NURSING ---
Pt reports muscle spasms to BLE. Flexeril 10 mg given po per dr order. Informs this nurse hip pain had improved since since medicated w/ Oxycodone until onset of muscle spasm. In moderate distress. Positions self in bed for comfort. Will continue to monitor.
[2021-07-04] MEDS: oxyCODONE 5 MG Tablet PO ×3 (05:34→22:27)
[2021-07-04] MEDS: Polyethylene Glycol 3350 17 GM PACKET PO (05:35)
[2021-07-04] MEDS: Senna/Docusate Sodium 1 Tablet 2 TABLET PO ×2 (05:35→17:58)
[2021-07-04] MEDS: Furosemide 40 MG Tablet PO (05:35)
[2021-07-04] MEDS: cycloBENZAPRine HCl 10 MG Tablet PO ×3 (06:43→20:17)
[2021-07-04 07:01] LABS: Bedside Glucose 186 mg/dL (70-110)
[2021-07-04] MEDS: Allopurinol 100 MG Tablet PO (09:07)
[2021-07-04] MEDS: Glimepiride 2 MG Tablet 6 MG PO (09:07)
[2021-07-04] MEDS: Multivitamins,Therapeutic Tablet 1 TABLET PO (09:07)
[2021-07-04] MEDS: Gabapentin 800 MG Tablet PO ×3 (09:08→17:58)
[2021-07-04 12:50] VITALS: BP 145/80; PULSE 80; RESP 18; TEMP 35.7; O2SAT 97
--- NOTE | 2021-07-04 12:50 | PCA ---
pt was c/o not feeling well, this aide asked pt what his symptoms were and he stated back to me his legs are very restless and his testicles are hurting, i asked if his testicles were red or inflamed he stated no they just hurt. Nurse notified
--- NOTE | 2021-07-04 17:35 | US_ITS ---
INDICATION: Pain in Left Testicular EXAMINATION: US Scrotum (Contents) TECHNIQUE: Realtime ultrasound of the testicles was performed with grayscale, Color Doppler and spectral Doppler analysis. COMPARISON: None. FINDINGS: RIGHT: TESTIS: Measures 4.5 x 2.7 x 1.9 cm. Normal in size, slightly heterogeneous, without focal lesion. COLOR DOPPLER: Normal arterial flow present in the testicle with monophasic waveforms. EPIDIDYMIS: Normal in size and echotexture, with a 4 mm epididymal head cyst. [Normal color Doppler flow pattern in the epididymis. HYDROCELE: Small. VARICOCELE: None. LEFT: TESTIS: Measures 4.4 x 2.8 x 2.1 cm. Normal in size, slightly heterogeneous, without focal lesion. COLOR DOPPLER: Normal arterial flow present in the testicle with monophasic waveforms. EPIDIDYMIS: Normal in size and echotexture, without focal lesion. [Normal color Doppler flow pattern in the epididymis. HYDROCELE: Small VARICOCELE: None. US/Testicular with Arterial Flow IMPRESSION: Bilateral heterogeneous testicular echotexture. 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 Small bilateral hydroceles. 4 mm right epididymal head cyst. Electronically Signed: Duy Wilson MD at 21:31 EDT Tel , Service support ,
[2021-07-04] MEDS: Carbidopa/Levodopa 25/100 Tablet PO (20:18)
[2021-07-04 23:57] VITALS: PULSE 63; RESP 14
[2021-07-05] MEDS: cycloBENZAPRine HCl 10 MG Tablet PO ×2 (05:07→13:03)
[2021-07-05] MEDS: Polyethylene Glycol 3350 17 GM PACKET PO (05:08)
[2021-07-05] MEDS: Senna/Docusate Sodium 1 Tablet 2 TABLET PO ×2 (05:09→17:27)
[2021-07-05] MEDS: Furosemide 40 MG Tablet PO (05:09)
[2021-07-05] MEDS: oxyCODONE 5 MG Tablet PO ×3 (05:14→19:47)
[2021-07-05 06:25] LABS: Bedside Glucose 125 mg/dL (70-110)
[2021-07-05 06:59] LABS: Bacteria 0 SEEN /hpf (None Seen); Mucous, Urine 0 SEEN /hpf (<or=2+); Red Blood Cells-Urine 0 SEEN /hpf (0-5); Squamous Epithelial Cells - UA 0 SEEN /hpf (0-5); White Blood Cells 0 SEEN /hpf (0-5)
[2021-07-05 07:01] LABS: Color, Urine Yellow (Yellow); Glucose, Dipstick Normal (Normal); Ketone-Dipstick Negative (Negative); Leukocyte Esterase-Dipstick Negative /ul (Negative); Nitrite-Dipstick Negative (Negative); Occult Blood-Urine Negative /ul (Negative); Protein-Dipstick 30 mg/dl (Negative); Urine Bilirubin Dipstick Negative (Negative); Urine Clarity Clear (Clear); Urine Urobilinogen Normal (Normal)
[2021-07-05] MEDS: Multivitamins,Therapeutic Tablet 1 TABLET PO (07:58)
[2021-07-05] MEDS: Allopurinol 100 MG Tablet PO (07:58)
[2021-07-05] MEDS: Gabapentin 800 MG Tablet PO ×3 (07:58→17:27)
[2021-07-05] MEDS: Glimepiride 2 MG Tablet 6 MG PO (07:58)
[2021-07-05 10:00] VITALS: PULSE 81; RESP 16; O2SAT 94
[2021-07-05 16:50] VITALS: BP 127/73; PULSE 78; RESP 16; TEMP 36.7; O2SAT 95
[2021-07-05] MEDS: Acetaminophen 500 MG Tablet 1000 MG PO (19:48)
[2021-07-05] MEDS: Carbidopa/Levodopa 25/100 Tablet PO (19:49)
[2021-07-06 05:41] LABS: International Normalized Ratio 1.7; Prothrombin Time (Protime)PT. 19.3 SECONDS (11.7-14.9)
[2021-07-06] MEDS: Senna/Docusate Sodium 1 Tablet 2 TABLET PO (05:44)
[2021-07-06] MEDS: Furosemide 40 MG Tablet PO (05:44)
[2021-07-06] MEDS: Polyethylene Glycol 3350 17 GM PACKET PO (05:44)
[2021-07-06] MEDS: cycloBENZAPRine HCl 10 MG Tablet PO (05:51)
[2021-07-06 06:21] LABS: Bedside Glucose 117 mg/dL (70-110)
[2021-07-06] MEDS: Multivitamins,Therapeutic Tablet 1 TABLET PO (07:51)
[2021-07-06] MEDS: Gabapentin 800 MG Tablet PO (07:51)
[2021-07-06] MEDS: Glimepiride 2 MG Tablet 6 MG PO (07:51)
[2021-07-06] MEDS: Allopurinol 100 MG Tablet PO (07:51)
[2021-07-06] MEDS: Acetaminophen 500 MG Tablet 1000 MG PO (08:38)
[2021-07-06 09:09] VITALS: PULSE 80; RESP 18; O2SAT 93
--- NOTE | 2021-07-06 10:15 | MDS.RN ---
Information for the mds was obtained from review of the clinical record, interview of resident, staff, and direct observation of resident's care.
== END 2021-07-06 10:10 | disposition home or self-care (01) | DRG 561 ==
PROVIDERS: Admitting Provider Family Medicine Geriatric Medicine; PCP Family Medicine; Visit Provider Family Medicine Geriatric Medicine
DX: S32.402D Unspecified fracture of left acetabulum, subsequent encounter for fracture with routine healing (principal); V84.9XXD Unspecified occupant of special agricultural vehicle injured in nontraffic accident, subsequent encounter; S40.012D Contusion of left shoulder, subsequent encounter; Z23 Encounter for immunization; E11.22 Type 2 diabetes mellitus with diabetic chronic kidney disease; I25.10 Atherosclerotic heart disease of native coronary artery without angina pectoris; I12.9 Hypertensive chronic kidney disease with stage 1 through stage 4 chronic kidney disease, or unspecified chronic kidney disease; N18.31 Chronic kidney disease, stage 3a; K21.9 Gastro-esophageal reflux disease without esophagitis; M10.9 Gout, unspecified; E78.5 Hyperlipidemia, unspecified; I25.2 Old myocardial infarction; G47.33 Obstructive sleep apnea (adult) (pediatric); M19.90 Unspecified osteoarthritis, unspecified site; G25.81 Restless legs syndrome; I48.91 Unspecified atrial fibrillation; G93.2 Benign intracranial hypertension; F32.9 Major depressive disorder, single episode, unspecified; G20 Parkinson's disease; E11.42 Type 2 diabetes mellitus with diabetic polyneuropathy; Z86.711 Personal history of pulmonary embolism; Z79.899 Other long term (current) drug therapy; Z79.01 Long term (current) use of anticoagulants; Z79.84 Long term (current) use of oral hypoglycemic drugs
CPT/HCPCS: 36415; 76870; 80048; 81001; 82962; 85025; 85610; 87086; 87088; 92610; 93005; 93976; 97110; 97116; 97163; 97166; 97530; 97535; 97802; G0009; 90670; A4216

== ENCOUNTER 2021-06-23 16:47 | Emergency (ER) | payer MEDICARE, SELFPAY ==
[2017-12-20 14:12] VITALS: BMI 40.4
[2021-06-23 16:47] VITALS: BP 136/82; PULSE 84; RESP 15; TEMP 37.1; O2SAT 97; BMI 44.6
--- NOTE | 2021-06-23 16:50 | RAD_ITS ---
STUDY: X-RAY CHEST REASON FOR EXAM: Male, 75 years old. chest pain TECHNIQUE: Single AP portable view of the chest. COMPARISON: 01/09/2021 FINDINGS: The lungs are clear and expanded. There is no demonstrated pleural abnormality. There is moderate cardiac enlargement. Normal mediastinum and [place]. Normal visualized pulmonary arteries. Normal visualized aortic arch and descending thoracic aorta. Normal visualized thoracic spine. Hardware and multiple right ribs. There is no demonstrated abnormality of the visualized soft tissue structures of the upper abdomen. RAD/Chest 1 View (Portable) IMPRESSION: No active disease. Electronically Signed: Tutu Guerrero MD at 17:46 EDT Tel , Service support ,
--- NOTE | 2021-06-23 16:50 | EKG12_ITS ---
Test Reason : CHEST PAIN Blood Pressure : / mmHG Vent. Rate : 083 BPM Atrial Rate : 374 BPM P-R Int : 000 ms QRS Dur : 086 ms QT Int : 336 ms P-R-T Axes : 000 231 123 degrees QTc Int : 394 ms Suspect arm lead reversal, interpretation assumes no reversal Atrial flutter with variable A-V block Lateral infarct , age undetermined Inferior infarct , age undetermined , cannot be excluded Abnormal ECG Confirmed by CARRIE TURNER, JOJO ([id number]), book or script editor MARCELLO NEELY ([id number]) on 06/26/2021 12:52:01 PM Referred By: Confirmed By:JOJO BUTLER MD
--- NOTE | 2021-06-23 17:04 | CM.ED ---
SW Note SW provided emotional support to patient's while medical team was assessing patient. Plan: Emotional support Astrid RANDOLPH
[2021-06-23 17:05] VITALS: O2SAT 89; O2SAT 94
[2021-06-23 17:10] LABS: Absolute Lymphocyte Count 1.07 X10^3/uL (0.83-4.51); Absolute Neutrophil Count 8.6 X10^3/uL (2.0-7.7); Basophil# 0.02 X10^3/uL; Basophil% 0.2 % (0-1); Eosinophil# 0.23 X10^3/uL; Eosinophils% 2.1 % (0-5); Hematocrit 41.5 % (40-54); Hemoglobin 12.9 g/dL (13.0-16.5); Lymphocyte # 1.07 X10^3/ul (0.83-4.51); Lymphocyte % 9.8 % (19-41); Mean Corp Hgb Conc 31.1 g/dL (32-36); Mean Corpuscular Hgb 27.4 pg (27.0-32.0); Mean Corpuscular Volume 88.1 fL (80-94); Mean Platelet Vol. 10.2 fl (6.2-12.0); Monocyte# 1.03 X10^3/uL; Monocyte% 9.4 % (0-10); NRBC Flagged by Analyzer 0 % (0-5); Neutrophil # 8.58 X10^3/uL (2.7-7.7); Neutrophil % 78.1 % (47-70); Platelet Count 206 K/mm3 (150-450); RBC Distribution Width CV 14.4 % (11.6-14.6); RBC Distribution Width SD 46.5 fl (35.1-43.9); Red Blood Count 4.71 M/mm3 (4.6-6.2)
--- NOTE | 2021-06-23 17:14 | EDS_ITS ---
HPI History of Present Illness Chief Complaint: Chest Pain Informant: patient Onset/Context/Timing Onset: Today Activity at onset: sudden Timing: Continuous Quality: Positive for Sharp Location: Left Chest Worsened By: Nothing Relieved By: Nothing Associated Symptoms: Positive for Diaphoresis and Dyspnea; Negative for Nausea, Vomiting, Cough, Fever, Lightheadedness, Acid Reflux and Palpitations Narrative Narrative: Patient presents with chest pain that began today. Patient was seen here earlier today and was transferred to the TCU. Patient states that when he got up there, he started having pain in the left side of his chest. Patient had an EKG done up there which showed atrial flutter with variable block. There are no acute ST or T wave changes. Patient was given sublingual nitroglycerin up there which did help. Patient was then brought to the emergency department. Patient did not have any chest pain earlier today while he was in the emergency department. Patient has not had any chest pain over the last couple days. Patient admits to some shortness of breath and diaphoresis with the pain. Patient denies any nausea or vomiting. Patient denies any lightheadedness or palpitations. CVD Risk Factors: Positive for Diabetes and Hypercholesterolemia PE Risk Factors: Positive for Recent Immobilization; Negative for Prior DVT or PE and Cancer [facility] Medical History Ambulates with cane Atherosclerosis of coronary artery of [place] heart without angina pectoris Atrial flutter Bilateral carotid artery stenosis Carotid stenosis CKD (chronic kidney disease), stage III Debility Diabetes Essential hypertension GERD (gastroesophageal reflux disease) Gout History of coronary artery stent placement (~12/20/17) Hyperlipidemia Migraine Non-smoker NSTEMI (non-ST elevated myocardial infarction) (~12/20/17) Old myocardial infarction ANA on CPAP Osteoarthritis Pseudotumor cerebri Pulmonary emboli Restless leg syndrome VTE (venous thromboembolism) Wears glasses Wears partial dentures Home Medications allopurinol 100 mg PO DAILY 09/21/15 [History Last Taken 03/31/21 11:00 100 MG] glimepiride 2 mg tablet 6 mg PO DAILY@0800 tab 02/14/21 [History Last Taken 03/31/21 11:00 6 mg] multivitamin 1 tab PO DAILY 02/14/21 [History Last Taken Unknown] warfarin 4 mg PO DAILY 06/21/21 [History Last Taken Unknown] carbidopa-levodopa 1 tab PO QHS 06/23/21 [History Last Taken Unknown] cyclobenzaprine 5 mg PO TID PRN 06/23/21 [History Last Taken Unknown] furosemide 40 mg PO DAILY 06/23/21 [History Last Taken Unknown] gabapentin 600 mg PO BID 06/23/21 [History Last Taken Unknown] oxycodone 5 - 10 mg PO Q6H PRN 06/23/21 [History Last Taken Unknown] Allergy/AdvReac Type Severity Reaction Status Date / Time atorvastatin [From Lipitor] AdvReac Severe Myalgias Verified 06/23/21 09:30 promethazine HCl AdvReac GET JUMPY Verified 06/23/21 09:30 [From Phenergan] Family History Father Heart disease COPD (chronic obstructive pulmonary disease) Surgical History History of bilateral knee replacement History of nasal septoplasty (~03/2021) Hx of appendectomy Hx of fracture of arm Postsurgical percutaneous transluminal coronary angioplasty (PTCA) status Presence of coronary angioplasty implant and graft (~12/20/17) Status post lumboperitoneal shunt placement Social History household members: spouse Smoking Status: Never smoker alcohol intake: never caffeine: Yes (very rare) what type of physical activity do you participate in: none frequency: does not exercise ROS ROS ED Constitutional Constitutional ED: Denies chills or fever(s) Eyes Eyes: Denies blurry vision or change in vision ENT ENT ED: Denies rhinorrhea or sore throat Cardiovascular Cardiovascular: Reports chest pain; Denies palpitations Respiratory/Chest Respiratory/Chest: Reports dyspnea; Denies cough Gastrointestinal Gastrointestinal: Reports nausea; Denies abdominal pain or vomiting Genitourinary Genitourinary ED: Denies dysuria or hematuria Musculoskeletal Musculoskeletal: Denies back pain or neck pain Integumentary Denies abscess or rash Neurologic Neurologic: Denies headache(s) or weakness Allergic/Immunologic Allergic/Immunologic ED: Denies mouth swelling or urticaria EXAM Physical Exam Const Vital Signs: 06/23/21 16:47 06/23/21 17:05 06/23/21 17:27 Temperature 98.7 F Temperature Source Temporal Pulse Rate 84 Respiratory Rate 15 Respiratory Effort Normal Non-Labored Blood Pressure 136/82 H Blood Pressure Mean 100 Pulse Ox 97 94 Oxygen Delivery Method Room Air Nasal Cannula Oxygen Flow Rate (L/min) 3 Positive well nourished, well developed and obese General Appearance ED: well developed Nutritional Appearance: obese HEENT Reports moist mucous membranes Neck supple and no JVD Resp normal respiratory effort Effort and Inspection: respiratory distress Cardio regular rate Rhythm: abnormal rhythm irregularly irregular GI normal to inspection, nondistended, normoactive bowel sounds and soft to palpation Neuro oriented x3 and no sensory deficits noted Sensorium / Orientation: awake and alert Motor Exam: strength 5/5 throughout Psych mental status grossly normal Heart Score History: Slightly/Non-Suspicious ECG: Normal Age: >/= 65 years Risk Factors: >/= 3 Risk Factors or History of CAD Score: 4 MDM MDM MDM Narrative Medical decision making narrative: EKG was obtained. On my interpretation, it showed atrial fibrillation with a rate of 86. There is left axis deviation at -44. QRS and QTc intervals were normal. There are no acute ST or T wave changes. This was unchanged compared to previous EKG dated 02/14/2021. CBC was within normal limits. Basic metabolic profile and troponin were obtained. Creatinine is 1.48. The remaining labs are within normal limits. CTA of the chest was ordered and is pending. Patient was given a liter of IV fluids. 2- hour repeat troponin was ordered. Care of the patient was turned over to the oncoming physician. Lab Data Attestation: I reviewed the patient's lab results. Labs: Laboratory Results - last 24 hr 06/23/21 06/23/21 16:57 16:57 WBC 11.0 RBC 4.71 Hgb 12.9 L Hct 41.5 MCV 88.1 MCH 27.4 MCHC 31.1 L RDW Std Deviation 46.5 H RDW Coeff of Ag 14.4 Plt Count 206 MPV 10.2 Immature Gran % (Auto) 0.400 Neut % (Auto) 78.1 H Lymph % (Auto) 9.8 L [place] % (Auto) 9.4 Eos % (Auto) 2.1 Baso % (Auto) 0.2 Absolute Neuts (auto) 8.6 H Absolute Lymphs (auto) 1.07 Nucleated RBC % 0 Sodium 134 L Potassium 4.5 Chloride 100 Carbon Dioxide 31.0 Anion Gap 3 L BUN 31 H Creatinine 1.48 H Estim Creat Clear Calc 42.46 Est GFR (MDRD) Af Amer 59 L Est GFR (MDRD) Non-Af 49 L BUN/Creatinine Ratio 20.9 H Glucose 119 H Calcium 8.5 Troponin I High Sens 21 Radiography Chest X-Ray - ED: 1 View, Read by ED Physician, Read by Radiologist and Normal Diagnostic Testing: Radiology Impression Chest X-Ray 06/23/21 16:50 IMPRESSION: No active disease. Electronically Signed: Tutu Guerrero MD at 17:46 EDT Tel , Service support , EKG Initial EKG: Attestation: I personally reviewed and interpreted this EKG as follows: Interpretation: No Acute Injury Pattern and Atrial Fibrillation (86) Comments: Left axis deviation Prior EKG tracings: available for review Prior: Unchanged (02/14/2021) Discharge Plan Triage Chief Complaint: Chest Pain ED Provider: Robson Arambula Dx/Rx/DC Orders Prescriptions: No Action multivitamin [One-A-Day Essential] Tablet 1 tab PO DAILY RF: 0 allopurinol 100 MG tablet 100 mg PO DAILY RF: 0 glimepiride 2 mg tablet 6 mg PO DAILY@0800 RF: 0 warfarin 5 MG tablet 4 mg PO DAILY RF: 0 oxycodone 5 mg Capsule 5 - 10 mg PO Q6H PRN (Reason: Pain) RF: 0 carbidopa-levodopa 25-100 mg tablet 1 tab PO QHS RF: 0 cyclobenzaprine 5 mg Tablet 5 mg PO TID PRN (Reason: Spasms) RF: 0 furosemide 40 MG tablet 40 mg PO DAILY RF: 0 gabapentin 600 mg tablet 600 mg PO BID RF: 0 Primary Care Provider: Casey Handley Referrals: Casey Handley DO [Primary Care Provider] -
[2021-06-23] MEDS: Morphine 4 MG/ML Syringe IV (17:24)
[2021-06-23] MEDS: Aspirin 81 MG TAB.CHEW 324 MG PO (17:24)
--- NOTE | 2021-06-23 17:25 | CT_ITS ---
STUDY: CTA CHEST REASON FOR EXAM: Male, 75 years old. Chest pain RADIATION DOSAGE (If Supplied By Facility): CTDIvol = ( 20.965 ) mGy, DLP = ( 543.07 ) mGycm TECHNIQUE: The examination was performed with the intravenous administration of IV 100mL Isovue-370. Post-processing of the angiographic images was performed, with multiplanar reformation and 3D reconstruction. Individualized dose optimization techniques were used for this CT. COMPARISON: Chest x-ray earlier today, CT 01/09/2021 FINDINGS: Normal enhancement of the main pulmonary artery and right and left pulmonary arteries. Normal enhancement of the bilateral peripheral pulmonary arteries. There is no demonstrated pulmonary embolism. Normal thoracic aorta and visualized great vessels. There is no demonstrated aortic dissection. Normal heart and pericardium. There are calcifications of the coronary arteries. Normal mediastinum. Normal hilar regions. Normal visualized trachea and bronchi. The lungs are well expanded. Normal pulmonary parenchyma. Normal pleura. Normal chest wall structures. Multiple healed right rib fractures with hardware and associated right pleural thickening. Normal visualized upper abdomen. CT/CTA Chest W/WO Contrast IMPRESSION: Normal CTA chest examination, without a demonstrated pulmonary embolism or arterial dissection. Electronically Signed: Tutu Guerrero MD at 18:12 EDT Tel , Service support ,
[2021-06-23 17:32] LABS: Anion Gap 3 (5-15); BUN 31 mg/dL (7-18); BUN/Creat Ratio 20.9 RATIO (10-20); Calcium,Total 8.5 mg/dL (8.5-10.1); Chloride 100 mmol/L (98-107); Creatinine, Serum 1.48 mg/dL (0.70-1.30); EST Glomerular Filtration Rate 49 mL/min (>60); Est Glom Filt Rate - Afr Amer 59 mL/min (>60); Estimated Creatinine Clearance 42.46 ml/min; Glucose 119 mg/dL (74-106); Potassium 4.5 mmol/L (3.5-5.1); Sodium Level 134 mmol/L (136-145); Troponin-I HS 21 pg/mL (3.0-78.0)
[2021-06-23 18:20] VITALS: BP 144/67; PULSE 80; RESP 18; O2SAT 94
[2021-06-23] MEDS: 0.9% Normal Saline 1,000 ML 999 ML IV (18:21)
[2021-06-23 18:25] VITALS: O2SAT 89; O2SAT 94
[2021-06-23 19:24] LABS: Troponin-I HS 22 pg/mL (3.0-78.0)
== END 2021-06-23 19:56 | disposition home or self-care (01) ==
PROVIDERS: Emergency Provider Emergency Medicine; PCP Family Medicine
DX: R07.9 Chest pain, unspecified (principal); I25.2 Old myocardial infarction; I25.10 Atherosclerotic heart disease of native coronary artery without angina pectoris; E66.9 Obesity, unspecified; M10.9 Gout, unspecified; E11.22 Type 2 diabetes mellitus with diabetic chronic kidney disease; I12.9 Hypertensive chronic kidney disease with stage 1 through stage 4 chronic kidney disease, or unspecified chronic kidney disease; N18.30 Chronic kidney disease, stage 3 unspecified; Z79.01 Long term (current) use of anticoagulants; Z79.899 Other long term (current) drug therapy; Z95.5 Presence of coronary angioplasty implant and graft; Z79.84 Long term (current) use of oral hypoglycemic drugs
CPT/HCPCS: 71045; 71275; 80048; 84484; 85025; 93005; 96374; 99285; J7030; Q9967; A4216

== ENCOUNTER 2022-01-12 08:39 | Outpatient (CLI) | payer SELFPAY ==
[2017-12-20 14:12] VITALS: BMI 40.4
--- NOTE | 2022-01-12 08:45 | CDU_ITS ---
Reason For Study: Bilateral carotid artery stenosis Rt. Velocities/BP Lt. Velocities/BP Prox CCA 76/9.5 cm/sec. Prox CCA 80.9/11.5 cm/sec. Mid CCA 76/14.7 cm/sec. Mid CCA 84.6/18.8 cm/sec. Dist CCA 65.6/16 cm/sec. Dist CCA 68.1/15.2 cm/sec. Prox ICA 57.8/12.1 cm/sec. Prox ICA 75.3/21.2 cm/sec. Mid ICA 236.9/65.6 cm/sec. Mid ICA 196/53.3 cm/sec. Dist ICA 128.4/31.6 cm/sec. Dist ICA 158.7/40.2 cm/sec. Rt. ICA/CCA = 3.11. Lt. ICA/CCA = 2.42. Prox ECA 106/10.8 cm/sec. Prox ECA 104.7/7.9 cm/sec. Rt. Vert. 52/10.2 cm/sec. Lt. Vert. 38.8/12.4 cm/sec. Right Extracranial There is homogeneous, smooth atherosclerotic plaque noted in the right common carotid artery. There is heterogeneous, irregular atherosclerotic plaque noted in the right internal carotid artery. There is intimal thickening but no significant atherosclerotic plaque noted in the right external carotid artery. Antegrade flow is noted in the right vertebral artery. Left Extracranial There is homogeneous, smooth atherosclerotic plaque noted in the left common carotid artery. There is heterogeneous, irregular atherosclerotic plaque noted in the left internal carotid artery. There is homogeneous, smooth atherosclerotic plaque noted in the left external carotid artery. Antegrade flow is noted in the left vertebral artery. Procedure Carotid Duplex 27818. This is a Carotid Duplex examination using B-mode, color flow and specral Doppler. Unable to duplicate velocities as compared to 01/10/2021. Exam performed in department. VL/Carotid Duplex Ultrasound Interpretation Summary Irregular plaque at the proximal right internal carotid artery with shadowing a nd greater than 70% stenosis. Less than 50% stenosis right external carotid artery Irregular plaque at the proximal left internal carotid artery with [address]% [address] enosis. Less than 50% stenosis left external carotid artery Patent and antegrade vertebral arteries bilaterally No disease progression from the previous examination of January 10, 2021 Ordering Physician: Shane Vargas Referring Physician: Casey Handley Performed By: Lore Lawrence RVT
== END 2022-01-12 23:59 | disposition home or self-care (01) ==
PROVIDERS: PCP Family Medicine; Referring Provider Psychiatry & Neurology Neurology; Visit Provider Psychiatry & Neurology Neurology
DX: I65.23 Occlusion and stenosis of bilateral carotid arteries (principal)
CPT/HCPCS: 93880

== ENCOUNTER → 2022-03-09 | Outpatient (CLI) | payer SELFPAY ==
[2017-12-20 14:12] VITALS: BMI 40.4
[2022-03-09 12:34] LABS: AST(SGOT) 13 U/L (15-37); Alanine Aminotransfer ALT/SGPT 28 U/L (16-61); Albumin, Serum 3.2 g/dL (3.2-5.0); Alkaline Phosphatase 79 U/L (45-117); Bilirubin, Direct 0.07 mg/dL (0.00-0.30); Cholesterol 232 mg/dL (200); Globulin 4.3 g/dL (2.2-4.2); High Density Lipoprotein 40 mg/dL; Protein, Total 7.5 g/dL (6.4-8.2); Triglycerides 194 mg/dL; Very Low Density Lipoprotein 39 mg/dL (5-40)
== END | disposition home or self-care (01) ==
PROVIDERS: PCP Family Medicine; Referring Provider Psychiatry & Neurology Neurology; Visit Provider Psychiatry & Neurology Neurology
DX: E78.5 Hyperlipidemia, unspecified (principal)
CPT/HCPCS: 36415; 80061; 80076

== ENCOUNTER 2022-03-18 23:37 | Emergency (ER) | payer MEDICARE, SELFPAY ==
[2017-12-20 14:12] VITALS: BMI 40.4
[2022-03-18 23:38] VITALS: BP 196/78; PULSE 72; RESP 16; TEMP 36.8; O2SAT 96; BMI 38.9
--- NOTE | 2022-03-18 23:48 | EKG12_ITS ---
Test Reason : CP Blood Pressure : / mmHG Vent. Rate : 075 BPM Atrial Rate : 277 BPM P-R Int : 000 ms QRS Dur : 086 ms QT Int : 348 ms P-R-T Axes : -85 -55 065 degrees QTc Int : 388 ms Atrial flutter with variable A-V block Left axis deviation Septal infarct , age undetermined Abnormal ECG Confirmed by EMIGDIO TURNER, EFRA ([id number]), assistant film editor LEONARDA MA ([id number]) on 03/19/2022 10:19:46 AM Referred By: BIRGIT Confirmed By:EFRA BEAL MD
[2022-03-18 23:53] VITALS: O2SAT 97
--- NOTE | 2022-03-19 00:02 | RAD_ITS ---
INDICATION: chest pain EXAMINATION: Frontal view of the chest COMPARISON: None. FINDINGS: Frontal view of the chest was obtained. The cardiac silhouette is not enlarged. Mild atelectasis at the right lung base. No pneumothorax. Small right pleural effusion. Old rib fractures. Hardware in several right lower lateral ribs. RAD/Chest 1 View (Portable) IMPRESSION: Small right pleural effusion. Mild atelectasis at the right lung base. Electronically Signed: Rosas Cash MD at 1:32 EDT ,
[2022-03-19 00:03] LABS: Absolute Lymphocyte Count 2.07 X10^3/uL (0.83-4.51); Absolute Neutrophil Count 7.6 X10^3/uL (2.0-7.7); Basophil# 0.02 X10^3/uL; Basophil% 0.2 % (0-1); Eosinophil# 0.23 X10^3/uL; Eosinophils% 2.2 % (0-5); Hematocrit 45.6 % (40-54); Hemoglobin 14.6 g/dL (13.0-16.5); Lymphocyte # 2.07 X10^3/ul (0.83-4.51); Lymphocyte % 19.9 % (19-41); Mean Corpuscular Hgb 28.3 pg (27.0-32.0); Mean Corpuscular Volume 88.5 fL (80-94); Mean Platelet Vol. 10.1 fl (6.2-12.0); Monocyte# 0.46 X10^3/uL; Monocyte% 4.4 % (0-10); NRBC Flagged by Analyzer 0 % (0-5); Neutrophil % 72.9 % (47-70); Platelet Count 209 K/mm3 (150-450); RBC Distribution Width CV 13.3 % (11.6-14.6); RBC Distribution Width SD 43.6 fl (35.1-43.9); Red Blood Count 5.15 M/mm3 (4.6-6.2); White Blood Count 10.4 K/mm3 (4.4-11.0)
[2022-03-19 00:16] LABS: International Normalized Ratio 2.7; Prothrombin Time (Protime)PT. 28.3 SECONDS (11.7-14.9)
[2022-03-19 00:17] LABS: Anion Gap 4 (5-15); BNP,B-Type NATRIURETIC PEPTIDE 83.9 pg/mL (0-100); BUN 19 mg/dL (7-18); BUN/Creat Ratio 17.3 RATIO (10-20); Calcium,Total 8.9 mg/dL (8.5-10.1); Chloride 103 mmol/L (98-107); EST Glomerular Filtration Rate 69 mL/min (>60); Est Glom Filt Rate - Afr Amer 83 mL/min (>60); Estimated Creatinine Clearance 56.24 ml/min; Glucose 259 mg/dL (74-106); Potassium 4.1 mmol/L (3.5-5.1); Sodium Level 139 mmol/L (136-145); Troponin-I HS (w/2H Reflex) 22 pg/mL (3.0-78.0)
--- NOTE | 2022-03-19 00:28 | CT_ITS ---
EXAM: CT chest without IV contrast. HISTORY: sternal chest pain, recent fall, dyspnea TECHNIQUE: No intravenous contrast. COMPARISON: June 23, 2021. LIMITATIONS: None. LUNGS: No airspace disease. A cluster of nodules is in the superior segment of the left lower lobe. These have overall increased in size since the prior exam. The largest measures approximately 7 mm. HEART: Not enlarged. Coronary artery calcification. PLEURA: Small right pleural effusion and/or pleural thickening, similar to the prior exam. AORTA: Normal caliber. MEDIASTINUM: Calcified mediastinal and right hilar lymph nodes are evidence of prior granulomatous disease. UPPER ABDOMEN: No significant abnormality. BONES/SOFT TISSUES: Old rib fractures bilaterally. Hardware in several right lateral mid ribs. Mild compression deformity of T1 and T2 is grossly stable. OTHER: None. CONCLUSION: Small right pleural effusion and/or pleural thickening, similar to the prior exam Cluster of nodules in the left lower lobe, overall increased in size. CT follow-up in 6 months is recommended. Electronically Signed: oRsas Cash MD at 2:16 EDT , CT/Chest without Contrast IMPRESSION: undefined
--- NOTE | 2022-03-19 00:33 | EDS_ITS ---
HPI History of Present Illness Chief Complaint: Chest Pain Informant: patient and spouse/S.O. Narrative Narrative: Patient is a 76-year-old male with complex medical history including atrial fibrillation/flutter on Coumadin, coronary artery disease status post 2 stents, restless leg syndrome, neuropathy, ANA on CPAP and CKD 3 presenting with chest pain. Patient states he felt a little listless this morning and a couple hours prior to arrival he developed pain in his lower middle chest that radiates up. It is worse with movement, deep breathing or direct palpation. He did have some nausea on his way in but no vomiting. Took 2 Tylenol as well as 2 doses of sublingual nitroglycerin and Tums with no relief of any of his symptoms. States he does feel mildly short of breath. Denies any radiation of pain to his back, neck or arms. Denies any sweats. Does feel that his restless leg syndrome has been worsening despite being on gabapentin. Patient did just return from a trip to [place] for the past week. Denies any swelling of his legs. Notes he did have a fall onto his right side a couple days ago. No other complaints at this time. [facility] Medical History Ambulates with cane Atherosclerosis of coronary artery of [place] heart without angina pectoris Atrial flutter Bilateral carotid artery stenosis Carotid stenosis CKD (chronic kidney disease), stage III Debility Diabetes Essential hypertension GERD (gastroesophageal reflux disease) Gout History of coronary artery stent placement (~12/20/17) Hyperlipidemia Migraine Non-smoker NSTEMI (non-ST elevated myocardial infarction) (~12/20/17) Old myocardial infarction ANA on CPAP Osteoarthritis Pulmonary emboli Restless leg syndrome VTE (venous thromboembolism) Wears glasses Wears partial dentures Home Medications allopurinol 100 mg tablet 100 mg PO DAILY gout 09/21/15 [History Last Taken 03/31/21 11:00 100 MG] multivitamin (One-A-Day Essential) 1 tab PO DAILY Supplement 02/14/21 [History Last Taken Unknown] warfarin 5 mg tablet 7.5 mg PO MOWEFR Anticoagulant 06/21/21 [History Last Taken Unknown] furosemide 40 mg tablet 40 mg PO DAILY Heart 06/23/21 [History Last Taken Unknown] nitroglycerin 0.4 mg sublingual tablet 0.4 mg sublingual Q5M PRN Cardiac/Chest Pain #0 tabs 06/30/21 [Rx Last Taken Unknown] polyethylene glycol 3350 17 gram oral powder packet (HealthyLax) 17 g PO DAILY 30 days #30 ea 06/30/21 [Rx Last Taken Unknown] glimepiride 2 mg tablet 2 mg PO BID diabetes 12/26/21 [History Last Taken Unknown] vitamin B complex 1 tab PO DAILY 12/26/21 [History Last Taken Unknown] gabapentin 800 mg tablet 800 mg PO 4X/DAY #360 tabs 01/29/22 [Rx Last Taken Unknown] rosuvastatin 10 mg tablet 10 mg PO DAILY #30 tabs 03/03/22 [Rx Last Taken Unknown] duloxetine 60 mg capsule,delayed release 60 cap PO DAILY 03/18/22 [History Last Taken Unknown] magnesium amino acid chelate 100 mg tablet 100 tab PO DAILY 03/18/22 [History Last Taken Unknown] sertraline 50 mg tablet 50 tab PO DAILY 03/18/22 [History Last Taken Unknown] warfarin 5 mg tablet (Jantoven) 5 mg PO SUTUTHSA 03/18/22 [History Last Taken Unknown] Allergy/AdvReac Type Severity Reaction Status Date / Time atorvastatin [From Lipitor] AdvReac Severe Myalgias Verified 03/18/22 23:41 promethazine HCl AdvReac GET JUMPY Verified 03/18/22 23:41 [From Phenergan] Family History Father Heart disease COPD (chronic obstructive pulmonary disease) Surgical History History of bilateral knee replacement History of nasal septoplasty (~03/2021) Hx of appendectomy Hx of fracture of arm Postsurgical percutaneous transluminal coronary angioplasty (PTCA) status Presence of coronary angioplasty implant and graft (~12/20/17) Status post lumboperitoneal shunt placement Social History household members: spouse Smoking Status: Never smoker alcohol intake: never caffeine: Yes (very rare) what type of physical activity do you participate in: none frequency: does not exercise ROS ROS ED Constitutional Constitutional ED: Denies chills, fever(s) or sweats Eyes Eyes: Denies blurry vision or change in vision ENT ENT ED: Denies rhinorrhea or sore throat Cardiovascular Cardiovascular: Reports as per HPI and chest pain; Denies palpitations Respiratory/Chest Respiratory/Chest: Reports dyspnea; Denies cough or dyspnea on exertion Gastrointestinal Gastrointestinal: Reports nausea; Denies abdominal pain or vomiting Musculoskeletal Musculoskeletal: Reports back pain; Denies arthralgias, myalgias or neck pain Integumentary Denies Abrasions or rash Neurologic Neurologic: Denies headache(s), paresthesias or weakness Psychiatric Psychiatric: Denies anxiety Hematologic/Lymphatic Hematologic/Lymphatic: Reports easy bleeding and easy bruising EXAM Physical Exam Const Vital Signs: 03/18/22 23:38 03/18/22 23:42 03/18/22 23:53 Temperature 98.3 F Temperature Source Oral Pulse Rate 72 Respiratory Rate 16 Respiratory Effort Normal Non-Labored Blood Pressure 196/78 H Blood Pressure Mean 117 Pulse Ox 96 97 Oxygen Delivery Method Room Air Room Air 03/19/22 00:38 03/19/22 01:00 03/19/22 02:00 Temperature Temperature Source Pulse Rate 72 73 68 Respiratory Rate 16 16 16 Respiratory Effort Blood Pressure 192/89 H 133/78 H Blood Pressure Mean 123 96 Pulse Ox 93 98 95 Oxygen Delivery Method Room Air Room Air Room Air 03/19/22 03:23 Temperature Temperature Source Pulse Rate 69 Respiratory Rate 16 Respiratory Effort Blood Pressure 151/76 H Blood Pressure Mean Pulse Ox 98 Oxygen Delivery Method Positive well nourished and well developed Constitutional Narrative: Uncomfortable appearing General Appearance ED: well developed and NAD HEENT Reports moist mucous membranes normocephalic and atraumatic Eyes PERRL and EOMs intact bilaterally Neck supple and no JVD Chest Wall inspection of chest normal Chest Narrative: No chest wall crepitus. Patient has tenderness to palpation of the lower sternum. Sternal palpation reproduces his pain. Resp normal respiratory effort and clear to auscultation bilaterally Cardio regular rate, regular rhythm and no murmurs GI normal to inspection, nondistended, normoactive bowel sounds Back/Spine no CVA tenderness and no thoracic nor lumbar tenderness Extremity normal to inspection Extremity Narrative: Continuous movement of the lower extremities consistent with restless leg syndrome General Extremety ED: Negative for edema or pulses abnormal General Extremity: Negative for edema or pulses abnormal Neuro oriented x3 and gait normal Motor Exam: Negative for general weakness Psych mental status grossly normal Skin no rashes or lesions noted Skin Narrative: Healing ecchymosis noted on the right anterior chest wall below the level of the nipple Heart Score History: Slightly/Non-Suspicious ECG: Normal Age: >/= 65 years Risk Factors: >/= 3 Risk Factors or History of CAD Troponin: </= Normal Limit Score: 4 MDM MDM MDM Narrative Medical decision making narrative: Patient is evaluated for chest pain. Patient took nitro prior to arrival with no relief of his pain. He has took Tylenol. He is hypertensive upon arrival but he does appear uncomfortable. Chest pain is highly reproducible with palpation of the sternum. He does tell me that he had a recent fall. Denies any head injury. His INR is therapeutic and I do not think he has a PE that is causing his pain. Troponin is normal and stable at 22 and 23. His BNP is normal 83.9. Chest x-ray interpreted by myself as well as radiology does show right pleural effusion. Given history of trauma, chest pain and pleural effusion I did obtain a CT of the chest to look for infiltrate versus traumatic process. This was negative for any acute process and the pleural effusion appears to be stable. I do not think this is traumatic hemothorax based on physical exam findings, laboratory findings and no acute imaging changes. Patient is given a dose of morphine with improvement of his blood pressure as well as his symptoms. Really do suspect that this is muscle skeletal/chest wall pain and I do not think patient requires admission for further cardiac evaluation especially given his normal/stable troponin and normal EKG. Patient has an active prescription for oxygen I do not feel comfortable prescribing him anything else for for the pain control. He is counseled to use [id number] topical such as Lidoderm patches. Patient and are counseled on return precautions. They verbalized agreement understand this plan. Patient discharged home in stable condition. Lab Data Attestation: I reviewed the patient's lab results. Labs: Laboratory Results - last 24 hr 03/18/22 03/18/22 03/18/22 23:46 23:46 23:46 WBC 10.4 RBC 5.15 Hgb 14.6 Hct 45.6 MCV 88.5 MCH 28.3 MCHC 32.0 RDW Std Deviation 43.6 RDW Coeff of Ag 13.3 Plt Count 209 MPV 10.1 Immature Gran % (Auto) 0.400 Neut % (Auto) 72.9 H Lymph % (Auto) 19.9 [place] % (Auto) 4.4 Eos % (Auto) 2.2 Baso % (Auto) 0.2 Absolute Neuts (auto) 7.6 Absolute Lymphs (auto) 2.07 Nucleated RBC % 0 PT 28.3 H INR 2.7 Sodium 139 Potassium 4.1 Chloride 103 Carbon Dioxide 32.0 Anion Gap 4 L BUN 19 H Creatinine 1.10 Estim Creat Clear Calc 56.24 Est GFR (MDRD) Af Amer 83 Est GFR (MDRD) Non-Af 69 BUN/Creatinine Ratio 17.3 Glucose 259 H Calcium 8.9 Troponin I High Sens 22 B-Natriuretic Peptide 03/18/22 03/19/22 23:46 02:02 WBC RBC Hgb Hct MCV MCH MCHC RDW Std Deviation RDW Coeff of Ag Plt Count MPV Immature Gran % (Auto) Neut % (Auto) Lymph % (Auto) [place] % (Auto) Eos % (Auto) Baso % (Auto) Absolute Neuts (auto) Absolute Lymphs (auto) Nucleated RBC % PT INR Sodium Potassium Chloride Carbon Dioxide Anion Gap BUN Creatinine Estim Creat Clear Calc Est GFR (MDRD) Af Amer Est GFR (MDRD) Non-Af BUN/Creatinine Ratio Glucose Calcium Troponin I High Sens 23 B-Natriuretic Peptide 83.9 Radiography Chest X-Ray - ED: 1 View, Read by ED Physician and Right Effusion Diagnostic Testing: Clinical Impression(s) from Imaging Studies Chest X-Ray 03/19/22 00:02 IMPRESSION: Small right pleural effusion. Mild atelectasis at the right lung base. Electronically Signed: Rosas Cash MD at 1:32 EDT , Chest CT 03/19/22 00:28 IMPRESSION: undefined ADDENDUM: 03/19/22227 IMPRESSION: undefined Rhythm Strip Rhythm Strip: Atrial flutter Rate: 75 Ectopy: None EKG Initial EKG: Attestation: I personally reviewed and interpreted this EKG as follows: Interpretation: Atrial Flutter Comments: Atrial flutter with variable AV block at a rate of 75 Left axis deviation Normal QRS and QTc Normal ST segments Discharge Plan Triage Chief Complaint: Chest Pain ED Provider: Ondina Mak Dx/Rx/DC Orders Clinical Impression: Acute chest wall pain, Pleural effusion on right Instructions: Pleural Effusion, ED Chest Wall Pain, Costochondritis Prescriptions: No Action multivitamin [One-A-Day Essential] Tablet 1 tab PO DAILY vitamin B complex Tablet 1 tab PO DAILY allopurinol 100 MG tablet 100 mg PO DAILY Label Comments: GOUT glimepiride 2 mg tablet 2 mg PO BID Label Comments: diabetes warfarin 5 MG tablet 7.5 mg PO MOWEFR furosemide 40 MG tablet 40 mg PO DAILY polyethylene glycol 3350 [HealthyLax] 17 gram Powder In Packet 17 g PO DAILY 30 Days Qty: 30 0RF nitroglycerin 0.4 mg Tablet, Sublingual 0.4 mg sublingual Q5M PRN (Reason: Cardiac/Chest Pain) Qty: 0 0RF sertraline 50 mg tablet 50 tab PO DAILY Label Comments: TAKE 1 TABLET BY MOUTH ONCE DAILY duloxetine 60 mg capsule,delayed release(DR/EC) 60 cap PO DAILY Label Comments: TAKE 1 CAPSULE BY MOUTH ONCE DAILY magnesium amino acid chelate 100 mg tablet 100 tab PO DAILY Label Comments: 1 tablet by mouth single dose 400mg warfarin [Jantoven] 5 mg tablet 5 mg PO SUTUTHSA gabapentin 800 mg tablet 800 mg PO 4X/DAY Qty: 360 1RF rosuvastatin 10 mg tablet 10 mg PO DAILY Qty: 30 3RF Primary Care Provider: Casey Handley Referrals: Casey Handley DO [Primary Care Provider] - Activity Restrictions/Additional Instructions: Use [id number] Voltaren gel or lidocaine ointment/patches for the pain. You have an active prescription for oxycodone so I am not able to write you a new prescription for a pain pill. Disposition Disposition: Home, Self Care Discharge Date/Time: 03/19/22 03:23
[2022-03-19 00:38] VITALS: BP 192/89; PULSE 72; RESP 16; O2SAT 93
[2022-03-19] MEDS: Morphine 4 MG/ML Syringe IV (00:39)
[2022-03-19] MEDS: Ondansetron 4 MG/2 ML Vial IV (00:39)
[2022-03-19 01:00] VITALS: PULSE 73; RESP 16; O2SAT 98
[2022-03-19 01:54] LABS: Reflex Troponin-HS? (from REC) Y
[2022-03-19 02:00] VITALS: BP 133/78; PULSE 68; RESP 16; O2SAT 95
[2022-03-19 02:28] LABS: Troponin-I HS 23 pg/mL (3.0-78.0)
[2022-03-19 03:23] VITALS: BP 151/76; PULSE 69; RESP 16; O2SAT 98
== END 2022-03-19 03:23 | disposition home or self-care (01) ==
PROVIDERS: Emergency Provider Emergency Medicine; PCP Family Medicine; Visit Provider Emergency Medicine
DX: R07.89 Other chest pain (principal); I48.91 Unspecified atrial fibrillation; N18.30 Chronic kidney disease, stage 3 unspecified; I12.9 Hypertensive chronic kidney disease with stage 1 through stage 4 chronic kidney disease, or unspecified chronic kidney disease; J90 Pleural effusion, not elsewhere classified; I25.10 Atherosclerotic heart disease of native coronary artery without angina pectoris; E78.5 Hyperlipidemia, unspecified; G47.33 Obstructive sleep apnea (adult) (pediatric); R06.00 Dyspnea, unspecified; I25.2 Old myocardial infarction; Z79.01 Long term (current) use of anticoagulants; Z79.899 Other long term (current) drug therapy
CPT/HCPCS: 71045; 71250; 80048; 83880; 84484; 85025; 85610; 93005; 96374; 96375; 99283; A4216; J2405

== ENCOUNTER → 2022-05-15 | Outpatient (CLI) | payer SELFPAY ==
[2017-12-20 14:12] VITALS: BMI 40.4
[2022-05-15 15:06] LABS: Hematocrit 42.3 % (40-54); Hemoglobin 13.5 g/dL (13.0-16.5); Mean Corp Hgb Conc 31.9 g/dL (32-36); Mean Corpuscular Hgb 28.7 pg (27.0-32.0); Mean Platelet Vol. 10.3 fl (6.2-12.0); Platelet Count 228 K/mm3 (150-450); RBC Distribution Width CV 14.2 % (11.6-14.6); RBC Distribution Width SD 46.6 fl (35.1-43.9); White Blood Count 8.8 K/mm3 (4.4-11.0)
[2022-05-15 15:53] LABS: ALB/GLOB Ratio 0.8 RATIO (0.9-2.4); AST(SGOT) 17 U/L (15-37); Alanine Aminotransfer ALT/SGPT 25 U/L (16-61); Alkaline Phosphatase 85 U/L (45-117); Amylase 37 U/L (25-115); Anion Gap 3 (5-15); BUN 19 mg/dL (7-18); BUN/Creat Ratio 17.9 RATIO (10-20); Calcium,Total 8.4 mg/dL (8.5-10.1); Chloride 107 mmol/L (98-107); Creatinine, Serum 1.06 mg/dL (0.70-1.30); EST Glomerular Filtration Rate 72 mL/min (>60); Est Glom Filt Rate - Afr Amer 87 mL/min (>60); Globulin 3.9 g/dL (2.2-4.2); Glucose 136 mg/dL (74-106); Lipase 101 U/L (73-393); Potassium 4.5 mmol/L (3.5-5.1); Protein, Total 6.9 g/dL (6.4-8.2); Sodium Level 141 mmol/L (136-145)
== END | disposition home or self-care (01) ==
PROVIDERS: PCP Family Medicine; Referring Provider Psychiatry & Neurology Neurology; Visit Provider Psychiatry & Neurology Neurology
DX: R10.9 Unspecified abdominal pain (principal); R11.0 Nausea
CPT/HCPCS: 36415; 80053; 82150; 83690; 85027

== ENCOUNTER → 2022-08-21 | Outpatient (CLI) | payer SELFPAY ==
[2017-12-20 14:12] VITALS: BMI 40.4
--- NOTE | 2022-08-21 14:19 | CT_ITS ---
EXAM: CT CHEST WITHOUT INTRAVENOUS CONTRAST CLINICAL INDICATION: NODULES TECHNIQUE: Helically acquired images were obtained of the chest without intravenous contrast. This CT exam was performed using one or more of the following dose reduction techniques: automated exposure control, adjustment of the mA and/or kV according to patient size, and/or use of iterative reconstruction technique. This report was created using [employer] report generation technology. COMPARISON: CT Chest dated March 19, 2022 FINDINGS: LUNGS AND PLEURAL SPACES: Nodular densities within the left lower lobe have cleared. There is residual pleural-parenchymal thickening within the posterior portion of the right hemithorax. No mass. No pneumothorax. HEART: Coronary artery calcification and stents noted. Normal heart size. MEDIASTINUM: Normal. No mediastinal or hilar adenopathy. Esophagus is unremarkable. No hiatal hernia. THYROID: Normal. No thyroid lesions. BONES/JOINTS: Surgical fixation of right ribs again seen. No suspicious lytic or blastic abnormality. VASCULATURE: Normal. Thoracic aorta is non-dilated. CT/Chest without Contrast IMPRESSION: 1. No acute cardiopulmonary abnormality. 2. Resolution of the previously noted left lower lobe pulmonary nodules. Electronically Signed: Vince Guardado MD at 15:16 EST ,
== END | disposition home or self-care (01) ==
LOC: CT 14:18
PROVIDERS: PCP Family Medicine; Referring Provider Family Medicine; Visit Provider Family Medicine
DX: R91.8 Other nonspecific abnormal finding of lung field (principal)
CPT/HCPCS: 71250

== ENCOUNTER 2023-01-07 09:44 | Inpatient (IN) | payer MEDICARE, SELFPAY ==
[2017-12-20 14:12] VITALS: BMI 40.4
[2023-01-07] VITALS (13 sets, daily range): BP systolic 136–208; BP diastolic 75–99; PULSE 64–75; RESP 14–18; TEMP 35.9–36.6; O2SAT 94–97; BMI 41.7; BMI 41.5; BMI 40.4
--- NOTE | 2023-01-07 09:51 | EDS_ITS ---
HPI History of Present Illness Chief Complaint: Neuro S/Sx Narrative Narrative: 77-year-old male here with concern for speech difficulties. Last known well was 11 AM proximately 11 hours prior to arrival. Patient is on Coumadin secondary to A-fib. Last dose was last night. Per the patient's patient has not been complaining of fever, illness, there were no recent falls or head trauma noted. Per the patient's significant other patient had a stroke in October for which he had left-sided upper arm and facial abnormalities. [facility] Medical History (Updated 01/07/23 @ 10:[address] Gregg Crain, ) Ambulates with cane Atherosclerosis of coronary artery of [place] heart without angina pectoris Atrial flutter Bilateral carotid artery stenosis Carotid stenosis CKD (chronic kidney disease), stage III Debility Diabetes Essential hypertension GERD (gastroesophageal reflux disease) Gout History of coronary artery stent placement (~12/20/17) Hyperlipidemia Migraine Non-smoker NSTEMI (non-ST elevated myocardial infarction) (~12/20/17) Old myocardial infarction ANA on CPAP Osteoarthritis Pulmonary emboli Restless leg syndrome Stroke/cerebrovascular accident VTE (venous thromboembolism) Wears glasses Wears partial dentures Home Medications allopurinol 100 mg tablet 100 mg PO DAILY gout 09/21/15 [History Last Taken 01/06/23] warfarin 5 mg tablet 7.5 mg PO MOWEFR Anticoagulant 06/21/21 [History Last Taken 01/06/23] nitroglycerin 0.4 mg sublingual tablet 0.4 mg sublingual Q5M PRN Cardiac/Chest Pain #0 tabs 06/30/21 [Rx Last Taken Unknown] glimepiride 2 mg tablet 2 mg PO BID diabetes 12/26/21 [History Last Taken 01/06/23] warfarin 5 mg tablet (Jantoven) 5 mg PO SUTUTHSA 03/18/22 [History Last Taken 01/06/23] gabapentin 800 mg tablet 800 mg PO TID #270 tabs 05/15/22 [Rx Last Taken 01/06/23] amlodipine 5 mg tablet 5 mg PO DAILY #30 tabs 07/30/22 [Rx Last Taken 01/06/23] duloxetine 60 mg capsule,delayed release 60 mg PO QPM #30 caps 07/30/22 [Rx Last Taken 01/06/23] aspirin 81 mg tablet,delayed release 81 mg PO DAILY HEART HEALTH 01/07/23 [History Last Taken 01/06/23] losartan 25 mg tablet 25 mg PO DAILY HTN 01/07/23 [History Last Taken 01/06/23] ropinirole 1 mg tablet 1 mg PO QHS . 01/07/23 [History Last Taken 01/06/23] trazodone 50 mg tablet 75 mg PO QHS . 01/07/23 [History Last Taken Unknown] Allergy/AdvReac Type Severity Reaction Status Date / Time atorvastatin [From Lipitor] AdvReac Severe Myalgias Verified 07/30/22 08:05 promethazine HCl AdvReac GET JUMPY Verified 07/30/22 08:05 [From Phenergan] Family History Father Heart disease COPD (chronic obstructive pulmonary disease) Surgical History (Updated 01/07/23 @ 10:21 by Mag Telles) History of bilateral knee replacement History of nasal septoplasty (~03/2021) Hx of appendectomy Hx of fracture of arm Postsurgical percutaneous transluminal coronary angioplasty (PTCA) status Presence of coronary angioplasty implant and graft (~12/20/17) Status post lumboperitoneal shunt placement Social History household members: spouse Smoking Status: Never smoker second hand exposure: No alcohol intake: never caffeine: Yes (very rare) Type: carbonated beverages and tea what type of physical activity do you participate in: none frequency: does not exercise jose manuel/latter day: [employer]onite seatbelt use: sometimes ROS ROS ED Review of Systems ROS Unobtainable: due to mental status EXAM Physical Exam Narrative Exam Narrative: Nursing triage notes reviewed, Vital signs reviewed Constitutional: please see mdm HENT: MMM Eyes: Pupils equal round and reactive to light, Extraocular muscles intact Neck: No stridor, no JVD, full neck ROM Lungs: Clear to auscultation, No wheezing or rales. No increased work of breathing, no conversational dyspnea, no accessory muscle use, no nasal flaring. No respiratory distress noted Heart: Regular rate and rhythm, No murmurs, No rubs and No gallops, 2+ distal pulses (radial, femoral, posterior tibial) in all extremities Abdomen: Soft, there is no tenderness, rigidity, rebound or guarding, no obvious peritoneal signs, no palpable pulsatile abdominal masses, no auscultated abdominal bruit : No CVAT Extremities: No edema Neuro: Follows commands, alert, cognizant, no obvious ataxia, sensation appears to be intact in all 4 extremities, severe aphasia no obvious dysarthria, no obvious facial droop. Strength intact no obvious drift in the extremities no obvious cranial nerve deficits. Skin: No rash or lesions noted Const Vital Signs: 01/07/23 09:45 01/07/23 10:10 01/07/23 10:16 Temperature 96.7 F L Temperature Source Temporal Pulse Rate 75 66 Respiratory Rate 18 16 Blood Pressure 171/83 H 168/84 H Blood Pressure Mean 112 112 Pulse Ox 95 96 96 Oxygen Delivery Method Room Air Room Air Room Air 01/07/23 10:40 01/07/23 11:10 01/07/23 11:40 Temperature Temperature Source Pulse Rate 66 66 66 Respiratory Rate 14 17 14 Blood Pressure 136/75 H 179/93 H 195/99 H Blood Pressure Mean 95 121 131 Pulse Ox 97 97 97 Oxygen Delivery Method Room Air Room Air Room Air MDM MDM MDM Narrative Medical decision making narrative: Chief Complaint: Aphasia, wake-up stroke External records reviewed: Prior neurology visit in June 2022 showed bilateral carotid artery stenosis I considered the following differential diagnosis: CVA, ICH Patient was taken directly to CT per stroke protocol given aphasia and concern for large vessel occlusion. He is on Coumadin so I obtained an INR level immediately. Patient's glucose was acceptable and blood pressure and other vitals were acceptable. Initial NIH was [address] head, CTA of the head and neck were negative for ICH, large vessel occlusion. Discussed with stroke neurologist recommended against TNK or thrombectomy at this time. Aspirin was given for mortality benefit. Patient was admitted to the hospitalist for ongoing stroke evaluation and possible MRI. Factors affecting care: On Coumadin Social determinants of health: Never smoker History obtained from others: The patient's Shared decision making: I will have a discussion with the patient and or visitors regarding risk/benefits of further testing or admission. They will be made aware of of the risk/benefits inherent in this decision they will be given the opportunity to voice understanding. Consults: Stroke neurology, Hospitalist History & Record Review Discussion w/independent historian: Significant other Additional record(s) reviewed:: Prior outpatient record Lab Data Attestation: I reviewed the patient's lab results. Lab results narrative: CBC without leukocytosis, severe anemia, no thrombocytopenia. INR subtherapeutic at 1.5 Troponin is negative, no evidence of myocardial ischemia BMP with mild hyponatremia, no significant electrolyte abnormalities, acute kidney injury my Labs: Laboratory Results - last 24 hr 01/07/23 01/07/23 01/07/23 09:44 09:50 09:50 WBC 8.9 RBC 5.01 Hgb 14.4 Hct 45.3 MCV 90.4 MCH 28.7 MCHC 31.8 L RDW Std Deviation 45.6 H RDW Coeff of Ag 13.8 Plt Count 271 MPV 9.8 Immature Gran % (Auto) 0.500 Neut % (Auto) 64.6 Lymph % (Auto) 24.1 [place] % (Auto) 7.4 Eos % (Auto) 2.9 Baso % (Auto) 0.5 Absolute Neuts (auto) 5.7 Absolute Lymphs (auto) 2.14 Nucleated RBC % 0 PT 17.5 H INR 1.5 APTT 23.9 L Sodium Potassium Chloride Carbon Dioxide Anion Gap BUN Creatinine Estim Creat Clear Calc Est GFR (MDRD) Af Amer Est GFR (MDRD) Non-Af BUN/Creatinine Ratio Glucose Calcium Troponin I High Sens POC Glucose 205 H 01/07/23 09:50 WBC RBC Hgb Hct MCV MCH MCHC RDW Std Deviation RDW Coeff of Ag Plt Count MPV Immature Gran % (Auto) Neut % (Auto) Lymph % (Auto) Shelby % (Auto) Eos % (Auto) Baso % (Auto) Absolute Neuts (auto) Absolute Lymphs (auto) Nucleated RBC % PT INR APTT Sodium 135 L Potassium 4.4 Chloride 104 Carbon Dioxide 28.0 Anion Gap 3 L BUN 24 H Creatinine 1.11 Estim Creat Clear Calc 53.06 Est GFR (MDRD) Af Amer 82 Est GFR (MDRD) Non-Af 68 BUN/Creatinine Ratio 21.6 H Glucose 221 H Calcium 9.2 Troponin I High Sens 39 POC Glucose Radiography Chest X-Ray - ED: Read by ED Physician Diagnostic Testing: Clinical Impression(s) from Imaging Studies Brain CT 01/07/23 09:52 IMPRESSION: Old right temporoparietal infarct with encephalomalacia. No acute intracranial abnormality. Chronic ischemic and atrophic changes. N.B. : The above Results were Read Back by Owen Oscar MD to Gregg Crain MD, and understanding confirmed on 01/07/2023 10:09:57 (ET). Electronically Signed: Owen Oscar MD at 10:11 EDT , ADDENDUM: 01/07/23 1018 IMPRESSION: Old right temporoparietal infarct with encephalomalacia. No acute intracranial abnormality. Chronic ischemic and atrophic changes. N.B. : The above Results were Read Back by Owen Oscar MD to Gregg Crain MD, and understanding confirmed on 01/07/2023 10:09:57 (ET). Electronically Signed: Owen Oscar MD at 10:11 EDT , Head/Neck CTA 01/07/23 09:52 IMPRESSION: No CTA evidence of vaso-occlusive disease, significant stenosis, aneurysm, or vascular malformation within the intracranial circulation. Dense calcified atherosclerotic plaque in both proximal ICAs with 40% stenosis measured in the right and 50% stenosis measured in the left. 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 : The above Results were Read Back by Kamran Bello MD to Gregg Crain MD, and understanding confirmed on 01/07/2023 10:23:59 (ET). Electronically Signed: Kamran Bello MD at 10:25 EDT , ADDENDUM: 01/07/23 1032 IMPRESSION: No CTA evidence of vaso-occlusive disease, significant stenosis, aneurysm, or vascular malformation within the intracranial circulation. Dense calcified atherosclerotic plaque in both proximal ICAs with 40% stenosis measured in the right and 50% stenosis measured in the left. 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 : The above Results were Read Back by Kamran Bello MD to Gregg Crain MD, and understanding confirmed on 01/07/2023 10:23:59 (ET). Electronically Signed: Kamran Bello MD at 10:25 EDT , Chest X-Ray 01/07/23 10:30 IMPRESSION: No acute thoracic pathology. Electronically Signed: Owen Oscar MD at 11:15 EDT , I have personally reviewed the patient's chest x-ray. Chest x-ray is unremark able for pulmonary edema, pneumothorax, pneumonia or focal cardiopulmonary abnormality. EKG Initial EKG: Attestation: I personally reviewed and interpreted this EKG as follows: Comments: EKG with A-fib, left axis deviation, normal intervals, no STEMI Prior EKG tracings: available for review Prior: Unchanged Management Discussion w/another healthcare provider: Hospitalist and [employer] Discharge Plan Triage Chief Complaint: Neuro S/Sx ED Provider: Gregg Crain Dx/Rx/DC Orders Clinical Impression: Acute CVA (cerebrovascular accident), Aphasia, History of atrial fibrillation Prescriptions: No Action gabapentin 800 mg tablet 800 mg PO TID Qty: 270 1RF duloxetine 60 mg capsule,delayed release(DR/EC) 60 mg PO QPM Qty: 30 5RF Rx Instructions: Begin after completing one week course of duloxetine 30mg nightly. amlodipine 5 mg tablet 5 mg PO DAILY Qty: 30 6RF allopurinol 100 MG tablet 100 mg PO DAILY Label Comments: GOUT glimepiride 2 mg tablet 2 mg PO BID Label Comments: diabetes warfarin 5 MG tablet 7.5 mg PO MOWEFR nitroglycerin 0.4 mg Tablet, Sublingual 0.4 mg sublingual Q5M PRN (Reason: Cardiac/Chest Pain) Qty: 0 0RF warfarin [Jantoven] 5 mg tablet 5 mg PO SUTUTHSA ropinirole 1 mg tablet 1 mg PO QHS Label Comments: TAKE 1 TABLET BY MOUTH AT BEDTIME trazodone 50 mg tablet 75 mg PO QHS Label Comments: TAKE 1 & 1/2 (ONE & ONE-HALF) TABLETS BY MOUTH EVERY DAY AT BEDTIME aspirin 81 mg tablet,delayed release (DR/EC) 81 mg PO DAILY Label Comments: TAKE 1 TABLET BY MOUTH ONCE DAILY losartan 25 mg tablet 25 mg PO DAILY Label Comments: TAKE 2 TABLETS BY MOUTH ONCE DAILY Primary Care Provider: Casey Handley Referrals: Casey Handley DO [Primary Care Provider] - Disposition Disposition: Acute Care Hospital [facility]
--- NOTE | 2023-01-07 09:52 | CT_ITS ---
STUDY: CTA HEAD AND NECK WITH CONTRAST REASON FOR EXAM: Male, 77 years old. Neuro deficit, acute, stroke suspected RADIATION DOSAGE (If Supplied By Facility): CTDIvol = ( 23.01 ) mGy, DLP = ( 869.59 ) mGycm TECHNIQUE: CT angiography was performed with a multi-detector CT scanner. Data acquisition was obtained from the skull base through the vertex following intravenous administration of IV 100mL [id number]-370. MIP images were reconstructed from the axial data set. Post-processing of the angiographic images was performed, with multiplanar reformation and 3D reconstruction. Individualized dose optimization techniques were used for this CT. COMPARISON: No relevant priors. FINDINGS: Normal bilateral petrous carotid arteries. Normal right cavernous carotid artery with a normal supraclinoid bifurcation. Normal left cavernous carotid artery with a normal supraclinoid bifurcation. Normal right A1 segments of the anterior cerebral artery. Normal left A1 segments of the anterior cerebral artery. Normal intact anterior communicating artery (ACOM). Normal bilateral A2 segments of the anterior cerebral arteries. Normal right M1 and M2 segments of the middle cerebral arteries, with a normal M1 bifurcation. Normal left M1 and M2 segments of the middle cerebral arteries, with a normal M1 bifurcation. Normal right posterior communicating artery (PCOM). Normal left posterior communicating artery (PCOM). Normal bilateral vertebral arteries. Normal basilar artery with a normal basilar bifurcation. The visualized bilateral superior cerebellar (SCA) arteries are normal. Normal bilateral P1, P2 and visualized P3 segments of the posterior cerebral arteries. There is no demonstrated aneurysm of the [place]. There is no demonstrated abnormality of the visualized brain. AORTIC ARCH: Normal visualized aortic arch. Normal origins of the brachiocephalic, left common carotid, and left subclavian arteries. RIGHT CAROTID ARTERIES: Normal right common carotid artery (CCA). Normal right common carotid bulb. Dense calcified atherosclerotic plaque in the proximal right ICA with approximately 40% stenosis. Normal visualized cervical portion of the right internal carotid artery. Normal origin of the right external carotid artery (ECA). LEFT CAROTID ARTERIES: Normal left common carotid artery (CCA). Normal left common carotid bulb. Dense calcified plaque in the proximal left ICA with stenosis measuring 50%. Normal visualized cervical portion of the left internal carotid artery. Normal origin of the left external carotid artery (ECA). VERTEBRAL ARTERIES: There is enhancement within the bilateral vertebral arteries with a small left vertebral artery, and a dominant right vertebral artery. No suspicious enhancing lesion, no airway narrowing or deviation. Degenerative bony changes noted, lung apices are clear. There is extensive maxillary sinusitis with expansion through the right medial wall into the nasal cavity with calcifications suggesting underlying mucormycosis. There is near complete opacification of both maxillary sinus with occlusion of the ostiomeatal complexes. CT/STROKE CTA Head AND Neck W/Con IMPRESSION: No CTA evidence of vaso-occlusive disease, significant stenosis, aneurysm, or vascular malformation within the intracranial circulation. Dense calcified atherosclerotic plaque in both proximal ICAs with 40% stenosis measured in the right and 50% stenosis measured in the left. 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 : The above Results were Read Back by Kamran Bello MD to Gregg Crain MD, and understanding confirmed on 01/07/2023 10:23:59 (ET). Electronically Signed: Kamran Bello MD at 10:25 EDT ,
--- NOTE | 2023-01-07 09:52 | CT_ITS ---
STUDY: CT BRAIN WITHOUT CONTRAST REASON FOR EXAM: Male, 77 years old. Neurological deficit. Stroke alert. RADIATION DOSAGE (If Supplied By Facility): CTDIvol = ( 45 ) mGy, DLP = ( 830 ) mGycm TECHNIQUE: Transaxial CT imaging of the brain was performed without administration of intravenous contrast material. Individualized dose optimization techniques were used for this CT. COMPARISON: 01/09/2021 FINDINGS: There is an old right temporoparietal infarct with encephalomalacia. There is no acute bleed or infarct. There are chronic ischemic and atrophic changes. The ventricles are normal in configuration. There is no hydrocephalus. The visualized paranasal sinuses are clear. The mastoid air cells are well aerated. There is no skull fracture. CT/STROKE Brain/Head without Cont IMPRESSION: Old right temporoparietal infarct with encephalomalacia. No acute intracranial abnormality. Chronic ischemic and atrophic changes. N.B. : The above Results were Read Back by Owen Oscar MD to Gregg Crain MD, and understanding confirmed on 01/07/2023 10:09:57 (ET). Electronically Signed: Owen Oscar MD at 10:11 EDT ,
--- NOTE | 2023-01-07 09:53 | ED.RN ---
1st call to [facility]. patient in ct scan at this time.
--- NOTE | 2023-01-07 10:00 | ED.RN ---
2nd call to [facility] to inform that patient is back in room and robot in front of patient. [facility] informed neurologist would beam in to robot as soon as possible.
[2023-01-07 10:04] LABS: Absolute Lymphocyte Count 2.14 X10^3/uL (0.83-4.51); Absolute Neutrophil Count 5.7 X10^3/uL (2.0-7.7); Basophil# 0.04 X10^3/uL; Basophil% 0.5 % (0-1); Eosinophil# 0.26 X10^3/uL; Eosinophils% 2.9 % (0-5); Hematocrit 45.3 % (40-54); Hemoglobin 14.4 g/dL (13.0-16.5); Lymphocyte # 2.14 X10^3/ul (0.83-4.51); Lymphocyte % 24.1 % (19-41); Mean Corp Hgb Conc 31.8 g/dL (32-36); Mean Corpuscular Hgb 28.7 pg (27.0-32.0); Mean Corpuscular Volume 90.4 fL (80-94); Mean Platelet Vol. 9.8 fl (6.2-12.0); Monocyte# 0.66 X10^3/uL; Monocyte% 7.4 % (0-10); NRBC Flagged by Analyzer 0 % (0-5); Neutrophil # 5.74 X10^3/uL (2.7-7.7); Neutrophil % 64.6 % (47-70); Platelet Count 271 K/mm3 (150-450); RBC Distribution Width CV 13.8 % (11.6-14.6); RBC Distribution Width SD 45.6 fl (35.1-43.9); Red Blood Count 5.01 M/mm3 (4.6-6.2); White Blood Count 8.9 K/mm3 (4.4-11.0)
--- NOTE | 2023-01-07 10:09 | ED.RN ---
[facility] neurologist beamed into robot at this time.
--- NOTE | 2023-01-07 10:11 | ED.RN ---
[facility] NEUROLOGIST RECOMMENDS ADMIT PATIENT FOR STROKE WORKUP UNLESS CTA IS POSITIVE THEN TRANSFER.
[2023-01-07 10:19] LABS: International Normalized Ratio 1.5; Partial Thromboplast Time 23.9 Seconds (24.1-36.2); Prothrombin Time (Protime)PT. 17.5 SECONDS (11.7-14.9)
[2023-01-07 10:20] LABS: Anion Gap 3 (5-15); BUN 24 mg/dL (7-18); BUN/Creat Ratio 21.6 RATIO (10-20); Calcium,Total 9.2 mg/dL (8.5-10.1); Chloride 104 mmol/L (98-107); Creatinine, Serum 1.11 mg/dL (0.70-1.30); EST Glomerular Filtration Rate 68 mL/min (>60); Est Glom Filt Rate - Afr Amer 82 mL/min (>60); Estimated Creatinine Clearance 53.06 ml/min; Glucose 221 mg/dL (74-106); Potassium 4.4 mmol/L (3.5-5.1); Sodium Level 135 mmol/L (136-145); Troponin-I HS 39 pg/mL (3.0-78.0)
--- NOTE | 2023-01-07 10:30 | RAD_ITS ---
STUDY: X-RAY CHEST REASON FOR EXAM: Male, 77 years old. Altered mental status TECHNIQUE: Frontal view of the chest COMPARISON: 03/19/2022 FINDINGS: The lungs are clear. There are no pleural effusions. There is no pneumothorax. The heart is normal in size. There are stable postsurgical changes in the right chest wall. RAD/Chest 1 View IMPRESSION: No acute thoracic pathology. Electronically Signed: Owen Oscar MD at 11:15 EDT ,
[2023-01-07 10:46] LABS: Bedside Glucose 205 mg/dL (74-106)
[2023-01-07] MEDS: Aspirin 81 MG TAB.CHEW PO (10:49)
--- NOTE | 2023-01-07 12:38 | HP.PCM.HOS_ITS ---
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 Stroke call in ED, NIH of 1, patient not a candidate for intervention. CTA and CT head and neck with no acute changes and hospitalist consulted for admission. Patient evaluated at bedside with . Patient has stuttering and difficulty with expressive aphasia, reports that they spent the winter in [place] and he had a stroke on November 01 and got home on November 24 from the hospital and was using a walker. They returned to [place] 1 week ago. He does have some residual left-sided weakness and left eye decrease in vision, has chronic problems with his right eye. He has chronic tingling in his lower extremities. Does have chronic headaches as well and did have one this morning. No acute changes in vision or other acute changes in strength. Expressive aphasia has not changed since he woke up including not improving nor worsening. He denies any chest pain or shortness of breath. No sinus tenderness, no other complaints voiced though had difficulty with answering questions at times. [facility] Medical History (Updated 01/07/23 @ 20:[address] Katia Pathak MD) Ambulates with cane Atherosclerosis of coronary artery of [place] heart without angina pectoris Atrial flutter Bilateral carotid artery stenosis Carotid stenosis CKD (chronic kidney disease), stage III Debility Diabetes Essential hypertension GERD (gastroesophageal reflux disease) Gout History of coronary artery stent placement (~12/20/17) Hyperlipidemia Migraine Non-smoker NSTEMI (non-ST elevated myocardial infarction) (~12/20/17) Old myocardial infarction ANA on CPAP Osteoarthritis Pulmonary emboli Restless leg syndrome Stroke/cerebrovascular accident VTE (venous thromboembolism) Wears glasses Wears partial dentures Home Medications allopurinol 100 mg tablet 100 mg PO DAILY gout 09/21/15 [History Last Taken 01/06/23] warfarin 5 mg tablet 7.5 mg PO MOWEFR Anticoagulant 06/21/21 [History Last Taken 01/06/23] nitroglycerin 0.4 mg sublingual tablet 0.4 mg sublingual Q5M PRN Cardiac/Chest Pain #0 tabs 06/30/21 [Rx Last Taken Unknown] glimepiride 2 mg tablet 2 mg PO BID diabetes 12/26/21 [History Last Taken ] warfarin 5 mg tablet (Jantoven) 5 mg PO SUTUTHSA 03/18/22 [History Last Taken 01/06/23] gabapentin 800 mg tablet 800 mg PO TID #270 tabs 05/15/22 [Rx Last Taken 01/06/23] amlodipine 5 mg tablet 5 mg PO DAILY #30 tabs 07/30/22 [Rx Last Taken 01/06/23] duloxetine 60 mg capsule,delayed release 60 mg PO QPM #30 caps 07/30/22 [Rx Last Taken 01/06/23] aspirin 81 mg tablet,delayed release 81 mg PO DAILY HEART HEALTH 01/07/23 [History Last Taken 01/06/23] losartan 25 mg tablet 25 mg PO DAILY HTN 01/07/23 [History Last Taken 01/06/23] ropinirole 1 mg tablet 1 mg PO QHS . 01/07/23 [History Last Taken 01/06/23] trazodone 50 mg tablet 75 mg PO QHS . 01/07/23 [History Last Taken Unknown] Allergy/AdvReac Type Severity Reaction Status Date / Time atorvastatin [From Lipitor] AdvReac Severe Myalgias Verified 07/30/22 08:05 acetaminophen [From Fioricet] AdvReac Other Verified 01/07/23 18:15 butalbital [From Fioricet] AdvReac Other Verified 01/07/23 18:15 caffeine [From Fioricet] AdvReac Other Verified 01/07/23 18:15 promethazine HCl AdvReac GET JUMPY Verified 07/30/22 08:05 [From Phenergan] Family History Father Heart disease COPD (chronic obstructive pulmonary disease) Surgical History (Updated 01/07/23 @ 10:21 by Mag Telles) History of bilateral knee replacement History of nasal septoplasty (~03/2021) Hx of appendectomy Hx of fracture of arm Postsurgical percutaneous transluminal coronary angioplasty (PTCA) status Presence of coronary angioplasty implant and graft (~12/20/17) Status post lumboperitoneal shunt placement Social History household members: spouse Smoking Status: Never smoker second hand exposure: No alcohol intake: never caffeine: Yes (very rare) Type: carbonated beverages and tea what type of physical activity do you participate in: none frequency: does not exercise jose manuel/church: [employer] seatbelt use: sometimes ROS ROS Narrative General: Denies fever/chills HENT: Did have frontal headache earlier which come and go, no acute changes in vision, no facial tenderness, no changes in his swallowing EYES: Chronic problems with his right eye and decreased vision on the left side since his stroke in October Resp: Denies cough, denies shortness of breath Cardiac: Denies chest pain GI: Denies abdominal pain, denies changes in bowel, denies nausea/vomiting : Denies changes in urination Extremity: Denies swelling MSK: Has some residual left-sided weakness Neuro: Has tingling and numbness in his bilateral lower extremities chronically Heme: Denies any bleeding or bruising Skin: Denies rashes Psychiatric: No complaints voiced Vital Signs Vital Signs Vital Signs: 01/07/23 09:45 01/07/23 10:10 01/07/23 10:16 Temperature 96.7 F L Temperature Source Temporal Pulse Rate 75 66 Respiratory Rate 18 16 Blood Pressure 171/83 H 168/84 H Blood Pressure Mean 112 112 Pulse Ox 95 96 96 Oxygen Delivery Method Room Air Room Air Room Air 01/07/23 10:40 01/07/23 11:10 01/07/23 11:40 Temperature Temperature Source Pulse Rate 66 66 66 Respiratory Rate 14 17 14 Blood Pressure 136/75 H 179/93 H 195/99 H Blood Pressure Mean 95 121 131 Pulse Ox 97 97 97 Oxygen Delivery Method Room Air Room Air Room Air 01/07/23 12:10 01/07/23 12:10 Temperature 97 F L Temperature Source Temporal Pulse Rate 66 66 Respiratory Rate 16 16 Blood Pressure 163/91 H 163/91 H Blood Pressure Mean 115 115 Pulse Ox 97 97 Oxygen Delivery Method Room Air Room Air Weight Weight: 124.5 kg Body Mass Index (BMI) 41.5 Physical Exam Narrative General: Alert, no acute distress HEENT: Atraumatic, normocephalic, no lesions on the soft palate or throat, no tenderness over sinuses, no neck swelling Eyes: Anicteric, normal conjunctiva, extraocular movements intact, pupils equal and round Neck: Supple Respiratory: Clear to auscultation bilaterally, normal respiratory effort Cardiovascular: Regular rate and rhythm GI: Soft, nontender, nondistended Extremities: No edema Musculoskeletal: Moving all extremities, 5 out of 5 strength on right side, 5- out of 5 on left side Neuro: Able to perform [id number], reflexes equal bilaterally, cranial nerves II through XII intact Skin: No rashes appreciated Psych: Cooperative Results Lab / Micro Data Result Diagrams: 01/07/23 09:50 01/07/23 09:50 Labs: Laboratory Results - last 24 hr 01/07/23 09:44: POC Glucose 205 H 01/07/23 09:50: WBC 8.9, RBC 5.01, Hgb 14.4, Hct 45.3, MCV 90.4, MCH 28.7, MCHC 31.8 L, RDW Std Deviation 45.6 H, RDW Coeff of Ag 13.8, Plt Count 271, MPV 9.8, Immature Gran % (Auto) 0.500, Neut % (Auto) 64.6, Lymph % (Auto) 24.1, [place] % (Auto) 7.4, Eos % (Auto) 2.9, Baso % (Auto) 0.5, Absolute Neuts (auto) 5.7, Absolute Lymphs (auto) 2.14, Nucleated RBC % 0 01/07/23 09:50: PT 17.5 H, INR 1.5, APTT 23.9 L 01/07/23 09:50: Sodium 135 L, Potassium 4.4, Chloride 104, Carbon Dioxide 28.0, Anion Gap 3 L, BUN 24 H, Creatinine 1.11, Estim Creat Clear Calc 53.06, Est GFR (MDRD) Af Amer 82, Est GFR (MDRD) Non-Af 68, BUN/Creatinine Ratio 21.6 H, Glucose 221 H, Calcium 9.2, Troponin I High Sens [address] 01/07/23 09:52 IMPRESSION: Old right temporoparietal infarct with encephalomalacia. No acute intracranial abnormality. Chronic ischemic and atrophic changes. N.B. : The above Results were Read Back by Owen Oscar MD to Gregg Crain MD, and understanding confirmed on 01/07/2023 10:09:57 (ET). Electronically Signed: Owen Oscar MD at 10:11 EDT , ADDENDUM: 01/07/23 1018 IMPRESSION: Old right temporoparietal infarct with encephalomalacia. No acute intracranial abnormality. Chronic ischemic and atrophic changes. N.B. : The above Results were Read Back by Owen Oscar MD to Gregg Crain MD, and understanding confirmed on 01/07/2023 10:09:57 (ET). Electronically Signed: Owen Oscar MD at 10:11 EDT , Head/Neck CTA 01/07/23 09:52 IMPRESSION: No CTA evidence of vaso-occlusive disease, significant stenosis, aneurysm, or vascular malformation within the intracranial circulation. Dense calcified atherosclerotic plaque in both proximal ICAs with 40% stenosis measured in the right and 50% stenosis measured in the left. 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 : The above Results were Read Back by Kamran Bello MD to Gregg Crain MD, and understanding confirmed on 01/07/2023 10:23:59 (ET). Electronically Signed: Kamran Bello MD at 10:25 EDT , ADDENDUM: 01/07/23 1032 IMPRESSION: No CTA evidence of vaso-occlusive disease, significant stenosis, aneurysm, or vascular malformation within the intracranial circulation. Dense calcified atherosclerotic plaque in both proximal ICAs with 40% stenosis measured in the right and 50% stenosis measured in the left. 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 : The above Results were Read Back by Kamran Bello MD to Gregg Crain MD, and understanding confirmed on 01/07/2023 10:23:59 (ET). Electronically Signed: Kamran Bello MD at 10:25 EDT , Chest X-Ray 01/07/23 10:30 IMPRESSION: No acute thoracic pathology. Electronically Signed: Owen Oscar MD at 11:15 EDT , Assessment & Plan Assessment/Plan (1) Expressive aphasia: (2) Pseudotumor cerebri: (3) Subtherapeutic anticoagulation: (4) Chronic maxillary sinusitis: (5) Diabetes mellitus: (6) Neuropathic pain: (7) Atrial fibrillation and flutter: (8) ANA on CPAP: (9) Atherosclerosis of coronary artery of [place] heart without angina pectoris: QUALIFIERS: Coronary Disease-Associated Artery/Lesion type: [place] artery Qualified Code(s): I25.10 - Atherosclerotic heart disease of [place] coronary artery without angina pectoris PLAN: Plan #Expressive aphasia/history of CVA October 2022 -Admit to tele -Did have stroke call in ED w/ pt not candidate for tenectaplase and NIH of 1 -CT head w/ old right temporoparietal infarct with encephalomalacia and chronic ischemic and atrophic changes -CTA head and neck with dense calcified atherosclerotic plaque in both proximal ICAs with 40% in the right and 50% on the left, has a small left vertebral artery -Will need to assess ability to get MRI due to his history of shunt due to pseudotumor cerebri, concern that it may not be compatible based on records, if not will repeat CT at 24 hours -NIH q4hr -asa, has not tolerated atorvastatin and from Dr. Vargas's note did not tolerate rosuvastatin, adjust coum dosing -Echo w/ bubble study -PT/OT/Speech eval -Hold BP medications to allow for permissive hypertension for 24 hours unless SBP greater than 220 or DBP greater than 120 or until stroke is ruled out -SCDs for DVT prophylaxis while adjusting Coumadin dosing -Does follow with Dr. Vargas as an outpatient #Atrial fibrillation -INR 1.5, subtherapeutic -EKG heart rate of 66 and appeared to be a flutter rate controlled 4:1 but will monitor on telemetry, QTc 415, left axis deviation -Reports being on Coumadin 5 mg daily and 2.5 mg on Saturday with no recent changes in dose per patient but the dose in our system is a different dosing, will increase and monitor daily #History of coronary artery disease -Continue aspirin -A.m. lipid panel, may need to try lower intensity statin but he has had multiple statin intolerances #Maxillary sinusitis -Underwent surgical resection of a nasal mass in 2020 that was felt to be due to chronic sinusitis -Dr. March contacted in ED regarding CT results and felt this was changes 2/2 post rhinoplasty in 2020 with low suspicion for aggressive etiology and recommended outpt ENT follow up #Gout -Continue allopurinol #Type 2 diabetes mellitus -Glucose checks and sliding scale insulin -Holding home oral hypoglycemics #Pseudotumor cerebri -Had LP shunt placed in 1997 which resolved his occipital headaches and visual impairment symptoms -Had a shunt revision in 2009 #ANA -CPAP #RLS -Pramipexole, gabapentin #Hx VTE -PE 2017 and may 2020 -On coum but subtherapeutic, adjust dosing #DVT ppx: SCDs while awaiting therapeutic INR Katia Pathak MD Time spent in the patient's overall evaluation,decision-making process, review of diagnostic data, adjustment of management, discussion with other providers, nursing nursing and ancillary staff involved in patient's care documentation, 60 Minutes Charges/Coding Visit Charges Inpatient E&M: 89937 Init Hosp L2
--- NOTE | 2023-01-07 13:22 | ED.RN ---
SPOKE WITH DR. PRATIK LIUAY TO DISCONTINUE EVERY 30 MINUTES [facility].
--- NOTE | 2023-01-07 15:27 | ECHOCS_ITS ---
Reason For Study: TIA/CVA Procedure This was a 2D Doppler, Color Flow transthoracic echocardiogram. The study was technically difficult. Contrast injection was performed. Exam performed portable in patient room. Left Ventricle Normal size and thickness. The left ventricular ejection fraction is 60 %. Normal diastology for age. Right Ventricle Normal right ventricle. Atria The left and right atria are normal. Intact atrial septum. Mitral Valve The mitral valve is structurally normal. No prolapse or stenosis seen. Tricuspid Valve Mild tricuspid valve insufficiency. Normal pulmonary artery pressure. Aortic Valve Aortic sclerosis, no stenosis. Mild diffuse aortic valve calcification. Pulmonic Valve The pulmonic valve is not well visualized. Great Vessels The aortic root is not well visualized. Pericardium/Pleural No pericardial effusion. Medication Diluted definity 2ml given slow IV push to enhance endocardial definition. MMode/2D Measurements & Calculations LVIDd: 5.1 cm IVSd: 1.1 cm LA dimension: 4.1 cm LVIDs: 3.9 cm LVPWd: 1.3 cm FS: 24.4 % LAV(MOD-bp): 64.3 ml LA A4 area: 22.4 cm2 RA A4 area: 19.0 cm2 LAV(MOD-bp) Indexed: 27.2 ml/m2 LAV(MOD-sp2): 59.5 ml LAV(MOD-sp4): 62.2 ml Time Measurements MV dec time: 0.21 sec Doppler Measurements & Calculations MV E max luciano: 75.5 cm/sec Lat Peak E' Luciano: 11.8 cm/sec Med Peak E' Luciano: 11.1 cm/sec MV A max luciano: 26.8 cm/sec E/E' lat: 6.4 E/E' med: 6.8 MV E/A: 2.8 MV V2 max: 90.3 cm/sec MV P1/2t max luciano: 91.3 cm/sec Ao V2 max: 100.3 cm/sec MV max P.3 mmHg MV P1/2t: 72.3 msec Ao max P.0 mmHg MV V2 mean: 40.3 cm/sec MV dec slope: 369.9 cm/sec2 MV mean P.84 mmHg MV V2 VTI: 22.1 cm MVA(P1/2t): 3.0 cm2 LV V1 max: 84.2 cm/sec PA V2 max: 96.7 cm/sec TR max luciano: 282.8 cm/sec LV V1 max P.8 mmHg TR max P.0 mmHg ECHO/Echo Complete W/ Contrast Interpretation Summary The left ventricular ejection fraction is 60 %. Aortic sclerosis, no stenosis. Mild diffuse aortic valve calcification. The study was technically difficult. Mild tricuspid valve insufficiency. Ordering Physician: Katia Pathak Performed By: Tom Gregory RCS
[2023-01-07] MEDS: Gabapentin 800 MG Tablet PO ×2 (16:24→21:18)
[2023-01-07] MEDS: Acetaminophen 325 MG Tablet 650 MG PO (16:25)
[2023-01-07] MEDS: Insulin Lispro 100 UNIT/ML INSULN.PEN SC ×2 (16:25→21:21)
[2023-01-07 17:26] LABS: Bedside Glucose 162 mg/dL (74-106)
[2023-01-07] MEDS: oxyCODONE 5 MG Tablet PO (20:08)
[2023-01-07] MEDS: traZODone 50 MG Tablet 75 MG PO (21:26)
[2023-01-07] MEDS: DULoxetine Hcl 60 MG Capsule PO (21:27)
[2023-01-07] MEDS: Pramipexole Di-HCl 0.5 MG Tablet PO (21:27)
[2023-01-08] VITALS (8 sets, daily range): BP systolic 130–147; BP diastolic 63–95; PULSE 65–70; RESP 16–18; TEMP 36.1–36.7; O2SAT 93–96; BMI 40.4
[2023-01-08 02:11] LABS: Bedside Glucose 173 mg/dL (74-106)
[2023-01-08 05:16] LABS: Absolute Neutrophil Count 5.3 X10^3/uL (2.0-7.7); Basophil# 0.03 X10^3/uL; Basophil% 0.4 % (0-1); Eosinophil# 0.26 X10^3/uL; Eosinophils% 3.1 % (0-5); Hematocrit 40.6 % (40-54); Hemoglobin 12.8 g/dL (13.0-16.5); Lymphocyte % 27.1 % (19-41); Mean Corp Hgb Conc 31.5 g/dL (32-36); Mean Corpuscular Hgb 28.4 pg (27.0-32.0); Mean Platelet Vol. 10.5 fl (6.2-12.0); Monocyte# 0.56 X10^3/uL; Monocyte% 6.6 % (0-10); NRBC Flagged by Analyzer 0 % (0-5); Neutrophil % 62.4 % (47-70); Platelet Count 258 K/mm3 (150-450); RBC Distribution Width CV 13.5 % (11.6-14.6); RBC Distribution Width SD 44.3 fl (35.1-43.9); Red Blood Count 4.51 M/mm3 (4.6-6.2); White Blood Count 8.5 K/mm3 (4.4-11.0)
[2023-01-08 05:28] LABS: International Normalized Ratio 1.6
[2023-01-08] MEDS: Gabapentin 800 MG Tablet PO ×2 (05:39→14:46)
[2023-01-08 06:43] LABS: Anion Gap 4 (5-15); BUN 20 mg/dL (7-18); BUN/Creat Ratio 19.8 RATIO (10-20); Calcium,Total 8.9 mg/dL (8.5-10.1); Chloride 101 mmol/L (98-107); Cholesterol 220 mg/dL (200); Creatinine, Serum 1.01 mg/dL (0.70-1.30); EST Glomerular Filtration Rate 76 mL/min (>60); Est Glom Filt Rate - Afr Amer 92 mL/min (>60); Estimated Creatinine Clearance 60.28 ml/min; Glucose 120 mg/dL (74-106); High Density Lipoprotein 32 mg/dL; Potassium 3.9 mmol/L (3.5-5.1); Sodium Level 134 mmol/L (136-145); Thyroid Stim Hormone (TSH) 2.92 uIU/mL (0.358-3.74); Triglycerides 310 mg/dL; Very Low Density Lipoprotein 62 mg/dL (5-40)
[2023-01-08] MEDS: oxyCODONE 5 MG Tablet PO ×2 (08:52→16:41)
[2023-01-08] MEDS: Aspirin 81 MG TAB.CHEW PO (08:52)
[2023-01-08] MEDS: Allopurinol 100 MG Tablet PO (08:52)
--- NOTE | 2023-01-08 09:51 | CT_ITS ---
STUDY: CT BRAIN WITHOUT CONTRAST REASON FOR EXAM: Male, 77 years old. Headache, syncope RADIATION DOSAGE (If Supplied By Facility): CTDIvol = ( ) mGy, DLP = ( ) mGycm TECHNIQUE: Transaxial CT imaging of the brain was performed without administration of intravenous contrast material. Individualized dose optimization techniques were used for this CT. COMPARISON: 01/07/2023 FINDINGS: Normal soft tissue structures. Normal calvarium. Normal size ventricles and extra-axial spaces for the patient''s age. There are areas of decreased attenuation within the white matter tracts of the supratentorial brain, consistent with microvascular disease changes. Stable appearance of an old infarct in the right parietal-occipital region. Normal basal ganglia and thalami. Normal brainstem. Normal cerebellum. There is no intracranial hemorrhage. There are no findings of an acute ischemic infarction. Normal visualized paranasal sinuses. CT/STROKE Brain/Head without Cont IMPRESSION: Chronic involutional changes of the brain. No acute hemorrhage or significant interval change N.B. : The above Results were Read Back by Kamran Bello MD to ROSEANNE doss, and understanding confirmed on 01/08/2023 10:32:18 (ET). Electronically Signed: Kamran Bello MD at 10:33 EDT ,
--- NOTE | 2023-01-08 10:00 | CASEMGMT ---
ROSEANNE CHAPARRO Face to Face with patient for initial transition planning/care coordination assessment. RN CM introduced self and role at [facility]. Patient lying in bed, alert and oriented. Patient willing to participate in assessment and is able to answer all questions appropriately. Care providers, pharmacy, and demographics verified. Patient wishes to discharge home, denies need for home health at this time. Patient states he has no further needs or concerns at this time. CM to follow for discharge planning needs that may arise. PCP: Emmanuelle Specialists: Sam Neurologist Preferred Pharmacy: [facility] Insurance: [facility] Prescription Benefit: none Living Will/HPOA: Patient believes it is his Judy zapata LNOK: , daughter Living Arrangements: Patient lives with in a 2 story home with bed and bath on first floor, 3 steps and railing to enter the home. Patient states he is independent for toileting and dressing, assists with bathing. Transportation: DME/HHC: Patient states he has walker, cane, and shower chair at home. No previous HHC or SNF. Disposition Plan: Patient to discharge home with family support and follow-up plans in place. Lore CURRY, RN, CM
[2023-01-08 10:14] LABS: Magnesium 1.6 mg/dL (1.6-2.6)
[2023-01-08] MEDS: Insulin Lispro 100 UNIT/ML INSULN.PEN SC ×2 (11:27→16:31)
[2023-01-08 11:50] LABS: Bedside Glucose 251 mg/dL (74-106)
--- NOTE | 2023-01-08 12:21 | PN.HOSP_ITS ---
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 No other acute complaints Objective Data Objective Data Vital Signs: Vital Signs Temp Pulse Resp BP Pulse Ox O2 Del Method 98.1 F 68 16 130/72 H 96 Room Air 01/08/23 08:42 01/08/23 08:42 01/08/23 08:42 01/08/23 08:42 01/08/23 08:42 01/08/23 08:42 Oxygen Delivery Method Room Air Weight: 124.3 kg Body Mass Index (BMI) 40.4 Intake & Output: Intake and Output for Last 24 Hours 01/06/23 01/07/23 01/08/23 23:59 23:59 23:59 Intake Total 600 / 600 Output Total 700 / 700 Balance 600 / 300 -700 / -700 Lab / Micro Data Result Diagrams: 01/08/23 04:01 01/08/23 04:01 Labs: Laboratory Results - last 24 hr 01/07/23 16:08: POC Glucose 162 H 01/07/23 21:20: POC Glucose 173 H 01/08/23 04:01: WBC 8.5, RBC 4.51 L, Hgb 12.8 L, Hct 40.6, MCV 90.0, MCH 28.4, MCHC 31.5 L, RDW Std Deviation 44.3 H, RDW Coeff of Ag 13.5, Plt Count 258, MPV 10.5, Immature Gran % (Auto) 0.400, Neut % (Auto) 62.4, Lymph % (Auto) 27.1, [place] % (Auto) 6.6, Eos % (Auto) 3.1, Baso % (Auto) 0.4, Absolute Neuts (auto) 5.3, Absolute Lymphs (auto) 2.30, Nucleated RBC % 0 01/08/23 04:01: PT 19.0 H, INR 1.6 01/08/23 04:01: Sodium 134 L, Potassium 3.9, Chloride 101, Carbon Dioxide 29.0, Anion Gap 4 L, BUN 20 H, Creatinine 1.01, Estim Creat Clear Calc 60.28, Est GFR (MDRD) Af Amer 92, Est GFR (MDRD) Non-Af 76, BUN/Creatinine Ratio 19.8, Glucose 120 H, Calcium 8.9, Triglycerides 310 H, Cholesterol 220 H, LDL Cholesterol 126, VLDL Cholesterol 62 H, HDL Cholesterol 32 L, TSH 2.92 01/08/23 04:01: Magnesium 1.6 01/08/23 11:26: POC Glucose 251 H Radiography Diagnostic Testing: Radiology Impression Brain CT 01/08/23 09:51 IMPRESSION: Chronic involutional changes of the brain. No acute hemorrhage or significant interval change N.B. : The above Results were Read Back by Kamran Bello MD to ROSEANNE doss, and understanding confirmed on 01/08/2023 10:32:18 (ET). Electronically Signed: Kamran Bello MD at 10:33 EDT , ADDENDUM: 01/08/23 1040 IMPRESSION: Chronic involutional changes of the brain. No acute hemorrhage or significant interval change N.B. : The above Results were Read Back by Kamran Bello MD to ROSEANNE doss, and understanding confirmed on 01/08/2023 10:32:18 (ET). Electronically Signed: Kamran Bello MD at 10:33 EDT , Physical Exam Narrative General: Alert, no acute distress HEENT: Atraumatic, normocephalic Eyes: Anicteric, normal conjunctiva, extraocular movements intact Neck: Supple Respiratory: Clear to auscultation bilaterally, normal respiratory effort Cardiovascular: Regular rate, frequent ventricular beats GI: Soft, nontender, nondistended Extremities: No edema Musculoskeletal: Moving all extremities Neuro: No overt neurological changes from exam yesterday Skin: No rashes appreciated Psych: Cooperative Assessment & Plan Assessment/Plan (1) Expressive aphasia: (2) Pseudotumor cerebri: (3) Subtherapeutic anticoagulation: (4) Chronic maxillary sinusitis: (5) Diabetes mellitus: (6) Neuropathic pain: (7) Atrial fibrillation and flutter: (8) ANA on CPAP: (9) Atherosclerosis of coronary artery of torres martinez heart without angina pectoris: QUALIFIERS: Coronary Disease-Associated Artery/Lesion type: torres martinez artery Qualified Code(s): I25.10 - 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 PLAN: Plan #Expressive aphasia/history of CVA October 2022 -Admit to tele -Did have stroke call in ED w/ pt not candidate for tenectaplase and NIH of 1 -CT head w/ old right temporoparietal infarct with encephalomalacia and chronic ischemic and atrophic changes -CTA head and neck with dense calcified atherosclerotic plaque in both proximal ICAs with 40% in the right and 50% on the left, has a small left vertebral artery -Will need to assess ability to get MRI due to his history of shunt due to pseudotumor cerebri, concern that it may not be compatible based on records, if not will repeat CT at 24 hours -NIH q4hr -asa, has not tolerated atorvastatin and from Dr. Vargas's note did not tolerate rosuvastatin, adjust coum dosing -Echo w/ bubble study -PT/OT/Speech eval -Hold BP medications to allow for permissive hypertension for 24 hours unless SBP greater than 220 or DBP greater than 120 or until stroke is ruled out -SCDs for DVT prophylaxis while adjusting Coumadin dosing -Does follow with Dr. Vargas as an outpatient -01/08: Speech is somewhat better today, repeat CT scan at 24 hours on revealing, attempted to get MRI of LP shunt compatible. Awaiting echocardiogram and therapy evaluations #Atrial fibrillation -INR 1.5, subtherapeutic -EKG heart rate of 66 and appeared to be a flutter rate controlled 4:1 but will monitor on telemetry, QTc 415, left axis deviation -Reports being on Coumadin 5 mg daily and 2.5 mg on Saturday with no recent change s in dose per patient but the dose in our system is a different dosing, will increase and monitor daily -01/08: Has been having bouts of ventricular bigeminy, magnesium 1.6, replacing. We will start low-dose of a beta-adilene and echo pending #History of coronary artery disease -Continue aspirin -A.m. lipid panel, may need to try lower intensity statin but he has had multiple statin intolerances #Maxillary sinusitis -Underwent surgical resection of a nasal mass in 2020 that was felt to be due to chronic sinusitis -Dr. 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
[2023-01-08] MEDS: Magnesium Sulfate 4gm/100mL 4 GM/100 ML IV.SOLN. IV (12:45)
[2023-01-08] MEDS: Metoprolol Tartrate 25 MG Tablet 12.5 MG PO (12:45)
--- NOTE | 2023-01-08 15:35 | DCINST_ITS ---
Discharge Instructions Diet Discharge Diet: - (DASH diet) Activity Discharge Activity: Return to Normal Activity Follow Up Care Test Results: Test results from this visit will be discussed in further detail at your follow- up appointment, if applicable. Discharge Plan Admission Admit Date/Time: 01/07/23 12:38 Primary Reason for Your Visit: Stuttering speech Attending Provider: Katia Pathak Primary Care Provider: Casey Handley Instructions Patient Instructions: AFib Preventing Stroke, AFib Additional Instructions / Restrictions: DISCHARGE INSTRUCTIONS PLEASE READ *Please take this with you to your next doctors appointment* -Given your subtherapeutic INR and recurrent stroke it is recommended that you discontinue Coumadin and begin Eliquis. A prescription for this will be sent to [facility] retail pharmacy -You previously did not tolerated high intensity statins but given your recurrent strokes and cholesterol after discussion I will send in a prescription for pravastatin 20 mg, if preferred you can discuss with your primary care physician prior to starting. If you do have any muscle aches or return of symptoms that you previously experienced please stop taking the pravastatin and contact your primary care physician -Due to very frequent premature ventricular contractions you were started on a medication, metoprolol, which you will take twice daily and it is also recommended that you wear a heart monitor for 14 days at discharge to establish frequency of these PVCs -Please follow-up with neurology upon discharge, please call Dr. Vargas's office upon discharge to schedule hospital follow-up appointment ) -Please follow-up with an ear nose throat doctor upon discharge for your chronic sinus inflammation, if you do not actively follow with one please call Dr. March's office to schedule an appointment -Please call your primary care provider's office upon discharge to schedule a hospital follow up within 1 week. -For any concerning signs or symptoms please call 911 or proceed to the nearest emergency department Discharge Orders/Prescriptions Prescriptions: New Eliquis 5 mg tablet 5 mg PO BID Qty: 30 0RF pravastatin 20 mg tablet 20 mg PO DAILY Qty: 30 0RF metoprolol tartrate 25 mg Tablet 12.5 mg PO BID 30 Days Qty: 30 0RF Continued gabapentin 800 mg tablet 800 mg PO TID Qty: 270 1RF duloxetine 60 mg capsule,delayed release(DR/EC) 60 mg PO QPM Qty: 30 5RF Rx Instructions: Begin after completing one week course of duloxetine 30mg nightly. amlodipine 5 mg tablet 5 mg PO DAILY Qty: 30 6RF allopurinol 100 MG tablet 100 mg PO DAILY Label Comments: GOUT glimepiride 2 mg tablet 2 mg PO BID Label Comments: diabetes nitroglycerin 0.4 mg Tablet, Sublingual 0.4 mg sublingual Q5M PRN (Reason: Cardiac/Chest Pain) Qty: 0 0RF ropinirole 1 mg tablet 1 mg PO QHS Label Comments: TAKE 1 TABLET BY MOUTH AT BEDTIME trazodone 50 mg tablet 75 mg PO QHS Label Comments: TAKE 1 & 1/2 (ONE & ONE-HALF) TABLETS BY MOUTH EVERY DAY AT BEDTIME aspirin 81 mg tablet,delayed release (DR/EC) 81 mg PO DAILY Label Comments: TAKE 1 TABLET BY MOUTH ONCE DAILY losartan 25 mg tablet 25 mg PO DAILY Label Comments: TAKE 2 TABLETS BY MOUTH ONCE DAILY Discontinued warfarin 5 MG tablet 7.5 mg PO MOWEFR warfarin [Jantoven] 5 mg tablet 5 mg PO SUTUTHSA Other Ambulatory Orders: 14 Day Event Recorder Preventi (Urgent) Timeframe: 1 Day Facility: [facility] - Location: Cardiovascular Services Ordered By: Dr. Katia Pathak Referrals / Follow Up: Casey Handley DO [Primary Care Provider] - Within 1 Week Duy March MD [Med Staff - Active Staff] - See Referral Note (Please follow-up with an ear nose throat doctor upon discharge for your chronic sinus inflammation, if you do not actively follow with one please call Dr. March's office to schedule an appointment) Shane Vargas MD [Non-Staff -Ordering Privileges] - See Referral Note ( Please follow-up with neurology upon discharge, please call Dr. Vargas's office upon discharge to schedule hospital follow-up appointment (ph [phone])) Disposition Disposition (needs filled in before D/C Order can be placed): Home, Self Care
[2023-01-08 16:56] LABS: Bedside Glucose 253 mg/dL (74-106)
--- NOTE | 2023-01-08 18:10 | DS.PCM_ITS ---
Providers Date of Admission: 01/07/23 Date of Discharge: 01/08/23 Primary Care Physician: Dr. Casey Handley DO Reason For Visit: CVA Diagnosis Discharge Diagnosis (1) Expressive aphasia: Status: Acute Code(s): R47.01 - Aphasia (2) Pseudotumor cerebri: Status: Chronic Code(s): G93.2 - Benign intracranial hypertension (3) Subtherapeutic anticoagulation: Status: Acute Code(s): Z51.81 - Encounter for therapeutic drug level monitoring; Z79.01 - termite exterminator (current) use of anticoagulants (4) Chronic maxillary sinusitis: Status: Chronic Code(s): J32.0 - Chronic maxillary sinusitis (5) Diabetes mellitus: Status: Acute Code(s): E11.9 - Type 2 diabetes mellitus without complications (6) Neuropathic pain: Status: Acute Code(s): M79.2 - Neuralgia and neuritis, unspecified (7) Atrial fibrillation and flutter: Status: Acute Code(s): I48.91 - Unspecified atrial fibrillation; I48.92 - Unspecified atrial flutter (8) ANA on CPAP: Status: Acute Code(s): G47.33 - Obstructive sleep apnea (adult) (pediatric); Z99.89 - Dependence on other enabling machines and devices (9) Atherosclerosis of coronary artery of [place] heart without angina pectoris: Status: Chronic Code(s): I25.10 - Atherosclerotic heart disease of [place] coronary artery without angina pectoris Qualifiers: Coronary Disease-Associated Artery/Lesion type: [place] artery Qualified Code(s): I25.10 - Atherosclerotic heart disease of [place] coronary artery without angina pectoris Plan #Expressive aphasia/history of CVA October 2022 #Atrial fibrillation and bigeminy #History of coronary artery disease #Maxillary sinusitis #Gout #Type 2 diabetes mellitus #Pseudotumor cerebri Had LP shunt placed in 1997 which resolved his occipital headaches and visual impairment symptoms -Had a shunt revision in 2009 #ANA #RLS #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 01/07/23 trazodone 50 mg tablet 75 mg PO QHS . 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 Stroke call in ED, NIH of 1, patient not a candidate for intervention.? CTA and CT head and neck with no acute changes and hospitalist consulted for admission. Patient admitted for stroke work-up, patient has LP shunt and we were unable to ascertain if this was safe for MRI despite records being requested by MRI department. Symptoms did improve significantly however and repeat CT at 24 hours no significant bleeding or new abnormalities. Given symptoms and history however do have high suspicion of CVA. Echocardiogram, previous negative bubble study, EF 60% with aortic sclerosis but no stenosis, mild diffuse aortic valve calcification, mild tricuspid valve insufficiency. On telemetry he was noted to have frequent bigeminy, magnesium repleted and he was started on metoprolol. Did also have elevated cholesterol, had not tolerated atorvastatin in the past and per neurology notes did not tolerate rosuvastatin, after risks and benefits in extensive discussion with him and his he is agreeable to trying pravastatin especially given his recurrent CVAs. Of note he has history of atrial fibrillation as well as pulmonary embolisms and his INR was 1.5 and subtherapeutic. Discussed with him and his and he is on Coumadin and not a DOAC due to cost. Again discussed risks and benefits especially with recurrent strokes and his history of VTE and patient and agreeable to Eliquis however they have used the discount card in the past so Xarelto was sent in to the pharmacy. Advised that they can discuss with primary care physician as far as options for continuing on DOAC if at all possible given subtherapeutic INR and high risk for recurrent events. Given his bigeminy and metoprolol ordered 14-day event monitor so that burden of PVCs can be fortino ntified. Also of note CT on admission noted bilateral sinusitis and queried mucormycosis. ENT was contacted and felt that this was chronic and were okay with admission to our facility and following up outpatient for that. On day of discharge feeling much better, no acute complaints. Discharge instructions as followed: -Given your subtherapeutic INR and recurrent stroke it is recommended that you discontinue Coumadin and begin Xeralto.? A prescription for this will be sent to [facility] retail pharmacy -You previously did not tolerated high intensity statins but given your recurrent strokes and cholesterol after discussion I will send in a prescription for pravastatin 20 mg, if preferred you can discuss with your primary care physician prior to starting.? If you do have any muscle aches or return of symptoms that you previously experienced please stop taking the pravastatin and contact your primary care physician -Due to very frequent premature ventricular contractions you were started on a medication, metoprolol, which you will take twice daily and it is also r ecommended that you wear a heart monitor for 14 days at discharge to establish frequency of these PVCs -Please follow-up with neurology upon discharge, please call Dr. Vargas's office upon discharge to schedule hospital follow-up appointment ) -Please follow-up with an ear nose throat doctor upon discharge for your chronic sinus inflammation, if you do not actively follow with one please call Dr. March's office to schedule an appointment -Please call your primary care provider's office upon discharge to schedule a hospital follow up within 1 week. -For any concerning signs or symptoms please call 911 or proceed to the nearest emergency department Physical Exam Narrative General: Alert, no acute distress HEENT: Atraumatic, normocephalic Eyes: Anicteric, normal conjunctiva, extraocular movements intact Neck: Supple Respiratory: Clear to auscultation bilaterally, normal respiratory effort Cardiovascular: Regular rate, frequent ventricular beats GI: Soft, nontender, nondistended Extremities: No edema Musculoskeletal: Moving all extremities Neuro: No overt neurological changes from exam yesterday Skin: No rashes appreciated Psych: Cooperative Weight / BMI Weight Weight: 124.3 kg Body Mass Index (BMI) 40.4 ABG / Lab / Microbiology Data Result Diagrams: 01/08/23 04:01 01/08/23 04:01 Laboratory: Laboratory Results - last 24 hr 01/07/23 21:20: POC Glucose 173 H 01/08/23 04:01: WBC 8.5, RBC 4.51 L, Hgb 12.8 L, Hct 40.6, MCV 90.0, MCH 28.4, MCHC 31.5 L, RDW Std Deviation 44.3 H, RDW Coeff of Ag 13.5, Plt Count 258, MPV 10.5, Immature Gran % (Auto) 0.400, Neut % (Auto) 62.4, Lymph % (Auto) 27.1, [place] % (Auto) 6.6, Eos % (Auto) 3.1, Baso % (Auto) 0.4, Absolute Neuts (auto) 5.3, Absolute Lymphs (auto) 2.30, Nucleated RBC % 0 01/08/23 04:01: PT 19.0 H, INR 1.6 01/08/23 04:01: Sodium 134 L, Potassium 3.9, Chloride 101, Carbon Dioxide 29.0, Anion Gap 4 L, BUN 20 H, Creatinine 1.01, Estim Creat Clear Calc 60.28, Est GFR (MDRD) Af Amer 92, Est GFR (MDRD) Non-Af 76, BUN/Creatinine Ratio 19.8, Glucose 120 H, Calcium 8.9, Triglycerides 310 H, Cholesterol 220 H, LDL Cholesterol 126, VLDL Cholesterol 62 H, HDL Cholesterol 32 L, TSH 2.92 01/08/23 04:01: Magnesium 1.6 01/08/23 11:26: POC Glucose 251 H 01/08/23 16:29: POC Glucose 253 H Radiography Diagnostic Testing: Radiology Impression Echocardiogram 01/07/23 15:27 Interpretation Summary The left ventricular ejection fraction is 60 %. Aortic sclerosis, no stenosis. Mild diffuse aortic valve calcification. The study was technically difficult. Mild tricuspid valve insufficiency. Ordering Physician: Katia Pathak Performed By: Tom Gregory RCS Brain CT 01/08/23 09:51 IMPRESSION: Chronic involutional changes of the brain. No acute hemorrhage or significant interval change N.B. : The above Results were Read Back by Kamran Bello MD to ROSEANNE doss, and understanding confirmed on 01/08/2023 10:32:18 (ET). Electronically Signed: Kamran Bello MD at 10:33 EDT , ADDENDUM: 01/08/23 1040 IMPRESSION: Chronic involutional changes of the brain. No acute hemorrhage or significant interval change N.B. : The above Results were Read Back by Kamran Bello MD to ROSEANNE doss, and understanding confirmed on 01/08/2023 10:32:18 (ET). Electronically Signed: Kamran Bello MD at 10:33 EDT , D/C Instructions Discharge Diet: - (DASH diet) Meaningful Use Info Meaningful Use Diagnoses (Choose all that apply): None applicable Discharge Plan Admission Admit Date/Time: 01/07/23 12:38 Primary Reason for Your Visit: Stuttering speech Attending Provider: Katia Pathak Primary Care Provider: Casey Handley Instructions Patient Instructions: AFib Preventing Stroke, AFib Additional Instructions / Restrictions: DISCHARGE INSTRUCTIONS PLEASE READ *Please take this with you to your next doctors appointment* -Given your subtherapeutic INR and recurrent stroke it is recommended that you discontinue Coumadin and begin Eliquis. A prescription for this will be sent to [facility] retail pharmacy -You previously did not tolerated high intensity statins but given your recurrent strokes and cholesterol after discussion I will send in a prescription for pravastatin 20 mg, if preferred you can discuss with your primary care phys ician prior to starting. If you do have any muscle aches or return of symptoms that you previously experienced please stop taking the pravastatin and contact your primary care physician -Due to very frequent premature ventricular contractions you were started on a medication, metoprolol, which you will take twice daily and it is also recommended that you wear a heart monitor for 14 days at discharge to establish frequency of these PVCs -Please follow-up with neurology upon discharge, please call Dr. Vargas's office upon discharge to schedule hospital follow-up appointment ( [phone]) -Please follow-up with an ear nose throat doctor upon discharge for your chronic sinus inflammation, if you do not actively follow with one please call Dr. March's office to schedule an appointment -Please call your primary care provider's office upon discharge to schedule a hospital follow up within 1 week. -For any concerning signs or symptoms please call 911 or proceed to the nearest emergency department Discharge Orders/Prescriptions Prescriptions: New pravastatin 20 mg tablet 20 mg PO DAILY Qty: 30 0RF metoprolol tartrate 25 mg Tablet 12.5 mg PO BID 30 Days Qty: 30 0RF Xarelto 20 mg tablet 20 mg PO QPM Qty: 30 0RF Rx Instructions: must administer with evening meal Continued gabapentin 800 mg tablet 800 mg PO TID Qty: 270 1RF duloxetine 60 mg capsule,delayed release(DR/EC) 60 mg PO QPM Qty: 30 5RF Rx Instructions: Begin after completing one week course of duloxetine 30mg nightly. amlodipine 5 mg tablet 5 mg PO DAILY Qty: 30 6RF allopurinol 100 MG tablet 100 mg PO DAILY Label Comments: GOUT glimepiride 2 mg tablet 2 mg PO BID Label Comments: diabetes nitroglycerin 0.4 mg Tablet, Sublingual 0.4 mg sublingual Q5M PRN (Reason: Cardiac/Chest Pain) Qty: 0 0RF ropinirole 1 mg tablet 1 mg PO QHS Label Comments: TAKE 1 TABLET BY MOUTH AT BEDTIME trazodone 50 mg tablet 75 mg PO QHS Label Comments: TAKE 1 & 1/2 (ONE & ONE-HALF) TABLETS BY MOUTH EVERY DAY AT BEDTIME aspirin 81 mg tablet,delayed release (DR/EC) 81 mg PO DAILY Label Comments: TAKE 1 TABLET BY MOUTH ONCE DAILY losartan 25 mg tablet 25 mg PO DAILY Label Comments: TAKE 2 TABLETS BY MOUTH ONCE DAILY Discontinued warfarin 5 MG tablet 7.5 mg PO MOWEFR warfarin [Jantoven] 5 mg tablet 5 mg PO SUTUTHSA Other Ambulatory Orders: 14 Day Event Recorder Preventi (Urgent) Timeframe: 1 Day Facility: [facility] - Location: Cardiovascular Services Ordered By: Dr. Katia Pathak Referrals / Follow Up: Casey Handley DO [Primary Care Provider] - Within 1 Week Duy March MD [Med Staff - Active Staff] - See Referral Note (Please follow-up with an ear nose throat doctor upon discharge for your chronic sinus inflammation, if you do not actively follow with one please call Dr. March's office to schedule an appointment) Shane Vargas MD [Non-Staff -Ordering Privileges] - See Referral Note ( Please follow-up with neurology upon discharge, please call Dr. Vargas's office upon discharge to schedule hospital follow-up appointment (ph [phone])) Disposition Disposition (needs filled in before D/C Order can be placed): Home, Self Care Charges/Coding Visit Charges Inpatient E&M: 10464 Disch Hosp >30min
== END 2023-01-08 17:33 | disposition home or self-care (01) | DRG 65 ==
LOC: ED 12:15 → PCU 14:07
PROVIDERS: Admitting Provider Internal Medicine; Emergency Provider Emergency Medicine; PCP Family Medicine; Visit Provider Internal Medicine
DX: I63.9 Cerebral infarction, unspecified (principal); I48.92 Unspecified atrial flutter; I69.354 Hemiplegia and hemiparesis following cerebral infarction affecting left non-dominant side; R47.01 Aphasia; E11.22 Type 2 diabetes mellitus with diabetic chronic kidney disease; J32.0 Chronic maxillary sinusitis; E11.40 Type 2 diabetes mellitus with diabetic neuropathy, unspecified; I48.91 Unspecified atrial fibrillation; N18.32 Chronic kidney disease, stage 3b; G25.81 Restless legs syndrome; I12.9 Hypertensive chronic kidney disease with stage 1 through stage 4 chronic kidney disease, or unspecified chronic kidney disease; I65.23 Occlusion and stenosis of bilateral carotid arteries; I25.10 Atherosclerotic heart disease of native coronary artery without angina pectoris; G93.2 Benign intracranial hypertension; G47.33 Obstructive sleep apnea (adult) (pediatric); M10.9 Gout, unspecified; E78.00 Pure hypercholesterolemia, unspecified; I25.2 Old myocardial infarction; I49.3 Ventricular premature depolarization; R00.8 Other abnormalities of heart beat; R29.701 NIHSS score 1; Z95.5 Presence of coronary angioplasty implant and graft; Z98.2 Presence of cerebrospinal fluid drainage device; Z99.89 Dependence on other enabling machines and devices; Z79.01 Long term (current) use of anticoagulants; Z79.82 Long term (current) use of aspirin; Z79.84 Long term (current) use of oral hypoglycemic drugs; Z79.899 Other long term (current) drug therapy; Z86.711 Personal history of pulmonary embolism
CPT/HCPCS: 36415; 70450; 70496; 70498; 71045; 80048; 80061; 82962; 83735; 84443; 84484; 85025; 85610; 85730; 92523; 93005; 93306; 94668; 94762; 97162; 97166; 97802; 99252; 99285; Q9957; Q9967; A4216; C8929; G0463

== ENCOUNTER → 2023-01-10 | Outpatient (CLI) | payer SELFPAY ==
[2017-12-20 14:12] VITALS: BMI 40.4
--- NOTE | 2023-01-10 14:03 | RAD_ITS ---
STUDY: X-RAY - RIGHT HAND REASON FOR EXAM: Male, 77 years old. Acute pain after fall TECHNIQUE: 3 view(s) of the hand. COMPARISON: None. FINDINGS: Bones are diffusely demineralized. There is an acute, minimally displaced dorsally angulated fracture in the proximal and mid shaft of the second carpal with diffuse soft tissue swelling. No other demonstrated fracture. Degenerative arthrosis noted at all visualized joint spaces, most notably in the DIP joints of the second and third digits. No suspicious subchondral changes. Diffuse vascular calcifications. RAD/Hand Min 3 Views IMPRESSION: Acute, comminuted angulated fracture of the proximal mid shaft of the second metacarpal with soft tissue swelling Polyarticular arthrosis Vascular calcifications Electronically Signed: Kamran Bello MD at 14:19 EDT ,
== END | disposition home or self-care (01) ==
LOC: MTRAD 14:03
PROVIDERS: PCP Family Medicine; Referring Provider Psychiatry & Neurology Neurology; Visit Provider Psychiatry & Neurology Neurology
DX: S62.91XA Unspecified fracture of right hand, initial encounter for closed fracture (principal)
CPT/HCPCS: 73130

== ENCOUNTER 2023-04-18 12:19 | Observation (INO) | payer MEDICARE, SELFPAY ==
[2017-12-20 14:12] VITALS: BMI 40.4
--- NOTE | 2023-02-21 11:40 | RAD_ITS ---
EXAM: XR CHEST, 2 VIEWS CLINICAL INDICATION: for Micra VR implant on 02/28/23 TECHNIQUE: Frontal and lateral views of the chest. COMPARISON: Previous chest radiograph of 01/07/2023. Chest CT of 08/21/2022. FINDINGS: LUNGS AND PLEURAL SPACES: There is chronic pleural parenchymal scarring at the right lung base, unchanged, with chronic blunting of the right lateral costophrenic angle. The lungs are mildly hyperinflated with flattening of the hemidiaphragms consistent with mild pulmonary emphysema. No acute pulmonary infiltrates, pleural effusion or pneumothorax. HEART: Heart size is upper normal with normal pulmonary vasculature. MEDIASTINUM: Thoracic aorta remains minimally elongated. No mediastinal widening. BONES/JOINTS: Fixation devices are again noted transfixing old right rib fractures. There is mild thoracic dextroscoliosis with flowing osteophytes in the mid to lower thoracic region. SOFT TISSUES: Unremarkable. RAD/Chest PA and Lateral IMPRESSION: 1. No significant interval change. Chronic findings as noted above. 2. No acute cardiopulmonary disease process. Electronically Signed: Gasper Barrientos MD at 6:38 EDT ,
[2023-02-21 11:48] LABS: Bacteria 0 SEEN /hpf (None Seen); Red Blood Cells-Urine 0 SEEN /hpf (0-5); White Blood Cells 0 SEEN /hpf (0-5)
[2023-02-21 12:02] LABS: Hematocrit 45.6 % (40-54); Hemoglobin 14.4 g/dL (13.0-16.5); Mean Corp Hgb Conc 31.6 g/dL (32-36); Mean Corpuscular Hgb 28.2 pg (27.0-32.0); Mean Corpuscular Volume 89.4 fL (80-94); Mean Platelet Vol. 10.2 fl (6.2-12.0); Platelet Count 259 K/mm3 (150-450); RBC Distribution Width SD 45.1 fl (35.1-43.9); White Blood Count 7.7 K/mm3 (4.4-11.0)
[2023-02-21 12:03] LABS: Color, Urine Yellow (Yellow); Glucose, Dipstick Normal (Normal); Ketone-Dipstick Negative (Negative); Leukocyte Esterase-Dipstick Negative /ul (Negative); Nitrite-Dipstick Negative (Negative); Occult Blood-Urine 10 /ul (Negative); Protein-Dipstick 100 mg/dl (Negative); Urine Bilirubin Dipstick Negative (Negative); Urine Clarity Clear (Clear); Urine Urobilinogen Normal (Normal)
[2023-02-21 12:10] LABS: Mucous, Urine 2+ /hpf (<or=2+); Squamous Epithelial Cells - UA 0-5 SEEN /hpf (0-5)
[2023-02-21 12:11] LABS: Hyaline Cast 0-5 SEEN /lpf (0-5)
[2023-02-21 12:22] LABS: International Normalized Ratio 1.9
[2023-02-21 12:47] LABS: Anion Gap 7 (5-15); BUN 31 mg/dL (7-18); BUN/Creat Ratio 20.3 RATIO (10-20); Calcium,Total 8.7 mg/dL (8.5-10.1); Chloride 100 mmol/L (98-107); Creatinine, Serum 1.53 mg/dL (0.70-1.30); EST Glomerular Filtration Rate 47 mL/min (>60); Est Glom Filt Rate - Afr Amer 57 mL/min (>60); Glucose 269 mg/dL (74-106); Potassium 4.3 mmol/L (3.5-5.1); Sodium Level 136 mmol/L (136-145)
[2023-02-27 10:04] VITALS: BMI 40.4
[2023-02-28 08:52] LABS: INR Fingerstick 2.7; Prothrombin Time Fingerstick 29.3 SEC (11.7-14.9)
[2023-04-09 10:30] LABS: Mucous, Urine 0 SEEN /hpf (<or=2+)
[2023-04-09 10:56] LABS: Absolute Lymphocyte Count 1.84 X10^3/uL (0.83-4.51); Absolute Neutrophil Count 6.2 X10^3/uL (2.0-7.7); Basophil# 0.05 X10^3/uL; Basophil% 0.6 % (0-1); Eosinophil# 0.19 X10^3/uL; Eosinophils% 2.1 % (0-5); Hematocrit 45.1 % (40-54); Hemoglobin 14.3 g/dL (13.0-16.5); Lymphocyte # 1.84 X10^3/ul (0.83-4.51); Lymphocyte % 20.4 % (19-41); Mean Corp Hgb Conc 31.7 g/dL (32-36); Mean Corpuscular Hgb 28.1 pg (27.0-32.0); Mean Corpuscular Volume 88.6 fL (80-94); Mean Platelet Vol. 10.5 fl (6.2-12.0); Monocyte# 0.67 X10^3/uL; Monocyte% 7.4 % (0-10); NRBC Flagged by Analyzer 0 % (0-5); Neutrophil # 6.22 X10^3/uL (2.7-7.7); Neutrophil % 68.9 % (47-70); Platelet Count 223 K/mm3 (150-450); RBC Distribution Width CV 13.2 % (11.6-14.6); RBC Distribution Width SD 43.2 fl (35.1-43.9); Red Blood Count 5.09 M/mm3 (4.6-6.2)
[2023-04-09 11:08] LABS: Color, Urine Yellow (Yellow); Glucose, Dipstick Normal (Normal); Ketone-Dipstick Negative (Negative); Leukocyte Esterase-Dipstick 25 /ul (Negative); Nitrite-Dipstick Negative (Negative); Occult Blood-Urine 10 /ul (Negative); Protein-Dipstick 100 mg/dl (Negative); Specific Gravity, Urine 1.015 (1.002-1.030); Urine Bilirubin Dipstick Negative (Negative); Urine Clarity Clear (Clear); Urine Urobilinogen Normal (Normal)
[2023-04-09 11:16] LABS: Bacteria RARE /hpf (None Seen); Red Blood Cells-Urine 0-5 SEEN /hpf (0-5); Squamous Epithelial Cells - UA 0-5 SEEN /hpf (0-5); White Blood Cells 0-5 SEEN /hpf (0-5)
[2023-04-09 11:45] LABS: Anion Gap 6 (5-15); BUN 25 mg/dL (7-18); BUN/Creat Ratio 21.9 RATIO (10-20); Calcium,Total 8.8 mg/dL (8.5-10.1); Chloride 104 mmol/L (98-107); Creatinine, Serum 1.14 mg/dL (0.70-1.30); EST Glomerular Filtration Rate 66 mL/min (>60); Est Glom Filt Rate - Afr Amer 80 mL/min (>60); Glucose 212 mg/dL (74-106); Potassium 4.4 mmol/L (3.5-5.1); Sodium Level 136 mmol/L (136-145)
[2023-04-18] VITALS (16 sets, daily range): BP systolic 114–167; BP diastolic 69–92; PULSE 42–93; RESP 16–18; TEMP 36.4–36.7; O2SAT 93–97; BMI 40.0
[2023-04-18 09:50] LABS: INR Fingerstick 1.1; Prothrombin Time Fingerstick 12.9 SEC (11.7-14.9)
--- NOTE | 2023-04-18 12:50 | OP.PCM_ITS ---
Operative Report Date of Procedure: 04/18/23 Patient with symptomatic bradycardia: Atrial fibrillation with a slow ventricular response rate. Procedure insertion of a VVI pacemaker via the right femoral vein transcatheter pacing system. After informed consent was obtained and procedural antibiotics were given the patient was brought to the cardiac catheterization lab in the right and left femoral areas were prepped and draped in the sterile manner.? Intermittent boluses of Versed and fentanyl and 1% subcutaneous lidocaine were used for sedation and analgesia.? Femoral vein access was achieved via the Seldinger technique and confirmed by positioning of the guidewire into the superior vena cava under fluoroscopic guidance.? Over the wire the Kesha dilator was used to dilate the femoral vein access up to 20 [place].? The Kesha dilator was removed.? After flushing of the sheath with heparinized saline the 23 [place] delivery syst em was inserted and advanced over the wire under fluoroscopic guidance to the floor of the right atrium.? A bolus of 5000 units of intravenous heparin was administered. The delivery catheter and leadless pacemaker were then brought into the field and was flushed thoroughly with heparinized saline use to express all air distally.? Saline flush was also used to flush the suture at the proximal end of the delivery sheath handle.? Through the delivery sheath the delivery catheter and leadless pacemaker were advanced through the sheath to the floor of the right atrium under fluoroscopic guidance. The delivery catheter and pacemaker were advanced beyond the delivery sheath with appropriate deflection and manipulation: The delivery catheter and pacemaker were advanced under fluoroscopic guidance in the DICKENS projection and across the tricuspid valve into the right ventricle.? In the PERSIAN projection the delivery sheath was positioned in from a position with a right ventricular septal wall.? Contrast injection confirmed from contact with the right ventricular wall along the septum and excluded on apical and anterior position.? The delivery sheath was then flushed with heparinized saline.? The leadless pacemaker was then deployed in the delivery sheath was pulled back to an adequate position to complete the tug test.? Under magnified view with cine imaging, the tug test was completed and confirmed no less than 2 of the 4 times when excellent contact with the myocardium and there was no dislodgment of the pacemaker.? Testing was performed of the device and acceptable sensing, impedance, and capture thresholds were confirmed.? The testing of the pacemaker was repeated multiple times and confirmed to be adequate and stable. The delivery sheath was flushed again with heparinized saline one end of the suture was cut and the suture was slowly withdrawn from the delivery sheath.? Once the suture was removed the pacemaker was tested again and confirmed appropriate stable electrical parameters.? There was no change in position of the device after the suture was removed. The delivery catheter and sheath were then removed from the right femoral vein hemostasis was obtained with surgical pursestring closure and with a use of a three-way stopcock and manual pressure. The patient left the room in stable condition with a pacemaker programmed to appropriate parameters.? There were no complications. Device product information electrical data and serial number provided in the chart.
[2023-04-18] MEDS: Gabapentin 800 MG Tablet PO ×2 (13:11→20:37)
[2023-04-18] MEDS: Glimepiride 2 MG Tablet PO (17:41)
[2023-04-18] MEDS: Pramipexole Di-HCl 0.5 MG Tablet PO (20:37)
[2023-04-18] MEDS: DULoxetine Hcl 60 MG Capsule PO (20:37)
[2023-04-18] MEDS: amLODIPine 5 MG Tablet PO (21:20)
[2023-04-19] VITALS (10 sets, daily range): BP systolic 141–160; BP diastolic 66–98; PULSE 61–82; RESP 16–18; TEMP 36.4–36.7; O2SAT 92–96
--- NOTE | 2023-04-19 04:04 | EKG12_ITS ---
Test Reason : CHEST PAIN Blood Pressure : / mmHG Vent. Rate : 068 BPM Atrial Rate : 258 BPM P-R Int : 000 ms QRS Dur : 092 ms QT Int : 386 ms P-R-T Axes : 262 -53 052 degrees QTc Int : 410 ms Atrial flutter with variable A-V block Left axis deviation Pulmonary disease pattern Abnormal ECG When compared with ECG of 07-JAN-2023 10:08, No significant change was found Confirmed by EMIGDIO TURNER, LUIS MIGUEL ([id number]), news assignment editor MARCELLO NEELY ([id number]) on 04/23/2023 7:20:43 AM Referred By: Luis Miguel Redd Confirmed By:LUIS MIGUEL REDD MD
[2023-04-19] MEDS: Acetaminophen 325 MG Tablet PO (04:26)
[2023-04-19] MEDS: Gabapentin 800 MG Tablet PO (04:58)
--- NOTE | 2023-04-19 07:02 | PCM.PN.CARD ---
Subjective Subjective Patient seen and evaluated. Appears to be doing well. Objective Data Vital Signs: Vital Signs Temp Pulse Resp BP Pulse Ox O2 Del Method 98.0 F 65 16 153/80 H 92 Room Air 04/19/23 06:00 04/19/23 06:00 04/19/23 06:00 04/19/23 06:00 04/19/23 06:00 04/19/23 06:00 Oxygen Delivery Method Room Air Weight: 270 lb 15.17 oz Body Mass Index (BMI) 40.0 Intake & Output: Intake and Output for Last 24 Hours 04/17/23 04/18/23 04/19/23 23:59 23:59 23:59 Intake Total 720 / 720 Output Total 850 / 850 600 / 600 Balance -130 / -130 -600 / -600 Lab / Micro Data 04/09/23 10:27 04/09/23 10:27 Labs: Laboratory Results - last 24 hr 04/18/23 09:47: POC PT 12.9, INR 1.1 Cardiology Labs/Tests 04/18/23 09:47: INR 1.1 Rhythm: EKG: ECHO: Stress Test: Cardiac Cath: PCI: CT Surgery: Holter monitor: EPS: PPM: CXR: Chest CT Scan: Physical Exam Const alert, oriented x3 and no apparent distress General Appearance: cooperative HEENT hearing grossly normal bilaterally Head and Scalp: atraumatic Eyes EOMs intact bilaterally Neck General: normal visual inspection Chest inspection of chest normal and palpation of chest normal Resp normal respiratory effort Auscultation: clear to auscultation bilaterally Cardio regular rate, regular rhythm, S1 normal heart sound and S2 normal heart sound Jugular Venous Distention: JVD GI normal to inspection, nondistended, normoactive bowel sounds Extremity normal capillary refill and no pedal edema Peripheral Pulses: Yes pulses 2+ throughout and femoral pulses present Skin no rashes or lesions noted Neuro oriented x3 and CN's II-XII intact bilaterally Psych Appearance: grossly normal and appropriate Assessment & Plan Assessment/Plan (1) S/P biventricular cardiac pacemaker procedure: PLAN: Status post pacemaker placement Micra. Patient doing well. Sutures removed. Pacemaker be interrogated this morning and then further recommendations made. Thank you for allowing me to participate in the care of your patient. Please don't hesitate to call if any issues arise.
--- NOTE | 2023-04-19 08:53 | DCINST_ITS ---
Discharge Instructions Diet Discharge Diet: No restrictions Activity Discharge Activity: Return to Normal Activity Additional Activity Instructions:: You must have someone drive you home. Do not drive until instructed by your doctor. You must have someone stay with you all night after your test. Rest in bed or on the couch until the next morning. Limit the number of times you go up and down stairs the day of your test. Apply pressure to the puncture site if you sneeze or cough. Dressing / Incision Call your doctor if your incision/area has: Increased Pain/ Swelling, Increased Redness, Foul Smelling Discharge and Swelling at the incision site Call your doctor if you observe: Fever of 101 or Higher Additional Dressing/Incision Instructions:: Keep the dressing (bandage) on until the next morning. You may then shower, but do not take a tub bath for 5 days after your test. It is normal to have some tenderness and discomfort at the puncture site. Sometimes bruising also occurs. However, if pain, numbness, or coldness occurs below the puncture site (in your leg, toes, arms or fingers) call your doctor at once. You may have a small, marble sized knot at the puncture site. This is normal. Do not rub it. It will go away in 4-6 weeks. Bleeding can occur from the area where the puncture was done. Blood may spurt or drip from the site. If blood spurts, apply pressure right away to stop bleeding and call 911. Although rare, bleeding into the tissue (hematoma) can also occur. If this happens, a large, firm area goose egg under the skin will appear. If any of these occur, lie down as flat as you can and have someone apply firm pressure to the cath site with a gauze pad or a clean washcloth for 10-15 minutes. Call 911 or go to the Emergency Department. Follow Up Care When: [facility] April 25 at 11 AM. Test Results: Test results from this visit will be discussed in further detail at your follow- up appointment, if applicable. Discharge Plan Admission Admit Date/Time: 04/18/23 12:19 Attending Provider: Luis Miguel Redd Primary Care Provider: Casye Handley Discharge Orders/Prescriptions Prescriptions: Continued gabapentin 800 mg tablet 800 mg PO TID Qty: 270 1RF amlodipine 5 mg tablet 5 mg PO DAILY Qty: 90 1RF duloxetine 60 mg capsule,delayed release(DR/EC) 60 mg PO QPM Qty: 90 1RF furosemide [Lasix] 40 mg tablet 40 mg PO DAILY allopurinol 100 MG tablet 100 mg PO DAILY Patient Comments: GOUT glimepiride 2 mg tablet 2 mg PO BID Patient Comments: diabetes nitroglycerin 0.4 mg Tablet, Sublingual 0.4 mg sublingual Q5M PRN (Reason: Cardiac/Chest Pain) Qty: 0 0RF aspirin 81 mg tablet,delayed release (DR/EC) 81 mg PO DAILY Patient Comments: TAKE 1 TABLET BY MOUTH ONCE DAILY ropinirole 1 mg tablet 1 mg PO QHS Patient Comments: TAKE 1 TABLET BY MOUTH EVERY DAY AT BEDTIME indomethacin 25 mg capsule 25 mg PO BID PRN (Reason: gout) Rx Instructions: administer with food or milk Held warfarin 5 mg tablet 5 mg PO DAILY Hold Instructions: Resume on 04/22/23. Referrals / Follow Up: Casey Handley DO [Primary Care Provider] - Disposition Disposition (needs filled in before D/C Order can be placed): Home, Self Care
[2023-04-19] MEDS: Aspirin E.C. 81 MG Tablet PO (09:16)
[2023-04-19] MEDS: Furosemide 40 MG Tablet PO (09:16)
[2023-04-19] MEDS: amLODIPine 5 MG Tablet PO (09:16)
[2023-04-19] MEDS: Glimepiride 2 MG Tablet PO (09:16)
[2023-04-19] MEDS: Allopurinol 100 MG Tablet PO (09:17)
--- NOTE | 2023-04-19 09:25 | PHA.DC.MR.R ---
Pharmacy [place] Med Reconciliation Pharmacy Service has performed discharge medication reconciliation for this patient. The patient's discharge medication list was reviewed for discrepancies and discrepancies were resolved. Medications at Discharge Home Medications allopurinol 100 mg tablet 100 mg PO DAILY gout 09/21/15 nitroglycerin 0.4 mg sublingual tablet 0.4 mg sublingual Q5M PRN Cardiac/Chest Pain #0 tabs 06/30/21 glimepiride 2 mg tablet 2 mg PO BID diabetes 12/26/21 gabapentin 800 mg tablet 800 mg PO TID #270 tabs 05/15/22 aspirin 81 mg tablet,delayed release 81 mg PO DAILY HEART HEALTH 01/07/23 amlodipine 5 mg tablet 5 mg PO DAILY #90 tabs 02/03/23 duloxetine 60 mg capsule,delayed release 60 mg PO QPM #90 caps 02/03/23 furosemide 40 mg tablet (Lasix) 40 mg PO DAILY 02/04/23 indomethacin 25 mg capsule 25 mg PO BID PRN gout 02/28/23 warfarin 5 mg tablet 5 mg PO DAILY 02/28/23 ropinirole 1 mg tablet 1 mg PO QHS 04/18/23
--- NOTE | 2023-04-19 11:09 | NURSING ---
Patient discharged per orders. Verbalized understanding of discharge orders. Transport home via private car driven by .
== END 2023-04-19 08:53 | disposition home or self-care (01) ==
LOC: PCU 12:38
PROVIDERS: Physician Assistant Medical; Admitting Provider Internal Medicine Cardiovascular Disease; PCP Family Medicine; Referring Provider Internal Medicine Cardiovascular Disease; Visit Provider Internal Medicine Cardiovascular Disease
DX: Z45.018 Encounter for adjustment and management of other part of cardiac pacemaker (principal); I13.0 Hypertensive heart and chronic kidney disease with heart failure and stage 1 through stage 4 chronic kidney disease, or unspecified chronic kidney disease; I50.9 Heart failure, unspecified; E11.22 Type 2 diabetes mellitus with diabetic chronic kidney disease; I48.92 Unspecified atrial flutter; I48.19 Other persistent atrial fibrillation; N18.30 Chronic kidney disease, stage 3 unspecified; I25.10 Atherosclerotic heart disease of native coronary artery without angina pectoris; I25.2 Old myocardial infarction; E78.5 Hyperlipidemia, unspecified; Z79.01 Long term (current) use of anticoagulants; Z79.899 Other long term (current) drug therapy; Z79.82 Long term (current) use of aspirin; K21.9 Gastro-esophageal reflux disease without esophagitis; M10.9 Gout, unspecified
CPT/HCPCS: 33274; 36415; 36416; 71046; 80048; 81001; 85025; 85027; 85610; 93005; 99152; 99153; 99221; C1894; J7040; Q9967; C1769; G0378

== ENCOUNTER → 2023-06-12 | Outpatient (CLI) | payer SELFPAY ==
[2017-12-20 14:12] VITALS: BMI 40.4
--- NOTE | 2023-06-12 06:24 | ART_ITS ---
Reason For Study: Absent Pedal Pulses Procedure A bilateral lower extremity continuous wave Doppler with analog waveform analysis and ankle brachial indexes. Left Segmental Pressures Left brachial= 152mmHg. Left posterior tibial artery = 201mmHg. Left dorsalis pedis artery = 206mmHg. Left digit = 156 mmHg. The left posterior tibial artery waveforms are triphasic. The left dorsalis pedis waveforms are triphasic. Right Segmental Pressures Right brachial= 147mmHg. Right posterior tibial artery = >254mmHg. Right dorsalis pedis artery = >254mmHg. Right digit = 122 mmHg. The right posterior tibial artery waveforms are triphasic. The right dorsalis pedis waveforms are triphasic. Indices The right ankle brachial index by the posterior tibial artery is N/C. The right ankle brachial index by the dorsalis pedis is N/C. The right digital-brachial index is 0.80. The left ankle brachial index by the posterior tibial artery is 1.32. The left ankle brachial index by the dorsalis pedis is 1.36. The left digital-brachial index is 1.03. VL/Ankle Brachial Index Interpretation Summary Right GHASSAN not able to be obtained due to non-compressible vessels. TBI and Dopp ler/PVR waveforms of the right ankle normal at rest. Left GHASSAN 1.36, normal. TBI and Doppler/PVR waveforms of the left ankle normal a t rest. Ordering Physician: Shane Vargas Referring Physician: Casey Handley Performed By: Flakito Burgos, RVT
--- NOTE | 2023-06-12 06:24 | CDU_ITS ---
Reason For Study: Carotid Stenosis Rt. Velocities/BP Lt. Velocities/BP Prox CCA 53.5/11.0 cm/sec. Prox CCA 67.0/10.6 cm/sec. Mid CCA 50.6/12.8 cm/sec. Mid CCA 59.7/13.0 cm/sec. Dist CCA 38.1/9.7 cm/sec. Dist CCA 59.7/8.1 cm/sec. Prox ICA 46.7/12.5 cm/sec. Prox ICA 206.3/48.2 cm/sec. Mid ICA 207.7/49.6 cm/sec. Mid ICA 208.9/43.0 cm/sec. Dist ICA 106.3/25.3 cm/sec. Unable to acquire distal ICA. Rt. ICA/CCA = 4.1. Lt. ICA/CCA = 3.5. Prox ECA 60.1/5.3 cm/sec. Prox ECA 100.2/4.4 cm/sec. Rt. Vert. 52.3/11.8 cm/sec. Lt. Vert. 43.7/10.6 cm/sec. Right Extracranial There is homogeneous, smooth atherosclerotic plaque noted in the right common carotid artery. There is heterogeneous, irregular atherosclerotic plaque noted in the right internal carotid artery. There is homogeneous, smooth atherosclerotic plaque noted in the right external carotid artery. Antegrade flow is noted in the right vertebral artery. Left Extracranial There is homogeneous, smooth atherosclerotic plaque noted in the left common carotid artery. There is heterogeneous, irregular atherosclerotic plaque noted in the left internal carotid artery. There is homogeneous, smooth atherosclerotic plaque noted in the left external carotid artery. Antegrade flow is noted in the left vertebral artery. Procedure Carotid Duplex 20403. This is a Carotid Duplex examination using B-mode, color flow and specral Doppler. The exam was diagnostic. The study was technically difficult due to patients labored breathing. Exam performed in department. VL/Carotid Duplex Ultrasound Interpretation Summary Moderate (50-69%) stenosis right extracranial internal carotid. Moderate (50-69%) stenosis left extracranial internal carotid. Patent and antegrade vertebrals bilaterally. Ordering Physician: Shane Vargas Referring Physician: Casey Handley Performed By: Flakito Burgos RVT
--- NOTE | 2023-06-12 16:46 | STRESSREP ---
Stress Test Report Pharmacologic myocardial perfusion stress test. 77-year-old man with a history of midsternal chest discomfort Resting EKG demonstrates sinus rhythm with a rate of 78 bpm. Resting blood pressure is 144/60 mmHg. 0.4 mg of regadenoson was infused per usual protocol followed by rapid intravenous saline flush injection. Continuous EKG monitoring was performed. The maximum heart rate was 100 bpm which was 70% of max impacted heart rate the maximum workload was 1 metabolic equivalent. At rest there were no ST or T wave changes noted to suggest ischemia and at peak infusion nonspecific ST changes were noted which did not meet the criteria for ischemia. No clinical angina is noted. The final blood pressure was 148/70 mmHg. Myocardial perfusion protocol. 14.9 mCi of technetium 99m sestamibi was injected at rest. 0.4 mg of regadenoson was infused per usual protocol. At peak infusion 44.8 mCi of technetium 99m sestamibi was injected stress images were obtained stress and rest images were reconstructed and compared in the short axis vertical long and horizontal long axis. Gated images were also obtained. Perfusion SPECT analysis: Review of the stress images demonstrate normal uptake of tracer noted in all areas of the myocardium. The resting images similar demonstrated normal uptake of tracer noted in all areas of the myocardium. No areas of reversibility are noted to suggest ischemia and no previous infarct is noted. Gated SPECT analysis: The gated ejection fraction is 59%. Conclusion: Normal pharmacologic myocardial perfusion stress test. Preserved ejection fraction.
== END | disposition home or self-care (01) ==
PROVIDERS: PCP Family Medicine; Referring Provider Psychiatry & Neurology Neurology; Visit Provider Psychiatry & Neurology Neurology
DX: R07.9 Chest pain, unspecified (principal); I25.10 Atherosclerotic heart disease of native coronary artery without angina pectoris; I65.23 Occlusion and stenosis of bilateral carotid arteries; R09.89 Other specified symptoms and signs involving the circulatory and respiratory systems; Z95.5 Presence of coronary angioplasty implant and graft
CPT/HCPCS: 78452; 93017; 93880; 93922; A9500; A4216; J2785

== ENCOUNTER 2023-06-13 08:12 | Inpatient (IN) | payer MEDICARE, SELFPAY ==
[2017-12-20 14:12] VITALS: BMI 40.4
[2023-06-13] VITALS (15 sets, daily range): BP systolic 129–152; BP diastolic 61–85; PULSE 65–92; RESP 14–23; TEMP 36.4–36.7; O2SAT 77–99; BMI 43.8; BMI 42.7
--- NOTE | 2023-06-13 08:38 | EKG12_ITS ---
Test Reason : SOB Blood Pressure : / mmHG Vent. Rate : 088 BPM Atrial Rate : 258 BPM P-R Int : 000 ms QRS Dur : 136 ms QT Int : 374 ms P-R-T Axes : 269 -70 046 degrees QTc Int : 452 ms Atrial flutter with variable A-V block Left axis deviation Right bundle branch block Abnormal ECG When compared with ECG of 19-APR-2023 04:18, Right bundle branch block is now Present Confirmed by EMIGDIO TURNER, EFRA ([id number]), order editor BHAKTI PEREIRA ([id number]) on 06/19/2023 10:05:15 AM Referred By: PRATIK Confirmed By:EFRA BEAL MD
--- NOTE | 2023-06-13 08:40 | ED.VIS.DYS ---
HPI History of Present Illness Chief Complaint: Shortness of Breath Narrative Narrative: Patient presents with dyspnea for the past 3 days, it is gradually getting worse. He was found to be 78% on room air and placed oxygen in triage. He is not normally on oxygen. He does have a history of CHF. His legs have been somewhat more swollen. He is denying any fevers. He does not have a cough. He is anticoagulated secondary to atrial fibrillation. [facility] Medical History Ambulates with cane Atherosclerosis of coronary artery of [place] heart without angina pectoris Atrial flutter Bilateral carotid artery stenosis Carotid stenosis Chest pain CKD (chronic kidney disease), stage III Debility Diabetes Essential hypertension GERD (gastroesophageal reflux disease) Gout History of coronary artery stent placement (~12/20/17) Hyperlipidemia Migraine Non-smoker NSTEMI (non-ST elevated myocardial infarction) (~12/20/17) Old myocardial infarction ANA on CPAP Osteoarthritis Persistent atrial fibrillation Presence of leadless cardiac pacemaker Pseudotumor cerebri Pulmonary emboli Restless leg syndrome Sick sinus syndrome Stroke/cerebrovascular accident Subtherapeutic anticoagulation VTE (venous thromboembolism) Wears glasses Wears partial dentures Home Medications allopurinol 100 mg tablet 100 mg PO DAILY gout 09/21/15 [History Last Taken 01/06/23] nitroglycerin 0.4 mg sublingual tablet 0.4 mg sublingual Q5M PRN Cardiac/Chest Pain #0 tabs 06/30/21 [Rx Last Taken Unknown] glimepiride 2 mg tablet 2 mg PO BID diabetes 12/26/21 [History Last Taken 01/06/23] gabapentin 800 mg tablet 800 mg PO TID #270 tabs 05/15/22 [Rx Last Taken 04/18/23] aspirin 81 mg tablet,delayed release 81 mg PO DAILY HEART HEALTH 01/07/23 [History Last Taken 01/06/23] furosemide 40 mg tablet (Lasix) 40 mg PO DAILY 02/04/23 [History Last Taken Unknown] indomethacin 25 mg capsule 25 mg PO BID PRN gout 02/28/23 [History Last Taken Unknown] warfarin 5 mg tablet 5 mg PO DAILY 02/28/23 [History Last Taken 04/11/23] ropinirole 1 mg tablet 1 mg PO QHS 04/18/23 [History Last Taken 04/17/23] ezetimibe 10 mg tablet (Zetia) 10 mg PO DAILY #30 tabs 05/22/23 [Rx Last Taken Unknown] pregabalin 100 mg capsule 100 mg PO TID #90 caps 05/27/23 [Rx Last Taken Unknown] amlodipine 10 mg tablet 10 mg PO DAILY #1 TAB 06/06/23 [Rx Last Taken Unknown] Allergy/AdvReac Type Severity Reaction Status Date / Time atorvastatin [From Lipitor] AdvReac Severe Myalgias Verified 06/13/23 08:18 metoprolol AdvReac Intermediate bradycardia Verified 06/13/23 08:18 acetaminophen [From Fioricet] AdvReac Other Verified 06/13/23 08:18 butalbital [From Fioricet] AdvReac Other Verified 06/13/23 08:18 caffeine [From Fioricet] AdvReac Other Verified 06/13/23 08:18 promethazine HCl AdvReac GET JUMPY Verified 06/13/23 08:18 [From Phenergan] Family History Father Heart disease COPD (chronic obstructive pulmonary disease) Surgical History History of bilateral knee replacement History of nasal septoplasty (~03/2021) Hx of appendectomy Hx of fracture of arm Postsurgical percutaneous transluminal coronary angioplasty (PTCA) status Presence of coronary angioplasty implant and graft (~12/20/17) Status post lumboperitoneal shunt placement Social History household members: spouse Smoking Status: Never smoker second hand exposure: No alcohol intake: never caffeine: Yes (very rare) Type: carbonated beverages and tea what type of physical activity do you participate in: none frequency: does not exercise jose manuel/baptism: M[employer]onite seatbelt use: sometimes ROS ROS ED ROS Narrative Review of systems: General: No fever Eyes: No visual changes ENT: No upper airway congestion, normal voice Neck: No neck pain Cardiovascular: No chest pain Respiratory: Dyspnea as in HPI Gastrointestinal: No abdominal pain, nausea vomiting or diarrhea Genitourinary: No dysuria Musculoskeletal: No lower extremity edema, chronic him it is worse Skin: No rash Neurological: No memory loss, confusion or any focal weakness Psych: No recent behavioral changes Hematologic: No easy bleeding or easy bruising EXAM Physical Exam Narrative Exam Narrative: Physical exam General: Patient appears somewhat uncomfortable Head: Normocephalic, Atraumatic Eyes: Conjunctiva not pale ENT: Moist mucous membranes Neck: Supple, Nontender, No lymphadenopathy Cardiovascular: Regular rate, Regular rhythm Respiratory: Coarse bilateral breath sounds Abdomen: Soft, Nontender, Nondistended Back: Nontender, Normal Inspection. Negative for: CVA tenderness Extremities: No lower extremity edema, left lower extremity has some erythema but no pallor and some seepage. Skin: As above Neurological: Alert, Normal Strength, Normal Sensation Const Vital Signs: 06/13/23 08:13 06/13/23 08:16 06/13/23 08:16 Temperature 97.7 F L 97.7 F L Temperature Source Temporal Temporal Pulse Rate 88 88 Respiratory Rate 23 H 23 H Respiratory Effort Short of Breath Labored Respiratory Depth Deep Respiratory Pattern Tachypnea Blood Pressure 140/62 H 146/61 H Blood Pressure Mean 88 89 Pulse Ox 77 98 Oxygen Delivery Method Room Air Nasal Cannula Room Air Oxygen Flow Rate (L/min) 4 06/13/23 08:51 06/13/23 09:18 Temperature Temperature Source Pulse Rate 92 Respiratory Rate 20 H Respiratory Effort Respiratory Depth Respiratory Pattern Tachypnea Blood Pressure Blood Pressure Mean Pulse Ox 97 Oxygen Delivery Method Nasal Cannula Oxygen Flow Rate (L/min) 4 MDM MDM MDM Narrative Medical decision making narrative: Chest x-ray read by me as a slight right-sided pleural effusion, no significant change from prior x-ray M: Patient is not normally on home oxygen and he is hypoxic. He is on Coumadin. At this time and not worried about a pulmonary embolism. However I do not see any obvious signs of CHF but he has a history of his natruretic peptide's unremarkable and his blood pressure is relatively normal. He does not have a history of COPD but on his exam he does have some wheezing and he did improve with DuoNeb so therefore there may be a reactive component to it. He will need a work-up inpatient since he is hypoxic. To also giving history and she is okay with the plan. I did review his prior outpatient record as well as inpatient records I do not see any prior diagnosis of COPD. . Lab Data Labs: Laboratory Results - last 24 hr 06/13/23 06/13/23 08:25 09:25 WBC 12.5 H RBC 4.52 L Hgb 12.8 L Hct 41.5 MCV 91.8 MCH 28.3 MCHC 30.8 L RDW Std Deviation 48.2 H RDW Coeff of Ag 14.3 Plt Count TNP MPV 11.2 Immature Gran % (Auto) 1.400 H Neut % (Auto) 77.1 H Lymph % (Auto) 12.3 L Waldo % (Auto) 6.1 Eos % (Auto) 2.5 Baso % (Auto) 0.6 Absolute Neuts (auto) 9.7 H Absolute Lymphs (auto) 1.54 Nucleated RBC % 0 Platelet Estimate ADEQUATE PT Cancelled Cancelled INR Cancelled Cancelled Sodium 133 L Potassium 4.5 Chloride 98 Carbon Dioxide 29.0 Anion Gap 6 BUN 42 H Creatinine 1.73 H Estim Creat Clear Calc 35.19 Est GFR (MDRD) Af Amer 49 L Est GFR (MDRD) Non-Af 41 L BUN/Creatinine Ratio 24.3 H Glucose 343 H Lactic Acid 1.0 Calcium 8.6 Total Bilirubin 0.60 AST 31 ALT 52 Alkaline Phosphatase 97 Troponin I High Sens 24 B-Natriuretic Peptide 79.8 Total Protein 7.5 Albumin 2.9 L Globulin 4.6 H Albumin/Globulin Ratio 0.6 L Radiography Diagnostic Testing: Clinical Impression(s) from Imaging Studies Chest X-Ray 06/13/23 08:55 IMPRESSION: Stable pleural parenchymal changes at the right lung base with prior ORIF of right rib fractures. Electronically Signed: Edgar River MD at 9:37 EDT , Rhythm Strip Rhythm Strip: And a flutter Rate: 88 Ectopy: None EKG Initial EKG: Comments: Atrial fibrillation and atrial flutter with variable blocks. Right bundle branch pattern. Interpreted by emergency doctor. Discharge Plan Triage Chief Complaint: Shortness of Breath ED Provider: Constantine Phillip Dx/Rx/DC Orders Clinical Impression: Hypoxia, Hyperlipidemia, Atrial flutter, Congestive heart failure, Acute dyspnea Prescriptions: No Action gabapentin 800 mg tablet 800 mg PO TID Qty: 270 1RF pregabalin 100 mg capsule 100 mg PO TID Qty: 90 4RF furosemide [Lasix] 40 mg tablet 40 mg PO DAILY ezetimibe [Zetia] 10 mg tablet 10 mg PO DAILY Qty: 30 6RF allopurinol 100 MG tablet 100 mg PO DAILY Patient Comments: GOUT glimepiride 2 mg tablet 2 mg PO BID Patient Comments: diabetes nitroglycerin 0.4 mg Tablet, Sublingual 0.4 mg sublingual Q5M PRN (Reason: Cardiac/Chest Pain) Qty: 0 0RF aspirin 81 mg tablet,delayed release (DR/EC) 81 mg PO DAILY Patient Comments: TAKE 1 TABLET BY MOUTH ONCE DAILY ropinirole 1 mg tablet 1 mg PO QHS Patient Comments: TAKE 1 TABLET BY MOUTH EVERY DAY AT BEDTIME indomethacin 25 mg capsule 25 mg PO BID PRN (Reason: gout) Rx Instructions: administer with food or milk warfarin 5 mg tablet 5 mg PO DAILY Hold Instructions: Resume on 04/22/23. amlodipine 10 mg tablet 10 mg PO DAILY Qty: 1 1RF Primary Care Provider: Casey Handley Referrals: Casey Handley DO [Primary Care Provider] - Disposition Disposition: Acute Care Hospital [facility]
[2023-06-13] MEDS: Ipratropium/Albuterol Sulfate 3 ML AMPUL.NEB INHALATION ×2 (08:50→23:08)
[2023-06-13 08:55] LABS: Absolute Lymphocyte Count 1.54 X10^3/uL (0.83-4.51); Absolute Neutrophil Count 9.7 X10^3/uL (2.0-7.7); Basophil# 0.07 X10^3/uL; Basophil% 0.6 % (0-1); Eosinophil# 0.31 X10^3/uL; Eosinophils% 2.5 % (0-5); Hematocrit 41.5 % (40-54); Hemoglobin 12.8 g/dL (13.0-16.5); Lymphocyte # 1.54 X10^3/ul (0.83-4.51); Lymphocyte % 12.3 % (19-41); Mean Corp Hgb Conc 30.8 g/dL (32-36); Mean Corpuscular Hgb 28.3 pg (27.0-32.0); Mean Corpuscular Volume 91.8 fL (80-94); Mean Platelet Vol. 11.2 fl (6.2-12.0); Monocyte# 0.76 X10^3/uL; Monocyte% 6.1 % (0-10); NRBC Flagged by Analyzer 0 % (0-5); Neutrophil # 9.67 X10^3/uL (2.7-7.7); Neutrophil % 77.1 % (47-70); POSITIVE COUNT YES; RBC Distribution Width CV 14.3 % (11.6-14.6); RBC Distribution Width SD 48.2 fl (35.1-43.9); Red Blood Count 4.52 M/mm3 (4.6-6.2); White Blood Count 12.5 K/mm3 (4.4-11.0)
--- NOTE | 2023-06-13 08:55 | RAD_ITS ---
STUDY: X-RAY CHEST REASON FOR EXAM: Male, 77 years old. Sob TECHNIQUE: Single AP portable view of the chest. COMPARISON: Comparison is made with prior study dated February 21, 2023. FINDINGS: EKG electrodes are seen. Stable pleural parenchymal changes at the right lung base. This most likely represents scarring. Stable blunting of the right costophrenic angle. Normal size heart. Normal mediastinum and [place]. Normal visualized pulmonary arteries. Normal visualized aortic arch and descending thoracic aorta. There are diffuse degenerative changes of the visualized thoracic spine. Is evidence of prior ORIF of the lateral aspect of the right sixth and eighth ribs. There is no demonstrated abnormality of the visualized soft tissue structures of the upper abdomen. RAD/Chest 1 View (Portable) IMPRESSION: Stable pleural parenchymal changes at the right lung base with prior ORIF of right rib fractures. Electronically Signed: Edgar River MD at 9:37 EDT ,
[2023-06-13 09:09] LABS: ALB/GLOB Ratio 0.6 RATIO (0.9-2.4); AST(SGOT) 31 U/L (15-37); Alanine Aminotransfer ALT/SGPT 52 U/L (16-61); Albumin, Serum 2.9 g/dL (3.2-5.0); Alkaline Phosphatase 97 U/L (45-117); Anion Gap 6 (5-15); BUN 42 mg/dL (7-18); BUN/Creat Ratio 24.3 RATIO (10-20); Calcium,Total 8.6 mg/dL (8.5-10.1); Chloride 98 mmol/L (98-107); Creatinine, Serum 1.73 mg/dL (0.70-1.30); EST Glomerular Filtration Rate 41 mL/min (>60); Est Glom Filt Rate - Afr Amer 49 mL/min (>60); Estimated Creatinine Clearance 35.19 ml/min; Globulin 4.6 g/dL (2.2-4.2); Glucose 343 mg/dL (74-106); Potassium 4.5 mmol/L (3.5-5.1); Protein, Total 7.5 g/dL (6.4-8.2); Sodium Level 133 mmol/L (136-145); Troponin-I HS 24 pg/mL (3.0-78.0)
[2023-06-13 09:18] LABS: Differential Indicated SCAN CRITERIA MET
[2023-06-13 09:19] LABS: Platelet Estimate ADEQUATE (ADEQ)
[2023-06-13 09:20] LABS: BNP,B-Type NATRIURETIC PEPTIDE 79.8 pg/mL (0-100)
[2023-06-13 11:04] LABS: International Normalized Ratio 2.3; Prothrombin Time (Protime)PT. 25.6 SECONDS (11.7-14.9)
[2023-06-13] MEDS: Gabapentin 800 MG Tablet PO ×2 (15:31→21:33)
--- NOTE | 2023-06-13 16:03 | PCM.HP.STD ---
HPI - General General Date of Admission: 06/13/23 HPI Narrative GLEN ANN, is a 77 M who presents to the hospital with increasing shortness of breath of the last several weeks. He is also noticed that his legs have been swelling. His BNP is normal in the ER and he had an echo in December which did not show any systolic or diastolic dysfunction. He has no valvular issues as well other than aortic sclerosis. Denies any fevers or chills and he has not been around anybody who is sick. His respiratory panel is negative, the COVID and flu panel is pending. He does have a slight leukocytosis but no signs of infection. Chest x-ray was unremarkable with no consolidation or signs of infection. FORMERLY [facility], [facility] Medical History Ambulates with cane Atherosclerosis of coronary artery of [place] heart without angina pectoris Atrial flutter Bilateral carotid artery stenosis Carotid stenosis Chest pain CKD (chronic kidney disease), stage III Debility Diabetes Essential hypertension GERD (gastroesophageal reflux disease) Gout History of coronary artery stent placement (~12/20/17) Hyperlipidemia Migraine Non-smoker NSTEMI (non-ST elevated myocardial infarction) (~12/20/17) Old myocardial infarction ANA on CPAP Osteoarthritis Persistent atrial fibrillation Presence of leadless cardiac pacemaker Pseudotumor cerebri Pulmonary emboli Restless leg syndrome Sick sinus syndrome Stroke/cerebrovascular accident Subtherapeutic anticoagulation VTE (venous thromboembolism) Wears glasses Wears partial dentures Home Medications allopurinol 100 mg tablet 100 mg PO DAILY GOUT 09/21/15 [History Last Taken 06/12/23] nitroglycerin 0.4 mg sublingual tablet 0.4 mg sublingual Q5M PRN Cardiac/Chest Pain #0 tabs 06/30/21 [Rx Last Taken Unknown] glimepiride 2 mg tablet 2 mg PO BID DIABETES 12/26/21 [History Last Taken 06/13/23] gabapentin 800 mg tablet 800 mg PO TID RESTLESS LEGS #270 tabs 05/15/22 [Rx Last Taken 06/13/23] aspirin 81 mg tablet,delayed release 81 mg PO DAILY HEART HEALTH 01/07/23 [History Last Taken 06/12/23] furosemide 40 mg tablet (Lasix) 40 mg PO DAILY EDEMA 02/04/23 [History Last Taken 06/12/23] indomethacin 25 mg capsule 25 mg PO BID PRN GOUT 02/28/23 [History Last Taken Unknown] warfarin 5 mg tablet 5 mg PO QPM BLOOD THINNER 02/28/23 [History Last Taken 06/12/23] ropinirole 1 mg tablet 1 mg PO QHS RESTLESS LEGS 04/18/23 [History Last Taken 06/12/23] BLOOD SUGAR 1 cap PO DAILY SUPPLEMENT 06/13/23 [History Last Taken 06/12/23] FIBER 1 tab PO DAILY SUPPLEMENT 06/13/23 [History Last Taken 06/12/23] LIVER AID 2 tab PO DAILY LIVER SUPPLEMENT 06/13/23 [History Last Taken 06/12/23] NERVE REGEN 1 cap PO BID NERVE PAIN SUPPLEMENT 06/13/23 [History Last Taken 06/13/23] amlodipine 5 mg tablet 5 mg PO QPM BLOOD PRESSURE 06/13/23 [History Last Taken 06/12/23] melatonin 10 mg tablet 10 mg PO QHS 06/13/23 [History Last Taken Unknown] Allergy/AdvReac Type Severity Reaction Status Date / Time atorvastatin [From Lipitor] AdvReac Severe Myalgias Verified 06/13/23 08:18 metoprolol AdvReac Intermediate bradycardia Verified 06/13/23 08:18 acetaminophen [From Fioricet] AdvReac Other Verified 06/13/23 08:18 butalbital [From Fioricet] AdvReac Other Verified 06/13/23 08:18 caffeine [From Fioricet] AdvReac Other Verified 06/13/23 08:18 promethazine HCl AdvReac GET JUMPY Verified 06/13/23 08:18 [From Phenergan] Family History Father Heart disease COPD (chronic obstructive pulmonary disease) Surgical History History of bilateral knee replacement History of nasal septoplasty (~03/2021) Hx of appendectomy Hx of fracture of arm Postsurgical percutaneous transluminal coronary angioplasty (PTCA) status Presence of coronary angioplasty implant and graft (~12/20/17) Status post lumboperitoneal shunt placement Social History household members: spouse Smoking Status: Never smoker second hand exposure: No alcohol intake: never caffeine: Yes (very rare) Type: carbonated beverages and tea what type of physical activity do you participate in: none frequency: does not exercise jose manuel/bahai: M[employer]onite seatbelt use: sometimes ROS Constitutional Constitutional: Denies chills, fatigue, fever(s) or malaise Eyes Eyes: Denies blurry vision ENT HEENT: Denies headache(s) or nasal discharge Cardiovascular Cardiovascular: Reports dyspnea on exertion and edema; Denies chest pain or syncope Respiratory/Chest Respiratory/Chest: Denies cough, shortness of breath at rest or shortness of breath with exertion Gastrointestinal Gastrointestinal: Denies constipation, diarrhea, nausea or vomiting Genitourinary Genitourinary: Denies dysuria Neurologic Neurologic: Denies focal weakness, numbness or tremor(s) Psychiatric Psychiatric: Denies anxiety or depression Vital Signs Vital Signs Vital Signs: 06/13/23 08:13 06/13/23 08:16 06/13/23 08:16 Temperature 97.7 F L 97.7 F L Temperature Source Temporal Temporal Pulse Rate 88 88 Respiratory Rate 23 H 23 H Respiratory Effort Short of Breath Labored Respiratory Depth Deep Respiratory Pattern Tachypnea Blood Pressure 140/62 H 146/61 H Blood Pressure Mean 88 89 Blood Pressure Source Blood Pressure Position Blood Pressure Location Pulse Ox 77 98 Oxygen Delivery Method Room Air Nasal Cannula Room Air Oxygen Flow Rate (L/min) 4 06/13/23 08:51 06/13/23 09:18 06/13/23 11:00 Temperature 97.6 F L Temperature Source Temporal Pulse Rate 92 65 Respiratory Rate 20 H 14 Respiratory Effort Respiratory Depth Respiratory Pattern Tachypnea Blood Pressure 129/71 H Blood Pressure Mean 90 Blood Pressure Source Blood Pressure Position Blood Pressure Location Pulse Ox 97 97 Oxygen Delivery Method Nasal Cannula Nasal Cannula Oxygen Flow Rate (L/min) 4 4 06/13/23 09:16 06/13/23 10:16 06/13/23 11:00 Temperature 97.6 F L 97.8 F 97.6 F L Temperature Source Temporal Temporal Temporal Pulse Rate 89 72 65 Respiratory Rate 23 H 16 14 Respiratory Effort Respiratory Depth Respiratory Pattern Blood Pressure 134/80 H 145/70 H 129/71 H Blood Pressure Mean 98 95 90 Blood Pressure Source Blood Pressure Position Blood Pressure Location Pulse Ox 97 97 97 Oxygen Delivery Method Nasal Cannula Nasal Cannula Nasal Cannula Oxygen Flow Rate (L/min) 4 4 4 06/13/23 12:08 06/13/23 12:08 06/13/23 12:20 Temperature 97.8 F 97.8 F Temperature Source Oral Oral Pulse Rate 68 68 Respiratory Rate 18 18 Respiratory Effort Respiratory Depth Respiratory Pattern Blood Pressure 132/85 H 132/85 H Blood Pressure Mean 100 100 Blood Pressure Source Monitor Blood Pressure Position Semi-Fowlers Blood Pressure Location Left Arm Pulse Ox 99 99 97 Oxygen Delivery Method Nasal Cannula Nasal Cannula Nasal Cannula Oxygen Flow Rate (L/min) 4 4 3 06/13/23 14:00 Temperature Temperature Source Pulse Rate Respiratory Rate Respiratory Effort Normal Non-Labored Respiratory Depth Shallow Respiratory Pattern Normal Blood Pressure Blood Pressure Mean Blood Pressure Source Blood Pressure Position Blood Pressure Location Pulse Ox Oxygen Delivery Method Nasal Cannula Oxygen Flow Rate (L/min) 3 Weight Weight: 289 lb 7.471 oz Body Mass Index (BMI) 42.7 Physical Exam Narrative General: Alert, Oriented x3, Cooperative, mild to moderate respiratory distress HEENT: Atraumatic, PERRLA, EOMI, Normocephalic, hard of hearing Oral: Moist Mucosa Neck: Supple, No JVD Lungs: Diminished at bases, Normal air movement, No rhonchi, No wheeze, No rales, 3 word sentences, mild retractions Cardiovascular: Regular rate, Regular Rhythm, Normal S1, Normal S2, No murmurs Abdomen: Soft, Non Tender, Non-Distended, No Hepato-splenomegaly Extremities: 2+ edema bilateral lower extremity with weeping on the right with a slight redness but no warmth, Capillary Refill Less than 3 Seconds Skin: No rashes, No breakdown Musculoskeletal: No Tenderness to Palpation of Joints or Extremities Neurological: Cranial nerves II-XII grossly intact, Motor Exam 5/5 strength throughout, Sensory exam intact to light touch and pain Psych/Mental Status: Normal Affect, Appropriate Results Lab / Micro Data 06/13/23 08:25 06/13/23 08:25 Labs: Laboratory Results - last 24 hr 06/13/23 08:25: WBC 12.5 H, RBC 4.52 L, Hgb 12.8 L, Hct 41.5, MCV 91.8, MCH 28.3, MCHC 30.8 L, RDW Std Deviation 48.2 H, RDW Coeff of Ag 14.3, Plt Count TNP, MPV 11.2, Immature Gran % (Auto) 1.400 H, Neut % (Auto) 77.1 H, Lymph % (Auto) 12.3 L, [place] % (Auto) 6.1, Eos % (Auto) 2.5, Baso % (Auto) 0.6, Absolute Neuts (auto) 9.7 H, Absolute Lymphs (auto) 1.54, Nucleated RBC % 0, Platelet Estimate ADEQUATE, PT Cancelled, INR Cancelled, Sodium 133 L, Potassium 4.5, Chloride 98, Carbon Dioxide 29.0, Anion Gap 6, BUN 42 H, Creatinine 1.73 H, Estim Creat Clear Calc 35.19, Est GFR (MDRD) Af Amer 49 L, Est GFR (MDRD) Non-Af 41 L, BUN/Creatinine Ratio 24.3 H, Glucose 343 H, Lactic Acid 1.0, Calcium 8.6, Total Bilirubin 0.60, AST 31, ALT 52, Alkaline Phosphatase 97, Troponin I High Sens 24, B-Natriuretic Peptide 79.8, Total Protein 7.5, Albumin 2.9 L, Globulin 4.6 H, Albumin/Globulin Ratio 0.6 L 06/13/23 09:25: PT Cancelled, INR Cancelled 06/13/23 10:40: PT 25.6 H, INR 2.3 Micro: Microbiology 06/13/23 11:09 Mucosa - Nasopharyngeal Respiratory Panel (PCR) - Final Rhythm Strip Rhythm Strip: And a flutter Rate: 88 Ectopy: None Radiology Impression Chest X-Ray 06/13/23 08:55 IMPRESSION: Stable pleural parenchymal changes at the right lung base with prior ORIF of right rib fractures. Electronically Signed: Edgar River MD at 9:37 EDT , Assessment & Plan Assessment/Plan (1) Acute dyspnea: (2) Acute respiratory failure with hypoxia: PLAN: Plan 1. Acute hypoxic respiratory failure of uncertain etiology ? BNP is normal and echo in December did not demonstrate heart failure despite his lower extremity edema ? Given his lower extremity edema we will continue with his oral Lasix ? He is on Coumadin for A-fib however will obtain a D-dimer if normal will not pursue a CTA ? Per the ED physician he did have some wheezing initially on exam and this cleared up with inhalers, he is not a smoker but states that he has had significant exposure to secondhand smoke 2. CAD status post stent/HTN/HLD/A-fib ? We will continue with his Coumadin, his INR is therapeutic we will monitor ? Resume home blood pressure medications and will make adjustments as necessary ? Continue with his p.o. Lasix for his edema 3. DM2 ? We will hold glimepiride ? Sliding scale insulin ? Accu-Cheks ACHS ? We will monitor and make adjustments as necessary DVT: Coumadin 76 minutes was spent on direct patient care, including documentation as well as chart review and collaboration with colleagues Charges/Coding Visit Charges Inpatient E&M: 72464 Init Hosp L3
[2023-06-13 16:41] LABS: D-Dimer Quantitative (DVT/PE) 0.58 FEU/ug/m (0.27-0.49)
[2023-06-13 17:45] LABS: Bedside Glucose 287 mg/dL (74-106)
[2023-06-13] MEDS: Insulin Lispro 100 UNIT/ML INSULN.PEN SC ×2 (17:50→21:35)
--- NOTE | 2023-06-13 21:17 | PCM.PN.BLA ---
Progress Note Nurse reported per patient's patient takes Keflex 500 mg every 6 hours for right lower extremity cellulitis. Per nurse right lower leg is cellulitic.
[2023-06-13] MEDS: Pramipexole Di-HCl 0.5 MG Tablet PO (21:30)
[2023-06-13] MEDS: MELATONIN 10 MG TABLET PO (21:30)
[2023-06-13] MEDS: amLODIPine 5 MG Tablet PO (21:30)
[2023-06-13] MEDS: Cephalexin 500 MG Capsule PO (21:43)
[2023-06-13] MEDS: 0.9% Saline Lock 10 ML Syringe IV (21:44)
[2023-06-14] VITALS (13 sets, daily range): BP systolic 120–154; BP diastolic 59–88; PULSE 62–92; RESP 12–24; TEMP 36.6–36.9; O2SAT 93–96; BMI 42.6
[2023-06-14 00:40] LABS: Bedside Glucose 229 mg/dL (74-106)
[2023-06-14] MEDS: Gabapentin 800 MG Tablet PO ×3 (06:40→21:04)
[2023-06-14] MEDS: Insulin Lispro 100 UNIT/ML INSULN.PEN SC ×5 (06:46→21:05)
[2023-06-14 06:52] LABS: Absolute Lymphocyte Count 1.37 X10^3/uL (0.83-4.51); Absolute Neutrophil Count 6.8 X10^3/uL (2.0-7.7); Basophil# 0.03 X10^3/uL; Basophil% 0.3 % (0-1); Eosinophil# 0.25 X10^3/uL; Eosinophils% 2.8 % (0-5); Hematocrit 38.5 % (40-54); Hemoglobin 11.8 g/dL (13.0-16.5); Lymphocyte # 1.37 X10^3/ul (0.83-4.51); Lymphocyte % 15.2 % (19-41); Mean Corp Hgb Conc 30.6 g/dL (32-36); Mean Corpuscular Hgb 28.2 pg (27.0-32.0); Mean Corpuscular Volume 91.9 fL (80-94); Mean Platelet Vol. 9.9 fl (6.2-12.0); Monocyte# 0.56 X10^3/uL; Monocyte% 6.2 % (0-10); NRBC Flagged by Analyzer 0 % (0-5); Neutrophil # 6.75 X10^3/uL (2.7-7.7); Neutrophil % 74.7 % (47-70); Platelet Count 261 K/mm3 (150-450); RBC Distribution Width CV 14.4 % (11.6-14.6); RBC Distribution Width SD 48.4 fl (35.1-43.9); Red Blood Count 4.19 M/mm3 (4.6-6.2)
[2023-06-14 07:09] LABS: International Normalized Ratio 2.4; Prothrombin Time (Protime)PT. 26.1 SECONDS (11.7-14.9)
[2023-06-14 07:10] LABS: Bedside Glucose 232 mg/dL (74-106)
[2023-06-14] MEDS: Ipratropium/Albuterol Sulfate 3 ML AMPUL.NEB INHALATION ×4 (07:10→20:26)
[2023-06-14 07:16] LABS: Anion Gap 2 (5-15); BUN 33 mg/dL (7-18); BUN/Creat Ratio 26.6 RATIO (10-20); Calcium,Total 8.4 mg/dL (8.5-10.1); Chloride 103 mmol/L (98-107); Creatinine, Serum 1.24 mg/dL (0.70-1.30); EST Glomerular Filtration Rate 60 mL/min (>60); Est Glom Filt Rate - Afr Amer 72 mL/min (>60); Glucose 218 mg/dL (74-106); Potassium 4.6 mmol/L (3.5-5.1); Sodium Level 137 mmol/L (136-145)
[2023-06-14] MEDS: Cephalexin 500 MG Capsule PO ×2 (09:04→21:04)
[2023-06-14] MEDS: Allopurinol 100 MG Tablet PO (09:05)
[2023-06-14] MEDS: Aspirin E.C. 81 MG Tablet PO (09:05)
[2023-06-14] MEDS: Furosemide 40 MG/4 ML Vial IV (09:05)
[2023-06-14] MEDS: 0.9% Saline Lock 10 ML Syringe IV (09:05)
[2023-06-14] MEDS: predniSONE 20 MG Tablet 40 MG PO (09:05)
--- NOTE | 2023-06-14 11:28 | WOUNDNOTE ---
wound photo: right lower leg
--- NOTE | 2023-06-14 11:45 | CASEMGMT ---
ROSEANNE CHAPARRO Face to Face with patient for initial transition planning/care coordination assessment. RN CM introduced self and role at [facility]. Patient lying in bed, alert and oriented, at bedside. Patient willing to participate in assessment and is able to answer all questions appropriately. Care providers, pharmacy, and demographics verified. Patient wishes to discharge home, denies need for home health at this time. Patient states he has no further needs or concerns at this time. CM to follow for discharge planning needs that may arise. PCP: Emmanuelle Specialists: Ivania, straight line edger; Sam, neurologist; Ponce, recovery auditor Preferred Pharmacy: [facility] Insurance: [employer] Prescription Benefit: yes Living Will/HPOA: yes, Judy [place] LNOK: Living Arrangements: Patient lives with in 2 story home with bed and bath on first floor, 3 steps and railing or ramp to enter the home. Patient is independent but assists patient at times. Transportation: DME/HHC: Patient has shower chair, cane, walker. Patient has been to Rehab in [place]. No previous HHC. Will monitor for home oxygen. Patient prefers [employer] for DME Disposition Plan: Patient to discharge home with family support and follow-up plans in place. Will monitor for home oxygen Lore CURRY, RN, CM
[2023-06-14 12:01] LABS: Bedside Glucose 365 mg/dL (74-106)
--- NOTE | 2023-06-14 13:28 | CT_ITS ---
STUDY: CTA CHEST REASON FOR EXAM: Male, 77 years old. Increased oxygen requirements, r/o PE -- questionable duration of therapeutic INR RADIATION DOSAGE (If Supplied By Facility): CTDIvol = ( 49.32 ) mGy, DLP = ( 838.89 ) mGycm TECHNIQUE: The examination was performed with the intravenous administration of IV 100mL Isovue-370. Post-processing of the angiographic images was performed, with multiplanar reformation and 3D reconstruction. Individualized dose optimization techniques were used for this CT. COMPARISON: Comparison is made with prior study June 23, 2021. FINDINGS: Normal enhancement of the main pulmonary artery and right and left pulmonary arteries. Normal enhancement of the bilateral peripheral pulmonary arteries. There is no demonstrated pulmonary embolism. Normal thoracic aorta and visualized great vessels. There is no demonstrated aortic dissection. There are calcifications of the coronary arteries. There are visualized mediastinal lymph nodes, which are within normal size limits, and with normal morphology. There are calcified right hilar lymph nodes. Normal visualized trachea and bronchi. The lungs are well expanded. Small bilateral pleural effusions with bibasilar atelectasis. Fluid is also seen in the right major fissure. Normal chest wall structures. There are degenerative changes of thoracic spine. Prior ORIF of 2 right lower ribs. Normal visualized upper abdomen. CT/CTA Chest W/WO Contrast IMPRESSION: Small bilateral pleural effusions with bibasilar atelectasis. Fluid is also seen in the right major fissure. Healed right rib fractures. Electronically Signed: Edgar River MD at 14:43 EDT ,
[2023-06-14] MEDS: Acetaminophen 325 MG Tablet 650 MG PO (13:33)
[2023-06-14 14:10] LABS: Allen Test Positive; Base Excess 7 mmol/L (-2 to +2); Blood Gas Specimen Type ART; Mode Not entered; O2 Delivery Device Cannula; PO2 76 mmHG (75-100); SITE L Radial; SO2 94 % (95-99); Total Carbon Dioxide 34 mmol/L; pCO2 56.9 mmHg (35-45); pH 7.36 (7.35-7.45)
--- NOTE | 2023-06-14 14:11 | PN.HOSP_ITS ---
Subjective Subjective Was doing well overnight, developed a little bit of increasing shortness of breath today and required his oxygen to go up to 6 L. Objective Data Objective Data Vital Signs: Vital Signs Temp Pulse Resp BP Pulse Ox O2 Del Method O2 Flow Rate 98.3 F 74 20 H 142/59 H 93 Nasal Cannula 3 06/14/23 08:51 06/14/23 11:15 06/14/23 11:15 06/14/23 08:51 06/14/23 08:57 06/14/23 08:57 06/14/23 08:57 Oxygen Flow Rate (L/min) 3 Oxygen Delivery Method Nasal Cannula Weight: 288 lb 12.889 oz Body Mass Index (BMI) 42.6 Intake & Output: Intake and Output for Last 24 Hours 06/13/23 06/14/23 06/15/23 03:59 03:59 03:59 Intake Total 1000 / 1000 800 / 800 Output Total 735 / 735 1125 / 1125 Balance 265 / 265 -325 / -325 Lab / Micro Data 06/14/23 06:39 06/14/23 06:39 Labs: Laboratory Results - last 24 hr 06/13/23 10:40: D-Dimer Quant (PE/DVT) 0.58 H* 06/13/23 17:27: POC Glucose 287 H 06/13/23 21:35: POC Glucose 229 H 06/14/23 06:39: WBC 9.0, RBC 4.19 L, Hgb 11.8 L, Hct 38.5 L, MCV 91.9, MCH 28.2, MCHC 30.6 L, RDW Std Deviation 48.4 H, RDW Coeff of Ag 14.4, Plt Count 261, MPV 9.9, Immature Gran % (Auto) 0.800, Neut % (Auto) 74.7 H, Lymph % (Auto) 15.2 L, [place] % (Auto) 6.2, Eos % (Auto) 2.8, Baso % (Auto) 0.3, Absolute Neuts (auto) 6.8, Absolute Lymphs (auto) 1.37, Nucleated RBC % 0, PT 26.1 H, INR 2.4, Sodium 137, Potassium 4.6, Chloride 103, Carbon Dioxide 32.0, Anion Gap 2 L, BUN 33 H, Creatinine 1.24, Estim Creat Clear Calc 49.10, Est GFR (MDRD) Af Amer 72, Est GFR (MDRD) Non-Af 60, BUN/Creatinine Ratio 26.6 H, Glucose 218 H, Calcium 8.4 L 06/14/23 06:43: POC Glucose 232 H 06/14/23 11:26: POC Glucose 365 H Micro: Microbiology 06/13/23 16:45 Nasal Secretion SARS-CoV-2 & FLU Antigen (Rapid) - Final 06/13/23 11:09 Mucosa - Nasopharyngeal Respiratory Panel (PCR) - Final ABG Data ABG results: ABG 06/14/23 14:06 Specimen Type ART Sample Site L Radial pH 7.36 Bicarbonate Actual 32.0 H Total CO2 34 Base Excess 7 H O2 Saturation 94 L O2 % 6.0 ABG pCO2 56.9 H ABG pO2 76 Julian Test Positive O2 Delivery Device Cannula Vent Mode Not entered Rhythm Strip Rhythm Strip: And a flutter Rate: 88 Ectopy: None Physical Exam Narrative General: Alert, Oriented x3, Cooperative, mild to moderate respiratory distress HEENT: Atraumatic, PERRLA, EOMI, Normocephalic, hard of hearing Oral: Moist Mucosa Neck: Supple, No JVD Lungs: Diminished at bases, Normal air movement, No rhonchi, No wheeze, No rales, 3 word sentences, mild retractions Cardiovascular: Regular rate, Regular Rhythm, Normal S1, Normal S2, No murmurs Abdomen: Soft, Non Tender, Non-Distended, No Hepato-splenomegaly Extremities: 2+ edema bilateral lower extremity with weeping on the right with a slight redness but no warmth, Capillary Refill Less than 3 Seconds Skin: No rashes, No breakdown Musculoskeletal: No Tenderness to Palpation of Joints or Extremities Neurological: Cranial nerves II-XII grossly intact, Motor Exam 5/5 strength throughout, Sensory exam intact to light touch and pain Psych/Mental Status: Normal Affect, Appropriate Assessment & Plan Assessment/Plan (1) Acute dyspnea: (2) Acute respiratory failure with hypoxia: PLAN: Plan 1. Acute hypoxic respiratory failure of uncertain etiology ? BNP is normal and echo in December did not demonstrate heart failure despite his lower extremity edema ? Given his lower extremity edema we will continue with his IV Lasix ? He is on Coumadin for A-fib, D-dimer was normal for age but still slightly elevated and given his increased oxygen requirements we will go ahead and obtain a CTA of the chest ? We will obtain an ABG ?We will continue with p.o. steroids 2. CAD status post stent/HTN/HLD/A-fib ? We will continue with his Coumadin, his INR is therapeutic we will monitor ? Resume home blood pressure medications and will make adjustments as necessary ? Continue with IV Lasix for his edema 3. DM2 ? We will hold glimepiride ? Sliding scale insulin ? Accu-Cheks ACHS ? We will monitor and make adjustments as necessary DVT: Coumadin Charges/Coding Visit Charges Inpatient E&M: 38839 Subs Hosp L2
--- NOTE | 2023-06-14 15:11 | CHAPLAIN ---
Type of Pastoral Visit _x__ Initial Visit ___ Follow-up Visit ___ On-call Visit ___ General Patient Visit ___ Spiritual Assessment ___ Family Conference ___ Bereavement ___ Rapid Response ___ Code Blue ___ Other (describe below) Pastoral Care Referral From _x__ Patient ___ Family ___ Nurse ___ Physician ___ Paper Cutter Operator ___ Front Worker ___ Other (describe below) Sacrament/Intervention _x__ Active listening ___ Anointing ___ Restorationism ___ Bereavement ___ Communion _x__ Zohreh exploration ___ _x__ Life review _x__ Prayer ___ Reconciliation ___ Sacrament of Sick _x__ Supportive presence ___ Wedding ___ Other (describe below) Pastoral Comments patient and spouse are in the room; both talk about health issues for pt and how he is coping; both agree that pt could be coping better with his health concerns; pt recounts multiples problems of health; pt is hoping for more answers as to particular health needs now; pt admits to discouragement over these things; pt expresses his zohreh in God and that he will be better someday when these problems are no more; pt also shares about his family and the difficult relationship he has with a particular son; pt did receive a phone call from that son recently and states there is still some hope; pt welcomes presence and prayer;
[2023-06-14 17:08] LABS: Bedside Glucose 411 mg/dL (74-106)
[2023-06-14 20:47] LABS: Bedside Glucose 436 mg/dL (74-106)
[2023-06-14] MEDS: Pramipexole Di-HCl 0.5 MG Tablet PO (21:04)
[2023-06-14] MEDS: Insulin Glargine-YFGN 100 UNIT/ML Pen 15 UNIT SC (21:04)
[2023-06-14] MEDS: amLODIPine 5 MG Tablet PO (21:04)
[2023-06-14] MEDS: MELATONIN 10 MG TABLET PO (21:04)
[2023-06-15] VITALS (14 sets, daily range): BP systolic 131–164; BP diastolic 66–106; PULSE 62–104; RESP 12–24; TEMP 36.1–36.6; O2SAT 92–100; BMI 42.6
[2023-06-15] MEDS: Insulin Lispro 100 UNIT/ML INSULN.PEN SC ×8 (06:12→22:38)
[2023-06-15] MEDS: Gabapentin 800 MG Tablet PO ×3 (06:12→22:32)
[2023-06-15 06:36] LABS: Bedside Glucose 261 mg/dL (74-106)
[2023-06-15] MEDS: Ipratropium/Albuterol Sulfate 3 ML AMPUL.NEB INHALATION ×4 (08:20→19:55)
[2023-06-15 08:54] LABS: Absolute Lymphocyte Count 1.48 X10^3/uL (0.83-4.51); Absolute Neutrophil Count 9.9 X10^3/uL (2.0-7.7); Basophil# 0.02 X10^3/uL; Basophil% 0.2 % (0-1); Eosinophil# 0.04 X10^3/uL; Eosinophils% 0.3 % (0-5); Hematocrit 37.5 % (40-54); Hemoglobin 11.8 g/dL (13.0-16.5); Lymphocyte # 1.48 X10^3/ul (0.83-4.51); Lymphocyte % 12.2 % (19-41); Mean Corp Hgb Conc 31.5 g/dL (32-36); Mean Corpuscular Hgb 28.5 pg (27.0-32.0); Mean Corpuscular Volume 90.6 fL (80-94); Mean Platelet Vol. 9.6 fl (6.2-12.0); Monocyte# 0.56 X10^3/uL; Monocyte% 4.6 % (0-10); NRBC Flagged by Analyzer 0 % (0-5); Neutrophil # 9.89 X10^3/uL (2.7-7.7); Neutrophil % 81.9 % (47-70); Platelet Count 281 K/mm3 (150-450); RBC Distribution Width CV 14.1 % (11.6-14.6); RBC Distribution Width SD 46.9 fl (35.1-43.9); Red Blood Count 4.14 M/mm3 (4.6-6.2); White Blood Count 12.1 K/mm3 (4.4-11.0)
--- NOTE | 2023-06-15 08:54 | PCM.PN.HOSP ---
Subjective Subjective Resting comfortably, no issues overnight Objective Data Objective Data Vital Signs: Vital Signs Temp Pulse Resp BP Pulse Ox O2 Del Method O2 Flow Rate 98 F 62 20 H 160/81 H 93 Bi-pap 4 06/15/23 04:00 06/15/23 04:00 06/15/23 05:00 06/15/23 04:00 06/15/23 05:00 06/15/23 04:00 06/14/23 22:00 FiO2 30 06/15/23 05:00 Oxygen Flow Rate (L/min) 4 Oxygen Delivery Method Bi-pap Weight: 288 lb 9.361 oz Body Mass Index (BMI) 42.6 Intake & Output: Intake and Output for Last 24 Hours 06/14/23 06/15/23 06/16/23 03:59 03:59 03:59 Intake Total 1000 / 1000 1850 / 1850 Output Total 735 / 735 3000 / 3000 400 / 400 Balance 265 / 265 -1150 / -1150 -400 / -400 Lab / Micro Data 06/14/23 06:39 06/14/23 06:39 Labs: Laboratory Results - last 24 hr 06/14/23 11:26: POC Glucose 365 H 06/14/23 16:42: POC Glucose 411 H 06/14/23 20:25: POC Glucose 436 H 06/15/23 06:08: POC Glucose 261 H Micro: Microbiology 06/13/23 16:45 Nasal Secretion SARS-CoV-2 & FLU Antigen (Rapid) - Final 06/13/23 11:09 Mucosa - Nasopharyngeal Respiratory Panel (PCR) - Final ABG Data ABG results: ABG 06/14/23 14:06 Specimen Type ART Sample Site L Radial pH 7.36 Bicarbonate Actual 32.0 H Total CO2 34 Base Excess 7 H O2 Saturation 94 L O2 % 6.0 ABG pCO2 56.9 H ABG pO2 76 Julian Test Positive O2 Delivery Device Cannula Vent Mode Not entered Radiography Diagnostic Testing: Radiology Impression Chest CTA 06/14/23 13:28 IMPRESSION: Small bilateral pleural effusions with bibasilar atelectasis. Fluid is also seen in the right major fissure. Healed right rib fractures. Electronically Signed: Edgar River MD at 14:43 EDT , Rhythm Strip Rhythm Strip: And a flutter Rate: 88 Ectopy: None Physical Exam Narrative General: Alert, Oriented x3, Cooperative, mild to moderate respiratory distress HEENT: Atraumatic, PERRLA, EOMI, Normocephalic, hard of hearing Oral: Moist Mucosa Neck: Supple, No JVD Lungs: Diminished at bases, Normal air movement, No rhonchi, No wheeze, No rales, 3 word sentences, mild retractions Cardiovascular: Regular rate, Regular Rhythm, Normal S1, Normal S2, No murmurs Abdomen: Soft, Non Tender, Non-Distended, No Hepato-splenomegaly Extremities: 2+ edema bilateral lower extremity with weeping on the right with a slight redness but no warmth, Capillary Refill Less than 3 Seconds Skin: No rashes, No breakdown Musculoskeletal: No Tenderness to Palpation of Joints or Extremities Neurological: Cranial nerves II-XII grossly intact, Motor Exam 5/5 strength throughout, Sensory exam intact to light touch and pain Psych/Mental Status: Normal Affect, Appropriate Assessment & Plan Assessment/Plan (1) Acute dyspnea: (2) Acute respiratory failure with hypoxia: PLAN: Plan 1. Acute hypoxic respiratory failure of uncertain etiology ? BNP is normal and echo in December did not demonstrate heart failure despite his lower extremity edema ? Given his lower extremity edema we will continue with his IV Lasix ?CTA of the chest was negative for PE redemonstrated pleural effusions ?ABG with pH of 7.36 and a PCO2 of 56.9, started on BiPAP overnight ? May evaluate for possible home noninvasive ventilation with his PCO2 being greater than 45 and see if this benefits him on discharge. ?We will continue with p.o. steroids 2. CAD status post stent/HTN/HLD/A-fib ? We will continue with his Coumadin, his INR is therapeutic we will monitor ? Resume home blood pressure medications and will make adjustments as necessary ? Continue with IV Lasix for his edema 3. DM2 ? We will hold glimepiride ? Sliding scale insulin ? Accu-Cheks ACHS ? We will monitor and make adjustments as necessary DVT: Coumadin Charges/Coding Visit Charges Inpatient E&M: 82102 Subs Hosp L2
[2023-06-15 09:07] LABS: International Normalized Ratio 2.7; Prothrombin Time (Protime)PT. 28.8 SECONDS (11.7-14.9)
[2023-06-15 09:20] LABS: Anion Gap 3 (5-15); BUN 36 mg/dL (7-18); BUN/Creat Ratio 27.7 RATIO (10-20); Calcium,Total 8.6 mg/dL (8.5-10.1); Chloride 101 mmol/L (98-107); EST Glomerular Filtration Rate 57 mL/min (>60); Est Glom Filt Rate - Afr Amer 69 mL/min (>60); Estimated Creatinine Clearance 46.83 ml/min; Glucose 221 mg/dL (74-106); Sodium Level 138 mmol/L (136-145)
[2023-06-15] MEDS: Aspirin E.C. 81 MG Tablet PO (09:29)
[2023-06-15] MEDS: predniSONE 20 MG Tablet 40 MG PO (09:30)
[2023-06-15] MEDS: Allopurinol 100 MG Tablet PO (09:30)
[2023-06-15] MEDS: Cephalexin 500 MG Capsule PO ×2 (09:30→22:32)
[2023-06-15] MEDS: Furosemide 40 MG/4 ML Vial IV (09:31)
[2023-06-15 13:05] LABS: Bedside Glucose 291 mg/dL (74-106)
[2023-06-15] MEDS: Acetaminophen 325 MG Tablet 650 MG PO ×2 (14:14→22:32)
[2023-06-15 16:48] LABS: Bedside Glucose 421 mg/dL (74-106)
[2023-06-15] MEDS: MELATONIN 10 MG TABLET PO (22:32)
[2023-06-15] MEDS: Pramipexole Di-HCl 0.5 MG Tablet PO (22:32)
[2023-06-15] MEDS: Senna/Docusate Sodium 1 Tablet 2 TABLET PO (22:32)
[2023-06-15] MEDS: amLODIPine 5 MG Tablet PO (22:32)
[2023-06-15] MEDS: Insulin Glargine-YFGN 100 UNIT/ML Pen 15 UNIT SC (22:33)
[2023-06-15] MEDS: Menthol/Lanolin/Calamine/Znox 113 GM Tube 1 APPLIC TOPICAL (22:33)
[2023-06-16] VITALS (10 sets, daily range): BP systolic 113–159; BP diastolic 74–92; PULSE 62–86; RESP 14–20; TEMP 36.4–36.9; O2SAT 86–98; BMI 42.6
[2023-06-16 00:56] LABS: Bedside Glucose 466 mg/dL (74-106)
[2023-06-16 06:41] LABS: International Normalized Ratio 2.9; Prothrombin Time (Protime)PT. 30.7 SECONDS (11.7-14.9)
[2023-06-16] MEDS: Menthol/Lanolin/Calamine/Znox 113 GM Tube 1 APPLIC TOPICAL ×3 (06:44→21:02)
[2023-06-16] MEDS: Gabapentin 800 MG Tablet PO ×3 (06:44→21:19)
[2023-06-16 07:14] LABS: Anion Gap 4 (5-15); BUN 43 mg/dL (7-18); BUN/Creat Ratio 30.1 RATIO (10-20); Calcium,Total 8.7 mg/dL (8.5-10.1); Chloride 101 mmol/L (98-107); Creatinine, Serum 1.43 mg/dL (0.70-1.30); EST Glomerular Filtration Rate 51 mL/min (>60); Est Glom Filt Rate - Afr Amer 61 mL/min (>60); Estimated Creatinine Clearance 42.57 ml/min; Glucose 215 mg/dL (74-106); Sodium Level 138 mmol/L (136-145)
[2023-06-16] MEDS: Ipratropium/Albuterol Sulfate 3 ML AMPUL.NEB INHALATION ×4 (07:24→19:37)
[2023-06-16] MEDS: Insulin Lispro 100 UNIT/ML INSULN.PEN SC ×7 (07:36→21:04)
[2023-06-16] MEDS: predniSONE 20 MG Tablet 40 MG PO (07:37)
[2023-06-16] MEDS: Cephalexin 500 MG Capsule PO ×2 (07:37→21:02)
[2023-06-16] MEDS: Allopurinol 100 MG Tablet PO (07:37)
[2023-06-16] MEDS: Aspirin E.C. 81 MG Tablet PO (07:37)
[2023-06-16] MEDS: Senna/Docusate Sodium 1 Tablet 2 TABLET PO ×2 (07:40→21:03)
[2023-06-16 11:42] LABS: Bedside Glucose 190 mg/dL (74-106)
[2023-06-16 13:31] LABS: Bedside Glucose 207 mg/dL (74-106)
--- NOTE | 2023-06-16 14:42 | PCM.PN.HOSP ---
Subjective Subjective Doing well, no issues overnight. Objective Data Objective Data Vital Signs: Vital Signs Temp Pulse Resp BP Pulse Ox O2 Del Method O2 Flow Rate 98.3 F 66 16 113/85 H 94 Nasal Cannula 3 06/16/23 14:00 06/16/23 14:00 06/16/23 14:00 06/16/23 14:00 06/16/23 14:00 06/16/23 14:00 06/16/23 14:00 FiO2 30 06/15/23 22:45 Oxygen Flow Rate (L/min) [ 3 AMBULATING with Oxygen #2] Oxygen Flow Rate (L/min) [ 2 AMBULATING with Oxygen #1] Oxygen Flow Rate (L/min) [At 4 REST with Oxygen] Oxygen Flow Rate (L/min) 3 Oxygen Delivery Method Nasal Cannula Weight: 288 lb 9.361 oz Body Mass Index (BMI) 42.6 Intake & Output: Intake and Output for Last 24 Hours 06/15/23 06/16/23 06/17/23 03:59 03:59 03:59 Intake Total 1850 / 1850 1230 / 1230 670 / 670 Output Total 3000 / 3000 1500 / 1500 1125 / 1125 Balance -1150 / -1150 -270 / -270 -455 / -455 Lab / Micro Data 06/15/23 08:40 06/16/23 06:10 Labs: Laboratory Results - last 24 hr 06/15/23 16:30: POC Glucose 421 H 06/15/23 22:24: POC Glucose 466 H* 06/16/23 06:10: PT 30.7 H, INR 2.9, Sodium 138, Potassium 4.0, Chloride 101, Carbon Dioxide 33.0 H, Anion Gap 4 L, BUN 43 H, Creatinine 1.43 H, Estim Creat Clear Calc 42.57, Est GFR (MDRD) Af Amer 61, Est GFR (MDRD) Non-Af 51 L, BUN/Creatinine Ratio 30.1 H, Glucose 215 H, Calcium 8.7 06/16/23 07:27: POC Glucose 190 H 06/16/23 11:31: POC Glucose 207 H Micro: Microbiology 06/13/23 16:45 Nasal Secretion SARS-CoV-2 & FLU Antigen (Rapid) - Final 06/13/23 11:09 Mucosa - Nasopharyngeal Respiratory Panel (PCR) - Final Rhythm Strip Rhythm Strip: And a flutter Rate: 88 Ectopy: None Physical Exam Narrative General: Alert, Oriented x3, Cooperative, no acute distress HEENT: Atraumatic, PERRLA, EOMI, Normocephalic, hard of hearing Oral: Moist Mucosa Neck: Supple, No JVD Lungs: Diminished at bases, Normal air movement, No rhonchi, No wheeze, No rales Cardiovascular: Regular rate, Regular Rhythm, Normal S1, Normal S2, No murmurs Abdomen: Soft, Non Tender, Non-Distended, No Hepato-splenomegaly Extremities: 2+ edema bilateral lower extremity with weeping on the right with a slight redness but no warmth, Capillary Refill Less than 3 Seconds Skin: No rashes, No breakdown Musculoskeletal: No Tenderness to Palpation of Joints or Extremities Neurological: Cranial nerves II-XII grossly intact, Motor Exam 5/5 strength throughout, Sensory exam intact to light touch and pain Psych/Mental Status: Normal Affect, Appropriate Assessment & Plan Assessment/Plan (1) Acute dyspnea: (2) Acute respiratory failure with hypoxia: PLAN: Plan 1. Acute hypoxic respiratory failure of uncertain etiology ? BNP is normal and echo in December did not demonstrate heart failure despite his lower extremity edema ?We will hold his IV Lasix secondary to a rise in his renal function ?CTA of the chest was negative for PE redemonstrated pleural effusions ?ABG with pH of 7.36 and a PCO2 of 56.9, started on BiPAP ?We will need outpatient follow-up with pulmonology for PFTs ?We will discontinue with p.o. steroids given his rise in blood sugars and the lack of wheeze on exam unclear if there is a COPD component ? He needed 3 L with ambulation to reach 90% and is on 2 to 3 L at rest recommend repeating amatory pulse ox in the morning 2. CAD status post stent/HTN/HLD/A-fib ? We will continue with his Coumadin, his INR is therapeutic we will monitor ? Resume home blood pressure medications and will make adjustments as necessary ?Hold Lasix given renal function 3. DM2 ? We will hold glimepiride ? Sliding scale insulin ? Accu-Cheks ACHS ? We will monitor and make adjustments as necessary DVT: Coumadin Charges/Coding Visit Charges Inpatient E&M: 17329 Subs Hosp L2
[2023-06-16 16:41] LABS: Bedside Glucose 322 mg/dL (74-106)
[2023-06-16] MEDS: Polyethylene Glycol 3350 17 GM PACKET PO (21:02)
[2023-06-16] MEDS: MELATONIN 10 MG TABLET PO (21:02)
[2023-06-16] MEDS: amLODIPine 5 MG Tablet PO (21:02)
[2023-06-16] MEDS: Insulin Glargine-YFGN 100 UNIT/ML Pen 15 UNIT SC (21:03)
[2023-06-16] MEDS: Pramipexole Di-HCl 0.5 MG Tablet PO (21:19)
[2023-06-16] MEDS: Acetaminophen 325 MG Tablet 650 MG PO (21:19)
[2023-06-16 23:07] LABS: Bedside Glucose 362 mg/dL (74-106)
[2023-06-17] VITALS (12 sets, daily range): BP systolic 144–149; BP diastolic 68–79; PULSE 64–68; RESP 14–18; TEMP 35.6–36.6; O2SAT 87–100; BMI 42.3
[2023-06-17] MEDS: Gabapentin 800 MG Tablet PO ×2 (05:52→14:22)
[2023-06-17] MEDS: Menthol/Lanolin/Calamine/Znox 113 GM Tube 1 APPLIC TOPICAL ×2 (05:52→14:22)
[2023-06-17 06:45] LABS: Prothrombin Time (Protime)PT. 31.9 SECONDS (11.7-14.9)
[2023-06-17 06:50] LABS: Absolute Lymphocyte Count 1.86 X10^3/uL (0.83-4.51); Absolute Neutrophil Count 8.1 X10^3/uL (2.0-7.7); Basophil# 0.02 X10^3/uL; Basophil% 0.2 % (0-1); Eosinophils% 0.9 % (0-5); Hematocrit 39.4 % (40-54); Hemoglobin 12.7 g/dL (13.0-16.5); Lymphocyte # 1.86 X10^3/ul (0.83-4.51); Lymphocyte % 17.4 % (19-41); Mean Corp Hgb Conc 32.2 g/dL (32-36); Mean Corpuscular Hgb 29.5 pg (27.0-32.0); Mean Corpuscular Volume 91.6 fL (80-94); Mean Platelet Vol. 10.1 fl (6.2-12.0); Monocyte# 0.55 X10^3/uL; Monocyte% 5.1 % (0-10); NRBC Flagged by Analyzer 0 % (0-5); Neutrophil # 8.11 X10^3/uL (2.7-7.7); Neutrophil % 75.7 % (47-70); Platelet Count 323 K/mm3 (150-450); RBC Distribution Width CV 14.5 % (11.6-14.6); RBC Distribution Width SD 48.5 fl (35.1-43.9); White Blood Count 10.7 K/mm3 (4.4-11.0)
[2023-06-17] MEDS: Ipratropium/Albuterol Sulfate 3 ML AMPUL.NEB INHALATION (07:02)
[2023-06-17 07:23] LABS: Anion Gap 3 (5-15); BUN 31 mg/dL (7-18); BUN/Creat Ratio 27.9 RATIO (10-20); Calcium,Total 8.6 mg/dL (8.5-10.1); Chloride 102 mmol/L (98-107); Creatinine, Serum 1.11 mg/dL (0.70-1.30); EST Glomerular Filtration Rate 68 mL/min (>60); Est Glom Filt Rate - Afr Amer 82 mL/min (>60); Estimated Creatinine Clearance 54.85 ml/min; Glucose 219 mg/dL (74-106); Potassium 4.3 mmol/L (3.5-5.1); Sodium Level 138 mmol/L (136-145)
[2023-06-17] MEDS: Insulin Lispro 100 UNIT/ML INSULN.PEN SC ×4 (08:09→11:24)
[2023-06-17] MEDS: Polyethylene Glycol 3350 17 GM PACKET PO (08:10)
[2023-06-17] MEDS: Senna/Docusate Sodium 1 Tablet 2 TABLET PO (08:10)
[2023-06-17] MEDS: Cephalexin 500 MG Capsule PO (08:11)
[2023-06-17] MEDS: Aspirin E.C. 81 MG Tablet PO (08:11)
[2023-06-17] MEDS: Allopurinol 100 MG Tablet PO (08:11)
[2023-06-17 08:50] LABS: Bedside Glucose 195 mg/dL (74-106)
[2023-06-17] MEDS: Furosemide 40 MG Tablet PO (10:25)
--- NOTE | 2023-06-17 11:20 | EX.PCM.CONCC ---
Assessment & Plan Assessment/Plan (1) Hypoxia: PLAN: Plan RECOMMENDATIONS: 1. Diuresis as tolerated by hemodynamics and renal function. 2. Wean supplemental oxygen to maintain saturations at or above 90%. 3. Perform walking oximetry study prior to consideration for discharge home. 4. Encourage incentive spirometer use and mobilize patient as tolerated. 5. Outpatient pulmonary follow-up in 2 weeks. IMPRESSIONS: 1. Shortness of breath and hypoxemia Most likely secondary to presenting pleural effusions and associated atelectasis. I do suspect that the patient likely has a component of heart failure with preserved ejection fraction, despite the echocardiogram interpretation. Recommend continuing with diuresis as tolerated by hemodynamics and renal function. CTA showed no evidence for pulmonary embolism. The patient is a lifelong non-smoker. Continue supplemental oxygen to maintain saturations at or above 90%. Perform walking oximetry study prior to consideration for discharge home. 2. History of sleep apnea The patient was previously under the care of Dr. Cobos, but has been noncompliant with nocturnal PAP therapy, stating that his machine is no longer functional and that he struggled with issues with he has previously utilized mask. The patient was advised that we will need to obtain his medical records from the office of Dr. Cobos, after which time, he may require an additional sleep study to be restarted on PAP therapy. 3. Morbid obesity/coronary artery disease status post PCI/hypertension/hyperlipidemia/carotid artery stenosis/atrial fibrillation Complicates care, management, recovery and prognosis. Continue home medications as indicated. This note was generated with [employer] dictation software. It may contain incorrect words, spelling, and punctuation that were not noted in checking the note before signing. HPI Consult Data Date of Consult: 06/18/23 HPI Narrative Reason for Consultation: Hypoxemia HPI Narrative: The patient is a 77-year-old male, with a history as outlined below, who presented to the emergency department on June 13 with progressive shortness of breath. The patient has a medical history significant for coronary artery disease status post PCI, hypertension, hyperlipidemia and carotid artery stenosis. The patient is a lifelong non-smoker, but did grow up in a smoking household. He has never at any point in time been diagnosed with COPD or asthma. He does not utilize supplemental oxygen at his baseline. He does have a history of sleep apnea, previously under the management of Dr. Cobos. However, the patient admitted that he has been noncompliant with his PAP, due to the nonfunctional nature of his machine and issues associated with air leak from his old mask. On presentation to the emergency department, the patient was noted to be afebrile and hemodynamically stable. He was initially saturating 77% on room air, requiring 4 L/min of supplemental oxygen. Laboratory evaluation revealed a white blood cell count of 12,000. Chemistry profile was notable for a creatinine of 1.73. CTA chest showed no evidence for pulmonary embolism. Small bilateral pleural effusions with associated atelectasis was noted. The patient was initially admitted to the hospital and placed on diuretics. [facility] Medical History Ambulates with cane Atherosclerosis of coronary artery of [place] heart without angina pectoris Atrial flutter Bilateral carotid artery stenosis Carotid stenosis Chest pain CKD (chronic kidney disease), stage III Debility Diabetes Essential hypertension GERD (gastroesophageal reflux disease) Gout History of coronary artery stent placement (~12/20/17) Hyperlipidemia Migraine Non-smoker NSTEMI (non-ST elevated myocardial infarction) (~12/20/17) Old myocardial infarction ANA on CPAP Osteoarthritis Persistent atrial fibrillation Presence of leadless cardiac pacemaker Pseudotumor cerebri Pulmonary emboli Restless leg syndrome Sick sinus syndrome Stroke/cerebrovascular accident Subtherapeutic anticoagulation VTE (venous thromboembolism) Wears glasses Wears partial dentures Home Medications allopurinol 100 mg tablet 100 mg PO DAILY GOUT 09/21/15 [History Last Taken 06/12/23] nitroglycerin 0.4 mg sublingual tablet 0.4 mg sublingual Q5M PRN Cardiac/Chest Pain #0 tabs 06/30/21 [Rx Last Taken Unknown] glimepiride 2 mg tablet 2 mg PO BID DIABETES 12/26/21 [History Last Taken 06/13/23] gabapentin 800 mg tablet 800 mg PO TID RESTLESS LEGS #270 tabs 05/15/22 [Rx Last Taken 06/13/23] aspirin 81 mg tablet,delayed release 81 mg PO DAILY HEART HEALTH 01/07/23 [History Last Taken 06/12/23] indomethacin 25 mg capsule 25 mg PO BID PRN GOUT 02/28/23 [History Last Taken Unknown] warfarin 5 mg tablet 5 mg PO QPM BLOOD THINNER 02/28/23 [History Last Taken 06/12/23] ropinirole 1 mg tablet 1 mg PO QHS RESTLESS LEGS 04/18/23 [History Last Taken 06/12/23] BLOOD SUGAR 1 cap PO DAILY SUPPLEMENT 06/13/23 [History Last Taken 06/12/23] FIBER 1 tab PO DAILY SUPPLEMENT 06/13/23 [History Last Taken 06/12/23] LIVER AID 2 tab PO DAILY LIVER SUPPLEMENT 06/13/23 [History Last Taken 06/12/23] NERVE REGEN 1 cap PO BID NERVE PAIN SUPPLEMENT 06/13/23 [History Last Taken 06/13/23] amlodipine 5 mg tablet 5 mg PO QPM BLOOD PRESSURE 06/13/23 [History Last Taken 06/12/23] melatonin 10 mg tablet 10 mg PO QHS 06/13/23 [History Last Taken Unknown] furosemide 40 mg tablet (Lasix) 40 mg PO BIDCM EDEMA #60 tabs 06/17/23 [Rx Last Taken Unknown] potassium chloride 10 mEq tablet,extended release 20 meq (2 x 10 mEq) PO DAILY #60 tabs 06/17/23 [Rx Last Taken Unknown] Allergy/AdvReac Type Severity Reaction Status Date / Time atorvastatin [From Lipitor] AdvReac Severe Myalgias Verified 06/13/23 08:18 metoprolol AdvReac Intermediate bradycardia Verified 06/13/23 08:18 acetaminophen [From Fioricet] AdvReac Other Verified 06/13/23 08:18 butalbital [From Fioricet] AdvReac Other Verified 06/13/23 08:18 caffeine [From Fioricet] AdvReac Other Verified 06/13/23 08:18 promethazine HCl AdvReac GET JUMPY Verified 06/13/23 08:18 [From Phenergan] Family History Father Heart disease COPD (chronic obstructive pulmonary disease) Surgical History History of bilateral knee replacement History of nasal septoplasty (~03/2021) Hx of appendectomy Hx of fracture of arm Postsurgical percutaneous transluminal coronary angioplasty (PTCA) status Presence of coronary angioplasty implant and graft (~12/20/17) Status post lumboperitoneal shunt placement Social History household members: spouse Smoking Status: Never smoker second hand exposure: No alcohol intake: never caffeine: Yes (very rare) Type: carbonated beverages and tea what type of physical activity do you participate in: none frequency: does not exercise jose manuel/yazidism: Mennonite seatbelt use: sometimes ROS ROS Narrative 10 systems were reviewed with pertinent positives as noted in the HPI above. Physical Exam Const alert and no apparent distress General Appearance: cooperative HEENT normocephalic and head/scalp atraumatic Eyes PERRL, EOMs intact bilaterally and conjunctivae normal Neck supple General: trachea midline Chest inspection of chest normal Resp normal respiratory effort Auscultation: rales Cardio regular rate and regular rhythm GI normal to inspection, nondistended, normoactive bowel sounds Extremity General Extremity: edema; Negative for clubbing Skin no rashes or lesions noted Neuro oriented x3, CN's II-XII intact bilaterally, moves all extremities and no focal motor deficits Psych cooperative and affect normal Lab / Micro Data 06/17/23 06:10 06/17/23 06:10 Labs: Laboratory Results - last 24 hr 06/16/23 07:27: POC Glucose 190 H 06/16/23 11:31: POC Glucose 207 H 06/16/23 16:13: POC Glucose 322 H 06/16/23 20:59: POC Glucose 362 H 06/17/23 06:10: WBC 10.7, RBC 4.30 L, Hgb 12.7 L, Hct 39.4 L, MCV 91.6, MCH 29.5, MCHC 32.2, RDW Std Deviation 48.5 H, RDW Coeff of Ag 14.5, Plt Count 323, MPV 10.1, Immature Gran % (Auto) 0.700, Neut % (Auto) 75.7 H, Lymph % (Auto) 17.4 L, K[place]haw % (Auto) 5.1, Eos % (Auto) 0.9, Baso % (Auto) 0.2, Absolute Neuts (auto) 8.1 H, Absolute Lymphs (auto) 1.86, Nucleated RBC % 0, PT 31.9 H, INR 3.0, Sodium 138, Potassium 4.3, Chloride 102, Carbon Dioxide 33.0 H, Anion Gap 3 L, BUN 31 H, Creatinine 1.11, Estim Creat Clear Calc 54.85, Est GFR (MDRD) Af Amer 82, Est GFR (MDRD) Non-Af 68, BUN/Creatinine Ratio 27.9 H, Glucose 219 H, Calcium 8.6 06/17/23 08:04: POC Glucose 195 H Rhythm Strip Rhythm Strip: And a flutter Rate: 88 Ectopy: None Charges/Coding Visit Charges Inpatient E&M: 47591 Init Hosp L3
[2023-06-17 11:51] LABS: Bedside Glucose 241 mg/dL (74-106)
--- NOTE | 2023-06-17 13:03 | WOUNDNOTE ---
In to reassess bilateral lower legs. removed the DAXA wraps and dressings. there was no drainage noted on the old dressings. the redness and edema are greatly improved to the RLE. no open wounds noted at this time. washed legs and feet with soap and water. pat dry. applied Kerlix and DAXA wraps from the base of the toes to just below the knees. pt tolerated well. present at bedside as well. will continue to monitor.
--- NOTE | 2023-06-17 13:05 | CASEMGMT ---
RN SHANKAR notified that patient will need oxygen at discharge. Patient prefers [employer]. Script received and referral sent to [employer] via [facility] and arranged for tank to be delivered to patient's room. ROSEANNE CHAPARRO in to notify oxygen patient of oxygen setup. Patient and deny further needs at discharge. RN SHANKAR encouraged patient to follow-up with PCP should needs arise, patient voiced understanding. Patient had no further questions or concerns.
--- NOTE | 2023-06-17 13:31 | PCM.DC ---
Discharge Instructions Diet Discharge Diet: 1800 Calorie Control Diet Activity Discharge Activity: Return to Normal Activity Weight Bearing Status: Full weight bearing Follow Up Care Test Results: Test results from this visit will be discussed in further detail at your follow-up appointment, if applicable. Discharge Plan Admission Admit Date/Time: 06/13/23 11:42 Primary Reason for Your Visit: Hypoxia, CHF Attending Provider: Ayo Rosenbaum Primary Care Provider: Casey Handley Consulting Providers: Gordy Payne; Tyler Steel; Fredi Schmid; Rupert Fuller; Santana Keller; Davin Storm; Georgina Campuzano NURSING STAFF DEVELOPMENT COORDINATOR Instructions Additional Instructions / Restrictions: Remain on 70/30 insulin 10 units twice a day Discharge Orders/Prescriptions Prescriptions: New potassium chloride 10 mEq tablet extended release 20 meq PO DAILY Qty: 60 0RF Continued gabapentin 800 mg tablet 800 mg PO TID Qty: 270 1RF allopurinol 100 MG tablet 100 mg PO DAILY glimepiride 2 mg tablet 2 mg PO BID nitroglycerin 0.4 mg Tablet, Sublingual 0.4 mg sublingual Q5M PRN (Reason: Cardiac/Chest Pain) Qty: 0 0RF aspirin 81 mg tablet,delayed release (DR/EC) 81 mg PO DAILY ropinirole 1 mg tablet 1 mg PO QHS LIVER AID tablet 2 tab PO DAILY Patient Comments: OTC LIVER SUPPLEMENT. PT TAKES 2 TABLETS ONCE DAILY. FIBER 1 GM tablet 1 tab PO DAILY NERVE REGEN capsule 1 cap PO BID Patient Comments: OTC NERVE SUPPORT SUPPLEMENT. PT TAKE 1 CAPSULE TWICE DAILY. CONTAINS THE FOLOWING: VITAMIN D/12.5MCG VITAMIN B6/4MG VITAMIN B12/2000MCG ACETYL L-CARNITINE HCL/ 500MG BENFOTIAMINE/300MG [id number] ACID/ 150MG ALPHA-LIPOIC ACID/ 150MG BLOOD SUGAR capsule 1 cap PO DAILY Patient Comments: OTC DIABETES SUPPLEMENT. PT TAKES 1 CAPSULE DAILY. CONTAINS THE FOLLOWING: VITAMIN C/50MG VITAMIN E/15MG BIOTIN/300MCG MAGNESIUM OXIDE/250MG ZINC/7.5MG COPPER/1MG MANGANESE/1MG CHROMIUM/35MCG melatonin 10 mg tablet 10 mg PO QHS amlodipine 5 mg tablet 5 mg PO QPM indomethacin 25 mg capsule 25 mg PO BID PRN (Reason: GOUT) Rx Instructions: administer with food or milk warfarin 5 mg tablet 5 mg PO QPM Hold Instructions: Resume on 04/22/23. Changed furosemide [Lasix] 40 mg tablet 40 mg PO BIDCM Qty: 60 0RF Referrals / Follow Up: Casey Handley DO [Primary Care Provider] - In 1 Week Georgina Campuzano NP, NURSING STAFF DEVELOPMENT COORDINATOR-C [Med Staff - [facility] Practice Prof] - 07/22/23 9:45 am Disposition Disposition (needs filled in before D/C Order can be placed): Home, Self Care
--- NOTE | 2023-06-17 14:10 | PCM.DC.SUM ---
Providers Date of Admission: 06/13/23 Date of Discharge: 06/17/23 Primary Care Physician: Dr. Casey Handley, Consultations 06/14/23 08:31 Consult: Onc/Wound/deep fryer assembler Routine Comment: Reason for Consult:: Right lower leg wound 06/17/23 09:46 Consult: Salvage Winder And Inspector / Pulmonary Medicine Routine Consulting Provider: Pulmonary Medicine ruy Flippin Reason for Consult: hypoxia EMERGENT Consult: No MD Notified: Yes Date Notified: 06/17/23 Time Notified: 09:46 Method of Notification: Verbal Reason For Visit: HYPOXIA RESP FAILURE Diagnosis Discharge Diagnosis (1) Hypoxia: Status: Acute Code(s): R09.02 - Hypoxemia Plan 1. Acute hypoxic respiratory failure secondary to diastolic congestive heart failure and atelectasis #2 acute on chronic diastolic congestive heart failure #3 obstructive sleep apnea #4 morbid obesity #5 coronary artery disease #6 type 2 diabetes #7 chronic atrial flutter #8 hyperlipidemia Medications at Discharge Home Medications allopurinol 100 mg tablet 100 mg PO DAILY GOUT 09/21/15 nitroglycerin 0.4 mg sublingual tablet 0.4 mg sublingual Q5M PRN Cardiac/Chest Pain #0 tabs 06/30/21 glimepiride 2 mg tablet 2 mg PO BID DIABETES 12/26/21 gabapentin 800 mg tablet 800 mg PO TID RESTLESS LEGS #270 tabs 05/15/22 aspirin 81 mg tablet,delayed release 81 mg PO DAILY HEART HEALTH 01/07/23 indomethacin 25 mg capsule 25 mg PO BID PRN GOUT 02/28/23 warfarin 5 mg tablet 5 mg PO QPM BLOOD THINNER 02/28/23 ropinirole 1 mg tablet 1 mg PO QHS RESTLESS LEGS 04/18/23 BLOOD SUGAR 1 cap PO DAILY SUPPLEMENT 06/13/23 FIBER 1 tab PO DAILY SUPPLEMENT 06/13/23 LIVER AID 2 tab PO DAILY LIVER SUPPLEMENT 06/13/23 NERVE REGEN 1 cap PO BID NERVE PAIN SUPPLEMENT 06/13/23 amlodipine 5 mg tablet 5 mg PO QPM BLOOD PRESSURE 06/13/23 melatonin 10 mg tablet 10 mg PO QHS 06/13/23 furosemide 40 mg tablet (Lasix) 40 mg PO BIDCM EDEMA #60 tabs 06/17/23 potassium chloride 10 mEq tablet,extended release 20 meq (2 x 10 mEq) PO DAILY #60 tabs 09/18/23 Hospital Course Operations None Procedures None Summary of Care Provided Minutes Spent on Discharge: 31 Hospital Course: This 77-year-old white male was seen in the emergency room at [facility] with complaints of increased shortness of breath over 3 days, he was found to have a pulse ox of 78% on room air and was placed on oxygen in triage. Work-up in the emergency room included labs which showed an elevated white blood cell count 12.5, creatinine was elevated at 1.73 and BUN was 42. Chest x-ray showed stable pleural-parenchymal changes at the right lung base with prior right rib fractures, EKG showed evidence of atrial flutter with a right bundle branch block. Patient was admitted to PCU for hypoxia and acute on chronic congestive heart failure, he was given IV Lasix, he was seen in consultation by pulmonary medicine. Patient's medical condition improved during his hospitalization, On 06/17/2023, patient was seen and examined: On examination he appeared in good health and spirits. Vital signs as documented. Skin warm and dry and without overt rashes. Neck without JVD, neck was supple, trachea midline, thyroid was normal. Lungs clear bilaterally, normal air movement was noted. Heart exam notable for irregular rhythm, normal sounds and absence of murmurs, rubs or gallops. Abdomen unremarkable and without evidence of organomegaly, masses, or abdominal aortic enlargement. Bowel sounds are present, abdomen is not distended. Extremities nonedematous, no cyanosis was noted, no clubbing was noted. Neuro: Cranial nerves II through XII are grossly intact, no focal motor deficits were noted, sensation to light touch and pinprick intact, motor exam 5/5 throughout. Psych: Patient is alert and oriented x3, he does not appear anxious or depressed, he does not appear agitated. At the time of discharge on 06/17/2023, patient required oxygen at 2 L while ambulating only, he was expected to use oxygen inside his home and outside his home during ADLs. Patient was discharged in stable condition on 06/17/2023. Weight / BMI Weight Weight: 129.8 kg Body Mass Index (BMI) 42.3 ABG / Lab / Microbiology Data 06/17/23 06:10 06/17/23 06:10 Laboratory: Laboratory Results - last 24 hr 06/16/23 16:13: POC Glucose 322 H 06/16/23 20:59: POC Glucose 362 H 06/17/23 06:10: WBC 10.7, RBC 4.30 L, Hgb 12.7 L, Hct 39.4 L, MCV 91.6, MCH 29.5, MCHC 32.2, RDW Std Deviation 48.5 H, RDW Coeff of Ag 14.5, Plt Count 323, MPV 10.1, Immature Gran % (Auto) 0.700, Neut % (Auto) 75.7 H, Lymph % (Auto) 17.4 L, [place]ick % (Auto) 5.1, Eos % (Auto) 0.9, Baso % (Auto) 0.2, Absolute Neuts (auto) 8.1 H, Absolute Lymphs (auto) 1.86, Nucleated RBC % 0, PT 31.9 H, INR 3.0, Sodium 138, Potassium 4.3, Chloride 102, Carbon Dioxide 33.0 H, Anion Gap 3 L, BUN 31 H, Creatinine 1.11, Estim Creat Clear Calc 54.85, Est GFR (MDRD) Af Amer 82, Est GFR (MDRD) Non-Af 68, BUN/Creatinine Ratio 27.9 H, Glucose 219 H, Calcium 8.6 06/17/23 08:04: POC Glucose 195 H 06/17/23 11:21: POC Glucose 241 H Microbiology: Microbiology 06/13/23 16:45 Nasal Secretion SARS-CoV-2 & FLU Antigen (Rapid) - Final 06/13/23 11:09 Mucosa - Nasopharyngeal Respiratory Panel (PCR) - Final D/C Instructions Discharge Diet: 1800 Calorie Control Diet Weight Bearing Status: Full weight bearing Meaningful Use Info Meaningful Use Diagnoses (Choose all that apply): CHF CHF DAXA/ARB ordered at discharge?: No Reason DAXA/ARB not ordered?: Not indicated Documented LVEF (%): 60 Discharge Plan Admission Admit Date/Time: 06/13/23 11:42 Primary Reason for Your Visit: Hypoxia, CHF Attending Provider: Ayo Rosenbaum Primary Care Provider: Casey Handley Consulting Providers: Gordy Payne; Tyler Steel; Fredi Schmid; Rupert Fuller; Santana Keller; Davin Storm; Georgina Campuzano GAMES MANAGER Instructions Additional Instructions / Restrictions: Remain on 70/30 insulin 10 units twice a day Use oxygen at 2 L/min via nasal cannula on activity and while sleeping Discharge Orders/Prescriptions Prescriptions: New potassium chloride 10 mEq tablet extended release 20 meq PO DAILY Qty: 60 0RF Continued gabapentin 800 mg tablet 800 mg PO TID Qty: 270 1RF allopurinol 100 MG tablet 100 mg PO DAILY glimepiride 2 mg tablet 2 mg PO BID nitroglycerin 0.4 mg Tablet, Sublingual 0.4 mg sublingual Q5M PRN (Reason: Cardiac/Chest Pain) Qty: 0 0RF aspirin 81 mg tablet,delayed release (DR/EC) 81 mg PO DAILY ropinirole 1 mg tablet 1 mg PO QHS LIVER AID tablet 2 tab PO DAILY Patient Comments: OTC LIVER SUPPLEMENT. PT TAKES 2 TABLETS ONCE DAILY. FIBER 1 GM tablet 1 tab PO DAILY NERVE REGEN capsule 1 cap PO BID Patient Comments: OTC NERVE SUPPORT SUPPLEMENT. PT TAKE 1 CAPSULE TWICE DAILY. CONTAINS THE FOLOWING: VITAMIN D/12.5MCG VITAMIN B6/4MG VITAMIN B12/2000MCG ACETYL L-CARNITINE HCL/ 500MG BENFOTIAMINE/300MG [id number] ACID/ 150MG ALPHA-LIPOIC ACID/ 150MG BLOOD SUGAR capsule 1 cap PO DAILY Patient Comments: OTC DIABETES SUPPLEMENT. PT TAKES 1 CAPSULE DAILY. CONTAINS THE FOLLOWING: VITAMIN C/50MG VITAMIN E/15MG BIOTIN/300MCG MAGNESIUM OXIDE/250MG ZINC/7.5MG COPPER/1MG MANGANESE/1MG CHROMIUM/35MCG melatonin 10 mg tablet 10 mg PO QHS amlodipine 5 mg tablet 5 mg PO QPM indomethacin 25 mg capsule 25 mg PO BID PRN (Reason: GOUT) Rx Instructions: administer with food or milk warfarin 5 mg tablet 5 mg PO QPM Hold Instructions: Resume on 04/22/23. Changed furosemide [Lasix] 40 mg tablet 40 mg PO BIDCM Qty: 60 0RF Referrals / Follow Up: Casey Handley DO [Primary Care Provider] - 06/24/23 2:00 pm Georgina Campuzano NP, GAMES MANAGER-C [Med Staff - Count Includes [facility] Practice Prof] - 07/22/23 9:45 am Disposition Disposition (needs filled in before D/C Order can be placed): Home, Self Care Charges/Coding Visit Charges Inpatient E&M: 18418 Disch Hosp >30min
--- NOTE | 2023-06-17 14:44 | PHA.DC.MC.R ---
Pharmacy [facility] has performed discharge medication reconciliation and counseling for this patient. The patient's discharge medication list was reviewed for discrepancies and discrepancies were resolved. The patient was counseled on the following discharge medications and changes in medications for homegoing were reviewed. The Reason for Use, instructions for use, and potential side effects were reviewed for all new medications. The patient's questions regarding all of their medications were answered. 1. Furosemide 40 mg PO daily 2. Potassium chloride 20 mEq PO daily The patient was able to verbally demonstrate an understanding of their discharge medications. Medications at Discharge Home Medications allopurinol 100 mg tablet 100 mg PO DAILY GOUT 09/21/15 nitroglycerin 0.4 mg sublingual tablet 0.4 mg sublingual Q5M PRN Cardiac/Chest Pain #0 tabs 06/30/21 glimepiride 2 mg tablet 2 mg PO BID DIABETES 12/26/21 gabapentin 800 mg tablet 800 mg PO TID RESTLESS LEGS #270 tabs 05/15/22 aspirin 81 mg tablet,delayed release 81 mg PO DAILY HEART HEALTH 01/07/23 indomethacin 25 mg capsule 25 mg PO BID PRN GOUT 02/28/23 warfarin 5 mg tablet 5 mg PO QPM BLOOD THINNER 02/28/23 ropinirole 1 mg tablet 1 mg PO QHS RESTLESS LEGS 04/18/23 BLOOD SUGAR 1 cap PO DAILY SUPPLEMENT 06/13/23 FIBER 1 tab PO DAILY SUPPLEMENT 06/13/23 LIVER AID 2 tab PO DAILY LIVER SUPPLEMENT 06/13/23 NERVE REGEN 1 cap PO BID NERVE PAIN SUPPLEMENT 06/13/23 amlodipine 5 mg tablet 5 mg PO QPM BLOOD PRESSURE 06/13/23 melatonin 10 mg tablet 10 mg PO QHS 06/13/23 furosemide 40 mg tablet (Lasix) 40 mg PO BIDCM EDEMA #60 tabs 06/17/23 potassium chloride 10 mEq tablet,extended release 20 meq (2 x 10 mEq) PO DAILY #60 tabs 06/17/23
== END 2023-06-17 15:57 | disposition home or self-care (01) | DRG 189 ==
LOC: ED 10:09 → PCU 13:15
PROVIDERS: Admitting Provider Family Medicine; Emergency Provider Emergency Medicine; PCP Family Medicine; Visit Provider Internal Medicine
DX: J96.01 Acute respiratory failure with hypoxia (principal); I50.33 Acute on chronic diastolic (congestive) heart failure; I48.19 Other persistent atrial fibrillation; I48.92 Unspecified atrial flutter; L03.115 Cellulitis of right lower limb; I13.0 Hypertensive heart and chronic kidney disease with heart failure and stage 1 through stage 4 chronic kidney disease, or unspecified chronic kidney disease; Z68.41 Body mass index [BMI] 40.0-44.9, adult; E11.22 Type 2 diabetes mellitus with diabetic chronic kidney disease; N18.30 Chronic kidney disease, stage 3 unspecified; E66.01 Morbid (severe) obesity due to excess calories; I25.10 Atherosclerotic heart disease of native coronary artery without angina pectoris; E78.5 Hyperlipidemia, unspecified; G47.33 Obstructive sleep apnea (adult) (pediatric); I25.2 Old myocardial infarction; Z91.199 Patient's noncompliance with other medical treatment and regimen due to unspecified reason; Z95.5 Presence of coronary angioplasty implant and graft; Z77.22 Contact with and (suspected) exposure to environmental tobacco smoke (acute) (chronic); Z79.01 Long term (current) use of anticoagulants; Z79.82 Long term (current) use of aspirin; Z79.84 Long term (current) use of oral hypoglycemic drugs; Z79.899 Other long term (current) drug therapy; Z86.73 Personal history of transient ischemic attack (TIA), and cerebral infarction without residual deficits
CPT/HCPCS: 36415; 36600; 71045; 71275; 80048; 80053; 82803; 82962; 83605; 83880; 84484; 85025; 85379; 85610; 87428; 87633; 93005; 94002; 94003; 94640; 94668; 97110; 97116; 97162; 97166; 97530; 97535; 99252; 99285; Q9967; A4216; G0463; J1940

== ENCOUNTER → 2023-06-27 | Outpatient (CLI) | payer SELFPAY ==
[2017-12-20 14:12] VITALS: BMI 40.4
--- NOTE | 2023-06-27 13:51 | CT_ITS ---
EXAM: CT ABDOMEN AND PELVIS WITH INTRAVENOUS CONTRAST CLINICAL INDICATION: BACK PAIN TECHNIQUE: Helically acquired images were obtained of the abdomen and pelvis with intravenous contrast. This CT exam was performed using one or more of the following dose reduction techniques: automated exposure control, adjustment of the mA and/or kV according to patient size, and/or use of iterative reconstruction technique. CONTRAST: IV 100mL [id number], redicat COMPARISON: No relevant prior studies available. FINDINGS: LOWER THORAX: Unremarkable. Lung bases are clear. No cardiomegaly. No significant pericardial effusion. ABDOMEN: LIVER: Unremarkable. Homogeneous. No focal mass. GALLBLADDER AND BILE DUCTS: Unremarkable. No calcified gallstones. No gallbladder distention or wall edema. No intra- or extrahepatic biliary ductal dilation. PANCREAS: Unremarkable. No focal cystic or solid mass. SPLEEN: Unremarkable. Normal size without focal cystic or solid mass. ADRENALS: Unremarkable. No nodules. KIDNEYS AND URETERS: Unremarkable. Normal renal size and position. No hydronephrosis. STOMACH AND BOWEL: Unremarkable. No stomach or bowel distention. No focal inflammatory change. PELVIS: APPENDIX: No evidence of acute appendicitis. BLADDER: Unremarkable. REPRODUCTIVE: Unremarkable as visualized. No mass. ABDOMEN and PELVIS: INTRAPERITONEAL SPACE: Unremarkable. No ascites or other fluid collection. No free air. BONES/JOINTS: There are mild degenerative changes in the lower lumbar spine. There are several old right-sided rib fractures. There is hardware across some of the fractures. No suspicious lytic or blastic abnormality. SOFT TISSUES: Unremarkable. No discrete abdominal or pelvic wall hernia. VASCULATURE: Unremarkable. Abdominal aorta is non-dilated. LYMPH NODES: Unremarkable. No enlarged lymph nodes. TUBES, LINES AND DEVICES: A small bore catheter extending from the spinal canal into the left mid abdomen. CT/Abdomen/Pelvis WITH Contrast IMPRESSION: Small bore catheter extending from the spinal canal into the abdomen. There are no acute abnormalities in the abdomen and pelvis. Electronically Signed: Ko Matute MD at 19:09 EDT ,
== END | disposition home or self-care (01) ==
LOC: CT 13:46
PROVIDERS: PCP Family Medicine; Referring Provider Family Medicine; Visit Provider Family Medicine
DX: M54.9 Dorsalgia, unspecified (principal)
CPT/HCPCS: 74177; Q9967

== ENCOUNTER → 2023-08-14 | Outpatient (CLI) | payer SELFPAY ==
[2017-12-20 14:12] VITALS: BMI 40.4
[2023-08-14 09:53] LABS: Absolute Neutrophil Count 4.1 X10^3/uL (2.0-7.7); Basophil# 0.03 X10^3/uL; Basophil% 0.5 % (0-1); Eosinophil# 0.16 X10^3/uL; Eosinophils% 2.5 % (0-5); Hematocrit 42.1 % (40-54); Lymphocyte % 24.6 % (19-41); Mean Corp Hgb Conc 30.9 g/dL (32-36); Mean Corpuscular Hgb 27.8 pg (27.0-32.0); Mean Corpuscular Volume 90.1 fL (80-94); Mean Platelet Vol. 10.1 fl (6.2-12.0); Monocyte# 0.63 X10^3/uL; Monocyte% 9.7 % (0-10); NRBC Flagged by Analyzer 0 % (0-5); Neutrophil # 4.07 X10^3/uL (2.7-7.7); Neutrophil % 62.4 % (47-70); Platelet Count 283 K/mm3 (150-450); RBC Distribution Width CV 14.4 % (11.6-14.6); RBC Distribution Width SD 47.3 fl (35.1-43.9); Red Blood Count 4.67 M/mm3 (4.6-6.2); White Blood Count 6.5 K/mm3 (4.4-11.0)
[2023-08-14 10:17] LABS: Anion Gap 3 (5-15); BUN 32 mg/dL (7-18); BUN/Creat Ratio 23.9 RATIO (10-20); Calcium,Total 8.8 mg/dL (8.5-10.1); Chloride 101 mmol/L (98-107); Creatinine, Serum 1.34 mg/dL (0.70-1.30); EST Glomerular Filtration Rate 55 mL/min (>60); Est Glom Filt Rate - Afr Amer 66 mL/min (>60); Glucose 280 mg/dL (74-106); Potassium 4.2 mmol/L (3.5-5.1); Sodium Level 138 mmol/L (136-145)
[2023-08-14 10:18] LABS: BNP,B-Type NATRIURETIC PEPTIDE 59.7 pg/mL (0-100)
== END | disposition home or self-care (01) ==
PROVIDERS: PCP Family Medicine; Referring Provider Nurse Practitioner Gerontology; Visit Provider Nurse Practitioner Gerontology
DX: R06.09 Other forms of dyspnea (principal)
CPT/HCPCS: 36415; 80048; 83880; 85025

== ENCOUNTER → 2024-01-02 | Outpatient (CLI) | payer SELFPAY ==
[2017-12-20 14:12] VITALS: BMI 40.4
== END | disposition home or self-care (01) ==
LOC: SL 20:52
PROVIDERS: PCP Family Medicine; Visit Provider Nurse Practitioner Acute Care
DX: G47.33 Obstructive sleep apnea (adult) (pediatric) (principal); Z99.89 Dependence on other enabling machines and devices
CPT/HCPCS: 95811

== ENCOUNTER → 2024-01-16 | Outpatient (CLI) | payer SELFPAY ==
[2017-12-20 14:12] VITALS: BMI 40.4
[2024-01-16 11:17] LABS: AST(SGOT) 21 U/L (15-37); Alanine Aminotransfer ALT/SGPT 26 U/L (16-61); Albumin, Serum 3.1 g/dL (3.2-5.0); Alkaline Phosphatase 73 U/L (45-117); Bilirubin, Direct 0.16 mg/dL (0.00-0.30); Cholesterol 221 mg/dL (200); Globulin 4.3 g/dL (2.2-4.2); High Density Lipoprotein 37 mg/dL; Protein, Total 7.4 g/dL (6.4-8.2); Triglycerides 223 mg/dL; Very Low Density Lipoprotein 45 mg/dL (5-40)
== END | disposition home or self-care (01) ==
LOC: LAB 09:24
PROVIDERS: PCP Family Medicine; Visit Provider Nurse Practitioner Gerontology
DX: E78.5 Hyperlipidemia, unspecified (principal)
CPT/HCPCS: 36415; 80061; 80076

== ENCOUNTER → 2024-04-28 | Outpatient (CLI) | payer SELFPAY ==
[2017-12-20 14:12] VITALS: BMI 40.4
[2024-04-28 13:59] LABS: Amphetamine Urine VISTA NEGATIVE (<1000 ng/mL); Barbiturate Urine VISTA NEGATIVE (< 200 ng/mL); Benzodiazepine Urine VISTA NEGATIVE (< 200 ng/mL); Cocaine Urine VISTA NEGATIVE (< 300 ng/mL); Ecstacy Urine VISTA NEGATIVE (< 500 ng/mL); Methadone Urine VISTA NEGATIVE (< 300 ng/mL); PCP Urine VISTA NEGATIVE (< 25 ng/mL); THC Urine VISTA POSITIVE (< 50 ng/mL); Vista UDS pH Range 5
== END | disposition home or self-care (01) ==
PROVIDERS: PCP Family Medicine; Referring Provider Anesthesiology; Visit Provider Anesthesiology
DX: F11.20 Opioid dependence, uncomplicated (principal)
CPT/HCPCS: 80307